=== PATIENT | male | born 1945 | race African-American/Black ===

== ENCOUNTER 2017-03-02 06:02 | Inpatient (IN) | payer MEDICARE, MEDICAID ==
--- NOTE | 2017-03-02 07:17 | ED Physician Chart ---
ED Chief Complaint/HPI - Patient Information Date Seen:: 03/02/17 Time Seen:: 07:05 Chief Complaint:: disruptive behavior History of Present Illness:: Patient has been exhibiting disruptive behavior and [facility]. Allergies:: Allergies Allergy/AdvReac Type Severity Reaction Status Date / Time benztropine [From Cogentin] Allergy Verified 03/02/17 06:11 Vitals:: Vital Signs - 8 hr 03/02/17 06:15 Temp 98.2 F HR 48 RR 18 BP 135/84 O2 Sat % 99 Historian:: Patient, Medical Records Review:: Transfer documents Reviewed <Sebastian Hay - Last Filed: 03/02/17 07:12> - Patient Information Allergies:: Allergies Allergy/AdvReac Type Severity Reaction Status Date / Time benztropine [From Cogentin] Allergy Verified 03/02/17 06:11 Vitals:: Vital Signs - 8 hr 03/02/17 06:15 Temp 98.2 F HR 48 RR 18 BP 135/84 O2 Sat % 99 <Gurpreet Lozada - Last Filed: 03/02/17 07:49> ED Review of Systems - Review of Systems General/Constitutional: No fever, No chills Skin: No skin lesions Head: No headache ENT: No earache Neck: No neck pain, No swelling Cardio Vascular: No chest pain, No palpitations Pulmonary: No SOB, No cough GI: No nausea, No vomiting, No diarrhea G/U: No dysuria, No frequency, No nacturia Musculoskeletal: No bone or joint pain Endocrine: No polyuria Psychiatric: Prior psych history Hematopoietic: No bruising Allergic/Immuno: No urticaria Neurological: No syncope <Sebastian Hay - Last Filed: 03/02/17 07:12> ED Past Medical History - Past Medical History Past Medical History: HTN, CHF (status post cerebrovascular accident; schizophrenia; anemia), Other Family History: Other (unavailable) Social History: Care Facility Surgical History: other Psychiatricy History: Schizophrenia, Other (psychosis) <Sebastian Hay - Last Filed: 03/02/17 07:12> Family Medical History - Family Member Mother History Unknown: Yes <Sebastian Hay - Last Filed: 03/02/17 07:12> ED Physical Exam - Physical Examination General/Constitutional: No distress Other Gen/Cons comments:: Mildly chronically ill-appearing; rambling incomprehensible speech Head: Atraumatic Eyes: Lids, conjuctiva normal, PERRL Skin: Nl inspection, No rash, No skin lesions, No ecchymosis ENMT: External ears, nose nl, Oropharynx nl, Tonsils nl (edentulous) Neck: No nuchal rigidity Respiratory: Nl effort/Exclusion, Clear to Auscultation Cardio Vascular: RRR, No murmur, gallop, rubs GI: No tenderness/rebounding/guarding, No organomegaly, No hernia : No CVA tenderness Extremities: Normal digits & nails Other Extremities comments:: 2.5 out of 4 pretibial pitting edema Neuro/Psych: No focal deficits <Sebastian Hay - Last Filed: 03/02/17 07:12> ED Labs/Radiology/EKG Results - Lab Results Results: Laboratory Tests 03/02/17 03/02/17 07:01 07:01 WBC 3.2 L RBC 3.58 L Hgb 11.2 L Hct 33.7 L MCV 94.2 MCH 31.4 H MCHC Differential 33.4 RDW 13.6 Plt Count 138 L MPV 8.4 Neutrophils % 71.9 Lymphocytes % 21.1 Monocytes % 5.8 Eosinophils % 1.0 Basophils % 0.2 Sodium 140 Potassium 3.4 L Chloride 106 Carbon Dioxide 30.1 Anion Gap 7.3 BUN 27 H Creatinine 1.0 Est GFR ( Amer) > 60.0 Est GFR (Non-Af Amer) > 60.0 BUN/Creatinine Ratio 27.0 Glucose 77 Calcium 9.2 Total Bilirubin 0.4 AST 51 H ALT 52 Alkaline Phosphatase 46 Total Protein 6.1 Albumin 3.4 L Globulin 2.7 Albumin/Globulin Ratio 1.3 Comments:: Abnormal labs were hemoglobin of 11.2, hematocrit 33.7, platelets 138 K, potassium at 3.4, white blood cell count of 3.2 K - EKG Interpretations Rate & Rhythm: sinus bradycardia with a rate of 47; left axis deviation; 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 Patient is medically stable to be admitted to [facility] <Gurpreet Lozada - Last Filed: 03/02/17 07:49> ED Septic Shock - <6hrs of presentation: Vital Signs: Vital Signs - 8 hr 03/02/17 06:15 Temp 98.2 F HR 48 RR 18 BP 135/84 O2 Sat % 99 <Sebastian Hay - Last Filed: 03/02/17 07:12> - . Is Septic Shock (SBP<90, OR Lactate>4 mmol\L) present?: No - <6hrs of presentation: Vital Signs: Vital Signs - 8 hr 03/02/17 06:15 Temp 98.2 F HR 48 RR 18 BP 135/84 O2 Sat % 99 <Gurpreet Lozada - Last Filed: 03/02/17 07:49> ED Reassessment (Disposition) - Reassessment Reassessment Condition:: Unchanged - Diagnosis Diagnosis:: Psychosis; schizophrenia disruptive behavior; dementia - Patient Disposition Admitting Medical Physician:: Derian Mcleod Admitting Psych Physician:: Allison Romero Condition at Disposition:: Stable, Unchanged <Gurpreet Lozada - Last Filed: 03/02/17 07:49>
[2017-03-02 07:18] LABS: % BASOPHILS 0.2 % (0.0-2.0); % LYMPHOCYTES 21.1 % (20.0-50.0); % MONOCYTES 5.8 % (2.0-10.0); % NEUTROPHILS 71.9 % (40.0-80.0); HEMATOCRIT 33.7 % (41.0-60); HEMOGLOBIN 11.2 gm/dL (12-16); LYMPHOCYTE ABSOLUTE 0.7 Th/cmm (1.5-3.0); MEAN CELL VOLUME 94.2 fl (80-99); MEAN CORPUSCULAR HEMOGLOBIN 31.4 pg (27.0-31.0); MEAN CORPUSCULAR HGB CONC 33.4 pg (28.0-36.0); MEAN PLATELET VOLUME 8.4 fl; MONOCYTE ABSOLUTE 0.2 Th/cmm (0.3-1.0); NEUTROPHILE ABSOLUTE 2.3 Th/cmm (1.8-8.0); PLATELET COUNT 138 Th/cmm (150-400); RED BLOOD COUNT 3.58 Mil/cmm (3.80-5.80); RED CELL DISTRIBUTION WIDTH 13.6 % (11.5-20.0)
[2017-03-02 07:25] LABS: ALB/GLOB RATIO 1.3 (1.0-1.8); ALBUMIN 3.4 gm/dL (4.2-5.5); ALKALINE PHOSPHATASE 46 U/L (34-104); ANION GAP 7.3 (7.0-16.0); BILIRUBIN,TOTAL 0.4 mg/dL (0.3-1.0); BUN - UREA NITROGEN 27 mg/dL (7-25); CALCIUM SERUM 9.2 mg/dL (8.6-10.3); CARBON DIOXIDE 30.1 mEq/L (21.0-31.0); CHLORIDE 106 mEq/L (98-107); GFR AFRICAN-AMERICAN > 60.0 ml/min (>90); GFR NON AFRICAN-AMERICAN > 60.0 ml/min; GLUCOSE 77 mg/dL (70-105); POTASSIUM SERUM 3.4 mEq/L (3.5-5.1); SGOT 51 U/L (13-39); SGPT/ALT 52 U/L (7-52); SODIUM SERUM 140 mEq/L (136-145); TOTAL PROTEIN,SERUM 6.1 gm/dL (6.0-8.3)
[2017-03-02 07:35] LABS: WHITE BLOOD COUNT 3.2 Th/cmm (4.8-10.8)
[2017-03-02] MEDS ORDERED: Potassium Chloride 20 mEq ER Tab PO ONE ×2 (07:50→08:06)
[2017-03-02 09:07] VITALS: BP 147/81
[2017-03-02] MEDS ORDERED: Maalox 30 mL Cup PO PRN (13:36)
[2017-03-02] MEDS ORDERED: Magnesium Hydroxide (MOM) 30 mL UDC PO PRN ×2 (13:36→15:25)
[2017-03-02 14:12] LABS: URINE MICROSCOPIC INDICATED? YES; URINE SOURCE MIDSTREAM
[2017-03-02 14:28] LABS: URINE BILIRUBIN NEGATIVE (NEGATIVE); URINE BLOOD NEGATIVE (NEGATIVE); URINE GLUCOSE (UA) NEGATIVE (NEGATIVE); URINE KETONE NEGATIVE (NEGATIVE); URINE LEUKOCYTE ESTERASE NEGATIVE (NEGATIVE); URINE NITRATE NEGATIVE (NEGATIVE); URINE PH 5.5 (4.6 - 8.0); URINE PROTEIN NEGATIVE (NEGATIVE); URINE UROBILINOGEN 0.2 E.U./dL (0.2 - 1.0)
[2017-03-02 14:36] LABS: URINE COLOR YELLOW
[2017-03-02 14:41] LABS: URINE CLARITY CLEAR (CLEAR)
[2017-03-02 14:44] LABS: URINE EPITHELIAL CELLS OCCASIONAL /lpf (FEW); URINE WBC 0-2 /hpf (0-5)
[2017-03-02] MEDS ORDERED: Acetaminophen 500 MG TAB PO PRN (15:25)
[2017-03-02] MEDS: Ferrous Sulfate 325 MG TAB PO SCH (21:30)
[2017-03-03] MEDS ORDERED: Haloperidol Lactate 5 mg/mL 1mL Vial IM STA (07:21)
[2017-03-03] MEDS ORDERED: Haloperidol Lactate 5 mg/mL 1mL Vial ONE (07:21)
[2017-03-03] MEDS: Ferrous Sulfate 325 MG TAB PO SCH ×4 (09:37→20:35)
[2017-03-03] MEDS: Aspirin 81mg Chewable Tab PO SCH (09:37)
--- NOTE | 2017-03-03 10:30 | Psychosocial Evaluation ---
DATE OF SERVICE: PSYCHIATRIC INITIAL EVALUATION AND MENTAL STATUS EXAMINATION AGE: 71. SEX: Male. PHYSICIAN: Dr. Romero. CHIEF COMPLAINT: Agitation and irritable mood. HISTORY OF PRESENT ILLNESS: The patient is a 71-year-old male who was transferred from [facility] because of increased agitation and increased irritability. The patient also has been unable to follow any of the staff directions and start to strike out towards staff. He also is not able to follow any of the staff directions. Chart reviewed and interviewed the patient. The patient has been in irritable and angry mood and the patient during my interview was actively responding to stimuli and at times talking to himself, also disheveled. Also, he was rambling and thought processes were circumstantial with flight of ideas. PAST PSYCHIATRIC HISTORY: The patient has history of what seems to be psychosis and dementia. PAST MEDICAL HISTORY: The patient denies. SOCIAL HISTORY: The patient lives in [place]. He is single, never , and has no children. The patient said that he smokes 1 pack of cigarette per day. He denies alcohol or street drug use. ALLERGIES: No known allergies. MENTAL STATUS EXAMINATION: The patient appears his stated age. Irritable mood. Disheveled. Thought processes are circumstantial with flight of ideas. The patient denies any auditory or visual hallucinations, but actively responding to stimuli and actively hallucinating. He denies any thoughts of suicide or homicide as he was agitated and striking out in the correction. The patient is alert and oriented to the situation, but not to the place or time or person. Impaired immediate and recent memory, but intact remote memory and he did remember his date, but he did not remember where he lives now. Poor insight and poor judgment. ASSESSMENT: PRIMARY DIAGNOSIS: Unspecified psychosis. SECONDARY DIAGNOSIS: Dementia, moderate to severe, with psychotic features. TREATMENT PLAN: We will monitor his behavior and his condition closely. We will monitor psychotropic medications and followup. ESTIMATED LENGTH OF STAY: 5-7 days. THE PATIENT'S STRENGTHS AND WEAKNESSES: The patient's strength is not clear at this time. Weakness is in ineffective coping. AFTER DISCHARGE PLAN: Outpatient treatment and followup. JOB# [id number]
[2017-03-04] MEDS: Aspirin 81mg Chewable Tab PO SCH (08:20)
[2017-03-04] MEDS: Multivitamin Tab PO SCH (08:20)
[2017-03-04] MEDS: Ferrous Sulfate 325 MG TAB PO SCH ×3 (08:20→20:23)
--- NOTE | 2017-03-04 09:01 | History & Physical ---
ADMIT DATE: 03/04/2017 CHIEF COMPLAINT: Agitation. HISTORY OF PRESENT ILLNESS: This is a 71-year-old male, who was brought in to the Emergency Room from a senior care facility due to increased agitation and disruptive behaviors. REVIEW OF SYSTEMS: GENERAL: This is a 71-year-old male that appears as stated. Denies any fever. Denies any chills. HEAD: Denies any headache. Denies any dizziness. Denies any lightheadedness. EYES: Denies any eye pain. Denies blurring of vision. NECK: Denies any neck pain. Denies nuchal rigidity. CHEST: Denies any chest pain. Denies any palpitation. PULMONARY: Denies shortness of breath. Denies coughing. GASTROINTESTINAL: Denies abdominal pain. Denies diarrhea. Denies constipation. MUSCULOSKELETAL: Denies muscle pain. Denies any joint pains. SOCIAL HISTORY: The patient lives in a senior care facility prior to hospitalization. SURGICAL HISTORY: Unremarkable. FAMILY HISTORY: Unremarkable. PSYCHIATRIC HISTORY: Includes schizophrenia and dementia. PAST MEDICAL HISTORY: Includes osteoarthritis, iron deficiency anemia, congestive heart failure, and hypertension. PHYSICAL EXAMINATION: VITAL SIGNS: Temperature 97.8, heart rate of 62, blood pressure 94/62, respirations of 18, and 96% on room air. HEENT: Head is atraumatic, normocephalic. Eyes; bilateral conjunctivae are clear. Bilateral pupils are equally round and reactive. NECK: Supple. No JVD. CARDIOVASCULAR: S1 and S2 without murmur. PULMONARY: Clear to auscultation. GASTROINTESTINAL: Soft and nontender without guarding. Positive bowel sounds. MUSCULOSKELETAL: No clubbing and no cyanosis noted. ASSESSMENT: 1. Psychosis. 2. Dementia. 3. Congestive heart failure. 4. Hypertension. 5. Iron deficiency anemia. 6. Osteoarthritis. 7. Insomnia. PLAN: We will keep the patient in inpatient Psychiatric Unit. We will follow up with the psychiatrist to monitor the patient's condition and behavior. Treatment plans were discussed with the patient's nurse. Treatment plans were discussed with Dr. Mcleod. JOB# [id number]
--- NOTE | 2017-03-04 16:31 | Progress Notes ---
DATE: 03/03/2017 SUBJECTIVE: Chart reviewed and the patient interviewed. Also discussed the patient's condition with the staff, and reviewed records and labs. The patient is still extremely irritable and agitated. The patient also is aggressive with the staff and with others. Also, not able to follow directions and he is fighting. Otherwise, the patient is compliant with taking his medications with no side effects of medications. ASSESSMENT: The patient is still psychotic and in irritable mood. TREATMENT PLAN: We will continue to monitor his behavior closely. Also, continue to work on his poor impulse control and ineffective coping, and we will continue to follow up. JOB# [id number]
--- NOTE | 2017-03-05 09:18 | Progress Notes ---
DATE: 03/04/2017 SUBJECTIVE: The patient was seen and evaluated. The patient's chart reviewed. I am covering for Dr. Romero. IDENTIFYING DATA: A 71-year-old male, who was initially brought in here for agitation and irritable mood; recently, he was coming from [facility], who has been increasingly agitated with increased irritability and he is unable to follow any staff directions and has been striking and hitting others. Today on [id number] evaluation, the patient is seen to be walking in the hallways, pacing, needing a lot of redirection and disorganized and very difficult to understand with what he is saying. MENTAL STATUS EXAMINATION: Still continues to be disorganized, needing a lot of redirections. ASSESSMENT AND PLAN: The patient is a 71-year-old male with a history of paranoid schizophrenia, who presents still disorganized, needing a lot of redirection as he continues ____ poor boundaries and moving from one room to another and pacing, unable to formulate a safe plan outside the structured environment. JOB# [id number]
--- NOTE | 2017-03-05 09:23 | General Progress Note ---
Subjective - Review of Systems Events since last encounter: patient still confused disorganized needing support Objective - Results Result Diagrams: 03/02/17 07:01 03/02/17 07:01 Recent Labs: Laboratory Last Values WBC 3.2 Th/cmm (4.8-10.8) L 03/02/17 07:01 RBC 3.58 Mil/cmm (3.80-5.80) L 03/02/17 07:01 Hgb 11.2 gm/dL (12-16) L 03/02/17 07:01 Hct 33.7 % (41.0-60) L 03/02/17 07:01 MCV 94.2 fl (80-99) 03/02/17 07:01 MCH 31.4 pg (27.0-31.0) H 03/02/17 07:01 MCHC Differential 33.4 pg (28.0-36.0) 03/02/17 07:01 RDW 13.6 % (11.5-20.0) 03/02/17 07:01 Plt Count 138 Th/cmm (150-400) L 03/02/17 07:01 MPV 8.4 fl 03/02/17 07:01 Neutrophils % 71.9 % (40.0-80.0) 03/02/17 07:01 Lymphocytes % 21.1 % (20.0-50.0) 03/02/17 07:01 Monocytes % 5.8 % (2.0-10.0) 03/02/17 07:01 Eosinophils % 1.0 % (0.0-5.0) 03/02/17 07:01 Basophils % 0.2 % (0.0-2.0) 03/02/17 07:01 Sodium 140 mEq/L (136-145) 03/02/17 07:01 Potassium 3.4 mEq/L (3.5-5.1) L 03/02/17 07:01 Chloride 106 mEq/L (98-107) 03/02/17 07:01 Carbon Dioxide 30.1 mEq/L (21.0-31.0) 03/02/17 07:01 Anion Gap 7.3 (7.0-16.0) 03/02/17 07:01 BUN 27 mg/dL (7-25) H 03/02/17 07:01 Creatinine 1.0 mg/dL (0.7-1.3) 03/02/17 07:01 Est GFR ( Amer) > 60.0 ml/min (>90) 03/02/17 07:01 Est GFR (Non-Af Amer) > 60.0 ml/min 03/02/17 07:01 BUN/Creatinine Ratio 27.0 03/02/17 07:01 Glucose 77 mg/dL (70-105) 03/02/17 07:01 Whole Bld Lactic Acid 0.46 mmol/L (0.60-1.99) L 03/02/17 07:46 Calcium 9.2 mg/dL (8.6-10.3) 03/02/17 07:01 Total Bilirubin 0.4 mg/dL (0.3-1.0) 03/02/17 07:01 AST 51 U/L (13-39) H 03/02/17 07:01 ALT 52 U/L (7-52) 03/02/17 07:01 Alkaline Phosphatase 46 U/L (34-104) 03/02/17 07:01 Total Protein 6.1 gm/dL (6.0-8.3) 03/02/17 07:01 Albumin 3.4 gm/dL (4.2-5.5) L 03/02/17 07:01 Globulin 2.7 gm/dL 03/02/17 07:01 Albumin/Globulin Ratio 1.3 (1.0-1.8) 03/02/17 07:01 TSH 1.87 uIU/ml (0.34-5.60) 03/02/17 07:01 Urine Source MIDSTREAM 03/02/17 07:15 Urine Color YELLOW 03/02/17 07:15 Urine Clarity CLEAR (CLEAR) 03/02/17 07:15 Urine pH 5.5 (4.6 - 8.0) 03/02/17 07:15 Ur Specific [place] 1.010 (1.005-1.030) 03/02/17 07:15 Urine Protein NEGATIVE mg/dL (NEGATIVE) 03/02/17 07:15 Urine Glucose (UA) NEGATIVE mg/dL (NEGATIVE) 03/02/17 07:15 Urine Ketones NEGATIVE mg/dL (NEGATIVE) 03/02/17 07:15 Urine Blood NEGATIVE (NEGATIVE) 03/02/17 07:15 Urine Nitrate NEGATIVE (NEGATIVE) 03/02/17 07:15 Urine Bilirubin NEGATIVE (NEGATIVE) 03/02/17 07:15 Urine Urobilinogen 0.2 E.U./dL (0.2 - 1.0) 03/02/17 07:15 Ur Leukocyte Esterase NEGATIVE (NEGATIVE) 03/02/17 07:15 Urine WBC 0-2 /hpf (0-5) 03/02/17 07:15 Ur Epithelial Cells OCCASIONAL /lpf (FEW) 03/02/17 07:15 Valproic Acid < 10.0 ug/mL (50.0-100.0) L 03/02/17 06:41 RPR NONREACTIVE (NONREACTIVE) 03/02/17 07:01 - Physical Exam Vitals and I&O: Vital Signs Temp 98 F 03/04/17 20:26 Pulse 78 03/04/17 20:26 Resp 19 03/04/17 20:26 BP 110/65 03/04/17 20:26 Pulse Ox 97 03/04/17 20:26 Intake & Output 03/04/17 03/05/17 03/05/17 18:59 06:59 18:59 Intake Total 900 240 Balance 900 240 Intake: Oral 900 240 Other: # Voids 4 2 # Bowel Movements 0 Stool Characteristics Soft Active Medications: Current Medications Acetaminophen (Tylenol) 650 mg PO Q4HR PRN PRN Reason: Mild Pain / Temp above 100 Stop: 05/01/17 13:35 Acetaminophen (Tylenol Extra Strength) 1,000 mg PO Q4HR PRN PRN Reason: Pain (Moderate) Stop: 05/01/17 15:24 Acetaminophen (Tylenol) 650 mg PO Q4HR PRN PRN Reason: Mild Pain or Fever >101F Stop: 05/01/17 15:24 Al Hydrox/Mg Hydrox/Simethicone (Maalox) 30 ml PO Q4HR PRN PRN Reason: GI DISTRESS Stop: 05/01/17 13:35 Aspirin (Aspirin Chewable) 81 mg PO DAILY ELISABET Stop: 05/02/17 08:59 Last Admin: 03/04/17 08:20 Dose: 81 mg Bisacodyl (Dulcolax 10 Mg Supp) 10 mg RC DAILY PRN PRN Reason: Constipation Stop: 05/01/17 15:24 Divalproex Sodium (Depakote Dr) 500 mg PO BID ELISABET PRN Reason: Protocol Stop: 05/01/17 16:59 Last Admin: 03/04/17 18:07 Dose: 500 mg Docusate Sodium (Colace) 100 mg PO DAILY [facility] Stop: 05/02/17 08:59 Last Admin: 03/04/17 08:20 Dose: 100 mg Ferrous Sulfate (Iron) 325 mg PO TID ELISABET Stop: 05/01/17 20:59 Last Admin: 03/04/17 20:23 Dose: 325 mg Furosemide (Lasix) 20 mg PO DAILY ELISABET Stop: 05/02/17 08:59 Last Admin: 03/04/17 08:21 Dose: 20 mg Lorazepam (Ativan) 0.5 mg PO Q4HR PRN; Protocol PRN Reason: Agitation Stop: 04/01/17 13:35 Last Admin: 03/04/17 18:07 Dose: 0.5 mg Magnesium Hydroxide (Milk Of Magnesia) 30 ml PO HS PRN PRN Reason: Constipation Magnesium Hydroxide (Milk Of Magnesia) 30 ml PO DAILY PRN PRN Reason: Constipation Stop: 05/01/17 15:24 Multivitamins/Vitamin C (Theragran) 1 tab PO DAILY ELISABET Stop: 05/03/17 08:59 Last Admin: 03/04/17 08:20 Dose: 1 tab Quetiapine Fumarate (Seroquel) 400 mg PO BID ELISABET PRN Reason: Protocol Stop: 05/01/17 16:59 Last Admin: 03/04/17 18:07 Dose: 400 mg Valsartan (Diovan) 80 mg PO DAILY [facility] Stop: 05/02/17 08:59 Last Admin: 03/04/17 08:22 Dose: 80 mg Zolpidem Tartrate (Ambien) 5 mg PO HS PRN PRN Reason: Insomnia Stop: 05/01/17 13:35 Last Admin: 03/04/17 20:23 Dose: 5 mg General: No acute distress HEENT: Atraumatic Neck: Supple Cardiovascular: Regular rate, Normal S1, Normal S2
[2017-03-05] MEDS: Multivitamin Tab PO SCH (10:03)
[2017-03-05] MEDS: Ferrous Sulfate 325 MG TAB PO SCH ×3 (10:04→21:19)
[2017-03-05] MEDS: Aspirin 81mg Chewable Tab PO SCH (10:04)
--- NOTE | 2017-03-05 22:08 | Progress Notes ---
DATE: 03/05/2017 The patient was seen and evaluated. The patient's chart reviewed. Dr. Kline covering for Dr. Romero. SUBJECTIVE: Overnight nursing staff reported the patient continues to be needing a lot of redirection, irritates very easily, disorganized, mostly walking in and out of different rooms and disorganized and will comply with the medication. Today, the patient observed to be easily irritable, pacing in and out of rooms and needed a lot of structure to maintain a linear conversation, easily derails and very difficult to understand. MENTAL STATUS EXAMINATION: Disorganized, derail. Poor insight, judgment and impulse control. ASSESSMENT AND PLAN: The patient is a 71-year-old male with a history of schizoaffective, currently on Depakote 500 mg p.o. b.i.d., Seroquel 400 mg b.i.d. to target the patient's underlying schizoaffective bipolar type. JOB# [id number]
[2017-03-06] MEDS: Ferrous Sulfate 325 MG TAB PO SCH ×3 (08:51→20:52)
[2017-03-06] MEDS: Multivitamin Tab PO SCH (08:52)
[2017-03-06] MEDS: Aspirin 81mg Chewable Tab PO SCH (08:57)
--- NOTE | 2017-03-06 09:32 | General Progress Note ---
Subjective - Review of Systems Events since last encounter: patient awake still disorganized poor judgment irritable Objective - Results Result Diagrams: 03/02/17 07:01 03/02/17 07:01 Recent Labs: Laboratory Last Values WBC 3.2 Th/cmm (4.8-10.8) L 03/02/17 07:01 RBC 3.58 Mil/cmm (3.80-5.80) L 03/02/17 07:01 Hgb 11.2 gm/dL (12-16) L 03/02/17 07:01 Hct 33.7 % (41.0-60) L 03/02/17 07:01 MCV 94.2 fl (80-99) 03/02/17 07:01 MCH 31.4 pg (27.0-31.0) H 03/02/17 07:01 MCHC Differential 33.4 pg (28.0-36.0) 03/02/17 07:01 RDW 13.6 % (11.5-20.0) 03/02/17 07:01 Plt Count 138 Th/cmm (150-400) L 03/02/17 07:01 MPV 8.4 fl 03/02/17 07:01 Neutrophils % 71.9 % (40.0-80.0) 03/02/17 07:01 Lymphocytes % 21.1 % (20.0-50.0) 03/02/17 07:01 Monocytes % 5.8 % (2.0-10.0) 03/02/17 07:01 Eosinophils % 1.0 % (0.0-5.0) 03/02/17 07:01 Basophils % 0.2 % (0.0-2.0) 03/02/17 07:01 Sodium 140 mEq/L (136-145) 03/02/17 07:01 Potassium 3.4 mEq/L (3.5-5.1) L 03/02/17 07:01 Chloride 106 mEq/L (98-107) 03/02/17 07:01 Carbon Dioxide 30.1 mEq/L (21.0-31.0) 03/02/17 07:01 Anion Gap 7.3 (7.0-16.0) 03/02/17 07:01 BUN 27 mg/dL (7-25) H 03/02/17 07:01 Creatinine 1.0 mg/dL (0.7-1.3) 03/02/17 07:01 Est GFR ( Amer) > 60.0 ml/min (>90) 03/02/17 07:01 Est GFR (Non-Af Amer) > 60.0 ml/min 03/02/17 07:01 BUN/Creatinine Ratio 27.0 03/02/17 07:01 Glucose 77 mg/dL (70-105) 03/02/17 07:01 Whole Bld Lactic Acid 0.46 mmol/L (0.60-1.99) L 03/02/17 07:46 Calcium 9.2 mg/dL (8.6-10.3) 03/02/17 07:01 Total Bilirubin 0.4 mg/dL (0.3-1.0) 03/02/17 07:01 AST 51 U/L (13-39) H 03/02/17 07:01 ALT 52 U/L (7-52) 03/02/17 07:01 Alkaline Phosphatase 46 U/L (34-104) 03/02/17 07:01 Total Protein 6.1 gm/dL (6.0-8.3) 03/02/17 07:01 Albumin 3.4 gm/dL (4.2-5.5) L 03/02/17 07:01 Globulin 2.7 gm/dL 03/02/17 07:01 Albumin/Globulin Ratio 1.3 (1.0-1.8) 03/02/17 07:01 TSH 1.87 uIU/ml (0.34-5.60) 03/02/17 07:01 Urine Source MIDSTREAM 03/02/17 07:15 Urine Color YELLOW 03/02/17 07:15 Urine Clarity CLEAR (CLEAR) 03/02/17 07:15 Urine pH 5.5 (4.6 - 8.0) 03/02/17 07:15 Ur Specific [place] 1.010 (1.005-1.030) 03/02/17 07:15 Urine Protein NEGATIVE mg/dL (NEGATIVE) 03/02/17 07:15 Urine Glucose (UA) NEGATIVE mg/dL (NEGATIVE) 03/02/17 07:15 Urine Ketones NEGATIVE mg/dL (NEGATIVE) 03/02/17 07:15 Urine Blood NEGATIVE (NEGATIVE) 03/02/17 07:15 Urine Nitrate NEGATIVE (NEGATIVE) 03/02/17 07:15 Urine Bilirubin NEGATIVE (NEGATIVE) 03/02/17 07:15 Urine Urobilinogen 0.2 E.U./dL (0.2 - 1.0) 03/02/17 07:15 Ur Leukocyte Esterase NEGATIVE (NEGATIVE) 03/02/17 07:15 Urine WBC 0-2 /hpf (0-5) 03/02/17 07:15 Ur Epithelial Cells OCCASIONAL /lpf (FEW) 03/02/17 07:15 Valproic Acid < 10.0 ug/mL (50.0-100.0) L 03/02/17 06:41 RPR NONREACTIVE (NONREACTIVE) 03/02/17 07:01 - Physical Exam Vitals and I&O: Vital Signs Temp 97.8 F 03/06/17 05:54 Pulse 67 03/06/17 08:53 Resp 20 03/06/17 05:54 BP 151/90 03/06/17 08:53 Pulse Ox 97 03/06/17 05:54 Intake & Output 03/05/17 03/06/17 03/06/17 18:59 06:59 18:59 Intake Total 800 240 Balance 800 240 Intake: Oral 800 240 Other: # Voids 3 3 # Bowel Movements 0 0 Active Medications: Current Medications Acetaminophen (Tylenol Extra Strength) 1,000 mg PO Q4HR PRN PRN Reason: Pain (Moderate) Stop: 05/01/17 15:24 Acetaminophen (Tylenol) 650 mg PO Q4HR PRN PRN Reason: Mild Pain or Fever >101F Stop: 05/01/17 15:24 Al Hydrox/Mg Hydrox/Simethicone (Maalox) 30 ml PO Q4HR PRN PRN Reason: GI DISTRESS Stop: 05/01/17 13:35 Aspirin (Aspirin Chewable) 81 mg PO DAILY ELISABET Stop: 05/02/17 08:59 Last Admin: 03/06/17 08:57 Dose: 81 mg Bisacodyl (Dulcolax 10 Mg Supp) 10 mg RC DAILY PRN PRN Reason: Constipation Stop: 05/01/17 15:24 Divalproex Sodium (Depakote Dr) 500 mg PO BID ELISABET PRN Reason: Protocol Stop: 05/01/17 16:59 Last Admin: 03/06/17 08:51 Dose: 500 mg Docusate Sodium (Colace) 100 mg PO DAILY ELISBAET Stop: 05/02/17 08:59 Last Admin: 03/06/17 08:52 Dose: 100 mg Ferrous Sulfate (Iron) 325 mg PO TID ELISABET Stop: 05/01/17 20:59 Last Admin: 03/06/17 08:51 Dose: 325 mg Furosemide (Lasix) 20 mg PO DAILY ELISABET Stop: 05/02/17 08:59 Last Admin: 03/06/17 08:52 Dose: 20 mg Lorazepam (Ativan) 0.5 mg PO Q4HR PRN; Protocol PRN Reason: Agitation Stop: 04/01/17 13:35 Last Admin: 03/04/17 18:07 Dose: 0.5 mg Magnesium Hydroxide (Milk Of Magnesia) 30 ml PO HS PRN PRN Reason: Constipation Magnesium Hydroxide (Milk Of Magnesia) 30 ml PO DAILY PRN PRN Reason: Constipation Stop: 05/01/17 15:24 Multivitamins/Vitamin C (Theragran) 1 tab PO DAILY ELISABET Stop: 05/03/17 08:59 Last Admin: 03/06/17 08:52 Dose: 1 tab Quetiapine Fumarate (Seroquel) 400 mg PO BID ELISABET PRN Reason: Protocol Stop: 05/01/17 16:59 Last Admin: 03/06/17 08:53 Dose: 400 mg Valsartan (Diovan) 80 mg PO DAILY ELISABET Stop: 05/02/17 08:59 Last Admin: 03/06/17 08:53 Dose: 80 mg Zolpidem Tartrate (Ambien) 5 mg PO HS PRN PRN Reason: Insomnia Stop: 05/01/17 13:35 Last Admin: 03/05/17 21:19 Dose: 5 mg General: No acute distress HEENT: Atraumatic Neck: Supple Cardiovascular: Regular rate, Normal S1, Normal S2 Assessment/Plan - Problem List Patient Problems: All Active Problems Schizophrenia (Acute) F20.9 - Plan Plan: as per psych
--- NOTE | 2017-03-06 12:19 | Progress Notes ---
DATE: SUBJECTIVE: Chart reviewed and the patient interviewed. Also discussed the patient's condition with the staff and reviewed records and labs. The patient is still resisting care and easily agitated. The patient also is confused and disoriented. The patient also is trying to get out of bed and of a chair and unable to follow directions. The patient also is still aggressive and fighting with others for no reason. Otherwise, the patient is compliant with taking his medications with no side effects of medications. ASSESSMENT: The patient is still confused and agitated. TREATMENT PLAN: We will continue monitoring his behavior and his condition. Also, continue Depakote same dose. Also, working on poor impulse control. ESTIMATED LENGTH OF STAY: 3-5 days. LABORATORY: No new labs available for review. Depakote blood level that was done upon admission was ____ and we will get another Depakote blood level tomorrow. JOB# [id number]
[2017-03-07] MEDS: Multivitamin Tab PO SCH (08:34)
[2017-03-07] MEDS: Aspirin 81mg Chewable Tab PO SCH (08:34)
[2017-03-07] MEDS: Ferrous Sulfate 325 MG TAB PO SCH ×3 (08:34→21:00)
--- NOTE | 2017-03-07 12:42 | Internal Medicine Prog Note ---
Internal Medicine Subjective - Subjective Service Date: 03/07/17 Patient seen and examined:: with staff Patient is:: awake Per staff patient has:: no adverse event Internal Medicine Objective - Results Result Diagrams: 03/02/17 07:01 03/02/17 07:01 Recent Labs: Laboratory Last Values WBC 3.2 Th/cmm (4.8-10.8) L 03/02/17 07:01 RBC 3.58 Mil/cmm (3.80-5.80) L 03/02/17 07:01 Hgb 11.2 gm/dL (12-16) L 03/02/17 07:01 Hct 33.7 % (41.0-60) L 03/02/17 07:01 MCV 94.2 fl (80-99) 03/02/17 07:01 MCH 31.4 pg (27.0-31.0) H 03/02/17 07:01 MCHC Differential 33.4 pg (28.0-36.0) 03/02/17 07:01 RDW 13.6 % (11.5-20.0) 03/02/17 07:01 Plt Count 138 Th/cmm (150-400) L 03/02/17 07:01 MPV 8.4 fl 03/02/17 07:01 Neutrophils % 71.9 % (40.0-80.0) 03/02/17 07:01 Lymphocytes % 21.1 % (20.0-50.0) 03/02/17 07:01 Monocytes % 5.8 % (2.0-10.0) 03/02/17 07:01 Eosinophils % 1.0 % (0.0-5.0) 03/02/17 07:01 Basophils % 0.2 % (0.0-2.0) 03/02/17 07:01 Sodium 140 mEq/L (136-145) 03/02/17 07:01 Potassium 3.4 mEq/L (3.5-5.1) L 03/02/17 07:01 Chloride 106 mEq/L (98-107) 03/02/17 07:01 Carbon Dioxide 30.1 mEq/L (21.0-31.0) 03/02/17 07:01 Anion Gap 7.3 (7.0-16.0) 03/02/17 07:01 BUN 27 mg/dL (7-25) H 03/02/17 07:01 Creatinine 1.0 mg/dL (0.7-1.3) 03/02/17 07:01 Est GFR ( Amer) > 60.0 ml/min (>90) 03/02/17 07:01 Est GFR (Non-Af Amer) > 60.0 ml/min 03/02/17 07:01 BUN/Creatinine Ratio 27.0 03/02/17 07:01 Glucose 77 mg/dL (70-105) 03/02/17 07:01 Whole Bld Lactic Acid 0.46 mmol/L (0.60-1.99) L 03/02/17 07:46 Calcium 9.2 mg/dL (8.6-10.3) 03/02/17 07:01 Total Bilirubin 0.4 mg/dL (0.3-1.0) 03/02/17 07:01 AST 51 U/L (13-39) H 03/02/17 07:01 ALT 52 U/L (7-52) 03/02/17 07:01 Alkaline Phosphatase 46 U/L (34-104) 03/02/17 07:01 Total Protein 6.1 gm/dL (6.0-8.3) 03/02/17 07:01 Albumin 3.4 gm/dL (4.2-5.5) L 03/02/17 07:01 Globulin 2.7 gm/dL 03/02/17 07:01 Albumin/Globulin Ratio 1.3 (1.0-1.8) 03/02/17 07:01 TSH 1.87 uIU/ml (0.34-5.60) 03/02/17 07:01 Urine Source MIDSTREAM 03/02/17 07:15 Urine Color YELLOW 03/02/17 07:15 Urine Clarity CLEAR (CLEAR) 03/02/17 07:15 Urine pH 5.5 (4.6 - 8.0) 03/02/17 07:15 Ur Specific [place] 1.010 (1.005-1.030) 03/02/17 07:15 Urine Protein NEGATIVE mg/dL (NEGATIVE) 03/02/17 07:15 Urine Glucose (UA) NEGATIVE mg/dL (NEGATIVE) 03/02/17 07:15 Urine Ketones NEGATIVE mg/dL (NEGATIVE) 03/02/17 07:15 Urine Blood NEGATIVE (NEGATIVE) 03/02/17 07:15 Urine Nitrate NEGATIVE (NEGATIVE) 03/02/17 07:15 Urine Bilirubin NEGATIVE (NEGATIVE) 03/02/17 07:15 Urine Urobilinogen 0.2 E.U./dL (0.2 - 1.0) 03/02/17 07:15 Ur Leukocyte Esterase NEGATIVE (NEGATIVE) 03/02/17 07:15 Urine WBC 0-2 /hpf (0-5) 03/02/17 07:15 Ur Epithelial Cells OCCASIONAL /lpf (FEW) 03/02/17 07:15 Valproic Acid < 10.0 ug/mL (50.0-100.0) L 03/02/17 06:41 RPR NONREACTIVE (NONREACTIVE) 03/02/17 07:01 - Physical Exam Vitals and I&O: Vital Signs Temp 97.0 F 03/07/17 06:30 Pulse 71 03/07/17 08:00 Resp 18 03/07/17 08:00 BP 143/94 03/07/17 08:33 Pulse Ox 100 03/07/17 06:30 Intake & Output 03/06/17 03/07/17 03/07/17 18:59 06:59 18:59 Intake Total 1000 Balance 1000 Intake: Oral 1000 Other: # Voids 4 # Bowel Movements 1 Active Medications: Current Medications Acetaminophen (Tylenol Extra Strength) 1,000 mg PO Q4HR PRN PRN Reason: Pain (Moderate) Stop: 05/01/17 15:24 Acetaminophen (Tylenol) 650 mg PO Q4HR PRN PRN Reason: Mild Pain or Fever >101F Stop: 05/01/17 15:24 Al Hydrox/Mg Hydrox/Simethicone (Maalox) 30 ml PO Q4HR PRN PRN Reason: GI DISTRESS Stop: 05/01/17 13:35 Aspirin (Aspirin Chewable) 81 mg PO DAILY [facility] Stop: 05/02/17 08:59 Last Admin: 03/07/17 08:34 Dose: 81 mg Bisacodyl (Dulcolax 10 Mg Supp) 10 mg RC DAILY PRN PRN Reason: Constipation Stop: 05/01/17 15:24 Clonazepam (Klonopin) 0.5 mg PO BID [facility] PRN Reason: Protocol Stop: 05/06/17 08:59 Divalproex Sodium (Depakote Dr) 500 mg PO BID [facility] PRN Reason: Protocol Stop: 05/01/17 16:59 Last Admin: 03/07/17 08:33 Dose: 500 mg Docusate Sodium (Colace) 100 mg PO DAILY [facility] Stop: 05/02/17 08:59 Last Admin: 03/07/17 08:34 Dose: 100 mg Ferrous Sulfate (Iron) 325 mg PO TID [facility] Stop: 05/01/17 20:59 Last Admin: 03/07/17 08:34 Dose: 325 mg Furosemide (Lasix) 20 mg PO DAILY [facility] Stop: 05/02/17 08:59 Last Admin: 03/07/17 08:33 Dose: 20 mg Lorazepam (Ativan) 0.5 mg PO Q4HR PRN; Protocol PRN Reason: Agitation Stop: 04/01/17 13:35 Last Admin: 03/07/17 08:44 Dose: 0.5 mg Magnesium Hydroxide (Milk Of Magnesia) 30 ml PO HS PRN PRN Reason: Constipation Magnesium Hydroxide (Milk Of Magnesia) 30 ml PO DAILY PRN PRN Reason: Constipation Stop: 05/01/17 15:24 Multivitamins/Vitamin C (Theragran) 1 tab PO DAILY [facility] Stop: 05/03/17 08:59 Last Admin: 03/07/17 08:34 Dose: 1 tab Quetiapine Fumarate (Seroquel) 400 mg PO BID [facility] PRN Reason: Protocol Stop: 05/01/17 16:59 Last Admin: 03/06/17 17:32 Dose: 400 mg Valsartan (Diovan) 80 mg PO DAILY [facility] Stop: 05/02/17 08:59 Last Admin: 03/06/17 08:53 Dose: 80 mg Zolpidem Tartrate (Ambien) 5 mg PO HS PRN PRN Reason: Insomnia Stop: 05/01/17 13:35 Last Admin: 03/06/17 20:52 Dose: 5 mg HEENT: PERRLA Neck: Supple Lungs: CTAB Internal Medicine Assmt/Plan - Assessment Assessment: schizophrenia - Plan Plan: safety precautions cpm
--- NOTE | 2017-03-08 00:51 | Progress Notes ---
DATE: 03/07/2017 SUBJECTIVE: Chart reviewed and the patient interviewed. Also discussed the patient's condition with the staff and reviewed records and labs. The patient is still acting bizarre and he is still confused and irritable. The patient also has been crawling on the floor and got agitated when staff tried to redirect him. He also is still agitated and has episodes of confusion and irritability. Otherwise, the patient is compliant with taking his medications with no side effect of medications. ASSESSMENT: The patient is still psychotic and irritable. TREATMENT PLAN: We will continue current medications and current treatment and monitor his behavior and condition closely. Also, we will add Klonopin at a dose of 0.5 mg twice a day and will continue to follow up. JOB# [id number]
[2017-03-08] MEDS: Aspirin 81mg Chewable Tab PO SCH (10:35)
[2017-03-08] MEDS: Ferrous Sulfate 325 MG TAB PO SCH ×3 (10:35→21:24)
[2017-03-08] MEDS: Multivitamin Tab PO SCH (10:35)
--- NOTE | 2017-03-08 16:07 | General Progress Note ---
Subjective - Review of Systems Events since last encounter: no change still psychotic irritable Objective - Results Result Diagrams: 03/02/17 07:01 03/02/17 07:01 Recent Labs: Laboratory Last Values WBC 3.2 Th/cmm (4.8-10.8) L 03/02/17 07:01 RBC 3.58 Mil/cmm (3.80-5.80) L 03/02/17 07:01 Hgb 11.2 gm/dL (12-16) L 03/02/17 07:01 Hct 33.7 % (41.0-60) L 03/02/17 07:01 MCV 94.2 fl (80-99) 03/02/17 07:01 MCH 31.4 pg (27.0-31.0) H 03/02/17 07:01 MCHC Differential 33.4 pg (28.0-36.0) 03/02/17 07:01 RDW 13.6 % (11.5-20.0) 03/02/17 07:01 Plt Count 138 Th/cmm (150-400) L 03/02/17 07:01 MPV 8.4 fl 03/02/17 07:01 Neutrophils % 71.9 % (40.0-80.0) 03/02/17 07:01 Lymphocytes % 21.1 % (20.0-50.0) 03/02/17 07:01 Monocytes % 5.8 % (2.0-10.0) 03/02/17 07:01 Eosinophils % 1.0 % (0.0-5.0) 03/02/17 07:01 Basophils % 0.2 % (0.0-2.0) 03/02/17 07:01 Sodium 140 mEq/L (136-145) 03/02/17 07:01 Potassium 3.4 mEq/L (3.5-5.1) L 03/02/17 07:01 Chloride 106 mEq/L (98-107) 03/02/17 07:01 Carbon Dioxide 30.1 mEq/L (21.0-31.0) 03/02/17 07:01 Anion Gap 7.3 (7.0-16.0) 03/02/17 07:01 BUN 27 mg/dL (7-25) H 03/02/17 07:01 Creatinine 1.0 mg/dL (0.7-1.3) 03/02/17 07:01 Est GFR ( Amer) > 60.0 ml/min (>90) 03/02/17 07:01 Est GFR (Non-Af Amer) > 60.0 ml/min 03/02/17 07:01 BUN/Creatinine Ratio 27.0 03/02/17 07:01 Glucose 77 mg/dL (70-105) 03/02/17 07:01 Whole Bld Lactic Acid 0.46 mmol/L (0.60-1.99) L 03/02/17 07:46 Calcium 9.2 mg/dL (8.6-10.3) 03/02/17 07:01 Total Bilirubin 0.4 mg/dL (0.3-1.0) 03/02/17 07:01 AST 51 U/L (13-39) H 03/02/17 07:01 ALT 52 U/L (7-52) 03/02/17 07:01 Alkaline Phosphatase 46 U/L (34-104) 03/02/17 07:01 Total Protein 6.1 gm/dL (6.0-8.3) 03/02/17 07:01 Albumin 3.4 gm/dL (4.2-5.5) L 03/02/17 07:01 Globulin 2.7 gm/dL 03/02/17 07:01 Albumin/Globulin Ratio 1.3 (1.0-1.8) 03/02/17 07:01 TSH 1.87 uIU/ml (0.34-5.60) 03/02/17 07:01 Urine Source MIDSTREAM 03/02/17 07:15 Urine Color YELLOW 03/02/17 07:15 Urine Clarity CLEAR (CLEAR) 03/02/17 07:15 Urine pH 5.5 (4.6 - 8.0) 03/02/17 07:15 Ur Specific [place] 1.010 (1.005-1.030) 03/02/17 07:15 Urine Protein NEGATIVE mg/dL (NEGATIVE) 03/02/17 07:15 Urine Glucose (UA) NEGATIVE mg/dL (NEGATIVE) 03/02/17 07:15 Urine Ketones NEGATIVE mg/dL (NEGATIVE) 03/02/17 07:15 Urine Blood NEGATIVE (NEGATIVE) 03/02/17 07:15 Urine Nitrate NEGATIVE (NEGATIVE) 03/02/17 07:15 Urine Bilirubin NEGATIVE (NEGATIVE) 03/02/17 07:15 Urine Urobilinogen 0.2 E.U./dL (0.2 - 1.0) 03/02/17 07:15 Ur Leukocyte Esterase NEGATIVE (NEGATIVE) 03/02/17 07:15 Urine WBC 0-2 /hpf (0-5) 03/02/17 07:15 Ur Epithelial Cells OCCASIONAL /lpf (FEW) 03/02/17 07:15 Valproic Acid < 10.0 ug/mL (50.0-100.0) L 03/02/17 06:41 RPR NONREACTIVE (NONREACTIVE) 03/02/17 07:01 - Physical Exam Vitals and I&O: Vital Signs Temp 98 F 03/08/17 15:48 Pulse 81 03/08/17 15:48 Resp 19 03/08/17 15:48 BP 151/114 03/08/17 15:48 Pulse Ox 99 03/08/17 15:48 Intake & Output 03/07/17 03/08/17 03/08/17 18:59 06:59 18:59 Intake Total 240 240 Balance 240 240 Intake: Oral 240 240 Other: # Voids 2 2 # Bowel Movements 0 Active Medications: Current Medications Acetaminophen (Tylenol Extra Strength) 1,000 mg PO Q4HR PRN PRN Reason: Pain (Moderate) Stop: 05/01/17 15:24 Acetaminophen (Tylenol) 650 mg PO Q4HR PRN PRN Reason: Mild Pain or Fever >101F Stop: 05/01/17 15:24 Last Admin: 03/08/17 06:40 Dose: 650 mg Al Hydrox/Mg Hydrox/Simethicone (Maalox) 30 ml PO Q4HR PRN PRN Reason: GI DISTRESS Stop: 05/01/17 13:35 Aspirin (Aspirin Chewable) 81 mg PO DAILY [facility] Stop: 05/02/17 08:59 Last Admin: 03/08/17 10:35 Dose: 81 mg Bisacodyl (Dulcolax 10 Mg Supp) 10 mg RC DAILY PRN PRN Reason: Constipation Stop: 05/01/17 15:24 Clonazepam (Klonopin) 2 mg PO BID [facility] PRN Reason: Protocol Stop: 05/06/17 08:59 Last Admin: 03/08/17 10:34 Dose: 2 mg Divalproex Sodium (Depakote Dr) 500 mg PO BID [facility] PRN Reason: Protocol Stop: 05/01/17 16:59 Last Admin: 03/08/17 10:35 Dose: 500 mg Docusate Sodium (Colace) 100 mg PO DAILY [facility] Stop: 05/02/17 08:59 Last Admin: 03/08/17 10:36 Dose: 100 mg Ferrous Sulfate (Iron) 325 mg PO TID [facility] Stop: 05/01/17 20:59 Last Admin: 03/08/17 10:35 Dose: 325 mg Furosemide (Lasix) 20 mg PO DAILY [facility] Stop: 05/02/17 08:59 Last Admin: 03/08/17 10:34 Dose: 20 mg Lorazepam (Ativan) 0.5 mg PO Q4HR PRN; Protocol PRN Reason: Agitation Stop: 04/01/17 13:35 Last Admin: 03/07/17 08:44 Dose: 0.5 mg Magnesium Hydroxide (Milk Of Magnesia) 30 ml PO HS PRN PRN Reason: Constipation Magnesium Hydroxide (Milk Of Magnesia) 30 ml PO DAILY PRN PRN Reason: Constipation Stop: 05/01/17 15:24 Multivitamins/Vitamin C (Theragran) 1 tab PO DAILY [facility] Stop: 05/03/17 08:59 Last Admin: 03/08/17 10:35 Dose: 1 tab Quetiapine Fumarate (Seroquel) 400 mg PO BID [facility] PRN Reason: Protocol Stop: 05/01/17 16:59 Last Admin: 03/08/17 10:34 Dose: 400 mg Valsartan (Diovan) 80 mg PO DAILY [facility] Stop: 05/02/17 08:59 Last Admin: 03/08/17 10:35 Dose: 80 mg Zolpidem Tartrate (Ambien) 5 mg PO HS PRN PRN Reason: Insomnia Stop: 05/01/17 13:35 Last Admin: 03/06/17 20:52 Dose: 5 mg General: No acute distress HEENT: Atraumatic Neck: Supple Cardiovascular: Regular rate, Normal S1, Normal S2 Assessment/Plan - Problem List Patient Problems: All Active Problems Schizophrenia (Acute) F20.9 - Plan Plan: as per psych Nutritional Asmnt/Malnutr-PDOC - Dietary Evaluation Malnutrition Findings (Please click <Entered> for more info): Nutritional Asmnt/Malnutrition Start: 03/07/17 16: 50 Text: Status: Complete Freq: Document 03/07/17 16:50 DAVID (Rec: 03/07/17 16:56 [email or web address] [email or web address]) Nutritional Asmnt/Malnutrition Patient General Information Nutritional Screening Moderate Risk Diagnosis psychosis Pertinent Medical Hx/Surgical Hx HTN, CHF, schizophrenia, dementia, OS, iron deficiency anemia, CHF Subjective Information Pt seen walking in dinning room, confused. Per nurse, pt eats well. Per notes, PO intake 100%. Current Diet Order/ Nutrition Support Mech soft chopped, VANNESA Pertinent Medications colace, lasix, iron, theragran , seroquel Pertinent Labs 03/02 K 3.4, BUN 27, AST 51, Alb 3.4 Nutritional Hx/Data Height 1.8 m Height (Calculated Centimeters) 180.3 Current Weight (lbs) 68.039 kg Weight (Calculated Kilograms) 68.0 Weight (Calculated Grams) 53199.9 [place] Body Weight 172 % [place] Body Weight 87 Body Mass Index (BMI) 20.9 Weight Status Approriate GI Symptoms GI Symptoms None Last BM 03/06 Difficult in: None Skin Integrity/Comment: dryness Estimated Nutritional Goals BEE in Kcals: Using Current wt Calories/Kcals/Kg 25-30 Kcals Calculated 7880-5954 Protein: Using Current wt Protein g/k Protein Calculated 68 Fluid: ml 0266-6178 Nutritional Problem No current Nutrition Prob Problem N/A Malnutrition Alert Protein-Calorie Malnutrition N/A Is there a minimum of two criteria No selected? Query Text:Check all the applicable criteria. A minimum of two criteria are recommended for diagnosis of either severe or non-severe malnutrition. Intervention/Recommendation Comments 1. Continue with current diet as ordered. 2. Monitor PO intake, wt weekly, labs and skin integrity 3. F/U as low risk in 7 days, 03/14 Expected Outcomes/Goals Expected Outcomes/Goals 1. PO intake to meet at least 75% of nutritional needs. 2. Wt stability, skin to remain intact, labs to approach WNL.
--- NOTE | 2017-03-08 23:41 | Progress Notes ---
DATE: SUBJECTIVE: Chart reviewed and the patient interviewed. Also discussed the patient's condition with the staff and reviewed records and labs. The patient is still extremely irritable and extremely agitated. The patient also is confused and he is restless. Also, is having difficulty following staff directions. The patient also has been crawling the floor and has been in angry and in irritable mood and argumentative. ASSESSMENT: The patient is still agitated and psychotic. TREATMENT PLAN: Continue Seroquel and Depakote. Also, increase Klonopin to 2 mg twice a day and we will continue to monitor behavior and condition closely. Also, case technician is working on placement issue. JOB# [id number]
[2017-03-09] MEDS: Ferrous Sulfate 325 MG TAB PO SCH ×3 (09:14→20:31)
[2017-03-09] MEDS: Multivitamin Tab PO SCH (09:15)
[2017-03-09] MEDS: Aspirin 81mg Chewable Tab PO SCH (09:16)
--- NOTE | 2017-03-09 16:27 | General Progress Note ---
Subjective - Review of Systems Events since last encounter: patient still psychotic Objective - Results Result Diagrams: 03/02/17 07:01 03/02/17 07:01 Recent Labs: Laboratory Last Values WBC 3.2 Th/cmm (4.8-10.8) L 03/02/17 07:01 RBC 3.58 Mil/cmm (3.80-5.80) L 03/02/17 07:01 Hgb 11.2 gm/dL (12-16) L 03/02/17 07:01 Hct 33.7 % (41.0-60) L 03/02/17 07:01 MCV 94.2 fl (80-99) 03/02/17 07:01 MCH 31.4 pg (27.0-31.0) H 03/02/17 07:01 MCHC Differential 33.4 pg (28.0-36.0) 03/02/17 07:01 RDW 13.6 % (11.5-20.0) 03/02/17 07:01 Plt Count 138 Th/cmm (150-400) L 03/02/17 07:01 MPV 8.4 fl 03/02/17 07:01 Neutrophils % 71.9 % (40.0-80.0) 03/02/17 07:01 Lymphocytes % 21.1 % (20.0-50.0) 03/02/17 07:01 Monocytes % 5.8 % (2.0-10.0) 03/02/17 07:01 Eosinophils % 1.0 % (0.0-5.0) 03/02/17 07:01 Basophils % 0.2 % (0.0-2.0) 03/02/17 07:01 Sodium 140 mEq/L (136-145) 03/02/17 07:01 Potassium 3.4 mEq/L (3.5-5.1) L 03/02/17 07:01 Chloride 106 mEq/L (98-107) 03/02/17 07:01 Carbon Dioxide 30.1 mEq/L (21.0-31.0) 03/02/17 07:01 Anion Gap 7.3 (7.0-16.0) 03/02/17 07:01 BUN 27 mg/dL (7-25) H 03/02/17 07:01 Creatinine 1.0 mg/dL (0.7-1.3) 03/02/17 07:01 Est GFR ( Amer) > 60.0 ml/min (>90) 03/02/17 07:01 Est GFR (Non-Af Amer) > 60.0 ml/min 03/02/17 07:01 BUN/Creatinine Ratio 27.0 03/02/17 07:01 Glucose 77 mg/dL (70-105) 03/02/17 07:01 Whole Bld Lactic Acid 0.46 mmol/L (0.60-1.99) L 03/02/17 07:46 Calcium 9.2 mg/dL (8.6-10.3) 03/02/17 07:01 Total Bilirubin 0.4 mg/dL (0.3-1.0) 03/02/17 07:01 AST 51 U/L (13-39) H 03/02/17 07:01 ALT 52 U/L (7-52) 03/02/17 07:01 Alkaline Phosphatase 46 U/L (34-104) 03/02/17 07:01 Total Protein 6.1 gm/dL (6.0-8.3) 03/02/17 07:01 Albumin 3.4 gm/dL (4.2-5.5) L 03/02/17 07:01 Globulin 2.7 gm/dL 03/02/17 07:01 Albumin/Globulin Ratio 1.3 (1.0-1.8) 03/02/17 07:01 TSH 1.87 uIU/ml (0.34-5.60) 03/02/17 07:01 Urine Source MIDSTREAM 03/02/17 07:15 Urine Color YELLOW 03/02/17 07:15 Urine Clarity CLEAR (CLEAR) 03/02/17 07:15 Urine pH 5.5 (4.6 - 8.0) 03/02/17 07:15 Ur Specific [place] 1.010 (1.005-1.030) 03/02/17 07:15 Urine Protein NEGATIVE mg/dL (NEGATIVE) 03/02/17 07:15 Urine Glucose (UA) NEGATIVE mg/dL (NEGATIVE) 03/02/17 07:15 Urine Ketones NEGATIVE mg/dL (NEGATIVE) 03/02/17 07:15 Urine Blood NEGATIVE (NEGATIVE) 03/02/17 07:15 Urine Nitrate NEGATIVE (NEGATIVE) 03/02/17 07:15 Urine Bilirubin NEGATIVE (NEGATIVE) 03/02/17 07:15 Urine Urobilinogen 0.2 E.U./dL (0.2 - 1.0) 03/02/17 07:15 Ur Leukocyte Esterase NEGATIVE (NEGATIVE) 03/02/17 07:15 Urine WBC 0-2 /hpf (0-5) 03/02/17 07:15 Ur Epithelial Cells OCCASIONAL /lpf (FEW) 03/02/17 07:15 Valproic Acid < 10.0 ug/mL (50.0-100.0) L 03/02/17 06:41 RPR NONREACTIVE (NONREACTIVE) 03/02/17 07:01 - Physical Exam Vitals and I&O: Vital Signs Temp 98 F 03/08/17 15:48 Pulse 71 03/09/17 09:15 Resp 19 03/08/17 15:48 BP 138/95 03/09/17 09:15 Pulse Ox 99 03/08/17 15:48 Intake & Output 03/08/17 03/09/17 03/09/17 18:59 06:59 18:59 Intake Total 1440 Balance 1440 Intake: Oral 1440 Other: # Voids 4 # Bowel Movements 1 Active Medications: Current Medications Acetaminophen (Tylenol Extra Strength) 1,000 mg PO Q4HR PRN PRN Reason: Pain (Moderate) Stop: 05/01/17 15:24 Acetaminophen (Tylenol) 650 mg PO Q4HR PRN PRN Reason: Mild Pain or Fever >101F Stop: 05/01/17 15:24 Last Admin: 03/08/17 06:40 Dose: 650 mg Al Hydrox/Mg Hydrox/Simethicone (Maalox) 30 ml PO Q4HR PRN PRN Reason: GI DISTRESS Stop: 05/01/17 13:35 Aspirin (Aspirin Chewable) 81 mg PO DAILY [facility] Stop: 05/02/17 08:59 Last Admin: 03/09/17 09:16 Dose: 81 mg Bisacodyl (Dulcolax 10 Mg Supp) 10 mg RC DAILY PRN PRN Reason: Constipation Stop: 05/01/17 15:24 Clonazepam (Klonopin) 2 mg PO BID [facility] PRN Reason: Protocol Stop: 02/17/18 08:59 Last Admin: 03/09/17 09:16 Dose: 2 mg Divalproex Sodium (Depakote Dr) 500 mg PO BID [facility] PRN Reason: Protocol Stop: 05/01/17 16:59 Last Admin: 03/09/17 09:14 Dose: 500 mg Docusate Sodium (Colace) 100 mg PO DAILY [facility] Stop: 05/02/17 08:59 Last Admin: 03/09/17 09:15 Dose: 100 mg Ferrous Sulfate (Iron) 325 mg PO TID [facility] Stop: 05/01/17 20:59 Last Admin: 03/09/17 09:14 Dose: 325 mg Furosemide (Lasix) 20 mg PO DAILY [facility] Stop: 05/02/17 08:59 Last Admin: 03/09/17 09:14 Dose: 20 mg Lorazepam (Ativan) 0.5 mg PO Q4HR PRN; Protocol PRN Reason: Agitation Stop: 04/01/17 13:35 Last Admin: 03/07/17 08:44 Dose: 0.5 mg Magnesium Hydroxide (Milk Of Magnesia) 30 ml PO HS PRN PRN Reason: Constipation Magnesium Hydroxide (Milk Of Magnesia) 30 ml PO DAILY PRN PRN Reason: Constipation Stop: 05/01/17 15:24 Multivitamins/Vitamin C (Theragran) 1 tab PO DAILY [facility] Stop: 05/03/17 08:59 Last Admin: 03/09/17 09:15 Dose: 1 tab Quetiapine Fumarate (Seroquel) 300 mg PO TID [facility] PRN Reason: Protocol Stop: 05/08/17 08:59 Last Admin: 03/09/17 09:15 Dose: 300 mg Valsartan (Diovan) 80 mg PO DAILY [facility] Stop: 05/02/17 08:59 Last Admin: 03/09/17 09:15 Dose: 80 mg Zolpidem Tartrate (Ambien) 5 mg PO HS PRN PRN Reason: Insomnia Stop: 05/01/17 13:35 Last Admin: 03/08/17 21:24 Dose: 5 mg General: No acute distress HEENT: Atraumatic Neck: Supple Cardiovascular: Regular rate, Normal S1, Normal S2 Assessment/Plan - Problem List Patient Problems: All Active Problems Schizophrenia (Acute) F20.9 - Plan Plan: as per psych Nutritional Asmnt/Malnutr-PDOC - Dietary Evaluation Malnutrition Findings (Please click <Entered> for more info): Nutritional Asmnt/Malnutrition Start: 03/07/17 16: 50 Text: Status: Complete Freq: Document 03/07/17 16:50 LAUREN (Rec: 03/07/17 16:56 [email or web address]) Nutritional Asmnt/Malnutrition Patient General Information Nutritional Screening Moderate Risk Diagnosis psychosis Pertinent Medical Hx/Surgical Hx HTN, CHF, schizophrenia, dementia, OS, iron deficiency anemia, CHF Subjective Information Pt seen walking in dinning room, confused. Per nurse, pt eats well. Per notes, PO intake 100%. Current Diet Order/ Nutrition Support Mech soft chopped, VANNESA Pertinent Medications colace, lasix, iron, theragran , seroquel Pertinent Labs 03/02 K 3.4, BUN 27, AST 51, Alb 3.4 Nutritional Hx/Data Height 1.8 m Height (Calculated Centimeters) 180.3 Current Weight (lbs) 68.039 kg Weight (Calculated Kilograms) 68.0 Weight (Calculated Grams) 80018.9 [place] Body Weight 172 % [place] Body Weight 87 Body Mass Index (BMI) 20.9 Weight Status Approriate GI Symptoms GI Symptoms None Last BM 03/06 Difficult in: None Skin Integrity/Comment: dryness Estimated Nutritional Goals BEE in Kcals: Using Current wt Calories/Kcals/Kg 25-30 Kcals Calculated 9742-4399 Protein: Using Current wt Protein g/k Protein Calculated 68 Fluid: ml 5057-9402 Nutritional Problem No current Nutrition Prob Problem N/A Malnutrition Alert Protein-Calorie Malnutrition N/A Is there a minimum of two criteria No selected? Query Text:Check all the applicable criteria. A minimum of two criteria are recommended for diagnosis of either severe or non-severe malnutrition. Intervention/Recommendation Comments 1. Continue with current diet as ordered. 2. Monitor PO intake, wt weekly, labs and skin integrity 3. F/U as low risk in 7 days, 03/14 Expected Outcomes/Goals Expected Outcomes/Goals 1. PO intake to meet at least 75% of nutritional needs. 2. Wt stability, skin to remain intact, labs to approach WNL.
--- NOTE | 2017-03-10 01:28 | Progress Notes ---
DATE: SUBJECTIVE: Chart reviewed and the patient interviewed. Also discussed the patient's condition with the staff and reviewed records and labs. The patient continued to be bizarre and acting in a strange way. Has been " " according to the staff. Also, has been hiding . Also, has been yelling and screaming. The patient also has not been able to follow any directions. Also easily agitated. ASSESSMENT: The patient is still psychotic. TREATMENT PLAN: We will increase Seroquel to 300 mg 3 times a day and will continue to follow up closely. JOB# [id number]
[2017-03-10] MEDS: Ferrous Sulfate 325 MG TAB PO SCH ×3 (09:07→21:13)
[2017-03-10] MEDS: Aspirin 81mg Chewable Tab PO SCH (09:10)
[2017-03-10] MEDS: Multivitamin Tab PO SCH (09:10)
--- NOTE | 2017-03-10 09:13 | Progress Notes ---
DATE: SUBJECTIVE: Chart reviewed and the patient interviewed. Also discussed the patient's condition with the staff and reviewed records and labs. The patient continued to be extremely delusional and paranoid. The patient also is suspicious. Also, is still in angry and in irritable mood and acting bizarre. The patient called the police several times for no reason. Also, staff noticed that the patient was showing a pencil and the picking up trash and he was hoarding trash in his room. On the other hand, the patient slept better last night. ASSESSMENT: The patient is still psychotic. TREATMENT PLAN: We will continue monitoring his behavior and his condition closely. Also, continue to work on his irritability and agitation. Also, we will increase Depakote to 500 mg in the morning and 1000 mg at bedtime. Last Depakote level came back to 10, which is below therapeutic level. JOB# [id number]
--- NOTE | 2017-03-10 18:36 | Internal Medicine Prog Note ---
Internal Medicine Subjective - Subjective Service Date: 03/10/17 Patient is:: awake Per staff patient has:: no adverse event Internal Medicine Objective - Results Result Diagrams: 03/02/17 07:01 03/02/17 07:01 Recent Labs: Laboratory Last Values WBC 3.2 Th/cmm (4.8-10.8) L 03/02/17 07:01 RBC 3.58 Mil/cmm (3.80-5.80) L 03/02/17 07:01 Hgb 11.2 gm/dL (12-16) L 03/02/17 07:01 Hct 33.7 % (41.0-60) L 03/02/17 07:01 MCV 94.2 fl (80-99) 03/02/17 07:01 MCH 31.4 pg (27.0-31.0) H 03/02/17 07:01 MCHC Differential 33.4 pg (28.0-36.0) 03/02/17 07:01 RDW 13.6 % (11.5-20.0) 03/02/17 07:01 Plt Count 138 Th/cmm (150-400) L 03/02/17 07:01 MPV 8.4 fl 03/02/17 07:01 Neutrophils % 71.9 % (40.0-80.0) 03/02/17 07:01 Lymphocytes % 21.1 % (20.0-50.0) 03/02/17 07:01 Monocytes % 5.8 % (2.0-10.0) 03/02/17 07:01 Eosinophils % 1.0 % (0.0-5.0) 03/02/17 07:01 Basophils % 0.2 % (0.0-2.0) 03/02/17 07:01 Sodium 140 mEq/L (136-145) 03/02/17 07:01 Potassium 3.4 mEq/L (3.5-5.1) L 03/02/17 07:01 Chloride 106 mEq/L (98-107) 03/02/17 07:01 Carbon Dioxide 30.1 mEq/L (21.0-31.0) 03/02/17 07:01 Anion Gap 7.3 (7.0-16.0) 03/02/17 07:01 BUN 27 mg/dL (7-25) H 03/02/17 07:01 Creatinine 1.0 mg/dL (0.7-1.3) 03/02/17 07:01 Est GFR ( Amer) > 60.0 ml/min (>90) 03/02/17 07:01 Est GFR (Non-Af Amer) > 60.0 ml/min 03/02/17 07:01 BUN/Creatinine Ratio 27.0 03/02/17 07:01 Glucose 77 mg/dL (70-105) 03/02/17 07:01 Whole Bld Lactic Acid 0.46 mmol/L (0.60-1.99) L 03/02/17 07:46 Calcium 9.2 mg/dL (8.6-10.3) 03/02/17 07:01 Total Bilirubin 0.4 mg/dL (0.3-1.0) 03/02/17 07:01 AST 51 U/L (13-39) H 03/02/17 07:01 ALT 52 U/L (7-52) 03/02/17 07:01 Alkaline Phosphatase 46 U/L (34-104) 03/02/17 07:01 Total Protein 6.1 gm/dL (6.0-8.3) 03/02/17 07:01 Albumin 3.4 gm/dL (4.2-5.5) L 03/02/17 07:01 Globulin 2.7 gm/dL 03/02/17 07:01 Albumin/Globulin Ratio 1.3 (1.0-1.8) 03/02/17 07:01 TSH 1.87 uIU/ml (0.34-5.60) 03/02/17 07:01 Urine Source MIDSTREAM 03/02/17 07:15 Urine Color YELLOW 03/02/17 07:15 Urine Clarity CLEAR (CLEAR) 03/02/17 07:15 Urine pH 5.5 (4.6 - 8.0) 03/02/17 07:15 Ur Specific [place] 1.010 (1.005-1.030) 03/02/17 07:15 Urine Protein NEGATIVE mg/dL (NEGATIVE) 03/02/17 07:15 Urine Glucose (UA) NEGATIVE mg/dL (NEGATIVE) 03/02/17 07:15 Urine Ketones NEGATIVE mg/dL (NEGATIVE) 03/02/17 07:15 Urine Blood NEGATIVE (NEGATIVE) 03/02/17 07:15 Urine Nitrate NEGATIVE (NEGATIVE) 03/02/17 07:15 Urine Bilirubin NEGATIVE (NEGATIVE) 03/02/17 07:15 Urine Urobilinogen 0.2 E.U./dL (0.2 - 1.0) 03/02/17 07:15 Ur Leukocyte Esterase NEGATIVE (NEGATIVE) 03/02/17 07:15 Urine WBC 0-2 /hpf (0-5) 03/02/17 07:15 Ur Epithelial Cells OCCASIONAL /lpf (FEW) 03/02/17 07:15 Valproic Acid < 10.0 ug/mL (50.0-100.0) L 03/02/17 06:41 RPR NONREACTIVE (NONREACTIVE) 03/02/17 07:01 - Physical Exam Vitals and I&O: Vital Signs Temp 97.8 F 03/10/17 14:00 Pulse 83 03/10/17 14:00 Resp 20 03/10/17 14:00 BP 103/60 03/10/17 14:00 Pulse Ox 97 03/10/17 14:00 Intake & Output 03/09/17 03/10/17 03/10/17 18:59 06:59 18:59 Intake Total 120 1200 Balance 120 1200 Intake: Oral 120 1200 Other: # Voids 3 # Bowel Movements 1 Active Medications: Current Medications Acetaminophen (Tylenol Extra Strength) 1,000 mg PO Q4HR PRN PRN Reason: Pain (Moderate) Stop: 05/01/17 15:24 Acetaminophen (Tylenol) 650 mg PO Q4HR PRN PRN Reason: Mild Pain or Fever >101F Stop: 05/01/17 15:24 Last Admin: 03/08/17 06:40 Dose: 650 mg Al Hydrox/Mg Hydrox/Simethicone (Maalox) 30 ml PO Q4HR PRN PRN Reason: GI DISTRESS Stop: 05/01/17 13:35 Aspirin (Aspirin Chewable) 81 mg PO DAILY ELISABET Stop: 05/02/17 08:59 Last Admin: 03/10/17 09:10 Dose: 81 mg Bisacodyl (Dulcolax 10 Mg Supp) 10 mg RC DAILY PRN PRN Reason: Constipation Stop: 05/01/17 15:24 Clonazepam (Klonopin) 2 mg PO BID ELISABET PRN Reason: Protocol Stop: 05/06/17 08:59 Last Admin: 03/10/17 16:57 Dose: 2 mg Divalproex Sodium (Depakote Dr) 500 mg PO DAILY ELISABET PRN Reason: Protocol Stop: 05/09/17 08:59 Last Admin: 03/10/17 09:09 Dose: 500 mg Divalproex Sodium (Depakote Dr) 1,000 mg PO HS ELISABET PRN Reason: Protocol Stop: 05/09/17 20:59 Docusate Sodium (Colace) 100 mg PO DAILY ELISABET Stop: 05/02/17 08:59 Last Admin: 03/10/17 09:10 Dose: 100 mg Ferrous Sulfate (Iron) 325 mg PO TID ELISABET Stop: 05/01/17 20:59 Last Admin: 03/10/17 16:58 Dose: Not Given Furosemide (Lasix) 20 mg PO DAILY ELISABET Stop: 05/02/17 08:59 Last Admin: 03/10/17 09:10 Dose: 20 mg Lorazepam (Ativan) 0.5 mg PO Q4HR PRN; Protocol PRN Reason: Agitation Stop: 04/01/17 13:35 Last Admin: 03/10/17 09:08 Dose: 0.5 mg Magnesium Hydroxide (Milk Of Magnesia) 30 ml PO HS PRN PRN Reason: Constipation Magnesium Hydroxide (Milk Of Magnesia) 30 ml PO DAILY PRN PRN Reason: Constipation Stop: 05/01/17 15:24 Multivitamins/Vitamin C (Theragran) 1 tab PO DAILY ELISABET Stop: 05/03/17 08:59 Last Admin: 03/10/17 09:10 Dose: 1 tab Quetiapine Fumarate (Seroquel) 300 mg PO TID ELISABET PRN Reason: Protocol Stop: 05/08/17 08:59 Last Admin: 03/10/17 16:58 Dose: Not Given Valsartan (Diovan) 80 mg PO DAILY [facility] Stop: 05/02/17 08:59 Last Admin: 03/10/17 09:08 Dose: 80 mg Zolpidem Tartrate (Ambien) 5 mg PO HS PRN PRN Reason: Insomnia Stop: 05/01/17 13:35 Last Admin: 03/09/17 21:57 Dose: 5 mg HEENT: PERRLA Neck: Supple Lungs: CTAB Internal Medicine Assmt/Plan - Assessment Assessment: schizophrenia - Plan Plan: safety precautions cpm Nutritional Asmnt/Malnutr-PDOC - Dietary Evaluation Malnutrition Findings (Please click <Entered> for more info): Nutritional Asmnt/Malnutrition Start: 03/07/17 16: 50 Text: Status: Complete Freq: Document 03/07/17 16:50 LCHENG (Rec: 03/07/17 16:56 LCHENG [email or web address]) Nutritional Asmnt/Malnutrition Patient General Information Nutritional Screening Moderate Risk Diagnosis psychosis Pertinent Medical Hx/Surgical Hx HTN, CHF, schizophrenia, dementia, OS, iron deficiency anemia, CHF Subjective Information Pt seen walking in dinning room, confused. Per nurse, pt eats well. Per notes, PO intake 100%. Current Diet Order/ Nutrition Support Mech soft chopped, VANNESA Pertinent Medications colace, lasix, iron, theragran , seroquel Pertinent Labs 03/02 K 3.4, BUN 27, AST 51, Alb 3.4 Nutritional Hx/Data Height 5 ft 11 in Height (Calculated Centimeters) 180.3 Current Weight (lbs) 150 lb Weight (Calculated Kilograms) 68.0 Weight (Calculated Grams) 01989.9 [place] Body Weight 172 % [place] Body Weight 87 Body Mass Index (BMI) 20.9 Weight Status Approriate GI Symptoms GI Symptoms None Last BM 03/06 Difficult in: None Skin Integrity/Comment: dryness Estimated Nutritional Goals BEE in Kcals: Using Current wt Calories/Kcals/Kg 25-30 Kcals Calculated 7358-5068 Protein: Using Current wt Protein g/k Protein Calculated 68 Fluid: ml 4791-0672 Nutritional Problem No current Nutrition Prob Problem N/A Malnutrition Alert Protein-Calorie Malnutrition N/A Is there a minimum of two criteria No selected? Query Text:Check all the applicable criteria. A minimum of two criteria are recommended for diagnosis of either severe or non-severe malnutrition. Intervention/Recommendation Comments 1. Continue with current diet as ordered. 2. Monitor PO intake, wt weekly, labs and skin integrity 3. F/U as low risk in 7 days, 03/14 Expected Outcomes/Goals Expected Outcomes/Goals 1. PO intake to meet at least 75% of nutritional needs. 2. Wt stability, skin to remain intact, labs to approach WNL.
--- NOTE | 2017-03-11 08:29 | Progress Notes ---
DATE: 03/11/2017 SUBJECTIVE: The patient in the hospital, transferred from [place], increased agitation, increased irritability, unable to follow directions, aggressive towards staff. On [id number], the patient is confused, needing a lot of redirection, disoriented, poorly dressed and at this time needing staff prompting and redirection. Dr. Romero has been seeing the patient over the past few days since his admission, noting that he is delusional, paranoid, suspicious, angry, irritable, and acting bizarre. ASSESSMENT: The patient remains psychotic, still requiring a lot of redirection, somewhat agitated. PLAN: Medications reviewed, we will monitor and follow up, and make appropriate medication adjustments. JOB# [id number]
[2017-03-11] MEDS: Aspirin 81mg Chewable Tab PO SCH (08:33)
[2017-03-11] MEDS: Multivitamin Tab PO SCH (08:34)
[2017-03-11] MEDS: Ferrous Sulfate 325 MG TAB PO SCH ×3 (08:34→20:16)
--- NOTE | 2017-03-12 00:59 | Progress Notes ---
DATE: 03/11/2017 SUBJECTIVE: The patient was seen in the dining area watching television. The patient still currently is guarded at this time, gets easily agitated and irritable and appears to be paranoid and delusional. Otherwise, the patient appears to be in no acute distress. OBJECTIVE: VITAL SIGNS: Temperature 97.5, heart rate of 82, blood pressure 139/95, respirations 20 and 97% on room air. HEENT: Head is atraumatic and normocephalic. Eyes: Bilateral conjunctivae are clear. Bilateral pupils are equally round and reactive. NECK: Supple. No JVD. CARDIOVASCULAR: S1 and S2 without murmur. PULMONARY: Clear to auscultation. GASTROINTESTINAL: Soft and nontender without guarding. Positive bowel sounds. MUSCULOSKELETAL: No clubbing, no cyanosis noted. ASSESSMENT: 1. Dementia. 2. Hypertension. 3. Osteoarthritis. 4. Iron deficiency anemia. 5. Congestive heart failure. 6. Insomnia. PLAN: We will keep the patient inpatient in the Psychiatric Unit. We will follow up with a psychiatrist to monitor the patient's condition and behavior. Treatment plans were discussed with the patient's nurse. Treatment plans were discussed with Dr. Mcleod. JOB# [id number]
--- NOTE | 2017-03-12 08:21 | Progress Notes ---
DATE: 03/12/2017 SUBJECTIVE: The patient seen on 03/12/2017, coming from [place] , increased agitation, irritability, not following directions. On [id number], the patient remains confused, needing a lot of redirection, rambling, talking about shoes, but not making any sense, still noted to be delusional, mumbling to self, trying to get a Angeline chair, trying to get up, sleeping fairly well, mud analysis well logging captain awakenings, appetite with prompting. MEDICATIONS: Reviewed. ASSESSMENT: The patient remains symptomatic, still loud, rambling nonsensical. PLAN: We will continue to monitor. Currently, he is on Seroquel, seems to be tolerating well. No over sedation. No EPS. JOB# [id number]
[2017-03-12] MEDS: Multivitamin Tab PO SCH (08:36)
[2017-03-12] MEDS: Aspirin 81mg Chewable Tab PO SCH (08:37)
[2017-03-12] MEDS: Ferrous Sulfate 325 MG TAB PO SCH ×3 (08:37→21:37)
--- NOTE | 2017-03-12 09:07 | General Progress Note ---
Subjective - Review of Systems Events since last encounter: still irritable denies pain Objective - Results Result Diagrams: 03/02/17 07:01 03/02/17 07:01 Recent Labs: Laboratory Last Values WBC 3.2 Th/cmm (4.8-10.8) L 03/02/17 07:01 RBC 3.58 Mil/cmm (3.80-5.80) L 03/02/17 07:01 Hgb 11.2 gm/dL (12-16) L 03/02/17 07:01 Hct 33.7 % (41.0-60) L 03/02/17 07:01 MCV 94.2 fl (80-99) 03/02/17 07:01 MCH 31.4 pg (27.0-31.0) H 03/02/17 07:01 MCHC Differential 33.4 pg (28.0-36.0) 03/02/17 07:01 RDW 13.6 % (11.5-20.0) 03/02/17 07:01 Plt Count 138 Th/cmm (150-400) L 03/02/17 07:01 MPV 8.4 fl 03/02/17 07:01 Neutrophils % 71.9 % (40.0-80.0) 03/02/17 07:01 Lymphocytes % 21.1 % (20.0-50.0) 03/02/17 07:01 Monocytes % 5.8 % (2.0-10.0) 03/02/17 07:01 Eosinophils % 1.0 % (0.0-5.0) 03/02/17 07:01 Basophils % 0.2 % (0.0-2.0) 03/02/17 07:01 Sodium 140 mEq/L (136-145) 03/02/17 07:01 Potassium 3.4 mEq/L (3.5-5.1) L 03/02/17 07:01 Chloride 106 mEq/L (98-107) 03/02/17 07:01 Carbon Dioxide 30.1 mEq/L (21.0-31.0) 03/02/17 07:01 Anion Gap 7.3 (7.0-16.0) 03/02/17 07:01 BUN 27 mg/dL (7-25) H 03/02/17 07:01 Creatinine 1.0 mg/dL (0.7-1.3) 03/02/17 07:01 Est GFR ( Amer) > 60.0 ml/min (>90) 03/02/17 07:01 Est GFR (Non-Af Amer) > 60.0 ml/min 03/02/17 07:01 BUN/Creatinine Ratio 27.0 03/02/17 07:01 Glucose 77 mg/dL (70-105) 03/02/17 07:01 Whole Bld Lactic Acid 0.46 mmol/L (0.60-1.99) L 03/02/17 07:46 Calcium 9.2 mg/dL (8.6-10.3) 03/02/17 07:01 Total Bilirubin 0.4 mg/dL (0.3-1.0) 03/02/17 07:01 AST 51 U/L (13-39) H 03/02/17 07:01 ALT 52 U/L (7-52) 03/02/17 07:01 Alkaline Phosphatase 46 U/L (34-104) 03/02/17 07:01 Total Protein 6.1 gm/dL (6.0-8.3) 03/02/17 07:01 Albumin 3.4 gm/dL (4.2-5.5) L 03/02/17 07:01 Globulin 2.7 gm/dL 03/02/17 07:01 Albumin/Globulin Ratio 1.3 (1.0-1.8) 03/02/17 07:01 TSH 1.87 uIU/ml (0.34-5.60) 03/02/17 07:01 Urine Source MIDSTREAM 03/02/17 07:15 Urine Color YELLOW 03/02/17 07:15 Urine Clarity CLEAR (CLEAR) 03/02/17 07:15 Urine pH 5.5 (4.6 - 8.0) 03/02/17 07:15 Ur Specific [place] 1.010 (1.005-1.030) 03/02/17 07:15 Urine Protein NEGATIVE mg/dL (NEGATIVE) 03/02/17 07:15 Urine Glucose (UA) NEGATIVE mg/dL (NEGATIVE) 03/02/17 07:15 Urine Ketones NEGATIVE mg/dL (NEGATIVE) 03/02/17 07:15 Urine Blood NEGATIVE (NEGATIVE) 03/02/17 07:15 Urine Nitrate NEGATIVE (NEGATIVE) 03/02/17 07:15 Urine Bilirubin NEGATIVE (NEGATIVE) 03/02/17 07:15 Urine Urobilinogen 0.2 E.U./dL (0.2 - 1.0) 03/02/17 07:15 Ur Leukocyte Esterase NEGATIVE (NEGATIVE) 03/02/17 07:15 Urine WBC 0-2 /hpf (0-5) 03/02/17 07:15 Ur Epithelial Cells OCCASIONAL /lpf (FEW) 03/02/17 07:15 Urine Bacteria Not Reportable 03/02/17 07:15 Valproic Acid < 10.0 ug/mL (50.0-100.0) L 03/02/17 06:41 RPR NONREACTIVE (NONREACTIVE) 03/02/17 07:01 - Physical Exam Vitals and I&O: Vital Signs Temp 98.4 F 03/12/17 06:26 Pulse 71 03/12/17 08:36 Resp 18 03/12/17 06:26 BP 118/78 03/12/17 08:36 Pulse Ox 100 03/12/17 06:26 Intake & Output 03/11/17 03/12/17 03/12/17 18:59 06:59 18:59 Intake Total 1000 360 Balance 1000 360 Intake: Oral 1000 360 Other: # Voids 4 1 # Bowel Movements 0 0 Active Medications: Current Medications Acetaminophen (Tylenol Extra Strength) 1,000 mg PO Q4HR PRN PRN Reason: Pain (Moderate) Stop: 05/01/17 15:24 Acetaminophen (Tylenol) 650 mg PO Q4HR PRN PRN Reason: Mild Pain or Fever >101F Stop: 05/01/17 15:24 Last Admin: 03/08/17 06:40 Dose: 650 mg Al Hydrox/Mg Hydrox/Simethicone (Maalox) 30 ml PO Q4HR PRN PRN Reason: GI DISTRESS Stop: 05/01/17 13:35 Aspirin (Aspirin Chewable) 81 mg PO DAILY ELISABET Stop: 05/02/17 08:59 Last Admin: 03/12/17 08:37 Dose: 81 mg Bisacodyl (Dulcolax 10 Mg Supp) 10 mg RC DAILY PRN PRN Reason: Constipation Stop: 05/01/17 15:24 Clonazepam (Klonopin) 2 mg PO BID ELISABET PRN Reason: Protocol Stop: 05/06/17 08:59 Last Admin: 03/12/17 08:35 Dose: 2 mg Divalproex Sodium (Depakote Dr) 500 mg PO DAILY ELISABET PRN Reason: Protocol Stop: 05/09/17 08:59 Last Admin: 03/12/17 08:36 Dose: 500 mg Divalproex Sodium (Depakote Dr) 1,000 mg PO HS ELISABET PRN Reason: Protocol Stop: 05/09/17 20:59 Last Admin: 03/11/17 20:16 Dose: 1,000 mg Docusate Sodium (Colace) 100 mg PO DAILY ELISABET Stop: 05/02/17 08:59 Last Admin: 03/12/17 08:37 Dose: 100 mg Ferrous Sulfate (Iron) 325 mg PO TID ELISABET Stop: 05/01/17 20:59 Last Admin: 03/12/17 08:37 Dose: 325 mg Furosemide (Lasix) 20 mg PO DAILY ELISABET Stop: 05/02/17 08:59 Last Admin: 03/12/17 08:36 Dose: 20 mg Lorazepam (Ativan) 0.5 mg PO Q4HR PRN; Protocol PRN Reason: Agitation Stop: 04/01/17 13:35 Last Admin: 03/10/17 09:08 Dose: 0.5 mg Magnesium Hydroxide (Milk Of Magnesia) 30 ml PO HS PRN PRN Reason: Constipation Magnesium Hydroxide (Milk Of Magnesia) 30 ml PO DAILY PRN PRN Reason: Constipation Stop: 05/01/17 15:24 Multivitamins/Vitamin C (Theragran) 1 tab PO DAILY ELISABET Stop: 05/03/17 08:59 Last Admin: 03/12/17 08:36 Dose: 1 tab Quetiapine Fumarate (Seroquel) 300 mg PO TID ELISABET PRN Reason: Protocol Stop: 05/08/17 08:59 Last Admin: 03/12/17 08:36 Dose: 300 mg Valsartan (Diovan) 80 mg PO DAILY ELISABET Stop: 05/02/17 08:59 Last Admin: 03/12/17 08:36 Dose: 80 mg Zolpidem Tartrate (Ambien) 5 mg PO HS PRN PRN Reason: Insomnia Stop: 05/01/17 13:35 Last Admin: 03/10/17 21:13 Dose: 5 mg General: No acute distress HEENT: Atraumatic Neck: Supple Cardiovascular: Regular rate, Normal S1, Normal S2 Assessment/Plan - Problem List Patient Problems: All Active Problems Schizophrenia (Acute) F20.9 - Plan Plan: as per psych Nutritional Asmnt/Malnutr-PDOC - Dietary Evaluation Malnutrition Findings (Please click <Entered> for more info): Nutritional Asmnt/Malnutrition Start: 03/07/17 16: 50 Text: Status: Complete Freq: Document 03/07/17 16:50 HEN (Rec: 03/07/17 16:56 HEN [email or web address]) Nutritional Asmnt/Malnutrition Patient General Information Nutritional Screening Moderate Risk Diagnosis psychosis Pertinent Medical Hx/Surgical Hx HTN, CHF, schizophrenia, dementia, OS, iron deficiency anemia, CHF Subjective Information Pt seen walking in dinning room, confused. Per nurse, pt eats well. Per notes, PO intake 100%. Current Diet Order/ Nutrition Support Mech soft chopped, VANNESA Pertinent Medications colace, lasix, iron, theragran , seroquel Pertinent Labs 03/02 K 3.4, BUN 27, AST 51, Alb 3.4 Nutritional Hx/Data Height 1.8 m Height (Calculated Centimeters) 180.3 Current Weight (lbs) 68.039 kg Weight (Calculated Kilograms) 68.0 Weight (Calculated Grams) 17386.9 [place] Body Weight 172 % [place] Body Weight 87 Body Mass Index (BMI) 20.9 Weight Status Approriate GI Symptoms GI Symptoms None Last BM 03/06 Difficult in: None Skin Integrity/Comment: dryness Estimated Nutritional Goals BEE in Kcals: Using Current wt Calories/Kcals/Kg 25-30 Kcals Calculated 6863-7908 Protein: Using Current wt Protein g/k Protein Calculated 68 Fluid: ml 5916-5650 Nutritional Problem No current Nutrition Prob Problem N/A Malnutrition Alert Protein-Calorie Malnutrition N/A Is there a minimum of two criteria No selected? Query Text:Check all the applicable criteria. A minimum of two criteria are recommended for diagnosis of either severe or non-severe malnutrition. Intervention/Recommendation Comments 1. Continue with current diet as ordered. 2. Monitor PO intake, wt weekly, labs and skin integrity 3. F/U as low risk in 7 days, 03/14 Expected Outcomes/Goals Expected Outcomes/Goals 1. PO intake to meet at least 75% of nutritional needs. 2. Wt stability, skin to remain intact, labs to approach WNL.
[2017-03-13] MEDS: Aspirin 81mg Chewable Tab PO SCH (08:35)
[2017-03-13] MEDS: Multivitamin Tab PO SCH (08:35)
[2017-03-13] MEDS: Ferrous Sulfate 325 MG TAB PO SCH ×3 (08:35→21:22)
--- NOTE | 2017-03-13 10:14 | Diagnostic Imaging Report ---
Right fingers 3 views Indication: Soft tissue swelling of the third finger Comparison: none Findings: Exam is limited due to angulation deformities of the fingers. Moderate to advanced degenerative changes noted. There is severe soft tissue swelling of the third finger. No gross erosions identified. No evidence of dislocation. Impression: Severe soft tissue swelling of the third finger. Findings may be due to cellulitis. No x-ray evidence of osteomyelitis. If indicated follow up exam such as MRI may be obtained for further assessment Angulation deformities of the phalanges limiting evaluation of these regions. Degenerative changes. In the setting of trauma, if clinical symptoms persist and there is continued concern for an occult fracture, follow up exams in 5-7 days is suggested.
--- NOTE | 2017-03-13 10:46 | General Progress Note ---
Subjective - Review of Systems Events since last encounter: awake, confused Objective - Results Result Diagrams: 03/02/17 07:01 03/02/17 07:01 Recent Labs: Laboratory Last Values WBC 3.2 Th/cmm (4.8-10.8) L 03/02/17 07:01 RBC 3.58 Mil/cmm (3.80-5.80) L 03/02/17 07:01 Hgb 11.2 gm/dL (12-16) L 03/02/17 07:01 Hct 33.7 % (41.0-60) L 03/02/17 07:01 MCV 94.2 fl (80-99) 03/02/17 07:01 MCH 31.4 pg (27.0-31.0) H 03/02/17 07:01 MCHC Differential 33.4 pg (28.0-36.0) 03/02/17 07:01 RDW 13.6 % (11.5-20.0) 03/02/17 07:01 Plt Count 138 Th/cmm (150-400) L 03/02/17 07:01 MPV 8.4 fl 03/02/17 07:01 Neutrophils % 71.9 % (40.0-80.0) 03/02/17 07:01 Lymphocytes % 21.1 % (20.0-50.0) 03/02/17 07:01 Monocytes % 5.8 % (2.0-10.0) 03/02/17 07:01 Eosinophils % 1.0 % (0.0-5.0) 03/02/17 07:01 Basophils % 0.2 % (0.0-2.0) 03/02/17 07:01 Sodium 140 mEq/L (136-145) 03/02/17 07:01 Potassium 3.4 mEq/L (3.5-5.1) L 03/02/17 07:01 Chloride 106 mEq/L (98-107) 03/02/17 07:01 Carbon Dioxide 30.1 mEq/L (21.0-31.0) 03/02/17 07:01 Anion Gap 7.3 (7.0-16.0) 03/02/17 07:01 BUN 27 mg/dL (7-25) H 03/02/17 07:01 Creatinine 1.0 mg/dL (0.7-1.3) 03/02/17 07:01 Est GFR ( Amer) > 60.0 ml/min (>90) 03/02/17 07:01 Est GFR (Non-Af Amer) > 60.0 ml/min 03/02/17 07:01 BUN/Creatinine Ratio 27.0 03/02/17 07:01 Glucose 77 mg/dL (70-105) 03/02/17 07:01 Whole Bld Lactic Acid 0.46 mmol/L (0.60-1.99) L 03/02/17 07:46 Calcium 9.2 mg/dL (8.6-10.3) 03/02/17 07:01 Total Bilirubin 0.4 mg/dL (0.3-1.0) 03/02/17 07:01 AST 51 U/L (13-39) H 03/02/17 07:01 ALT 52 U/L (7-52) 03/02/17 07:01 Alkaline Phosphatase 46 U/L (34-104) 03/02/17 07:01 Total Protein 6.1 gm/dL (6.0-8.3) 03/02/17 07:01 Albumin 3.4 gm/dL (4.2-5.5) L 03/02/17 07:01 Globulin 2.7 gm/dL 03/02/17 07:01 Albumin/Globulin Ratio 1.3 (1.0-1.8) 03/02/17 07:01 TSH 1.87 uIU/ml (0.34-5.60) 03/02/17 07:01 Urine Source MIDSTREAM 03/02/17 07:15 Urine Color YELLOW 03/02/17 07:15 Urine Clarity CLEAR (CLEAR) 03/02/17 07:15 Urine pH 5.5 (4.6 - 8.0) 03/02/17 07:15 Ur Specific [place] 1.010 (1.005-1.030) 03/02/17 07:15 Urine Protein NEGATIVE mg/dL (NEGATIVE) 03/02/17 07:15 Urine Glucose (UA) NEGATIVE mg/dL (NEGATIVE) 03/02/17 07:15 Urine Ketones NEGATIVE mg/dL (NEGATIVE) 03/02/17 07:15 Urine Blood NEGATIVE (NEGATIVE) 03/02/17 07:15 Urine Nitrate NEGATIVE (NEGATIVE) 03/02/17 07:15 Urine Bilirubin NEGATIVE (NEGATIVE) 03/02/17 07:15 Urine Urobilinogen 0.2 E.U./dL (0.2 - 1.0) 03/02/17 07:15 Ur Leukocyte Esterase NEGATIVE (NEGATIVE) 03/02/17 07:15 Urine WBC 0-2 /hpf (0-5) 03/02/17 07:15 Ur Epithelial Cells OCCASIONAL /lpf (FEW) 03/02/17 07:15 Urine Bacteria Not Reportable 03/02/17 07:15 Valproic Acid < 10.0 ug/mL (50.0-100.0) L 03/02/17 06:41 RPR NONREACTIVE (NONREACTIVE) 03/02/17 07:01 - Physical Exam Vitals and I&O: Vital Signs Temp 98.4 F 03/12/17 06:26 Pulse 71 03/12/17 08:36 Resp 18 03/12/17 06:26 BP 118/78 03/12/17 08:36 Pulse Ox 100 03/12/17 06:26 Intake & Output 03/12/17 03/13/17 03/13/17 18:59 06:59 18:59 Intake Total 1000 240 Balance 1000 240 Intake: Oral 1000 240 Other: # Voids 4 1 # Bowel Movements 0 Active Medications: Current Medications Acetaminophen (Tylenol Extra Strength) 1,000 mg PO Q4HR PRN PRN Reason: Pain (Moderate) Stop: 05/01/17 15:24 Acetaminophen (Tylenol) 650 mg PO Q4HR PRN PRN Reason: Mild Pain or Fever >101F Stop: 05/01/17 15:24 Last Admin: 03/08/17 06:40 Dose: 650 mg Al Hydrox/Mg Hydrox/Simethicone (Maalox) 30 ml PO Q4HR PRN PRN Reason: GI DISTRESS Stop: 05/01/17 13:35 Aspirin (Aspirin Chewable) 81 mg PO DAILY ELISABET Stop: 05/02/17 08:59 Last Admin: 03/13/17 08:35 Dose: 81 mg Bisacodyl (Dulcolax 10 Mg Supp) 10 mg RC DAILY PRN PRN Reason: Constipation Stop: 05/01/17 15:24 Clonazepam (Klonopin) 2 mg PO BID ELISABET PRN Reason: Protocol Stop: 05/06/17 08:59 Last Admin: 03/13/17 08:35 Dose: 2 mg Divalproex Sodium (Depakote Dr) 500 mg PO DAILY ELISABET PRN Reason: Protocol Stop: 05/09/17 08:59 Last Admin: 03/13/17 08:35 Dose: 500 mg Divalproex Sodium (Depakote Dr) 1,000 mg PO HS ELISABET PRN Reason: Protocol Stop: 05/09/17 20:59 Last Admin: 03/12/17 21:36 Dose: 1,000 mg Docusate Sodium (Colace) 100 mg PO DAILY ELISABET Stop: 05/02/17 08:59 Last Admin: 03/13/17 08:35 Dose: 100 mg Ferrous Sulfate (Iron) 325 mg PO TID ELISABET Stop: 05/01/17 20:59 Last Admin: 03/13/17 08:35 Dose: 325 mg Furosemide (Lasix) 20 mg PO DAILY ELISABET Stop: 05/02/17 08:59 Last Admin: 03/13/17 08:36 Dose: Not Given Lorazepam (Ativan) 0.5 mg PO Q4HR PRN; Protocol PRN Reason: Agitation Stop: 04/01/17 13:35 Last Admin: 03/12/17 13:14 Dose: 0.5 mg Magnesium Hydroxide (Milk Of Magnesia) 30 ml PO HS PRN PRN Reason: Constipation Magnesium Hydroxide (Milk Of Magnesia) 30 ml PO DAILY PRN PRN Reason: Constipation Stop: 05/01/17 15:24 Multivitamins/Vitamin C (Theragran) 1 tab PO DAILY ELISAEBT Stop: 05/03/17 08:59 Last Admin: 03/13/17 08:35 Dose: 1 tab Quetiapine Fumarate (Seroquel) 300 mg PO TID ELISABET PRN Reason: Protocol Stop: 05/08/17 08:59 Last Admin: 03/13/17 08:35 Dose: 300 mg Valsartan (Diovan) 80 mg PO DAILY ELISABET Stop: 05/02/17 08:59 Last Admin: 03/13/17 08:36 Dose: Not Given Zolpidem Tartrate (Ambien) 5 mg PO HS PRN PRN Reason: Insomnia Stop: 05/01/17 13:35 Last Admin: 03/12/17 21:37 Dose: 5 mg General: No acute distress HEENT: Atraumatic Neck: Supple Cardiovascular: Regular rate, Normal S1, Normal S2 Assessment/Plan - Problem List Patient Problems: All Active Problems Schizophrenia (Acute) F20.9 - Plan Plan: as per psych Nutritional Asmnt/Malnutr-PDOC - Dietary Evaluation Malnutrition Findings (Please click <Entered> for more info): Nutritional Asmnt/Malnutrition Start: 03/07/17 16: 50 Text: Status: Complete Freq: Document 03/07/17 16:50 HEN (Rec: 03/07/17 16:56 [facility] Nutritional Asmnt/Malnutrition Patient General Information Nutritional Screening Moderate Risk Diagnosis psychosis Pertinent Medical Hx/Surgical Hx HTN, CHF, schizophrenia, dementia, OS, iron deficiency anemia, CHF Subjective Information Pt seen walking in dinning room, confused. Per nurse, pt eats well. Per notes, PO intake 100%. Current Diet Order/ Nutrition Support Mech soft chopped, VANNESA Pertinent Medications colace, lasix, iron, theragran , seroquel Pertinent Labs 03/02 K 3.4, BUN 27, AST 51, Alb 3.4 Nutritional Hx/Data Height 1.8 m Height (Calculated Centimeters) 180.3 Current Weight (lbs) 68.039 kg Weight (Calculated Kilograms) 68.0 Weight (Calculated Grams) 29288.9 [place] Body Weight 172 % [place] Body Weight 87 Body Mass Index (BMI) 20.9 Weight Status Approriate GI Symptoms GI Symptoms None Last BM 03/06 Difficult in: None Skin Integrity/Comment: dryness Estimated Nutritional Goals BEE in Kcals: Using Current wt Calories/Kcals/Kg 25-30 Kcals Calculated 3909-5506 Protein: Using Current wt Protein g/k Protein Calculated 68 Fluid: ml 6746-7672 Nutritional Problem No current Nutrition Prob Problem N/A Malnutrition Alert Protein-Calorie Malnutrition N/A Is there a minimum of two criteria No selected? Query Text:Check all the applicable criteria. A minimum of two criteria are recommended for diagnosis of either severe or non-severe malnutrition. Intervention/Recommendation Comments 1. Continue with current diet as ordered. 2. Monitor PO intake, wt weekly, labs and skin integrity 3. F/U as low risk in 7 days, 03/14 Expected Outcomes/Goals Expected Outcomes/Goals 1. PO intake to meet at least 75% of nutritional needs. 2. Wt stability, skin to remain intact, labs to approach WNL.
--- NOTE | 2017-03-13 16:09 | Progress Notes ---
DATE: SUBJECTIVE: The patient was seen and evaluated. The patient's chart reviewed. Nursing staff is reporting that the patient has been continued being very irritable, making nonsensical comments and delusional. He is required to be in a Angeline chair because of the disorganized thought process and pacing in and out of the rooms. Today on [id number] evaluation, the patient presents disorganized, minimally interactive, not much information and keeps making nonsensical comments and delusional, mumbling, and talking to himself and to maintain a linear conversation. MENTAL STATUS EXAMINATION: Disorganized, disheveled. ASSESSMENT AND PLAN: The patient is a 71-year-old male, who presents very disorganized, psychotic, delusional, unable to formulate a safe plan. We will continue with primary psychiatrist's treatment plan and goals, which include clonazepam at 2 mg p.o. b.i.d. which he is able to tolerate and Depakote at 500 mg in the morning and 1000 mg at nighttime with Seroquel 300 mg t.i.d. We will continue with primary psychiatrist's treatment plan and goals. He is able to tolerate medications well without complications or side effects of medications at this point. [facility]# [id number]
[2017-03-14] MEDS: Multivitamin Tab PO SCH (08:21)
[2017-03-14] MEDS: Aspirin 81mg Chewable Tab PO SCH (08:22)
[2017-03-14] MEDS: Ferrous Sulfate 325 MG TAB PO SCH ×3 (08:22→20:34)
--- NOTE | 2017-03-14 08:23 | Progress Notes ---
DATE: SUBJECTIVE: Chart reviewed and the patient interviewed. Also discussed the patient's condition with the staff and reviewed the records and labs. The patient is still acting bizarre and he is still in irritable and angry mood. The patient is still slamming doors and is still digging into a trash. Also, is wandering around the unit in a confused state. The patient also is still restless and in angry mood. Otherwise, the patient has continued to take Seroquel and continue to take Depakote with no side effects. Also, continue to take Klonopin. During interview, the patient is disheveled and is in irritable mood. Also, is suspicious and is paranoid. ASSESSMENT: The patient is still agitated and is still paranoid. TREATMENT PLAN: We will continue monitoring his behavior and his condition closely. Also, we will increase Klonopin to 2 mg 3 times a day. Also, Depakote blood level that was done upon admission came back to be 10. We will repeat Depakote blood level. Estimated length of stay 2-4 days. JOB# [id number]
== END 2017-03-15 08:59 | DRG 885 ==
LOC: ER 06:02 → GERO 08:16
PROVIDERS: ADMIT Psychiatry & Neurology Psychiatry; ATTEND Psychiatry & Neurology Psychiatry
DX: F29 Unspecified psychosis not due to a substance or known physiological condition (principal); F03.91 Unspecified dementia, unspecified severity, with behavioral disturbance; I50.9 Heart failure, unspecified; I11.0 Hypertensive heart disease with heart failure; D50.9 Iron deficiency anemia, unspecified; M81.0 Age-related osteoporosis without current pathological fracture; G47.00 Insomnia, unspecified; M19.90 Unspecified osteoarthritis, unspecified site; F20.9 Schizophrenia, unspecified; Z88.8 Allergy status to other drugs, medicaments and biological substances; Z86.73 Personal history of transient ischemic attack (TIA), and cerebral infarction without residual deficits
CPT/HCPCS: 36415-UA; 73140-TC-F7; 80053-TC; 80164-TC; 81001-TC; 83605; 84443-TC; 85025-TC; 86592-TC; 93005; G0410; J1200; J1630; J2060; Z7610

== ENCOUNTER 2017-03-15 09:02 | Inpatient (IN) | payer MEDICARE, MEDICAID ==
[2017-03-15] MEDS ORDERED: VTE Chemical Prophylaxis Screen/Admission MC PRN (12:30)
[2017-03-15] MEDS ORDERED: Sodium Chloride 0.9% 500 ML IV SCH (13:15)
[2017-03-15 13:32] LABS: URINE MICROSCOPIC INDICATED? YES; URINE SOURCE MIDSTREAM
--- NOTE | 2017-03-15 13:35 | Diagnostic Imaging Report ---
Portable chest x-ray History: Shortness of breath Allowing for portable technique the heart size is normal. No focal pulmonary parenchymal processes. No hilar or mediastinal abnormalities. Impression: No acute abnormalities.
[2017-03-15] MEDS ORDERED: Pneumococcal Vaccine 0.5 mL Vial IM ONE (13:38)
[2017-03-15 13:41] LABS: URINE BILIRUBIN NEGATIVE (NEGATIVE); URINE BLOOD NEGATIVE (NEGATIVE); URINE GLUCOSE (UA) NEGATIVE (NEGATIVE); URINE KETONE NEGATIVE (NEGATIVE); URINE LEUKOCYTE ESTERASE NEGATIVE (NEGATIVE); URINE NITRATE NEGATIVE (NEGATIVE); URINE PH 6.5 (4.6 - 8.0); URINE PROTEIN NEGATIVE (NEGATIVE); URINE UROBILINOGEN 0.2 E.U./dL (0.2 - 1.0)
[2017-03-15 13:42] LABS: % BASOPHILS 0.1 % (0.0-2.0); % EOSINOPHILS 0.6 % (0.0-5.0); % LYMPHOCYTES 13.3 % (20.0-50.0); % MONOCYTES 12.4 % (2.0-10.0); % NEUTROPHILS 73.6 % (40.0-80.0); HEMATOCRIT 36.3 % (41.0-60); LYMPHOCYTE ABSOLUTE 0.6 Th/cmm (1.5-3.0); MEAN CELL VOLUME 94.5 fl (80-99); MEAN CORPUSCULAR HEMOGLOBIN 31.2 pg (27.0-31.0); MEAN PLATELET VOLUME 9.2 fl; MONOCYTE ABSOLUTE 0.5 Th/cmm (0.3-1.0); NEUTROPHILE ABSOLUTE 3.2 Th/cmm (1.8-8.0); PLATELET COUNT 138 Th/cmm (150-400); RED BLOOD COUNT 3.84 Mil/cmm (3.80-5.80); RED CELL DISTRIBUTION WIDTH 13.9 % (11.5-20.0)
[2017-03-15 13:43] LABS: WHITE BLOOD COUNT 4.3 Th/cmm (4.8-10.8)
[2017-03-15 13:44] LABS: URINE COLOR YELLOW
[2017-03-15 13:46] LABS: URINE CLARITY CLEAR (CLEAR)
[2017-03-15 13:47] LABS: URINE BACTERIA OCCASIONAL /hpf (NONE SEEN); URINE EPITHELIAL CELLS OCCASIONAL /lpf (FEW); URINE WBC 0-2 /hpf (0-5)
[2017-03-15 13:50] LABS: INR 1.05 (0.5-1.4); PROTHROMBIN TIME (TEST) 10.9 SECONDS (9.5-11.5)
[2017-03-15 13:55] LABS: ALB/GLOB RATIO 1.1 (1.0-1.8); ALBUMIN 3.7 gm/dL (4.2-5.5); ALKALINE PHOSPHATASE 68 U/L (34-104); ANION GAP 8.7 (7.0-16.0); BILIRUBIN,TOTAL 0.3 mg/dL (0.3-1.0); BUN - UREA NITROGEN 22 mg/dL (7-25); CALCIUM SERUM 9.6 mg/dL (8.6-10.3); CARBON DIOXIDE 30.2 mEq/L (21.0-31.0); CHLORIDE 108 mEq/L (98-107); CREATININE - SERUM 0.7 mg/dL (0.7-1.3); GFR AFRICAN-AMERICAN > 60.0 ml/min (>90); GFR NON AFRICAN-AMERICAN > 60.0 ml/min; GLUCOSE 70 mg/dL (70-105); POTASSIUM SERUM 3.9 mEq/L (3.5-5.1); SGOT 18 U/L (13-39); SGPT/ALT 28 U/L (7-52); SODIUM SERUM 143 mEq/L (136-145); TOTAL PROTEIN,SERUM 7.2 gm/dL (6.0-8.3)
[2017-03-15] MEDS ORDERED: fentaNYL Citrate 100 mcg/2mL Vial ONE (13:59)
[2017-03-15] MEDS ORDERED: Triple Antibiotic 0.94 gm Pkt TP ONE (14:19)
--- NOTE | 2017-03-15 15:05 | Operative Report ---
DATE OF SURGERY: 03/16/2017 PREOPERATIVE DIAGNOSES: 1. Gangrene, right third finger. 2. Psychotic disorder. POSTOPERATIVE DIAGNOSES: 1. Gangrene, right third finger. 2. Psychotic disorder. OPERATION DONE: 1. Excisional debridement of right third finger. 2. Nail excision, right third finger. SURGEON: Alessandro Mcgovern M.D. ANESTHESIA: MAC. ANESTHESIOLOGIST: Dr. Carver ESTIMATED BLOOD LOSS: None. INDICATIONS FOR SURGERY: The patient with a markedly necrotic right third finger with a blister formation all over the whole finger extending into the MP joint. PROCEDURE: The patient was given IV sedation. The right hand was prepped with Betadine and draped in appropriate manner. The whole skin of the third finger was completely excised as this has come off of the subcutaneous tissues. The nail had removed itself likewise from the nail bed. Irrigation with saline solution was carried out following which antibiotic ointment was applied over the whole finger and dressings were used. The patient tolerated the procedure well. [facility]# [id number]
--- NOTE | 2017-03-15 15:13 | History and Physical ---
History of Present Illness - HPI Vital Signs: Last Vital Signs Temp 96.6 F 03/15/17 13:29 Pulse 68 03/15/17 13:29 Resp 18 03/15/17 13:29 BP 149/69 03/15/17 13:29 Pulse Ox 100 03/15/17 13:29 Family Medical History - Family Member Mother History Unknown: Yes Ethnicity: Non- Living Status: Unknown - Medications Home Medications: Home Medication Medication Instructions Recorded Type Bisacodyl [Dulcolax 10 Mg Supp] 10 mg RC DAILY PRN 03/02/17 History Divalproex Sodium [Depakote] 500 mg PO BID 03/02/17 History Docusate Sodium [Colace] 100 mg PO DAILY 03/02/17 History Ferrous Sulfate [Iron] 325 mg PO TID 03/02/17 History Furosemide [Lasix] 40 mg PO DAILY 03/02/17 History Magnesium Hydroxide [Milk of 30 ml PO DAILY PRN 03/02/17 History Magnesia] QUEtiapine Fumarate [SEROquel] 400 mg PO BID 03/02/17 History Valsartan [Diovan] 80 mg PO DAILY 03/02/17 History Acetaminophen [Tylenol Extra 1,000 mg PO Q4HR PRN tab 03/15/17 Rx Strength] Acetaminophen [Tylenol] 650 mg PO Q4HR PRN tab 03/15/17 Rx Al Hyd/Mg Hyd/Simethicone [Maalox] 30 ml PO Q4HR PRN udc 03/15/17 Rx Aspirin [Aspirin Chewable] 81 mg PO DAILY ctb 03/15/17 Rx - Allergies Allergies/Adverse Reactions: Allergies Allergy/AdvReac Type Severity Reaction Status Date / Time benztropine [From Cogentin] Allergy Verified 03/02/17 06:11 - Lab Results All Lab Results last 24 hours: Laboratory Results - last 24 hr 03/15/17 03/15/17 03/15/17 13:15 13:20 13:20 WBC 4.3 L D RBC 3.84 Hgb 12.0 Hct 36.3 L MCV 94.5 MCH 31.2 H MCHC Differential 33.0 RDW 13.9 Plt Count 138 L MPV 9.2 Neutrophils % 73.6 Lymphocytes % 13.3 L Monocytes % 12.4 H Eosinophils % 0.6 Basophils % 0.1 PT 10.9 INR 1.05 PTT (Actin FS) 30.8 Sodium Potassium Chloride Carbon Dioxide Anion Gap BUN Creatinine Est GFR ( Amer) Est GFR (Non-Af Amer) BUN/Creatinine Ratio Glucose POC Glucose Calcium Total Bilirubin AST ALT Alkaline Phosphatase Total Protein Albumin Globulin Albumin/Globulin Ratio Urine Source MIDSTREAM Urine Color YELLOW Urine Clarity CLEAR Urine pH 6.5 Ur Specific [place] <= 1.005 Urine Protein NEGATIVE Urine Glucose (UA) NEGATIVE Urine Ketones NEGATIVE Urine Blood NEGATIVE Urine Nitrate NEGATIVE Urine Bilirubin NEGATIVE Urine Urobilinogen 0.2 Ur Leukocyte Esterase NEGATIVE Urine WBC 0-2 Ur Epithelial Cells OCCASIONAL Urine Bacteria OCCASIONAL 03/15/17 03/15/17 03/15/17 13:20 13:25 14:37 WBC RBC Hgb Hct MCV MCH MCHC Differential RDW Plt Count MPV Neutrophils % Lymphocytes % Monocytes % Eosinophils % Basophils % PT INR PTT (Actin FS) Sodium 143 Potassium 3.9 Chloride 108 H Carbon Dioxide 30.2 Anion Gap 8.7 BUN 22 Creatinine 0.7 Est GFR ( Amer) > 60.0 Est GFR (Non-Af Amer) > 60.0 BUN/Creatinine Ratio 31.4 Glucose 70 POC Glucose 54 L 250 H Calcium 9.6 Total Bilirubin 0.3 AST 18 ALT 28 Alkaline Phosphatase 68 Total Protein 7.2 Albumin 3.7 L Globulin 3.5 Albumin/Globulin Ratio 1.1 Urine Source Urine Color Urine Clarity Urine pH Ur Specific [place] Urine Protein Urine Glucose (UA) Urine Ketones Urine Blood Urine Nitrate Urine Bilirubin Urine Urobilinogen Ur Leukocyte Esterase Urine WBC Ur Epithelial Cells Urine Bacteria
[2017-03-15] MEDS ORDERED: Acetaminophen 500 MG TAB PO PRN (19:33)
[2017-03-15] MEDS ORDERED: Magnesium Hydroxide (MOM) 30 mL UDC PO PRN (19:33)
[2017-03-15] MEDS ORDERED: Maalox 30 mL Cup PO PRN (19:33)
--- NOTE | 2017-03-15 19:51 | History & Physical ---
ADMIT DATE: 03/15/2017 HISTORY OF PRESENT ILLNESS: The patient is known to have history of psychiatric problem and psychosis, he was seen in the Geropsych Unit. He developed pain in the right third finger and swelling. I had done an x-ray, was negative, but he had lot of swelling as well as he had effusion. I had Dr. Francois see the patient, he thought the patient may have gangrene, he wanted to do the surgery. The patient was brought to the medical floor for the surgery for his right third finger. PHYSICAL EXAMINATION: HEENT: Head: Normal. ENT: Normal. NECK: Supple, nontender. LUNGS: Clear. CARDIOVASCULAR: S1, S2 heard. ABDOMEN: Soft. Bowel sounds are heard. CENTRAL NERVOUS SYSTEM: Grossly normal. EXTREMITIES: Right third finger swollen, discolored. ASSESSMENT AND PLAN: Diagnoses of possible gangrene and possible effusion of the right third finger and history of psychosis was made. Dr. Francois is going to do the surgery. JOB# [id number]
[2017-03-15] MEDS: Ferrous Sulfate 325 MG TAB PO SCH (21:30)
--- NOTE | 2017-03-15 21:44 | Progress Notes ---
DATE: SUBJECTIVE: Chart reviewed and the patient interviewed, also discussed the patient's condition with the staff and reviewed records and labs. The patient is still confused and agitated. The patient also is still trying to stick his hand into a dirt digging into the trash. The patient has right middle finger swollen and he might have surgery later on today on his middle finger. He also is still suspicious and is still paranoid with difficulty following any directions. Also, during interview, the patient was half naked and took his hospital gown off for no reason except his confusion. ASSESSMENT: The patient is still a confused and irritable. TREATMENT PLAN: We will continue monitoring his behavior closely. Depakote blood level that was done yesterday came back to be 89.8, which is within therapeutic level. Otherwise, the patient continued to take Klonopin and Depakote as well as Seroquel. We will continue same dose about will decrease Klonopin to 1 mg 3 times a day to see if this will help with his confusion and will continue to follow up closely. JOB# [id number]
[2017-03-16] MEDS ORDERED: Piperacillin Sodium/Tazobact 3.375 gm Vial IV ONE (06:20)
--- NOTE | 2017-03-16 09:17 | General Progress Note ---
Subjective - Review of Systems Events since last encounter: patient with rt 3rd finger swelling no fever Objective - Results Result Diagrams: 03/15/17 13:20 03/15/17 13:20 Recent Labs: Laboratory Last Values WBC 4.3 Th/cmm (4.8-10.8) L D 03/15/17 13:20 RBC 3.84 Mil/cmm (3.80-5.80) 03/15/17 13:20 Hgb 12.0 gm/dL (12-16) 03/15/17 13:20 Hct 36.3 % (41.0-60) L 03/15/17 13:20 MCV 94.5 fl (80-99) 03/15/17 13:20 MCH 31.2 pg (27.0-31.0) H 03/15/17 13:20 MCHC Differential 33.0 pg (28.0-36.0) 03/15/17 13:20 RDW 13.9 % (11.5-20.0) 03/15/17 13:20 Plt Count 138 Th/cmm (150-400) L 03/15/17 13:20 MPV 9.2 fl 03/15/17 13:20 Neutrophils % 73.6 % (40.0-80.0) 03/15/17 13:20 Lymphocytes % 13.3 % (20.0-50.0) L 03/15/17 13:20 Monocytes % 12.4 % (2.0-10.0) H 03/15/17 13:20 Eosinophils % 0.6 % (0.0-5.0) 03/15/17 13:20 Basophils % 0.1 % (0.0-2.0) 03/15/17 13:20 PT 10.9 SECONDS (9.5-11.5) 03/15/17 13:20 INR 1.05 (0.5-1.4) 03/15/17 13:20 PTT (Actin FS) 30.8 SECONDS (26.0-38.0) 03/15/17 13:20 Sodium 143 mEq/L (136-145) 03/15/17 13:20 Potassium 3.9 mEq/L (3.5-5.1) 03/15/17 13:20 Chloride 108 mEq/L (98-107) H 03/15/17 13:20 Carbon Dioxide 30.2 mEq/L (21.0-31.0) 03/15/17 13:20 Anion Gap 8.7 (7.0-16.0) 03/15/17 13:20 BUN 22 mg/dL (7-25) 03/15/17 13:20 Creatinine 0.7 mg/dL (0.7-1.3) 03/15/17 13:20 Est GFR ( Amer) > 60.0 ml/min (>90) 03/15/17 13:20 Est GFR (Non-Af Amer) > 60.0 ml/min 03/15/17 13:20 BUN/Creatinine Ratio 31.4 03/15/17 13:20 Glucose 70 mg/dL (70-105) 03/15/17 13:20 POC Glucose 250 MG/DL (70 - 105) H 03/15/17 14:37 Calcium 9.6 mg/dL (8.6-10.3) 03/15/17 13:20 Total Bilirubin 0.3 mg/dL (0.3-1.0) 03/15/17 13:20 AST 18 U/L (13-39) 03/15/17 13:20 ALT 28 U/L (7-52) 03/15/17 13:20 Alkaline Phosphatase 68 U/L (34-104) 03/15/17 13:20 Total Protein 7.2 gm/dL (6.0-8.3) 03/15/17 13:20 Albumin 3.7 gm/dL (4.2-5.5) L 03/15/17 13:20 Globulin 3.5 gm/dL 03/15/17 13:20 Albumin/Globulin Ratio 1.1 (1.0-1.8) 03/15/17 13:20 Urine Source MIDSTREAM 03/15/17 13:15 Urine Color YELLOW 03/15/17 13:15 Urine Clarity CLEAR (CLEAR) 03/15/17 13:15 Urine pH 6.5 (4.6 - 8.0) 03/15/17 13:15 Ur Specific [place] <= 1.005 (1.005-1.030) 03/15/17 13:15 Urine Protein NEGATIVE mg/dL (NEGATIVE) 03/15/17 13:15 Urine Glucose (UA) NEGATIVE mg/dL (NEGATIVE) 03/15/17 13:15 Urine Ketones NEGATIVE mg/dL (NEGATIVE) 03/15/17 13:15 Urine Blood NEGATIVE (NEGATIVE) 03/15/17 13:15 Urine Nitrate NEGATIVE (NEGATIVE) 03/15/17 13:15 Urine Bilirubin NEGATIVE (NEGATIVE) 03/15/17 13:15 Urine Urobilinogen 0.2 E.U./dL (0.2 - 1.0) 03/15/17 13:15 Ur Leukocyte Esterase NEGATIVE (NEGATIVE) 03/15/17 13:15 Urine WBC 0-2 /hpf (0-5) 03/15/17 13:15 Ur Epithelial Cells OCCASIONAL /lpf (FEW) 03/15/17 13:15 Urine Bacteria OCCASIONAL /hpf (NONE SEEN) 03/15/17 13:15 Blood Type O POSITIVE 03/15/17 13:20 Antibody Screen NEGATIVE 03/15/17 13:20 - Physical Exam Vitals and I&O: Vital Signs Temp 97.9 F 03/16/17 04:00 Pulse 73 03/16/17 04:00 Resp 19 03/16/17 04:00 BP 144/76 03/16/17 04:00 Pulse Ox 95 03/16/17 04:00 Intake & Output 03/15/17 03/16/17 03/16/17 18:59 06:59 18:59 Intake Total 100 Output Total 400 Balance -300 Weight (lbs) 68.039 kg Intake: Oral 100 Output: Urine 400 Active Medications: Current Medications Acetaminophen (Tylenol) 650 mg PO Q4HR PRN PRN Reason: Mild Pain or Fever >101F Stop: 05/14/17 19:32 Acetaminophen (Tylenol Extra Strength) 1,000 mg PO Q4HR PRN PRN Reason: Pain (Moderate) Stop: 05/14/17 19:32 Al Hydrox/Mg Hydrox/Simethicone (Maalox) 30 ml PO Q4HR PRN PRN Reason: GI DISTRESS Stop: 05/14/17 19:32 Bisacodyl (Dulcolax 10 Mg Supp) 10 mg RC DAILY PRN PRN Reason: Constipation Stop: 05/14/17 19:32 Divalproex Sodium (Depakote Dr) 500 mg PO BID ELISABET PRN Reason: Protocol Stop: 05/15/17 08:59 Docusate Sodium (Colace) 100 mg PO DAILY ON LICENSE OF [facility] Stop: 05/15/17 08:59 Ferrous Sulfate (Iron) 325 mg PO TID ELISABET Stop: 05/14/17 20:59 Last Admin: 03/15/17 21:30 Dose: 325 mg Furosemide (Lasix) 40 mg PO DAILY ON LICENSE OF [facility] Stop: 05/15/17 08:59 Sodium Chloride (Nacl 0.9%) 500 mls @ 20 mls/hr IV .Q24H ELISABET PRN Reason: TKO Stop: 03/17/17 15:14 Piperacillin Sod/Tazobactam (Sod 3.375 gm/ Sodium Chloride) 50 mls @ 100 mls/ hr IV Q8H ELISABET Stop: 05/15/17 05:59 Last Admin: 03/16/17 06:30 Dose: 100 mls/hr Vancomycin HCl 1 gm/ Sodium (Chloride) 250 mls @ 165 mls/hr IV Q24H ON LICENSE OF [facility] Stop: 05/14/17 22:29 Last Admin: 03/15/17 22:47 Dose: 165 mls/hr Magnesium Hydroxide (Milk Of Magnesia) 30 ml PO DAILY PRN PRN Reason: Constipation Stop: 05/14/17 19:32 Miscellaneous (Vte Chemical Prophylaxis Screen/ Admission) 1 ea PRN PRN PRN Reason: PROTOCOL Stop: 05/14/17 12:29 Miscellaneous (Vancomycin Iv Per Pharmacy) 1 ea PRN PRN PRN Reason: PROTOCOL Stop: 05/14/17 20:30 Quetiapine Fumarate (Seroquel) 400 mg PO BID ON LICENSE OF [facility] PRN Reason: Protocol Stop: 05/15/17 08:59 Valsartan (Diovan) 80 mg PO DAILY ON LICENSE OF [facility] Stop: 05/15/17 08:59 General: No acute distress HEENT: Atraumatic, PERRLA Cardiovascular: Regular rate, Normal S1 Abdomen: Bowel sounds Assessment/Plan - Problem List Patient Problems: All Active Problems possible effusion of finger (Acute) r/o gangrene (Acute) Schizophrenia (Acute) F20.9 - Plan Plan: as per order sheet
[2017-03-16] MEDS: Ferrous Sulfate 325 MG TAB PO SCH ×3 (09:31→20:39)
--- NOTE | 2017-03-16 12:37 | General Progress Note ---
Subjective - Review of Systems Service Date: 03/17/17 Events since last encounter: finger appears to have good granulation local wound care with antibiotics Objective - Results Result Diagrams: 03/15/17 13:20 03/15/17 13:20 Recent Labs: Laboratory Last Values WBC 4.3 Th/cmm (4.8-10.8) L D 03/15/17 13:20 RBC 3.84 Mil/cmm (3.80-5.80) 03/15/17 13:20 Hgb 12.0 gm/dL (12-16) 03/15/17 13:20 Hct 36.3 % (41.0-60) L 03/15/17 13:20 MCV 94.5 fl (80-99) 03/15/17 13:20 MCH 31.2 pg (27.0-31.0) H 03/15/17 13:20 MCHC Differential 33.0 pg (28.0-36.0) 03/15/17 13:20 RDW 13.9 % (11.5-20.0) 03/15/17 13:20 Plt Count 138 Th/cmm (150-400) L 03/15/17 13:20 MPV 9.2 fl 03/15/17 13:20 Neutrophils % 73.6 % (40.0-80.0) 03/15/17 13:20 Lymphocytes % 13.3 % (20.0-50.0) L 03/15/17 13:20 Monocytes % 12.4 % (2.0-10.0) H 03/15/17 13:20 Eosinophils % 0.6 % (0.0-5.0) 03/15/17 13:20 Basophils % 0.1 % (0.0-2.0) 03/15/17 13:20 PT 10.9 SECONDS (9.5-11.5) 03/15/17 13:20 INR 1.05 (0.5-1.4) 03/15/17 13:20 PTT (Actin FS) 30.8 SECONDS (26.0-38.0) 03/15/17 13:20 Sodium 143 mEq/L (136-145) 03/15/17 13:20 Potassium 3.9 mEq/L (3.5-5.1) 03/15/17 13:20 Chloride 108 mEq/L (98-107) H 03/15/17 13:20 Carbon Dioxide 30.2 mEq/L (21.0-31.0) 03/15/17 13:20 Anion Gap 8.7 (7.0-16.0) 03/15/17 13:20 BUN 22 mg/dL (7-25) 03/15/17 13:20 Creatinine 0.7 mg/dL (0.7-1.3) 03/15/17 13:20 Est GFR ( Amer) > 60.0 ml/min (>90) 03/15/17 13:20 Est GFR (Non-Af Amer) > 60.0 ml/min 03/15/17 13:20 BUN/Creatinine Ratio 31.4 03/15/17 13:20 Glucose 70 mg/dL (70-105) 03/15/17 13:20 POC Glucose 250 MG/DL (70 - 105) H 03/15/17 14:37 Calcium 9.6 mg/dL (8.6-10.3) 03/15/17 13:20 Total Bilirubin 0.3 mg/dL (0.3-1.0) 03/15/17 13:20 AST 18 U/L (13-39) 03/15/17 13:20 ALT 28 U/L (7-52) 03/15/17 13:20 Alkaline Phosphatase 68 U/L (34-104) 03/15/17 13:20 Total Protein 7.2 gm/dL (6.0-8.3) 03/15/17 13:20 Albumin 3.7 gm/dL (4.2-5.5) L 03/15/17 13:20 Globulin 3.5 gm/dL 03/15/17 13:20 Albumin/Globulin Ratio 1.1 (1.0-1.8) 03/15/17 13:20 Urine Source MIDSTREAM 03/15/17 13:15 Urine Color YELLOW 03/15/17 13:15 Urine Clarity CLEAR (CLEAR) 03/15/17 13:15 Urine pH 6.5 (4.6 - 8.0) 03/15/17 13:15 Ur Specific Mcqueeney <= 1.005 (1.005-1.030) 03/15/17 13:15 Urine Protein NEGATIVE mg/dL (NEGATIVE) 03/15/17 13:15 Urine Glucose (UA) NEGATIVE mg/dL (NEGATIVE) 03/15/17 13:15 Urine Ketones NEGATIVE mg/dL (NEGATIVE) 03/15/17 13:15 Urine Blood NEGATIVE (NEGATIVE) 03/15/17 13:15 Urine Nitrate NEGATIVE (NEGATIVE) 03/15/17 13:15 Urine Bilirubin NEGATIVE (NEGATIVE) 03/15/17 13:15 Urine Urobilinogen 0.2 E.U./dL (0.2 - 1.0) 03/15/17 13:15 Ur Leukocyte Esterase NEGATIVE (NEGATIVE) 03/15/17 13:15 Urine WBC 0-2 /hpf (0-5) 03/15/17 13:15 Ur Epithelial Cells OCCASIONAL /lpf (FEW) 03/15/17 13:15 Urine Bacteria OCCASIONAL /hpf (NONE SEEN) 03/15/17 13:15 Blood Type O POSITIVE 03/15/17 13:20 Antibody Screen NEGATIVE 03/15/17 13:20 - Physical Exam Vitals and I&O: Vital Signs Temp 98.3 F 03/16/17 08:00 Pulse 79 03/16/17 09:33 Resp 19 03/16/17 08:00 BP 134/91 03/16/17 09:33 Pulse Ox 99 03/16/17 08:00 Intake & Output 03/15/17 03/16/17 03/16/17 18:59 06:59 18:59 Intake Total 100 Output Total 400 Balance -300 Weight (lbs) 68.039 kg Intake: Oral 100 Output: Urine 400 Other: Stool Characteristics Soft Formed Brown Active Medications: Current Medications Acetaminophen (Tylenol) 650 mg PO Q4HR PRN PRN Reason: Mild Pain or Fever >101F Stop: 05/14/17 19:32 Acetaminophen (Tylenol Extra Strength) 1,000 mg PO Q4HR PRN PRN Reason: Pain (Moderate) Stop: 05/14/17 19:32 Al Hydrox/Mg Hydrox/Simethicone (Maalox) 30 ml PO Q4HR PRN PRN Reason: GI DISTRESS Stop: 05/14/17 19:32 Bisacodyl (Dulcolax 10 Mg Supp) 10 mg RC DAILY PRN PRN Reason: Constipation Stop: 05/14/17 19:32 Divalproex Sodium (Depakote Dr) 500 mg PO BID [facility] PRN Reason: Protocol Stop: 05/15/17 08:59 Last Admin: 03/16/17 09:31 Dose: 500 mg Docusate Sodium (Colace) 100 mg PO DAILY [facility] Stop: 05/15/17 08:59 Last Admin: 03/16/17 09:33 Dose: 100 mg Ferrous Sulfate (Iron) 325 mg PO TID [facility] Stop: 05/14/17 20:59 Last Admin: 03/16/17 09:31 Dose: 325 mg Furosemide (Lasix) 40 mg PO DAILY [facility] Stop: 05/15/17 08:59 Last Admin: 03/16/17 09:31 Dose: 40 mg Sodium Chloride (Nacl 0.9%) 500 mls @ 20 mls/hr IV .Q24H [facility] PRN Reason: TKO Stop: 03/17/17 15:14 Piperacillin Sod/Tazobactam (Sod 3.375 gm/ Sodium Chloride) 50 mls @ 100 mls/ hr IV Q8H [facility] Stop: 05/15/17 05:59 Last Admin: 03/16/17 06:30 Dose: 100 mls/hr Vancomycin HCl 1 gm/ Sodium (Chloride) 250 mls @ 165 mls/hr IV Q24H [facility] Stop: 05/14/17 22:29 Last Admin: 03/15/17 22:47 Dose: 165 mls/hr Magnesium Hydroxide (Milk Of Magnesia) 30 ml PO DAILY PRN PRN Reason: Constipation Stop: 05/14/17 19:32 Miscellaneous (Vte Chemical Prophylaxis Screen/ Admission) 1 [facility] PRN PRN PRN Reason: PROTOCOL Stop: 05/14/17 12:29 Miscellaneous (Vancomycin Iv Per Pharmacy) 1 [facility] PRN PRN PRN Reason: PROTOCOL Stop: 05/14/17 20:30 Quetiapine Fumarate (Seroquel) 400 mg PO BID [facility] PRN Reason: Protocol Stop: 05/15/17 08:59 Last Admin: 03/16/17 09:31 Dose: 400 mg Valsartan (Diovan) 80 mg PO DAILY [facility] Stop: 05/15/17 08:59 Last Admin: 03/16/17 09:33 Dose: 80 mg General: No acute distress HEENT: Atraumatic, PERRLA Cardiovascular: Regular rate, Normal S1 Abdomen: Bowel sounds Assessment/Plan - Problem List Patient Problems: All Active Problems possible effusion of finger (Acute) r/o gangrene (Acute) Schizophrenia (Acute) F20.9
[2017-03-16] MEDS ORDERED: Triple Antibiotic 0.94 gm Pkt TP SCH (13:00)
--- NOTE | 2017-03-17 12:21 | Pathology Report ---
[id number] Collection date: 03/15/2017 Surgeon: Dr. Joan Francois Specimen Description: Debrided skin and nail, right third finger. Gross Description: Received in formalin is a 2.8 x 1.7 x 1.5 cm excision of grayish necrotic appearing skin and finger nail consistent with distal tip of the right third finger. Also received are two additional thin strips of boggs-sandhu necrotic skin measuring 3.5 and 5.5 cm in greatest dimension, with each strip of skin measuring less than 1 mm in thickness. Sectioning shows grayish necrotic appearance throughout the specimen including the area of the finger nail. Iron Piler sections are submitted in one cassette. Microscopic Description: The histologic sections show skin and finger nail tissue with extensive suppurative inflammation and necrosis, with large collections of neutrophils seen within a degenerated necrotic background. Diagnosis: Necrotic skin and finger nail tissue showing extensive suppurative inflammation and necrosis, consistent with abscess and debridement (right third finger). [facility]# [id number] [facility]
--- NOTE | 2017-03-26 14:10 | Progress Notes ---
DATE: 03/24/2017 SUBJECTIVE: The patient is seen, chart reviewed, discussed with staff. The patient is seen 03/24/2017. The patient remains symptomatic, bizarre, acting strange, in a Angeline chair, disrobing in the Angeline chair, screaming, pounding on the Angeline chair. The patient has been refusing medications, erratic med compliance, but he has been taking it with some prompting, currently on Seroquel 400 mg twice daily. I did start Haldol 2 mg twice a day. 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 ASSESSMENT: The patient remains symptomatic, still acting bizarre, odd, hoarding behaviors in a Angeline chair, disrobing, out of control behaviors. PLAN: We will continue to monitor. Medications were reviewed. We will increase Haldol dosing today. [facility]# [id number]
--- NOTE | 2017-03-27 14:02 | Consultation ---
DATE OF CONSULTATION: 03/15/2017 SURGICAL CONSULTATION REFERRING PHYSICIAN: Liss Mcleod M.D. REASON FOR CONSULTATION: Necrotic right third finger. Thank you for referring this patient to me. HISTORY OF PRESENT ILLNESS: This is a 71-year-old patient who was admitted to [facility]. He is unable to give good information on how long the gangrene of the right third finger has been present. He does not know of any trauma either. He has diagnosis of psychosis and is being managed by psychiatrist. LABORATORY STUDIES: Showed WBC to be normal. The blood glucose is elevated at 250. PHYSICAL EXAMINATION: GENERAL: The patient is asthenic. EXTREMITIES: The right third finger appears to be gangrenous with skin very loose extending all the way to the metacarpal joint. RECOMMENDATIONS: Excisional debridement of the right third finger. Amputation is necessary. JOB# [id number]
== END 2017-03-16 21:23 | DRG 300 ==
LOC: MSI 09:02
PROVIDERS: ADMIT Internal Medicine; ATTEND Internal Medicine
PROC: 0HBQXZZ Excision of Finger Nail, External Approach (ICD-10-PCS; principal; 2017-03-16)
DX: I96 Gangrene, not elsewhere classified (principal); R64 Cachexia; F29 Unspecified psychosis not due to a substance or known physiological condition; S60.429A Blister (nonthermal) of unspecified finger, initial encounter; M25.441 Effusion, right hand; Z68.20 Body mass index [BMI] 20.0-20.9, adult
CPT/HCPCS: 36415-UA; 71010-TC; 80053-TC; 81001-TC; 82948-90; 85025-TC; 85610-TC; 86850-TC; 86900-TC; 86901-TC; 87070-90; 87075-90; 87205-90; J2001; J2543; J2704; J3010; J3370; J7040; V2790; Z7610

== ENCOUNTER 2017-03-16 21:30 | Inpatient (IN) | payer MEDICARE, MEDICAID ==
[2017-03-16 22:23] VITALS: BP 132/78
[2017-03-16] MEDS ORDERED: Magnesium Hydroxide (MOM) 30 mL UDC PO PRN (22:25)
[2017-03-16] MEDS ORDERED: Acetaminophen 500 MG TAB PO PRN (22:25)
[2017-03-16] MEDS ORDERED: Maalox 30 mL Cup PO PRN (22:25)
[2017-03-17] MEDS: Aspirin 81mg Chewable Tab PO SCH (09:36)
[2017-03-17] MEDS: Ferrous Sulfate 325 MG TAB PO SCH ×3 (09:37→20:43)
--- NOTE | 2017-03-17 22:33 | Internal Medicine Prog Note ---
Internal Medicine Subjective - Subjective Service Date: 03/17/17 (right middle finger edema has gone down, now noted with open wound. ) Patient seen and examined:: with staff Patient is:: awake Per staff patient has:: no adverse event Internal Medicine Objective - Physical Exam Vitals and I&O: Vital Signs Temp 97.9 F 03/17/17 14:00 Pulse 82 03/17/17 14:00 Resp 20 03/17/17 14:00 BP 115/72 03/17/17 14:00 Pulse Ox 98 03/17/17 14:00 Intake & Output 03/17/17 03/17/17 03/18/17 06:59 18:59 06:59 Intake Total 120 480 Balance 120 480 Intake: Oral 120 480 Other: # Voids 3 3 Active Medications: Current Medications Acetaminophen (Tylenol) 650 mg PO Q4HR PRN PRN Reason: Mild Pain or Fever >101F Stop: 05/15/17 22:24 Acetaminophen (Tylenol Extra Strength) 1,000 mg PO Q4HR PRN PRN Reason: Pain (Moderate) Stop: 05/15/17 22:24 Last Admin: 03/17/17 13:51 Dose: 1,000 mg Al Hydrox/Mg Hydrox/Simethicone (Maalox) 30 ml PO Q4HR PRN PRN Reason: GI DISTRESS Stop: 05/15/17 22:24 Aspirin (Aspirin Chewable) 81 mg PO DAILY [facility] Stop: 05/16/17 08:59 Last Admin: 03/17/17 09:36 Dose: 81 mg Bisacodyl (Dulcolax 10 Mg Supp) 10 mg RC DAILY PRN PRN Reason: Constipation Stop: 05/15/17 22:24 Divalproex Sodium (Depakote Dr) 500 mg PO BID [facility] PRN Reason: Protocol Stop: 05/16/17 08:59 Last Admin: 03/17/17 17:24 Dose: 500 mg Docusate Sodium (Colace) 100 mg PO DAILY [facility] Stop: 05/16/17 08:59 Last Admin: 03/17/17 09:36 Dose: 100 mg Ferrous Sulfate (Iron) 325 mg PO TID [facility] Stop: 05/16/17 08:59 Last Admin: 03/17/17 20:43 Dose: 325 mg Furosemide (Lasix) 40 mg PO DAILY [facility] Stop: 05/16/17 08:59 Last Admin: 03/17/17 09:37 Dose: 40 mg Lorazepam (Ativan) 1 mg PO Q6H PRN; Protocol PRN Reason: Anxiety/Agitation Stop: 05/15/17 22:22 Last Admin: 03/17/17 20:44 Dose: 1 mg Magnesium Hydroxide (Milk Of Magnesia) 30 ml PO DAILY PRN PRN Reason: Constipation Stop: 05/15/17 22:24 Quetiapine Fumarate (Seroquel) 400 mg PO BID [facility] PRN Reason: Protocol Stop: 05/16/17 08:59 Last Admin: 03/17/17 17:24 Dose: 400 mg Valsartan (Diovan) 80 mg PO DAILY [facility] Stop: 05/16/17 08:59 Last Admin: 03/17/17 09:36 Dose: 80 mg General: alert HEENT: NC/AT, PERRLA Neck: Supple Lungs: CTAB Extremities: other (right middle finger sweling) Neurological: no change Internal Medicine Assmt/Plan - Assessment Assessment: possible effusion of finger (Acute) r/o gangrene (Acute) Schizophrenia (Acute) F20.9 - Plan Plan: add keflex wound care cpm Nutritional Asmnt/Malnutr-PDOC - Dietary Evaluation Malnutrition Findings (Please click <Entered> for more info): Nutritional Asmnt/Malnutrition Start: 03/17/17 13: 45 Text: Status: Complete Freq: Document 03/17/17 13:45 LAUREN (Rec: 03/17/17 14:04 [email or web address]) Nutritional Asmnt/Malnutrition Patient General Information Nutritional Screening High Risk Consult Diagnosis Psychosis Pertinent Medical Hx/Surgical Hx HTN, CHF, schizophrenia, dementia, OS, iron deficiency anemia Subjective Information Consult received for finger wound. Pt seen sleeping in bed at the time of visit. Noted pt had surgery on right thrd finger d/t gangrene on 03/15. Spoke with nurse, Pt still have good appetite, eats well. Current Diet Order/ Nutrition Support Regular Pertinent Medications colace, iron, lasix, seroquel Pertinent Labs no labs Nutritional Hx/Data Height 5 ft 9 in Height (Calculated Centimeters) 175.3 Current Weight (lbs) 150 lb Weight (Calculated Kilograms) 68.0 Weight (Calculated Grams) 89070.9 [place]deavor Body Weight 172 % Endeavor Body Weight 87 Body Mass Index (BMI) 22.1 Weight Status Approriate GI Symptoms GI Symptoms None Last BM none Difficult in: None Skin Integrity/Comment: right third finger surgical wound Estimated Nutritional Goals BEE in Kcals: Using Current wt Calories/Kcals/Kg 27-32 Kcals Calculated 0926-1697 Protein: Using Current wt Protein g/k-1.2 Protein Calculated 68-82 Fluid: ml 8670-0833 Nutritional Problem 1. Problem Problem increased nutrition needs ( calorie and protein) Etiology increased metabolic demand for wound healing Signs/Symptoms: right 3rd finger surgical wound Malnutrition Alert Protein-Calorie Malnutrition N/A Is there a minimum of two criteria No selected? Query Text:Check all the applicable criteria. A minimum of two criteria are recommended for diagnosis of either severe or non-severe malnutrition. Intervention/Recommendation Comments 1. Continue with current diet as ordered. 2. Monitor PO intake, wt, labs and skin integrity 3. F/U as moderate risk in 3-5 days, 03/20-1/ Expected Outcomes/Goals Expected Outcomes/Goals 1. PO intake to meet at least 75% of nutritional needs. 2. Wt stability, skin to remain intact, labs WNL.
--- NOTE | 2017-03-18 04:44 | Psychosocial Evaluation ---
DATE OF SERVICE: 03/17/2017 THE PATIENT'S AGE: 71. SEX: Male. PHYSICIAN: Allison Romero M.D., M.P.H. PRIMARY DIAGNOSIS: Schizo-affective disorder, bipolar type, with psychotic features. SECONDARY DIAGNOSIS: Dementia, moderate, with psychotic features. REASON FOR HOSPITALIZATION: The patient was in geropsych unit and then transferred to medical floor because of swelling of the finger, and the patient underwent surgery and kept there overnight. The patient when medically cleared returned back to the geropsych unit. HOSPITAL COURSE: The patient is calm and cooperative. He still has disorganized thoughts, but this seems to be his baseline. He is not suicidal or homicidal. The patient seems to be at his baseline and the patient was discharged from the hospital. PHYSICAL EXAMINATION: Physical exam of the patient was done by Dr. Mcleod, and the patient had no major medical problems. AFTER DISCHARGE PLAN: The patient discharged from the hospital and he went back to shelter in [place], and plan to follow him up there. DISCHARGE ACTIVITY: As tolerated. EXPECTED OUTCOME AFTER DISCHARGE: Fair, if the patient continued to take his medications. JOB# [id number]
[2017-03-18] MEDS: Ferrous Sulfate 325 MG TAB PO SCH ×3 (09:22→20:35)
[2017-03-18] MEDS: Aspirin 81mg Chewable Tab PO SCH (09:23)
--- NOTE | 2017-03-18 20:24 | History & Physical ---
ADMIT DATE: 03/18/2017 CHIEF COMPLAINT: Swollen right third finger on the hand. HISTORY OF PRESENT ILLNESS: This is a 71-year-old male who was admitted from the psychiatric unit to the Med/Surg floor due to swelling of the third finger of the right hand. The patient underwent wound debridement. REVIEW OF SYSTEMS: GENERAL: This is a 71-year-old male that appears as stated. Denies any fever or chills. HEAD: Denies any headache. EYES: Denies any blurring of vision. Denies any eye pain. NECK: Denies any neck pain. Denies nuchal rigidity. CHEST: Denies any chest pain. Denies palpitation. PULMONARY: Denies coughing. Denies shortness of breath. GASTROINTESTINAL: Denies abdominal pain. Denies diarrhea. Denies constipation. MUSCULOSKELETAL: Denies joint pain. Denies muscle pain. SOCIAL HISTORY: The patient currently is staying in psychiatric unit prior to being transferred to Med/Surg floor. PAST MEDICAL HISTORY: Includes osteoarthritis, hypertension, iron deficiency anemia. PSYCHIATRIC HISTORY: Includes schizoaffective disorder, dementia. PHYSICAL EXAMINATION: VITAL SIGNS: Temperature 98.3, respiration of 20, heart rate of 77, blood pressure 125/75, 97% on room air. HEENT: Head is atraumatic and normocephalic. Eyes: Bilateral conjunctivae are clear. Bilateral pupils are equally round and reactive. NECK: Supple. No JVD. CARDIOVASCULAR: S1 and S2, without murmur. PULMONARY: Clear to auscultation. GASTROINTESTINAL: Soft and nontender without guarding. Positive bowel sounds. MUSCULOSKELETAL: No clubbing, no cyanosis noted. ASSESSMENT: 1. Status post wound debridement of the right third middle finger of the hand. 2. Hypertension. 3. Iron deficiency anemia. 4. Dementia. 5. Schizoaffective disorder. PLAN: We will continue to keep the patient inpatient in the Psychiatric Unit. We will do medication reconciliation accordingly. We will follow up with the psychiatrist to monitor the patient's condition and behavior. We will add Keflex twice a day for 7 days. Treatment plans were discussed with the patient's nurse. Treatment plans were discussed with Dr. Mcleod. JOB# [id number]
--- NOTE | 2017-03-18 21:08 | Progress Notes ---
DATE: 03/18/2017 SUBJECTIVE: The patient seen on 03/18/2017, history of mental illness, also dementia. The patient with swelling of the finger, underwent surgery. Returning back to the Geropsych Unit. Calm, cooperative, but disorganized, likely at his baseline. The patient still with some rambling episodes, nonsensical, still seemingly disoriented. Medications were reviewed including doses and frequencies. Eating with prompting. Sleeping with fish roe technician awakenings. PLAN: We will continue to monitor given his ongoing symptoms. He is not safe for discharge. He is unable to care for himself. We are trying to confirm placement. JOB# [id number]
[2017-03-19] MEDS: Ferrous Sulfate 325 MG TAB PO SCH ×3 (08:58→20:30)
[2017-03-19] MEDS: Aspirin 81mg Chewable Tab PO SCH (08:58)
[2017-03-19] MEDS ORDERED: Probiotic Screen MC PRN (10:30)
--- NOTE | 2017-03-19 12:56 | General Progress Note ---
Subjective - Review of Systems Events since last encounter: swelling in rt hand 3rd finger no fever Objective - Physical Exam Vitals and I&O: Vital Signs Temp 97.5 F 03/19/17 06:29 Pulse 89 03/19/17 08:58 Resp 20 03/19/17 06:29 BP 134/75 03/19/17 08:59 Pulse Ox 99 03/19/17 06:29 Intake & Output 03/18/17 03/19/17 03/19/17 18:59 06:59 18:59 Intake Total 2400 120 Output Total 2400 Balance 0 120 Intake: Oral 2400 120 Output: Urine 2400 Other: # Voids 3 # Bowel Movements 0 Active Medications: Current Medications Acetaminophen (Tylenol) 650 mg PO Q4HR PRN PRN Reason: Mild Pain or Fever >101F Stop: 05/15/17 22:24 Acetaminophen (Tylenol Extra Strength) 1,000 mg PO Q4HR PRN PRN Reason: Pain (Moderate) Stop: 05/15/17 22:24 Last Admin: 03/17/17 13:51 Dose: 1,000 mg Al Hydrox/Mg Hydrox/Simethicone (Maalox) 30 ml PO Q4HR PRN PRN Reason: GI DISTRESS Stop: 05/15/17 22:24 Aspirin (Aspirin Chewable) 81 mg PO DAILY [facility] Stop: 05/16/17 08:59 Last Admin: 03/19/17 08:58 Dose: 81 mg Bisacodyl (Dulcolax 10 Mg Supp) 10 mg RC DAILY PRN PRN Reason: Constipation Stop: 05/15/17 22:24 Cephalexin Monohydrate (Keflex) 500 mg PO QID [facility] Stop: 03/27/17 20:59 Last Admin: 03/19/17 12:13 Dose: 500 mg Divalproex Sodium (Depakote Dr) 500 mg PO BID [facility] PRN Reason: Protocol Stop: 05/16/17 08:59 Last Admin: 03/19/17 08:58 Dose: 500 mg Docusate Sodium (Colace) 100 mg PO DAILY [facility] Stop: 05/16/17 08:59 Last Admin: 03/19/17 08:58 Dose: 100 mg Ferrous Sulfate (Iron) 325 mg PO TID [facility] Stop: 05/16/17 08:59 Last Admin: 12/31/17 08:58 Dose: 325 mg Furosemide (Lasix) 40 mg PO DAILY [facility] Stop: 05/16/17 08:59 Last Admin: 03/19/17 08:59 Dose: 40 mg Lactobacillus Rhamnosus (Culturelle 15b) 1 each PO DAILY [facility] Stop: 05/19/17 08:59 Lorazepam (Ativan) 1 mg PO Q6H PRN; Protocol PRN Reason: Anxiety/Agitation Stop: 05/15/17 22:22 Last Admin: 03/18/17 18:24 Dose: 1 mg Magnesium Hydroxide (Milk Of Magnesia) 30 ml PO DAILY PRN PRN Reason: Constipation Stop: 05/15/17 22:24 Miscellaneous (Probiotic Screen) 1 ea [facility] PRN PRN PRN Reason: PROTOCOL Stop: 05/18/17 10:29 Quetiapine Fumarate (Seroquel) 400 mg PO BID [facility] PRN Reason: Protocol Stop: 05/16/17 08:59 Last Admin: 03/19/17 08:58 Dose: 400 mg Valsartan (Diovan) 80 mg PO DAILY [facility] Stop: 05/16/17 08:59 Last Admin: 03/19/17 08:58 Dose: 80 mg General: No acute distress HEENT: Atraumatic Neck: Thyromegaly Cardiovascular: Regular rate, Normal S1 Assessment/Plan - Problem List Patient Problems: All Active Problems Schizophrenia (Acute) F20.9 possible effusion of finger (Acute) r/o gangrene (Acute) - Plan Plan: cpm Nutritional Asmnt/Malnutr-PDOC - Dietary Evaluation Malnutrition Findings (Please click <Entered> for more info): Nutritional Asmnt/Malnutrition Start: 03/17/17 13: 45 Text: Status: Complete Freq: Document 03/17/17 13:45 LCHENG (Rec: 03/17/17 14:04 LCHENG [email or web address]) Nutritional Asmnt/Malnutrition Patient General Information Nutritional Screening High Risk Consult Diagnosis Psychosis Pertinent Medical Hx/Surgical Hx HTN, CHF, schizophrenia, dementia, OS, iron deficiency anemia Subjective Information Consult received for finger wound. Pt seen sleeping in bed at the time of visit. Noted pt had surgery on right thrd finger d/t gangrene on 03/15. Spoke with nurse, Pt still have good appetite, eats well. Current Diet Order/ Nutrition Support Regular Pertinent Medications colace, iron, lasix, seroquel Pertinent Labs no labs Nutritional Hx/Data Height 1.75 m Height (Calculated Centimeters) 175.3 Current Weight (lbs) 68.039 kg Weight (Calculated Kilograms) 68.0 Weight (Calculated Grams) 01650.9 Osteen Body Weight 172 % Osteen Body Weight 87 Body Mass Index (BMI) 22.1 Weight Status Approriate GI Symptoms GI Symptoms None Last BM none Difficult in: None Skin Integrity/Comment: right third finger surgical wound Estimated Nutritional Goals BEE in Kcals: Using Current wt Calories/Kcals/Kg 27-32 Kcals Calculated 8417-2812 Protein: Using Current wt Protein g/k-1.2 Protein Calculated 68-82 Fluid: ml 5425-0753 Nutritional Problem 1. Problem Problem increased nutrition needs ( calorie and protein) Etiology increased metabolic demand for wound healing Signs/Symptoms: right 3rd finger surgical wound Malnutrition Alert Protein-Calorie Malnutrition N/A Is there a minimum of two criteria No selected? Query Text:Check all the applicable criteria. A minimum of two criteria are recommended for diagnosis of either severe or non-severe malnutrition. Intervention/Recommendation Comments 1. Continue with current diet as ordered. 2. Monitor PO intake, wt, labs and skin integrity 3. F/U as moderate risk in 3-5 days, 03/20-03/22 Expected Outcomes/Goals Expected Outcomes/Goals 1. PO intake to meet at least 75% of nutritional needs. 2. Wt stability, skin to remain intact, labs WNL.
--- NOTE | 2017-03-19 22:48 | Progress Notes ---
DATE: 03/19/2017 The patient is seen on 03/19/2017. 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 MEDICATIONS: Reviewed. ASSESSMENT: The patient with ongoing behavioral disturbances. It is not safe for discharge. Still restless and agitated, getting out of the Angeline chair. PLAN: We will continue to monitor and follow up. We will make appropriate medication adjustments, given his ongoing symptoms, he is not safe for a lower level of care. JOB# [id number]
[2017-03-20] MEDS: Aspirin 81mg Chewable Tab PO SCH (09:48)
--- NOTE | 2017-03-20 09:48 | Progress Notes ---
DATE: 03/20/2017 The patient remains restless, still trying to get out of the Angeline chair, not making any sounds, needing a lot of redirection and prompting, and poorly oriented, not safe for lower level of care. Ongoing behavioral disturbances, agitation, some posturing towards staff. Medications reviewed. No side effects. ASSESSMENT: The patient with ongoing behavioral disturbances. Not safe for discharge. Still restless, agitated, difficult to control. PLAN: We will continue to monitor. Given his ongoing behavioral disturbances, he is not safe for discharge. JOB# [id number]
[2017-03-20] MEDS: Lactobacillus Rhamnosus GG 15 Billion CFU CAP.SPRINK PO SCH (09:49)
[2017-03-20] MEDS: Ferrous Sulfate 325 MG TAB PO SCH ×3 (09:49→20:54)
--- NOTE | 2017-03-20 13:39 | General Progress Note ---
Subjective - Review of Systems Events since last encounter: patient still with behavior disturbances remains restless Objective - Physical Exam Vitals and I&O: Vital Signs Temp 97.7 F 03/20/17 06:13 Pulse 88 03/20/17 09:48 Resp 20 03/20/17 06:13 BP 126/68 03/20/17 09:48 Pulse Ox 98 03/20/17 06:13 Intake & Output 03/19/17 03/20/17 03/20/17 18:59 06:59 18:59 Intake Total 1200 120 Balance 1200 120 Intake: Oral 1200 120 Other: # Voids 3 3 Active Medications: Current Medications Acetaminophen (Tylenol) 650 mg PO Q4HR PRN PRN Reason: Mild Pain or Fever >101F Stop: 05/15/17 22:24 Acetaminophen (Tylenol Extra Strength) 1,000 mg PO Q4HR PRN PRN Reason: Pain (Moderate) Stop: 05/15/17 22:24 Last Admin: 03/17/17 13:51 Dose: 1,000 mg Al Hydrox/Mg Hydrox/Simethicone (Maalox) 30 ml PO Q4HR PRN PRN Reason: GI DISTRESS Stop: 05/15/17 22:24 Aspirin (Aspirin Chewable) 81 mg PO DAILY [facility] Stop: 05/16/17 08:59 Last Admin: 03/20/17 09:48 Dose: 81 mg Bisacodyl (Dulcolax 10 Mg Supp) 10 mg RC DAILY PRN PRN Reason: Constipation Stop: 05/15/17 22:24 Cephalexin Monohydrate (Keflex) 500 mg PO QID [facility] Stop: 03/27/17 20:59 Last Admin: 03/20/17 09:48 Dose: 500 mg Divalproex Sodium (Depakote Dr) 500 mg PO BID [facility] PRN Reason: Protocol Stop: 05/16/17 08:59 Last Admin: 03/20/17 09:48 Dose: 500 mg Docusate Sodium (Colace) 100 mg PO DAILY [facility] Stop: 05/16/17 08:59 Last Admin: 03/20/17 09:49 Dose: 100 mg Ferrous Sulfate (Iron) 325 mg PO TID [facility] Stop: 05/16/17 08:59 Last Admin: 03/20/17 09:49 Dose: 325 mg Furosemide (Lasix) 40 mg PO DAILY [facility] Stop: 05/16/17 08:59 Last Admin: 03/20/17 09:48 Dose: 40 mg Lactobacillus Rhamnosus (Culturelle 15b) 1 each PO DAILY [facility] Stop: 05/19/17 08:59 Last Admin: 03/20/17 09:49 Dose: 1 each Lorazepam (Ativan) 1 mg PO Q6H PRN; Protocol PRN Reason: Anxiety/Agitation Stop: 05/15/17 22:22 Last Admin: 03/19/17 20:30 Dose: 1 mg Magnesium Hydroxide (Milk Of Magnesia) 30 ml PO DAILY PRN PRN Reason: Constipation Stop: 05/15/17 22:24 Miscellaneous (Probiotic Screen) 1 ea [facility] PRN PRN PRN Reason: PROTOCOL Stop: 05/18/17 10:29 Quetiapine Fumarate (Seroquel) 400 mg PO BID [facility] PRN Reason: Protocol Stop: 05/16/17 08:59 Last Admin: 03/20/17 09:48 Dose: 400 mg Valsartan (Diovan) 80 mg PO DAILY [facility] Stop: 05/16/17 08:59 Last Admin: 03/20/17 09:48 Dose: 80 mg General: No acute distress HEENT: Atraumatic Neck: Thyromegaly Cardiovascular: Regular rate, Normal S1 Assessment/Plan - Problem List Patient Problems: All Active Problems Schizophrenia (Acute) F20.9 possible effusion of finger (Acute) r/o gangrene (Acute) - Plan Plan: cpm Nutritional Asmnt/Malnutr-PDOC - Dietary Evaluation Malnutrition Findings (Please click <Entered> for more info): Nutritional Asmnt/Malnutrition Start: 03/17/17 13: 45 Text: Status: Complete Freq: Document 03/17/17 13:45 LCHENG (Rec: 03/17/17 14:04 LCHENG [email or web address]) Nutritional Asmnt/Malnutrition Patient General Information Nutritional Screening High Risk Consult Diagnosis Psychosis Pertinent Medical Hx/Surgical Hx HTN, CHF, schizophrenia, dementia, OS, iron deficiency anemia Subjective Information Consult received for finger wound. Pt seen sleeping in bed at the time of visit. Noted pt had surgery on right thrd finger d/t gangrene on 03/15. Spoke with nurse, Pt still have good appetite, eats well. Current Diet Order/ Nutrition Support Regular Pertinent Medications colace, iron, lasix, seroquel Pertinent Labs no labs Nutritional Hx/Data Height 1.75 m Height (Calculated Centimeters) 175.3 Current Weight (lbs) 68.039 kg Weight (Calculated Kilograms) 68.0 Weight (Calculated Grams) 01670.9 [place] Body Weight 172 % [place] Body Weight 87 Body Mass Index (BMI) 22.1 Weight Status Approriate GI Symptoms GI Symptoms None Last BM none Difficult in: None Skin Integrity/Comment: right third finger surgical wound Estimated Nutritional Goals BEE in Kcals: Using Current wt Calories/Kcals/Kg 27-32 Kcals Calculated 4233-1696 Protein: Using Current wt Protein g/k-1.2 Protein Calculated 68-82 Fluid: ml 9021-3163 Nutritional Problem 1. Problem Problem increased nutrition needs ( calorie and protein) Etiology increased metabolic demand for wound healing Signs/Symptoms: right 3rd finger surgical wound Malnutrition Alert Protein-Calorie Malnutrition N/A Is there a minimum of two criteria No selected? Query Text:Check all the applicable criteria. A minimum of two criteria are recommended for diagnosis of either severe or non-severe malnutrition. Intervention/Recommendation Comments 1. Continue with current diet as ordered. 2. Monitor PO intake, wt, labs and skin integrity 3. F/U as moderate risk in 3-5 days, 03/20-03/22 Expected Outcomes/Goals Expected Outcomes/Goals 1. PO intake to meet at least 75% of nutritional needs. 2. Wt stability, skin to remain intact, labs WNL.
[2017-03-21] MEDS: Aspirin 81mg Chewable Tab PO SCH (08:07)
[2017-03-21] MEDS: Lactobacillus Rhamnosus GG 15 Billion CFU CAP.SPRINK PO SCH (08:07)
[2017-03-21] MEDS: Ferrous Sulfate 325 MG TAB PO SCH ×3 (08:07→20:34)
--- NOTE | 2017-03-21 10:50 | Internal Medicine Prog Note ---
Internal Medicine Subjective - Subjective Service Date: 03/21/17 Patient is:: awake Per staff patient has:: no adverse event Internal Medicine Objective - Physical Exam Vitals and I&O: Vital Signs Temp 97.4 F 03/20/17 20:36 Pulse 79 03/20/17 20:36 Resp 19 03/20/17 20:36 BP 135/74 03/20/17 20:36 Pulse Ox 97 03/20/17 20:36 Intake & Output 03/20/17 03/21/17 03/21/17 18:59 06:59 18:59 Intake Total 1300 360 Balance 1300 360 Intake: Oral 1300 360 Other: # Voids 4 2 # Bowel Movements 2 0 Stool Characteristics Soft Formed Active Medications: Current Medications Acetaminophen (Tylenol) 650 mg PO Q4HR PRN PRN Reason: Mild Pain or Fever >101F Stop: 05/15/17 22:24 Acetaminophen (Tylenol Extra Strength) 1,000 mg PO Q4HR PRN PRN Reason: Pain (Moderate) Stop: 05/15/17 22:24 Last Admin: 03/17/17 13:51 Dose: 1,000 mg Al Hydrox/Mg Hydrox/Simethicone (Maalox) 30 ml PO Q4HR PRN PRN Reason: GI DISTRESS Stop: 05/15/17 22:24 Aspirin (Aspirin Chewable) 81 mg PO DAILY [facility] Stop: 05/16/17 08:59 Last Admin: 03/21/17 08:07 Dose: 81 mg Bisacodyl (Dulcolax 10 Mg Supp) 10 mg RC DAILY PRN PRN Reason: Constipation Stop: 05/15/17 22:24 Cephalexin Monohydrate (Keflex) 500 mg PO QID [facility] Stop: 03/27/17 20:59 Last Admin: 03/21/17 08:07 Dose: 500 mg Divalproex Sodium (Depakote Dr) 500 mg PO BID [facility] PRN Reason: Protocol Stop: 05/16/17 08:59 Last Admin: 03/21/17 08:07 Dose: 500 mg Docusate Sodium (Colace) 100 mg PO DAILY [facility] Stop: 05/16/17 08:59 Last Admin: 03/21/17 08:07 Dose: 100 mg Ferrous Sulfate (Iron) 325 mg PO TID [facility] Stop: 05/16/17 08:59 Last Admin: 03/21/17 08:07 Dose: 325 mg Furosemide (Lasix) 40 mg PO DAILY [facility] Stop: 05/16/17 08:59 Last Admin: 03/21/17 08:08 Dose: Not Given Lactobacillus Rhamnosus (Culturelle 15b) 1 each PO DAILY [facility] Stop: 05/19/17 08:59 Last Admin: 03/21/17 08:07 Dose: 1 each Lorazepam (Ativan) 1 mg PO Q6H PRN; Protocol PRN Reason: Anxiety/Agitation Stop: 05/15/17 22:22 Last Admin: 03/19/17 20:30 Dose: 1 mg Magnesium Hydroxide (Milk Of Magnesia) 30 ml PO DAILY PRN PRN Reason: Constipation Stop: 05/15/17 22:24 Miscellaneous (Probiotic Screen) 1 ea [facility] PRN PRN PRN Reason: PROTOCOL Stop: 05/18/17 10:29 Quetiapine Fumarate (Seroquel) 400 mg PO BID [facility] PRN Reason: Protocol Stop: 05/16/17 08:59 Last Admin: 03/21/17 08:07 Dose: 400 mg Valsartan (Diovan) 80 mg PO DAILY [facility] Stop: 05/16/17 08:59 Last Admin: 03/21/17 08:08 Dose: Not Given General: alert HEENT: NC/AT, PERRLA Neck: Supple Lungs: CTAB Extremities: other (right middle finger sweling) Neurological: no change Internal Medicine Assmt/Plan - Assessment Assessment: possible effusion of finger (Acute) r/o gangrene (Acute) Schizophrenia (Acute) F20.9 - Plan Plan: add keflex wound care cpm Nutritional Asmnt/Malnutr-PDOC - Dietary Evaluation Malnutrition Findings (Please click <Entered> for more info): Nutritional Asmnt/Malnutrition Start: 03/17/17 13: 45 Text: Status: Complete Freq: Document 03/17/17 13:45 LAUREN (Rec: 03/17/17 14:04 LAUREN [email or web address]) Nutritional Asmnt/Malnutrition Patient General Information Nutritional Screening High Risk Consult Diagnosis Psychosis Pertinent Medical Hx/Surgical Hx HTN, CHF, schizophrenia, dementia, OS, iron deficiency anemia Subjective Information Consult received for finger wound. Pt seen sleeping in bed at the time of visit. Noted pt had surgery on right thrd finger d/t gangrene on 03/15. Spoke with nurse, Pt still have good appetite, eats well. Current Diet Order/ Nutrition Support Regular Pertinent Medications colace, iron, lasix, seroquel Pertinent Labs no labs Nutritional Hx/Data Height 5 ft 9 in Height (Calculated Centimeters) 175.3 Current Weight (lbs) 150 lb Weight (Calculated Kilograms) 68.0 Weight (Calculated Grams) 30475.9 [place] Body Weight 172 % [place] Body Weight 87 Body Mass Index (BMI) 22.1 Weight Status Approriate GI Symptoms GI Symptoms None Last BM none Difficult in: None Skin Integrity/Comment: right third finger surgical wound Estimated Nutritional Goals BEE in Kcals: Using Current wt Calories/Kcals/Kg 27-32 Kcals Calculated 1210-2199 Protein: Using Current wt Protein g/k-1.2 Protein Calculated 68-82 Fluid: ml 7756-5351 Nutritional Problem 1. Problem Problem increased nutrition needs ( calorie and protein) Etiology increased metabolic demand for wound healing Signs/Symptoms: right 3rd finger surgical wound Malnutrition Alert Protein-Calorie Malnutrition N/A Is there a minimum of two criteria No selected? Query Text:Check all the applicable criteria. A minimum of two criteria are recommended for diagnosis of either severe or non-severe malnutrition. Intervention/Recommendation Comments 1. Continue with current diet as ordered. 2. Monitor PO intake, wt, labs and skin integrity 3. F/U as moderate risk in 3-5 days, 03/20-1/3 Expected Outcomes/Goals Expected Outcomes/Goals 1. PO intake to meet at least 75% of nutritional needs. 2. Wt stability, skin to remain intact, labs WNL.
--- NOTE | 2017-03-21 15:37 | Progress Notes ---
DATE: 03/21/2017 The patient seen, chart reviewed, discussed with staff. The patient intermittently refusing medications, nonsensical, not making any sense, ongoing behavioral disturbances, still needing prompting, redirections, some posturing, agitation noted. 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 ASSESSMENT: The patient remains agitated at times, restless, confused, at times refusing treatment and medications. PLAN: We will continue to monitor. Given his ongoing behavioral disturbances he is not safe for discharge. I may need to follow a [place] petition. JOB# [id number]
[2017-03-22] MEDS: Aspirin 81mg Chewable Tab PO SCH (09:19)
[2017-03-22] MEDS: Lactobacillus Rhamnosus GG 15 Billion CFU CAP.SPRINK PO SCH (09:20)
[2017-03-22] MEDS: Ferrous Sulfate 325 MG TAB PO SCH ×3 (09:20→20:40)
--- NOTE | 2017-03-22 16:21 | General Progress Note ---
Subjective - Review of Systems Events since last encounter: remains confused Objective - Physical Exam Vitals and I&O: Vital Signs Temp 98 F 03/22/17 14:00 Pulse 75 03/22/17 14:00 Resp 20 03/22/17 14:18 BP 120/67 03/22/17 14:00 Pulse Ox 98 03/22/17 14:00 Intake & Output 03/21/17 03/22/17 03/22/17 18:59 06:59 18:59 Intake Total 1000 660 Balance 1000 660 Intake: Oral 1000 660 Other: # Voids 4 2 # Bowel Movements 1 0 Active Medications: Current Medications Acetaminophen (Tylenol) 650 mg PO Q4HR PRN PRN Reason: Mild Pain or Fever >101F Stop: 05/15/17 22:24 Acetaminophen (Tylenol Extra Strength) 1,000 mg PO Q4HR PRN PRN Reason: Pain (Moderate) Stop: 05/15/17 22:24 Last Admin: 03/17/17 13:51 Dose: 1,000 mg Al Hydrox/Mg Hydrox/Simethicone (Maalox) 30 ml PO Q4HR PRN PRN Reason: GI DISTRESS Stop: 05/15/17 22:24 Aspirin (Aspirin Chewable) 81 mg PO DAILY [facility] Stop: 05/16/17 08:59 Last Admin: 03/22/17 09:19 Dose: 81 mg Bisacodyl (Dulcolax 10 Mg Supp) 10 mg RC DAILY PRN PRN Reason: Constipation Stop: 05/15/17 22:24 Cephalexin Monohydrate (Keflex) 500 mg PO QID [facility] Stop: 03/27/17 20:59 Last Admin: 03/22/17 14:29 Dose: Not Given Divalproex Sodium (Depakote Dr) 500 mg PO BID [facility] PRN Reason: Protocol Stop: 05/16/17 08:59 Last Admin: 03/22/17 09:19 Dose: 500 mg Docusate Sodium (Colace) 100 mg PO DAILY [facility] Stop: 05/16/17 08:59 Last Admin: 03/22/17 09:20 Dose: 100 mg Ferrous Sulfate (Iron) 325 mg PO TID [facility] Stop: 05/16/17 08:59 Last Admin: 03/22/17 14:29 Dose: Not Given Furosemide (Lasix) 40 mg PO DAILY [facility] Stop: 05/16/17 08:59 Last Admin: 03/22/17 09:20 Dose: 40 mg Lactobacillus Rhamnosus (Culturelle 15b) 1 each PO DAILY [facility] Stop: 05/19/17 08:59 Last Admin: 03/22/17 09:20 Dose: 1 each Lorazepam (Ativan) 1 mg PO Q6H PRN; Protocol PRN Reason: Anxiety/Agitation Stop: 05/15/17 22:22 Last Admin: 03/21/17 20:34 Dose: 1 mg Magnesium Hydroxide (Milk Of Magnesia) 30 ml PO DAILY PRN PRN Reason: Constipation Stop: 05/15/17 22:24 Miscellaneous (Probiotic Screen) 1 ea [facility] PRN PRN PRN Reason: PROTOCOL Stop: 05/18/17 10:29 Quetiapine Fumarate (Seroquel) 400 mg PO BID [facility] PRN Reason: Protocol Stop: 05/16/17 08:59 Last Admin: 03/22/17 09:19 Dose: 400 mg Valsartan (Diovan) 80 mg PO DAILY [facility] Stop: 05/16/17 08:59 Last Admin: 03/22/17 09:19 Dose: 80 mg General: No acute distress HEENT: Atraumatic Neck: Thyromegaly Cardiovascular: Regular rate, Normal S1 - Procedures Procedures: Procedures Procedure Code Date EXCISION OF FINGER NAIL, EXTERNAL APPROACH [id number] 03/15/17 Assessment/Plan - Problem List Patient Problems: All Active Problems Schizophrenia (Acute) F20.9 possible effusion of finger (Acute) r/o gangrene (Acute) - Plan Plan: cpm Nutritional Asmnt/Malnutr-PDOC - Dietary Evaluation Malnutrition Findings (Please click <Entered> for more info): Nutritional Asmnt/Malnutrition Start: 03/17/17 13: 45 Text: Status: Complete Freq: Document 03/17/17 13:45 LAUREN (Rec: 03/17/17 14:04 LAUREN [email or web address]) Nutritional Asmnt/Malnutrition Patient General Information Nutritional Screening High Risk Consult Diagnosis Psychosis Pertinent Medical Hx/Surgical Hx HTN, CHF, schizophrenia, dementia, OS, iron deficiency anemia Subjective Information Consult received for finger wound. Pt seen sleeping in bed at the time of visit. Noted pt had surgery on right thrd finger d/t gangrene on 03/15. Spoke with nurse, Pt still have good appetite, eats well. Current Diet Order/ Nutrition Support Regular Pertinent Medications colace, iron, lasix, seroquel Pertinent Labs no labs Nutritional Hx/Data Height 1.75 m Height (Calculated Centimeters) 175.3 Current Weight (lbs) 68.039 kg Weight (Calculated Kilograms) 68.0 Weight (Calculated Grams) 31485.9 [place] Body Weight 172 % [place] Body Weight 87 Body Mass Index (BMI) 22.1 Weight Status Approriate GI Symptoms GI Symptoms None Last BM none Difficult in: None Skin Integrity/Comment: right third finger surgical wound Estimated Nutritional Goals BEE in Kcals: Using Current wt Calories/Kcals/Kg 27-32 Kcals Calculated 3141-2181 Protein: Using Current wt Protein g/k-1.2 Protein Calculated 68-82 Fluid: ml 8873-7159 Nutritional Problem 1. Problem Problem increased nutrition needs ( calorie and protein) Etiology increased metabolic demand for wound healing Signs/Symptoms: right 3rd finger surgical wound Malnutrition Alert Protein-Calorie Malnutrition N/A Is there a minimum of two criteria No selected? Query Text:Check all the applicable criteria. A minimum of two criteria are recommended for diagnosis of either severe or non-severe malnutrition. Intervention/Recommendation Comments 1. Continue with current diet as ordered. 2. Monitor PO intake, wt, labs and skin integrity 3. F/U as moderate risk in 3-5 days, 03/20-03/22 Expected Outcomes/Goals Expected Outcomes/Goals 1. PO intake to meet at least 75% of nutritional needs. 2. Wt stability, skin to remain intact, labs WNL.
--- NOTE | 2017-03-22 21:10 | Progress Notes ---
DATE: 03/22/2017 SUBJECTIVE: The patient seen, chart reviewed, discussed with staff. The patient seems to be more compliant. Per staff, he is not taking his medications, staff to watch him for __cheeking___. He still needs prompting and redirection, difficult to understand what he says. He is rambling nonsensically. He is pretty occlusive, isolative, mostly spending time in his room. ASSESSMENT: The patient remains agitated at times, restless, disoriented, poor medication compliance. PLAN: We will continue to monitor, continue to titrate and adjust medications. Given his ongoing symptoms, he is not safe for discharge at this time. Continue Seroquel. [facility]# [id number] BEKAH
[2017-03-23] MEDS: Aspirin 81mg Chewable Tab PO SCH (08:52)
[2017-03-23] MEDS: Lactobacillus Rhamnosus GG 15 Billion CFU CAP.SPRINK PO SCH (08:57)
[2017-03-23] MEDS: Ferrous Sulfate 325 MG TAB PO SCH ×3 (08:57→20:34)
--- NOTE | 2017-03-23 13:20 | Internal Medicine Prog Note ---
Internal Medicine Subjective - Subjective Service Date: 03/23/17 Patient is:: awake Per staff patient has:: no adverse event Internal Medicine Objective - Physical Exam Vitals and I&O: Vital Signs Temp 97.9 F 03/23/17 06:35 Pulse 96 03/23/17 09:02 Resp 20 03/23/17 06:35 BP 126/70 03/23/17 09:02 Pulse Ox 97 03/23/17 06:35 Intake & Output 03/22/17 03/23/17 03/23/17 18:59 06:59 18:59 Intake Total 1200 120 Balance 1200 120 Intake: Oral 1200 120 Other: # Voids 3 # Bowel Movements 1 Active Medications: Current Medications Acetaminophen (Tylenol) 650 mg PO Q4HR PRN PRN Reason: Mild Pain or Fever >101F Stop: 05/15/17 22:24 Acetaminophen (Tylenol Extra Strength) 1,000 mg PO Q4HR PRN PRN Reason: Pain (Moderate) Stop: 05/15/17 22:24 Last Admin: 03/17/17 13:51 Dose: 1,000 mg Al Hydrox/Mg Hydrox/Simethicone (Maalox) 30 ml PO Q4HR PRN PRN Reason: GI DISTRESS Stop: 05/15/17 22:24 Aspirin (Aspirin Chewable) 81 mg PO DAILY [facility] Stop: 05/16/17 08:59 Last Admin: 03/23/17 08:52 Dose: 81 mg Bisacodyl (Dulcolax 10 Mg Supp) 10 mg RC DAILY PRN PRN Reason: Constipation Stop: 05/15/17 22:24 Cephalexin Monohydrate (Keflex) 500 mg PO QID [facility] Stop: 03/27/17 20:59 Last Admin: 03/23/17 08:53 Dose: 500 mg Divalproex Sodium (Depakote Dr) 500 mg PO BID [facility] PRN Reason: Protocol Stop: 05/16/17 08:59 Last Admin: 03/23/17 08:52 Dose: 500 mg Docusate Sodium (Colace) 100 mg PO DAILY [facility] Stop: 05/16/17 08:59 Last Admin: 03/23/17 09:02 Dose: 100 mg Ferrous Sulfate (Iron) 325 mg PO TID [facility] Stop: 05/16/17 08:59 Last Admin: 01/04/18 08:57 Dose: 325 mg Furosemide (Lasix) 40 mg PO DAILY [facility] Stop: 05/16/17 08:59 Last Admin: 03/22/17 09:20 Dose: 40 mg Lactobacillus Rhamnosus (Culturelle 15b) 1 each PO DAILY [facility] Stop: 05/19/17 08:59 Last Admin: 03/23/17 08:57 Dose: 1 each Lorazepam (Ativan) 1 mg PO Q6H PRN; Protocol PRN Reason: Anxiety/Agitation Stop: 05/15/17 22:22 Last Admin: 03/22/17 20:40 Dose: 1 mg Magnesium Hydroxide (Milk Of Magnesia) 30 ml PO DAILY PRN PRN Reason: Constipation Stop: 05/15/17 22:24 Miscellaneous (Probiotic Screen) 1 ea MC PRN PRN PRN Reason: PROTOCOL Stop: 05/18/17 10:29 Quetiapine Fumarate (Seroquel) 400 mg PO BID [facility] PRN Reason: Protocol Stop: 05/16/17 08:59 Last Admin: 03/23/17 09:02 Dose: 400 mg Valsartan (Diovan) 80 mg PO DAILY [facility] Stop: 05/16/17 08:59 Last Admin: 03/23/17 09:02 Dose: 80 mg Wound Care/Dressing Products (Silvasorb) 1 appl TP DAILY [facility] Stop: 05/22/17 08:59 General: alert HEENT: NC/AT, PERRLA Neck: Supple Lungs: CTAB Extremities: other (right middle finger sweling) Neurological: no change - Procedures Procedures: Procedures Procedure Code Date EXCISION OF FINGER NAIL, EXTERNAL APPROACH [id number] 03/15/17 Internal Medicine Assmt/Plan - Assessment Assessment: possible effusion of finger (Acute) r/o gangrene (Acute) Schizophrenia (Acute) F20.9 - Plan Plan: add keflex wound care cpm Nutritional Asmnt/Malnutr-PDOC - Dietary Evaluation Malnutrition Findings (Please click <Entered> for more info): Nutritional Asmnt/Malnutrition Start: 03/17/17 13: 45 Text: Status: Complete Freq: Document 03/17/17 13:45 LAUREN (Rec: 03/17/17 14:04 LAUREN [email or web address]) Nutritional Asmnt/Malnutrition Patient General Information Nutritional Screening High Risk Consult Diagnosis Psychosis Pertinent Medical Hx/Surgical Hx HTN, CHF, schizophrenia, dementia, OS, iron deficiency anemia Subjective Information Consult received for finger wound. Pt seen sleeping in bed at the time of visit. Noted pt had surgery on right thrd finger d/t gangrene on 03/15. Spoke with nurse, Pt still have good appetite, eats well. Current Diet Order/ Nutrition Support Regular Pertinent Medications colace, iron, lasix, seroquel Pertinent Labs no labs Nutritional Hx/Data Height 5 ft 9 in Height (Calculated Centimeters) 175.3 Current Weight (lbs) 150 lb Weight (Calculated Kilograms) 68.0 Weight (Calculated Grams) 94647.9 [place] Body Weight 172 % [place] Body Weight 87 Body Mass Index (BMI) 22.1 Weight Status Approriate GI Symptoms GI Symptoms None Last BM none Difficult in: None Skin Integrity/Comment: right third finger surgical wound Estimated Nutritional Goals BEE in Kcals: Using Current wt Calories/Kcals/Kg 27-32 Kcals Calculated 4810-8776 Protein: Using Current wt Protein g/k-1.2 Protein Calculated 68-82 Fluid: ml 5524-9049 Nutritional Problem 1. Problem Problem increased nutrition needs ( calorie and protein) Etiology increased metabolic demand for wound healing Signs/Symptoms: right 3rd finger surgical wound Malnutrition Alert Protein-Calorie Malnutrition N/A Is there a minimum of two criteria No selected? Query Text:Check all the applicable criteria. A minimum of two criteria are recommended for diagnosis of either severe or non-severe malnutrition. Intervention/Recommendation Comments 1. Continue with current diet as ordered. 2. Monitor PO intake, wt, labs and skin integrity 3. F/U as moderate risk in 3-5 days, 03/20-03/22 Expected Outcomes/Goals Expected Outcomes/Goals 1. PO intake to meet at least 75% of nutritional needs. 2. Wt stability, skin to remain intact, labs WNL.
[2017-03-23] MEDS: Silver Antimicrobial Wound Gel 0.25 oz Tube TP SCH (14:01)
[2017-03-23] MEDS ORDERED: Haloperidol Lactate 5 mg/mL 1mL Vial IM ONE (15:11)
[2017-03-23] MEDS ORDERED: Haloperidol Lactate 5 mg/mL 1mL Vial ONE (15:11)
--- NOTE | 2017-03-23 23:14 | Progress Notes ---
DATE: 03/23/2017 SUBJECTIVE: The patient seen, chart reviewed, discussed with staff. The patient remains symptomatic, bizarre, acting strange, hoarding behaviors, responding heavily to internal stimuli. He has been taking his medications per nursing staff; however, sometimes tries to seek his medications, but they are watching him pretty closely. He is refusing interview. He gets up out of his bed, goes to the bathroom and closes the door, talking about RX, RX, RX, and not really quite sure what he means by this. There are no contacts find. The patient is mostly reclusive, staying to himself, and talking to himself. Eating with prompting. Sleeping fairly well. ASSESSMENT: The patient remains symptomatic, paranoid, delusional, disorganized, and better med compliance. PLAN: We will initiate Haldol b.i.d. Given his ongoing symptoms, he is not safe for discharge. JOB# [id number]
[2017-03-24] MEDS: Lactobacillus Rhamnosus GG 15 Billion CFU CAP.SPRINK PO SCH (08:40)
[2017-03-24] MEDS: Ferrous Sulfate 325 MG TAB PO SCH ×3 (08:41→21:01)
[2017-03-24] MEDS: Aspirin 81mg Chewable Tab PO SCH (08:41)
[2017-03-24] MEDS: Silver Antimicrobial Wound Gel 0.25 oz Tube TP SCH (09:13)
--- NOTE | 2017-03-24 12:17 | Internal Medicine Prog Note ---
Internal Medicine Subjective - Subjective Service Date: 03/24/17 Patient seen and examined:: with staff Patient is:: awake Per staff patient has:: no adverse event Internal Medicine Objective - Physical Exam Vitals and I&O: Vital Signs Temp 98.2 F 03/24/17 06:36 Pulse 86 03/24/17 08:40 Resp 20 03/24/17 06:36 BP 122/75 03/24/17 08:41 Pulse Ox 98 03/24/17 06:36 Intake & Output 03/23/17 03/24/17 03/24/17 18:59 06:59 18:59 Intake Total 1200 120 Balance 1200 120 Intake: Oral 1200 120 Other: # Voids 3 3 Active Medications: Current Medications Acetaminophen (Tylenol) 650 mg PO Q4HR PRN PRN Reason: Mild Pain or Fever >101F Stop: 05/15/17 22:24 Acetaminophen (Tylenol Extra Strength) 1,000 mg PO Q4HR PRN PRN Reason: Pain (Moderate) Stop: 05/15/17 22:24 Last Admin: 03/17/17 13:51 Dose: 1,000 mg Al Hydrox/Mg Hydrox/Simethicone (Maalox) 30 ml PO Q4HR PRN PRN Reason: GI DISTRESS Stop: 05/15/17 22:24 Aspirin (Aspirin Chewable) 81 mg PO DAILY [facility] Stop: 05/16/17 08:59 Last Admin: 03/24/17 08:41 Dose: 81 mg Bisacodyl (Dulcolax 10 Mg Supp) 10 mg RC DAILY PRN PRN Reason: Constipation Stop: 05/15/17 22:24 Cephalexin Monohydrate (Keflex) 500 mg PO QID [facility] Stop: 03/27/17 20:59 Last Admin: 03/24/17 08:41 Dose: 500 mg Divalproex Sodium (Depakote Dr) 500 mg PO BID [facility] PRN Reason: Protocol Stop: 05/16/17 08:59 Last Admin: 03/24/17 08:40 Dose: 500 mg Docusate Sodium (Colace) 100 mg PO DAILY [facility] Stop: 05/16/17 08:59 Last Admin: 03/24/17 08:40 Dose: 100 mg Ferrous Sulfate (Iron) 325 mg PO TID [facility] Stop: 05/16/17 08:59 Last Admin: 03/24/17 08:41 Dose: 325 mg Furosemide (Lasix) 40 mg PO DAILY [facility] Stop: 05/16/17 08:59 Last Admin: 03/24/17 08:41 Dose: 40 mg Haloperidol (Haldol) 2 mg PO BID [facility] PRN Reason: Protocol Stop: 05/22/17 16:59 Last Admin: 03/24/17 08:39 Dose: 2 mg Lactobacillus Rhamnosus (Culturelle 15b) 1 each PO DAILY [facility] Stop: 05/19/17 08:59 Last Admin: 03/24/17 08:40 Dose: 1 each Lorazepam (Ativan) 1 mg PO Q6H PRN; Protocol PRN Reason: Anxiety/Agitation Stop: 05/15/17 22:22 Last Admin: 03/24/17 06:13 Dose: 1 mg Magnesium Hydroxide (Milk Of Magnesia) 30 ml PO DAILY PRN PRN Reason: Constipation Stop: 05/15/17 22:24 Miscellaneous (Probiotic Screen) 1 ea MC PRN PRN PRN Reason: PROTOCOL Stop: 05/18/17 10:29 Quetiapine Fumarate (Seroquel) 400 mg PO BID [facility] PRN Reason: Protocol Stop: 05/16/17 08:59 Last Admin: 03/24/17 08:41 Dose: 400 mg Valsartan (Diovan) 80 mg PO DAILY [facility] Stop: 05/16/17 08:59 Last Admin: 03/24/17 08:40 Dose: 80 mg Wound Care/Dressing Products (Silvasorb) 1 appl TP DAILY [facility] Stop: 05/22/17 08:59 Last Admin: 03/24/17 09:13 Dose: 1 appl General: alert HEENT: NC/AT, PERRLA Neck: Supple Lungs: CTAB Extremities: other (right middle finger sweling) Neurological: no change - Procedures Procedures: Procedures Procedure Code Date EXCISION OF FINGER NAIL, EXTERNAL APPROACH [id number] 03/15/17 Internal Medicine Assmt/Plan - Assessment Assessment: possible effusion of finger (Acute) r/o gangrene (Acute) Schizophrenia (Acute) F20.9 - Plan Plan: add keflex wound care cpm Nutritional Asmnt/Malnutr-PDOC - Dietary Evaluation Malnutrition Findings (Please click <Entered> for more info): Nutritional Asmnt/Malnutrition Start: 03/17/17 13: 45 Text: Status: Complete Freq: Document 12/29/17 13:45 LCHENG (Rec: 03/17/17 14:04 LCHENG [email or web address]) Nutritional Asmnt/Malnutrition Patient General Information Nutritional Screening High Risk Consult Diagnosis Psychosis Pertinent Medical Hx/Surgical Hx HTN, CHF, schizophrenia, dementia, OS, iron deficiency anemia Subjective Information Consult received for finger wound. Pt seen sleeping in bed at the time of visit. Noted pt had surgery on right thrd finger d/t gangrene on 03/15. Spoke with nurse, Pt still have good appetite, eats well. Current Diet Order/ Nutrition Support Regular Pertinent Medications colace, iron, lasix, seroquel Pertinent Labs no labs Nutritional Hx/Data Height 5 ft 9 in Height (Calculated Centimeters) 175.3 Current Weight (lbs) 150 lb Weight (Calculated Kilograms) 68.0 Weight (Calculated Grams) 13554.9 [place] Body Weight 172 % [place] Body Weight 87 Body Mass Index (BMI) 22.1 Weight Status Approriate GI Symptoms GI Symptoms None Last BM none Difficult in: None Skin Integrity/Comment: right third finger surgical wound Estimated Nutritional Goals BEE in Kcals: Using Current wt Calories/Kcals/Kg 27-32 Kcals Calculated 7188-8901 Protein: Using Current wt Protein g/k-1.2 Protein Calculated 68-82 Fluid: ml 0794-5045 Nutritional Problem 1. Problem Problem increased nutrition needs ( calorie and protein) Etiology increased metabolic demand for wound healing Signs/Symptoms: right 3rd finger surgical wound Malnutrition Alert Protein-Calorie Malnutrition N/A Is there a minimum of two criteria No selected? Query Text:Check all the applicable criteria. A minimum of two criteria are recommended for diagnosis of either severe or non-severe malnutrition. Intervention/Recommendation Comments 1. Continue with current diet as ordered. 2. Monitor PO intake, wt, labs and skin integrity 3. F/U as moderate risk in 3-5 days, 03/20-03/22 Expected Outcomes/Goals Expected Outcomes/Goals 1. PO intake to meet at least 75% of nutritional needs. 2. Wt stability, skin to remain intact, labs WNL.
[2017-03-25] MEDS: Lactobacillus Rhamnosus GG 15 Billion CFU CAP.SPRINK PO SCH (08:34)
[2017-03-25] MEDS: Ferrous Sulfate 325 MG TAB PO SCH ×3 (08:35→21:44)
[2017-03-25] MEDS: Aspirin 81mg Chewable Tab PO SCH (08:35)
[2017-03-25] MEDS: Silver Antimicrobial Wound Gel 0.25 oz Tube TP SCH (08:35)
--- NOTE | 2017-03-25 22:47 | Progress Notes ---
DATE: 03/25/2017 SUBJECTIVE: The patient was seen in the dining area, watching television. The patient still appears to be guarded and delusional with episodes of paranoia, otherwise the patient appears to be in no acute distress. OBJECTIVE: VITAL SIGNS: Temperature 97.8, respirations 78, blood pressure 120/69, respiration of 20, 98% on room air. HEENT: Head is atraumatic and normocephalic. Eyes: Bilateral conjunctivae are clear. Bilateral pupils are equally round and reactive. NECK: Supple. No JVD. CARDIOVASCULAR: S1 and S2, without murmur. PULMONARY: Clear to auscultation. GASTROINTESTINAL: Soft and nontender without guarding. Positive bowel sounds. MUSCULOSKELETAL: No clubbing, no cyanosis noted. ASSESSMENT: 1. Right third finger effusion. 2. Status post wound debridement. 3. Hypertension. 4. Iron deficiency anemia. 5. Dementia with behavioral disturbance. 6. Schizoaffective disorder. PLAN: We will keep the patient inpatient Psychiatric Unit. We will follow up with psychiatrist to monitor the patient's condition and behavior. Treatment plans were discussed with the patient's nurse. Treatment plans were discussed with Dr. Mcleod. JOB# [id number]
--- NOTE | 2017-03-26 01:50 | Progress Notes ---
DATE: 03/25/2017 The patient was seen and evaluated. The patient's chart reviewed. This is Dr. Kline covering for Dr. Romero. SUBJECTIVE: Today nursing staff reporting the patient has been wandering, hoarding; therefore, he is placed on a Angeline chair to minimize the risk of the patient's exacerbating wandering behavior that put himself in danger by striking others. Today on [id number] evaluation, the patient is very difficult to understand, very persistent about his prescription, but has not been able to give much information beyond that. He is observed to be responding very heavily with the voices, easily irritable when he is interrupted by the voices. MENTAL STATUS EXAMINATION: Responding preoccupied. Poor insight, judgment and impulse control. ASSESSMENT AND PLAN: We will continue with primary psychiatrist's treatment plan and goals to target the patient residual psychotic symptoms, which impaired his ability to provide food, long term as he continues to interrupt down to some other people triggering to altercations. We will continue with Depakote 500 mg p.o. b.i.d., Haldol 3 mg p.o. b.i.d. and quetiapine at 400 mg p.o. b.i.d. [facility]# [id number]
[2017-03-26] MEDS: Lactobacillus Rhamnosus GG 15 Billion CFU CAP.SPRINK PO SCH (08:12)
[2017-03-26] MEDS: Ferrous Sulfate 325 MG TAB PO SCH ×3 (08:13→21:09)
[2017-03-26] MEDS: Aspirin 81mg Chewable Tab PO SCH (08:13)
[2017-03-26] MEDS: Silver Antimicrobial Wound Gel 0.25 oz Tube TP SCH (08:20)
--- NOTE | 2017-03-26 10:41 | General Progress Note ---
Subjective - Review of Systems Events since last encounter: seems delusional paranoid rt 3rd finger effusion Objective - Physical Exam Vitals and I&O: Vital Signs Temp 98.9 F 03/26/17 06:11 Pulse 91 03/26/17 08:26 Resp 20 03/26/17 06:11 BP 146/90 03/26/17 08:26 Pulse Ox 98 03/26/17 06:11 Intake & Output 03/25/17 03/26/17 03/26/17 18:59 06:59 18:59 Intake Total 1200 480 Balance 1200 480 Intake: Oral 1200 480 Other: # Voids 3 3 Active Medications: Current Medications Acetaminophen (Tylenol) 650 mg PO Q4HR PRN PRN Reason: Mild Pain or Fever >101F Stop: 05/15/17 22:24 Acetaminophen (Tylenol Extra Strength) 1,000 mg PO Q4HR PRN PRN Reason: Pain (Moderate) Stop: 05/15/17 22:24 Last Admin: 03/17/17 13:51 Dose: 1,000 mg Al Hydrox/Mg Hydrox/Simethicone (Maalox) 30 ml PO Q4HR PRN PRN Reason: GI DISTRESS Stop: 05/15/17 22:24 Aspirin (Aspirin Chewable) 81 mg PO DAILY [facility] Stop: 05/16/17 08:59 Last Admin: 03/26/17 08:13 Dose: 81 mg Bisacodyl (Dulcolax 10 Mg Supp) 10 mg RC DAILY PRN PRN Reason: Constipation Stop: 05/15/17 22:24 Cephalexin Monohydrate (Keflex) 500 mg PO QID [facility] Stop: 03/27/17 20:59 Last Admin: 03/26/17 08:13 Dose: 500 mg Divalproex Sodium (Depakote Dr) 500 mg PO BID [facility] PRN Reason: Protocol Stop: 05/16/17 08:59 Last Admin: 03/26/17 08:13 Dose: 500 mg Docusate Sodium (Colace) 100 mg PO DAILY [facility] Stop: 05/16/17 08:59 Last Admin: 03/26/17 08:12 Dose: 100 mg Ferrous Sulfate (Iron) 325 mg PO TID [facility] Stop: 05/16/17 08:59 Last Admin: 03/26/17 08:13 Dose: 325 mg Furosemide (Lasix) 40 mg PO DAILY [facility] Stop: 05/16/17 08:59 Last Admin: 03/26/17 08:13 Dose: 40 mg Haloperidol (Haldol) 3 mg PO BID [facility] PRN Reason: Protocol Stop: 05/23/17 13:02 Last Admin: 03/26/17 08:13 Dose: 3 mg Lactobacillus Rhamnosus (Culturelle 15b) 1 each PO DAILY [facility] Stop: 05/19/17 08:59 Last Admin: 03/26/17 08:12 Dose: 1 each Lorazepam (Ativan) 1 mg PO Q6H PRN; Protocol PRN Reason: Anxiety/Agitation Stop: 05/15/17 22:22 Last Admin: 03/24/17 06:13 Dose: 1 mg Magnesium Hydroxide (Milk Of Magnesia) 30 ml PO DAILY PRN PRN Reason: Constipation Stop: 05/15/17 22:24 Miscellaneous (Probiotic Screen) 1 ea MC PRN PRN PRN Reason: PROTOCOL Stop: 05/18/17 10:29 Quetiapine Fumarate (Seroquel) 400 mg PO BID [facility] PRN Reason: Protocol Stop: 05/16/17 08:59 Last Admin: 03/26/17 08:12 Dose: 400 mg Valsartan (Diovan) 80 mg PO DAILY [facility] Stop: 05/16/17 08:59 Last Admin: 03/26/17 08:26 Dose: 80 mg Wound Care/Dressing Products (Silvasorb) 1 appl TP DAILY [facility] Stop: 05/22/17 08:59 Last Admin: 03/26/17 08:20 Dose: 1 appl General: No acute distress HEENT: Atraumatic Neck: Thyromegaly Cardiovascular: Regular rate, Normal S1 - Procedures Procedures: Procedures Procedure Code Date EXCISION OF FINGER NAIL, EXTERNAL APPROACH [id number] 03/15/17 Assessment/Plan - Problem List Patient Problems: All Active Problems Schizophrenia (Acute) F20.9 possible effusion of finger (Acute) r/o gangrene (Acute) - Plan Plan: cpm Nutritional Asmnt/Malnutr-PDOC - Dietary Evaluation Malnutrition Findings (Please click <Entered> for more info): Nutritional Asmnt/Malnutrition Start: 03/17/17 13: 45 Text: Status: Complete Freq: Document 03/17/17 13:45 LCHENG (Rec: 03/17/17 14:04 LCHENG [email or web address]) Nutritional Asmnt/Malnutrition Patient General Information Nutritional Screening High Risk Consult Diagnosis Psychosis Pertinent Medical Hx/Surgical Hx HTN, CHF, schizophrenia, dementia, OS, iron deficiency anemia Subjective Information Consult received for finger wound. Pt seen sleeping in bed at the time of visit. Noted pt had surgery on right thrd finger d/t gangrene on 03/15. Spoke with nurse, Pt still have good appetite, eats well. Current Diet Order/ Nutrition Support Regular Pertinent Medications colace, iron, lasix, seroquel Pertinent Labs no labs Nutritional Hx/Data Height 1.75 m Height (Calculated Centimeters) 175.3 Current Weight (lbs) 68.039 kg Weight (Calculated Kilograms) 68.0 Weight (Calculated Grams) 81358.9 [place] Body Weight 172 % [place] Body Weight 87 Body Mass Index (BMI) 22.1 Weight Status Approriate GI Symptoms GI Symptoms None Last BM none Difficult in: None Skin Integrity/Comment: right third finger surgical wound Estimated Nutritional Goals BEE in Kcals: Using Current wt Calories/Kcals/Kg 27-32 Kcals Calculated 6848-5413 Protein: Using Current wt Protein g/k-1.2 Protein Calculated 68-82 Fluid: ml 9522-2868 Nutritional Problem 1. Problem Problem increased nutrition needs ( calorie and protein) Etiology increased metabolic demand for wound healing Signs/Symptoms: right 3rd finger surgical wound Malnutrition Alert Protein-Calorie Malnutrition N/A Is there a minimum of two criteria No selected? Query Text:Check all the applicable criteria. A minimum of two criteria are recommended for diagnosis of either severe or non-severe malnutrition. Intervention/Recommendation Comments 1. Continue with current diet as ordered. 2. Monitor PO intake, wt, labs and skin integrity 3. F/U as moderate risk in 3-5 days, 03/20-03/22 Expected Outcomes/Goals Expected Outcomes/Goals 1. PO intake to meet at least 75% of nutritional needs. 2. Wt stability, skin to remain intact, labs WNL.
--- NOTE | 2017-03-26 23:06 | Progress Notes ---
DATE: SUBJECTIVE: The patient was seen and evaluated. The patient's chart reviewed. Overnight nursing staff reported the patient continues to need a lot of redirection, even though he is in a Angeline chair to minimize the risk of exacerbating other patients when he wanders. Today, on [id number] evaluation, the patient is easily irritable, agitated, observed to be responding and very angry when he is interrupted from the voices he continues to hear. MENTAL STATUS EXAMINATION: Responding to internal stimuli, internally preoccupied. Poor insight, judgment and impulse control. ASSESSMENT AND PLAN: The patient with a history of paranoid schizophrenia. We will continue with the current medication regimen as recently, although has pain, added to augment under this quetiapine to target the patient to residual psychotic symptoms. [facility]# [id number]
[2017-03-27] MEDS: Ferrous Sulfate 325 MG TAB PO SCH ×3 (09:08→20:21)
[2017-03-27] MEDS: Aspirin 81mg Chewable Tab PO SCH (09:08)
[2017-03-27] MEDS: Silver Antimicrobial Wound Gel 0.25 oz Tube TP SCH (09:09)
[2017-03-27] MEDS: Lactobacillus Rhamnosus GG 15 Billion CFU CAP.SPRINK PO SCH (09:09)
--- NOTE | 2017-03-27 11:35 | Internal Medicine Prog Note ---
Internal Medicine Subjective - Subjective Service Date: 03/27/17 Patient is:: awake Per staff patient has:: no adverse event Internal Medicine Objective - Physical Exam Vitals and I&O: Vital Signs Temp 98.4 F 03/27/17 06:43 Pulse 63 03/27/17 09:09 Resp 20 03/27/17 06:43 BP 122/78 03/27/17 09:09 Pulse Ox 98 03/27/17 06:43 Intake & Output 03/26/17 03/27/17 03/27/17 18:59 06:59 18:59 Intake Total 1200 120 Balance 1200 120 Intake: Oral 1200 120 Other: # Voids 3 2 # Bowel Movements 1 1 Active Medications: Current Medications Acetaminophen (Tylenol) 650 mg PO Q4HR PRN PRN Reason: Mild Pain or Fever >101F Stop: 05/15/17 22:24 Acetaminophen (Tylenol Extra Strength) 1,000 mg PO Q4HR PRN PRN Reason: Pain (Moderate) Stop: 05/15/17 22:24 Last Admin: 03/17/17 13:51 Dose: 1,000 mg Al Hydrox/Mg Hydrox/Simethicone (Maalox) 30 ml PO Q4HR PRN PRN Reason: GI DISTRESS Stop: 05/15/17 22:24 Aspirin (Aspirin Chewable) 81 mg PO DAILY [facility] Stop: 05/16/17 08:59 Last Admin: 03/27/17 09:08 Dose: 81 mg Bisacodyl (Dulcolax 10 Mg Supp) 10 mg RC DAILY PRN PRN Reason: Constipation Stop: 05/15/17 22:24 Cephalexin Monohydrate (Keflex) 500 mg PO QID [facility] Stop: 03/27/17 20:59 Last Admin: 03/27/17 09:08 Dose: 500 mg Divalproex Sodium (Depakote Dr) 500 mg PO BID [facility] PRN Reason: Protocol Stop: 05/16/17 08:59 Last Admin: 03/27/17 09:08 Dose: 500 mg Docusate Sodium (Colace) 100 mg PO DAILY [facility] Stop: 05/16/17 08:59 Last Admin: 03/27/17 09:08 Dose: 100 mg Ferrous Sulfate (Iron) 325 mg PO TID [facility] Stop: 05/16/17 08:59 Last Admin: 03/27/17 09:08 Dose: 325 mg Furosemide (Lasix) 40 mg PO DAILY [facility] Stop: 05/16/17 08:59 Last Admin: 03/27/17 09:08 Dose: 40 mg Haloperidol (Haldol) 3 mg PO BID [facility] PRN Reason: Protocol Stop: 05/23/17 13:02 Last Admin: 03/27/17 09:09 Dose: 3 mg Lactobacillus Rhamnosus (Culturelle 15b) 1 each PO DAILY [facility] Stop: 05/19/17 08:59 Last Admin: 03/27/17 09:09 Dose: 1 each Lorazepam (Ativan) 1 mg PO Q6H PRN; Protocol PRN Reason: Anxiety/Agitation Stop: 05/15/17 22:22 Last Admin: 03/26/17 21:09 Dose: 1 mg Magnesium Hydroxide (Milk Of Magnesia) 30 ml PO DAILY PRN PRN Reason: Constipation Stop: 05/15/17 22:24 Miscellaneous (Probiotic Screen) 1 ea MC PRN PRN PRN Reason: PROTOCOL Stop: 05/18/17 10:29 Quetiapine Fumarate (Seroquel) 400 mg PO BID [facility] PRN Reason: Protocol Stop: 05/16/17 08:59 Last Admin: 03/27/17 09:09 Dose: 400 mg Valsartan (Diovan) 80 mg PO DAILY [facility] Stop: 05/16/17 08:59 Last Admin: 03/27/17 09:09 Dose: 80 mg Wound Care/Dressing Products (Silvasorb) 1 appl TP DAILY [facility] Stop: 05/22/17 08:59 Last Admin: 03/27/17 09:09 Dose: 1 appl General: alert HEENT: NC/AT, PERRLA Neck: Supple Lungs: CTAB Extremities: other (right middle finger sweling) Neurological: no change - Procedures Procedures: Procedures Procedure Code Date EXCISION OF FINGER NAIL, EXTERNAL APPROACH [id number] 03/15/17 Internal Medicine Assmt/Plan - Assessment Assessment: possible effusion of finger (Acute) r/o gangrene (Acute) Schizophrenia (Acute) F20.9 - Plan Plan: add keflex wound care cpm Nutritional Asmnt/Malnutr-PDOC - Dietary Evaluation Malnutrition Findings (Please click <Entered> for more info): Nutritional Asmnt/Malnutrition Start: 03/17/17 13: 45 Text: Status: Complete Freq: Document 03/17/17 13:45 LCHENG (Rec: 03/17/17 14:04 LCHENG [email or web address]) Nutritional Asmnt/Malnutrition Patient General Information Nutritional Screening High Risk Consult Diagnosis Psychosis Pertinent Medical Hx/Surgical Hx HTN, CHF, schizophrenia, dementia, OS, iron deficiency anemia Subjective Information Consult received for finger wound. Pt seen sleeping in bed at the time of visit. Noted pt had surgery on right thrd finger d/t gangrene on 03/15. Spoke with nurse, Pt still have good appetite, eats well. Current Diet Order/ Nutrition Support Regular Pertinent Medications colace, iron, lasix, seroquel Pertinent Labs no labs Nutritional Hx/Data Height 5 ft 9 in Height (Calculated Centimeters) 175.3 Current Weight (lbs) 150 lb Weight (Calculated Kilograms) 68.0 Weight (Calculated Grams) 75766.9 [place] Body Weight 172 % [place] Body Weight 87 Body Mass Index (BMI) 22.1 Weight Status Approriate GI Symptoms GI Symptoms None Last BM none Difficult in: None Skin Integrity/Comment: right third finger surgical wound Estimated Nutritional Goals BEE in Kcals: Using Current wt Calories/Kcals/Kg 27-32 Kcals Calculated 3539-7706 Protein: Using Current wt Protein g/k-1.2 Protein Calculated 68-82 Fluid: ml 1594-3753 Nutritional Problem 1. Problem Problem increased nutrition needs ( calorie and protein) Etiology increased metabolic demand for wound healing Signs/Symptoms: right 3rd finger surgical wound Malnutrition Alert Protein-Calorie Malnutrition N/A Is there a minimum of two criteria No selected? Query Text:Check all the applicable criteria. A minimum of two criteria are recommended for diagnosis of either severe or non-severe malnutrition. Intervention/Recommendation Comments 1. Continue with current diet as ordered. 2. Monitor PO intake, wt, labs and skin integrity 3. F/U as moderate risk in 3-5 days, 03/20-03/22 Expected Outcomes/Goals Expected Outcomes/Goals 1. PO intake to meet at least 75% of nutritional needs. 2. Wt stability, skin to remain intact, labs WNL.
--- NOTE | 2017-03-28 00:41 | Progress Notes ---
DATE: 03/27/2017 SUBJECTIVE: The patient seen, chart reviewed, discussed with staff. Remains irritable, agitated, withdrawn in his room, isolative, reclusive, still responding to internal stimuli, history of poor medication compliance. He is somewhat calmer today, more interactive. MEDICATIONS: Reviewed including doses and frequencies. He is currently on Haldol 3 mg twice daily. He seems to be tolerating this well without any extrapyramidal side effects, no oversedation. ASSESSMENT: The patient remains symptomatic, reclusive, withdrawn, still with ongoing psychotic symptoms. PLAN: We will continue to monitor, increase Haldol today. JOB# [id number]
[2017-03-28] MEDS: Ferrous Sulfate 325 MG TAB PO SCH ×3 (10:11→21:36)
[2017-03-28] MEDS: Aspirin 81mg Chewable Tab PO SCH (10:11)
[2017-03-28] MEDS: Silver Antimicrobial Wound Gel 0.25 oz Tube TP SCH (10:12)
[2017-03-28] MEDS: Lactobacillus Rhamnosus GG 15 Billion CFU CAP.SPRINK PO SCH (10:12)
--- NOTE | 2017-03-28 16:14 | General Progress Note ---
Subjective - Review of Systems Events since last encounter: still psychotic delusional Objective - Physical Exam Vitals and I&O: Vital Signs Temp 98.6 F 03/28/17 06:34 Pulse 69 03/28/17 10:12 Resp 18 03/28/17 06:34 BP 129/83 03/28/17 10:12 Pulse Ox 100 03/28/17 06:34 Intake & Output 03/27/17 03/28/17 03/28/17 18:59 06:59 18:59 Intake Total 1200 180 Output Total 1 Balance 1200 179 Intake: Oral 1200 180 Output: Stool 1 Other: # Voids 2 # Bowel Movements 1 Active Medications: Current Medications Acetaminophen (Tylenol) 650 mg PO Q4HR PRN PRN Reason: Mild Pain or Fever >101F Stop: 05/15/17 22:24 Acetaminophen (Tylenol Extra Strength) 1,000 mg PO Q4HR PRN PRN Reason: Pain (Moderate) Stop: 05/15/17 22:24 Last Admin: 03/17/17 13:51 Dose: 1,000 mg Al Hydrox/Mg Hydrox/Simethicone (Maalox) 30 ml PO Q4HR PRN PRN Reason: GI DISTRESS Stop: 05/15/17 22:24 Aspirin (Aspirin Chewable) 81 mg PO DAILY [facility] Stop: 05/16/17 08:59 Last Admin: 03/28/17 10:11 Dose: 81 mg Bisacodyl (Dulcolax 10 Mg Supp) 10 mg RC DAILY PRN PRN Reason: Constipation Stop: 05/15/17 22:24 Divalproex Sodium (Depakote Dr) 500 mg PO BID [facility] PRN Reason: Protocol Stop: 05/16/17 08:59 Last Admin: 03/28/17 10:11 Dose: 500 mg Docusate Sodium (Colace) 100 mg PO DAILY [facility] Stop: 05/16/17 08:59 Last Admin: 03/28/17 10:11 Dose: 100 mg Ferrous Sulfate (Iron) 325 mg PO TID [facility] Stop: 05/16/17 08:59 Last Admin: 03/28/17 13:40 Dose: 325 mg Furosemide (Lasix) 40 mg PO DAILY [facility] Stop: 05/16/17 08:59 Last Admin: 03/28/17 10:11 Dose: 40 mg Haloperidol (Haldol) 4 mg PO BID [facility] PRN Reason: Protocol Stop: 05/26/17 12:54 Last Admin: 03/28/17 10:12 Dose: 4 mg Lactobacillus Rhamnosus (Culturelle 15b) 1 each PO DAILY [facility] Stop: 05/19/17 08:59 Last Admin: 03/28/17 10:12 Dose: 1 each Lorazepam (Ativan) 1 mg PO Q6H PRN; Protocol PRN Reason: Anxiety/Agitation Stop: 05/15/17 22:22 Last Admin: 03/27/17 20:21 Dose: 1 mg Magnesium Hydroxide (Milk Of Magnesia) 30 ml PO DAILY PRN PRN Reason: Constipation Stop: 05/15/17 22:24 Miscellaneous (Probiotic Screen) 1 ea [facility] PRN PRN PRN Reason: PROTOCOL Stop: 05/18/17 10:29 Quetiapine Fumarate (Seroquel) 400 mg PO BID [facility] PRN Reason: Protocol Stop: 05/16/17 08:59 Last Admin: 03/28/17 10:12 Dose: 400 mg Valsartan (Diovan) 80 mg PO DAILY [facility] Stop: 05/16/17 08:59 Last Admin: 03/28/17 10:12 Dose: 80 mg Wound Care/Dressing Products (Silvasorb) 1 appl TP DAILY [facility] Stop: 05/22/17 08:59 Last Admin: 03/28/17 10:12 Dose: 1 appl General: No acute distress HEENT: Atraumatic Neck: Thyromegaly Cardiovascular: Regular rate, Normal S1 - Procedures Procedures: Procedures Procedure Code Date EXCISION OF FINGER NAIL, EXTERNAL APPROACH 0HBQXZZ 03/15/17 Assessment/Plan - Problem List Patient Problems: All Active Problems Schizophrenia (Acute) F20.9 possible effusion of finger (Acute) r/o gangrene (Acute) - Plan Plan: cpm Nutritional Asmnt/Malnutr-PDOC - Dietary Evaluation Malnutrition Findings (Please click <Entered> for more info): Nutritional Asmnt/Malnutrition Start: 03/17/17 13: 45 Text: Status: Complete Freq: Document 03/17/17 13:45 LAUREN (Rec: 03/17/17 14:04 DAVID [email or web address]) Nutritional Asmnt/Malnutrition Patient General Information Nutritional Screening High Risk Consult Diagnosis Psychosis Pertinent Medical Hx/Surgical Hx HTN, CHF, schizophrenia, dementia, OS, iron deficiency anemia Subjective Information Consult received for finger wound. Pt seen sleeping in bed at the time of visit. Noted pt had surgery on right thrd finger d/t gangrene on 03/15. Spoke with nurse, Pt still have good appetite, eats well. Current Diet Order/ Nutrition Support Regular Pertinent Medications colace, iron, lasix, seroquel Pertinent Labs no labs Nutritional Hx/Data Height 1.75 m Height (Calculated Centimeters) 175.3 Current Weight (lbs) 68.039 kg Weight (Calculated Kilograms) 68.0 Weight (Calculated Grams) 24227.9 [place] Body Weight 172 % [place] Body Weight 87 Body Mass Index (BMI) 22.1 Weight Status Approriate GI Symptoms GI Symptoms None Last BM none Difficult in: None Skin Integrity/Comment: right third finger surgical wound Estimated Nutritional Goals BEE in Kcals: Using Current wt Calories/Kcals/Kg 27-32 Kcals Calculated 9503-0423 Protein: Using Current wt Protein g/k-1.2 Protein Calculated 68-82 Fluid: ml 7254-1256 Nutritional Problem 1. Problem Problem increased nutrition needs ( calorie and protein) Etiology increased metabolic demand for wound healing Signs/Symptoms: right 3rd finger surgical wound Malnutrition Alert Protein-Calorie Malnutrition N/A Is there a minimum of two criteria No selected? Query Text:Check all the applicable criteria. A minimum of two criteria are recommended for diagnosis of either severe or non-severe malnutrition. Intervention/Recommendation Comments 1. Continue with current diet as ordered. 2. Monitor PO intake, wt, labs and skin integrity 3. F/U as moderate risk in 3-5 days, 03/20-1 Expected Outcomes/Goals Expected Outcomes/Goals 1. PO intake to meet at least 75% of nutritional needs. 2. Wt stability, skin to remain intact, labs WNL.
--- NOTE | 2017-03-29 03:40 | Progress Notes ---
DATE: 03/28/2017 SUBJECTIVE: The patient seen, chart reviewed, discussed with staff. The patient remains still somewhat isolative, occlusive, but seems improved out of his room today, answering questions appropriately, somewhat calmer, more interactive, still noted to be mumbling to self, responding to internal stimuli, still paranoid, better medication compliance. Sleeping well, eating better. Tolerant of medications, seems to be doing well, on current regimen of Haldol as well as Seroquel. ASSESSMENT: The patient remains symptomatic, still bizarre, psychotic, and paranoid, but improvement noted. PLAN: We will continue to monitor given his ongoing symptoms, he is not safe for discharge. JOB# [id number]
--- NOTE | 2017-03-29 09:06 | General Progress Note ---
Subjective - Review of Systems Events since last encounter: patient is delusional Objective - Physical Exam Vitals and I&O: Vital Signs Temp 98.2 F 03/29/17 06:30 Pulse 74 03/29/17 06:30 Resp 20 03/29/17 06:30 BP 136/84 03/29/17 06:30 Pulse Ox 99 03/29/17 06:30 Intake & Output 03/28/17 03/29/17 03/29/17 18:59 06:59 18:59 Intake Total 2400 370 Balance 2400 370 Intake: Oral 2400 370 Other: # Voids 5 3 # Bowel Movements 1 0 Stool Characteristics Soft Formed Active Medications: Current Medications Acetaminophen (Tylenol) 650 mg PO Q4HR PRN PRN Reason: Mild Pain or Fever >101F Stop: 05/15/17 22:24 Acetaminophen (Tylenol Extra Strength) 1,000 mg PO Q4HR PRN PRN Reason: Pain (Moderate) Stop: 05/15/17 22:24 Last Admin: 03/17/17 13:51 Dose: 1,000 mg Al Hydrox/Mg Hydrox/Simethicone (Maalox) 30 ml PO Q4HR PRN PRN Reason: GI DISTRESS Stop: 05/15/17 22:24 Aspirin (Aspirin Chewable) 81 mg PO DAILY [facility] Stop: 05/16/17 08:59 Last Admin: 03/28/17 10:11 Dose: 81 mg Bisacodyl (Dulcolax 10 Mg Supp) 10 mg RC DAILY PRN PRN Reason: Constipation Stop: 05/15/17 22:24 Divalproex Sodium (Depakote Dr) 500 mg PO BID [facility] PRN Reason: Protocol Stop: 05/16/17 08:59 Last Admin: 03/28/17 16:28 Dose: 500 mg Docusate Sodium (Colace) 100 mg PO DAILY [facility] Stop: 05/16/17 08:59 Last Admin: 03/28/17 10:11 Dose: 100 mg Ferrous Sulfate (Iron) 325 mg PO TID [facility] Stop: 05/16/17 08:59 Last Admin: 03/28/17 21:36 Dose: 325 mg Furosemide (Lasix) 40 mg PO DAILY [facility] Stop: 05/16/17 08:59 Last Admin: 03/28/17 10:11 Dose: 40 mg Haloperidol (Haldol) 4 mg PO BID [facility] PRN Reason: Protocol Stop: 05/26/17 12:54 Last Admin: 03/28/17 16:28 Dose: 4 mg Lactobacillus Rhamnosus (Culturelle 15b) 1 each PO DAILY [facility] Stop: 05/19/17 08:59 Last Admin: 03/28/17 10:12 Dose: 1 each Lorazepam (Ativan) 1 mg PO Q6H PRN; Protocol PRN Reason: Anxiety/Agitation Stop: 05/15/17 22:22 Last Admin: 03/27/17 20:21 Dose: 1 mg Magnesium Hydroxide (Milk Of Magnesia) 30 ml PO DAILY PRN PRN Reason: Constipation Stop: 05/15/17 22:24 Miscellaneous (Probiotic Screen) 1 ea [facility] PRN PRN PRN Reason: PROTOCOL Stop: 05/18/17 10:29 Quetiapine Fumarate (Seroquel) 400 mg PO BID [facility] PRN Reason: Protocol Stop: 05/16/17 08:59 Last Admin: 03/28/17 16:29 Dose: 400 mg Valsartan (Diovan) 80 mg PO DAILY [facility] Stop: 05/16/17 08:59 Last Admin: 03/28/17 10:12 Dose: 80 mg Wound Care/Dressing Products (Silvasorb) 1 appl TP DAILY [facility] Stop: 05/22/17 08:59 Last Admin: 03/28/17 10:12 Dose: 1 appl General: No acute distress HEENT: Atraumatic Neck: Thyromegaly Cardiovascular: Regular rate, Normal S1 - Procedures Procedures: Procedures Procedure Code Date EXCISION OF FINGER NAIL, EXTERNAL APPROACH 0HBQXZZ 03/15/17 Assessment/Plan - Problem List Patient Problems: All Active Problems Schizophrenia (Acute) F20.9 possible effusion of finger (Acute) r/o gangrene (Acute) - Plan Plan: cpm Nutritional Asmnt/Malnutr-PDOC - Dietary Evaluation Malnutrition Findings (Please click <Entered> for more info): Nutritional Asmnt/Malnutrition Start: 03/17/17 13: 45 Text: Status: Complete Freq: Document 03/17/17 13:45 LAUREN (Rec: 03/17/17 14:04 LAUREN [email or web address]) Nutritional Asmnt/Malnutrition Patient General Information Nutritional Screening High Risk Consult Diagnosis Psychosis Pertinent Medical Hx/Surgical Hx HTN, CHF, schizophrenia, dementia, OS, iron deficiency anemia Subjective Information Consult received for finger wound. Pt seen sleeping in bed at the time of visit. Noted pt had surgery on right thrd finger d/t gangrene on 03/15. Spoke with nurse, Pt still have good appetite, eats well. Current Diet Order/ Nutrition Support Regular Pertinent Medications colace, iron, lasix, seroquel Pertinent Labs no labs Nutritional Hx/Data Height 1.75 m Height (Calculated Centimeters) 175.3 Current Weight (lbs) 68.039 kg Weight (Calculated Kilograms) 68.0 Weight (Calculated Grams) 43230.9 [place] Body Weight 172 % [place] Body Weight 87 Body Mass Index (BMI) 22.1 Weight Status Approriate GI Symptoms GI Symptoms None Last BM none Difficult in: None Skin Integrity/Comment: right third finger surgical wound Estimated Nutritional Goals BEE in Kcals: Using Current wt Calories/Kcals/Kg 27-32 Kcals Calculated 3318-7195 Protein: Using Current wt Protein g/k-1.2 Protein Calculated 68-82 Fluid: ml 4326-4083 Nutritional Problem 1. Problem Problem increased nutrition needs ( calorie and protein) Etiology increased metabolic demand for wound healing Signs/Symptoms: right 3rd finger surgical wound Malnutrition Alert Protein-Calorie Malnutrition N/A Is there a minimum of two criteria No selected? Query Text:Check all the applicable criteria. A minimum of two criteria are recommended for diagnosis of either severe or non-severe malnutrition. Intervention/Recommendation Comments 1. Continue with current diet as ordered. 2. Monitor PO intake, wt, labs and skin integrity 3. F/U as moderate risk in 3-5 days, 03/20-03/22 Expected Outcomes/Goals Expected Outcomes/Goals 1. PO intake to meet at least 75% of nutritional needs. 2. Wt stability, skin to remain intact, labs WNL.
[2017-03-29] MEDS: Aspirin 81mg Chewable Tab PO SCH (09:47)
[2017-03-29] MEDS: Ferrous Sulfate 325 MG TAB PO SCH ×3 (09:47→21:09)
[2017-03-29] MEDS: Lactobacillus Rhamnosus GG 15 Billion CFU CAP.SPRINK PO SCH (09:47)
[2017-03-29] MEDS: Silver Antimicrobial Wound Gel 0.25 oz Tube TP SCH (18:17)
--- NOTE | 2017-03-30 08:38 | General Progress Note ---
Subjective - Review of Systems Events since last encounter: no distress Objective - Physical Exam Vitals and I&O: Vital Signs Temp 98.4 F 03/30/17 06:35 Pulse 84 03/30/17 06:35 Resp 19 03/30/17 06:35 BP 109/78 03/30/17 06:35 Pulse Ox 98 03/30/17 06:35 Intake & Output 03/29/17 03/30/17 03/30/17 18:59 06:59 18:59 Intake Total 900 120 Balance 900 120 Intake: Oral 900 120 Other: # Voids 3 3 # Bowel Movements 1 Stool Characteristics Soft Formed Active Medications: Current Medications Acetaminophen (Tylenol) 650 mg PO Q4HR PRN PRN Reason: Mild Pain or Fever >101F Stop: 05/15/17 22:24 Acetaminophen (Tylenol Extra Strength) 1,000 mg PO Q4HR PRN PRN Reason: Pain (Moderate) Stop: 05/15/17 22:24 Last Admin: 03/17/17 13:51 Dose: 1,000 mg Al Hydrox/Mg Hydrox/Simethicone (Maalox) 30 ml PO Q4HR PRN PRN Reason: GI DISTRESS Stop: 05/15/17 22:24 Aspirin (Aspirin Chewable) 81 mg PO DAILY [facility] Stop: 05/16/17 08:59 Last Admin: 03/29/17 09:47 Dose: 81 mg Bisacodyl (Dulcolax 10 Mg Supp) 10 mg RC DAILY PRN PRN Reason: Constipation Stop: 05/15/17 22:24 Divalproex Sodium (Depakote Dr) 500 mg PO BID [facility] PRN Reason: Protocol Stop: 05/16/17 08:59 Last Admin: 03/29/17 18:17 Dose: 500 mg Docusate Sodium (Colace) 100 mg PO DAILY [facility] Stop: 05/16/17 08:59 Last Admin: 03/29/17 09:47 Dose: 100 mg Ferrous Sulfate (Iron) 325 mg PO TID [facility] Stop: 05/16/17 08:59 Last Admin: 03/29/17 21:09 Dose: 325 mg Furosemide (Lasix) 40 mg PO DAILY [facility] Stop: 05/16/17 08:59 Last Admin: 03/29/17 09:47 Dose: 40 mg Haloperidol (Haldol) 4 mg PO BID [facility] PRN Reason: Protocol Stop: 03/09/18 12:54 Last Admin: 03/29/17 18:13 Dose: 4 mg Lactobacillus Rhamnosus (Culturelle 15b) 1 each PO DAILY [facility] Stop: 05/19/17 08:59 Last Admin: 03/29/17 09:47 Dose: 1 each Lorazepam (Ativan) 1 mg PO Q6H PRN; Protocol PRN Reason: Anxiety/Agitation Stop: 05/15/17 22:22 Last Admin: 03/27/17 20:21 Dose: 1 mg Magnesium Hydroxide (Milk Of Magnesia) 30 ml PO DAILY PRN PRN Reason: Constipation Stop: 05/15/17 22:24 Miscellaneous (Probiotic Screen) 1 ea [facility] PRN PRN PRN Reason: PROTOCOL Stop: 05/18/17 10:29 Quetiapine Fumarate (Seroquel) 400 mg PO BID [facility] PRN Reason: Protocol Stop: 05/16/17 08:59 Last Admin: 03/29/17 18:17 Dose: 400 mg Valsartan (Diovan) 80 mg PO DAILY [facility] Stop: 05/16/17 08:59 Last Admin: 03/29/17 09:47 Dose: 80 mg Wound Care/Dressing Products (Silvasorb) 1 appl TP DAILY [facility] Stop: 05/22/17 08:59 Last Admin: 03/29/17 18:17 Dose: Not Given General: No acute distress HEENT: Atraumatic Neck: Thyromegaly Cardiovascular: Regular rate, Normal S1 - Procedures Procedures: Procedures Procedure Code Date EXCISION OF FINGER NAIL, EXTERNAL APPROACH [id number] 03/15/17 Assessment/Plan - Problem List Patient Problems: All Active Problems Schizophrenia (Acute) F20.9 possible effusion of finger (Acute) r/o gangrene (Acute) - Plan Plan: cpm Nutritional Asmnt/Malnutr-PDOC - Dietary Evaluation Malnutrition Findings (Please click <Entered> for more info): Nutritional Asmnt/Malnutrition Start: 03/17/17 13: 45 Text: Status: Complete Freq: Document 03/17/17 13:45 LAUREN (Rec: 03/17/17 14:04 LAUREN [email or web address]) Nutritional Asmnt/Malnutrition Patient General Information Nutritional Screening High Risk Consult Diagnosis Psychosis Pertinent Medical Hx/Surgical Hx HTN, CHF, schizophrenia, dementia, OS, iron deficiency anemia Subjective Information Consult received for finger wound. Pt seen sleeping in bed at the time of visit. Noted pt had surgery on right thrd finger d/t gangrene on 03/15. Spoke with nurse, Pt still have good appetite, eats well. Current Diet Order/ Nutrition Support Regular Pertinent Medications colace, iron, lasix, seroquel Pertinent Labs no labs Nutritional Hx/Data Height 1.75 m Height (Calculated Centimeters) 175.3 Current Weight (lbs) 68.039 kg Weight (Calculated Kilograms) 68.0 Weight (Calculated Grams) 26147.9 [place] Body Weight 172 % [place] Body Weight 87 Body Mass Index (BMI) 22.1 Weight Status Approriate GI Symptoms GI Symptoms None Last BM none Difficult in: None Skin Integrity/Comment: right third finger surgical wound Estimated Nutritional Goals BEE in Kcals: Using Current wt Calories/Kcals/Kg 27-32 Kcals Calculated 3994-9518 Protein: Using Current wt Protein g/k-1.2 Protein Calculated 68-82 Fluid: ml 3433-6882 Nutritional Problem 1. Problem Problem increased nutrition needs ( calorie and protein) Etiology increased metabolic demand for wound healing Signs/Symptoms: right 3rd finger surgical wound Malnutrition Alert Protein-Calorie Malnutrition N/A Is there a minimum of two criteria No selected? Query Text:Check all the applicable criteria. A minimum of two criteria are recommended for diagnosis of either severe or non-severe malnutrition. Intervention/Recommendation Comments 1. Continue with current diet as ordered. 2. Monitor PO intake, wt, labs and skin integrity 3. F/U as moderate risk in 3-5 days, 03/20-1/3 Expected Outcomes/Goals Expected Outcomes/Goals 1. PO intake to meet at least 75% of nutritional needs. 2. Wt stability, skin to remain intact, labs WNL.
[2017-03-30] MEDS: Aspirin 81mg Chewable Tab PO SCH (10:31)
[2017-03-30] MEDS: Lactobacillus Rhamnosus GG 15 Billion CFU CAP.SPRINK PO SCH (10:32)
[2017-03-30] MEDS: Ferrous Sulfate 325 MG TAB PO SCH ×2 (10:32→14:04)
[2017-03-30] MEDS: Silver Antimicrobial Wound Gel 0.25 oz Tube TP SCH (10:33)
--- NOTE | 2017-03-30 13:29 | Discharge Summary ---
DATE OF DISCHARGE: 03/30/2017 AGE: 71. SEX: Male. PHYSICIAN: Allison Romero M.D., M.P.H. FINAL DIAGNOSIS/PRIMARY DIAGNOSIS: Schizoaffective disorder, bipolar type, with psychotic features. REASON FOR HOSPITALIZATION: The patient was admitted to the hospital because of increased agitation and irritability and severe paranoia and delusional. HOSPITAL COURSE: The patient was still extremely irritable and agitated and the patient was in angry and irritable mood. Also, suspicious and paranoid. The patient was transferred to Med/Surg unit for swelling and the minor surgery in his thumb and returned back to the facility. HOSPITAL COURSE: The patient continued to be calm and cooperative. The patient was less agitated and less irritable. He was not suicidal or homicidal and the patient was discharged from the hospital. Physical examination of the patient was basically within normal and the patient had no major medical problems except that he had swollen finger and had minor surgery on it. AFTER DISCHARGE PLANS: The patient discharged from the hospital and went back to a nursing facility and plan for outpatient treatment and followup there. EXPECTED OUTCOME AFTER DISCHARGE: Fair if the patient continues with his followup treatment and with the discharge plans. [facility]# [id number]
--- NOTE | 2017-03-30 15:36 | Progress Notes ---
DATE: 03/29/2017 SUBJECTIVE: Chart reviewed and the patient interviewed. Also discussed the patient's condition with the staff and reviewed records and labs. The patient is still anxious about his discharge and is still acting bizarre at times. Also, is still restless and personal hygiene is still poor. Otherwise, the patient is compliant with taking his medications with no side effects of medications. ASSESSMENT: The patient is less psychotic and showing improvement. TREATMENT PLAN: We will continue monitoring his behavior and his condition closely and also continue to work with lead case manager in regard to placement issue and discharge plans. JOB# [id number]
== END 2017-03-30 14:30 | disposition home or self-care (01) | DRG 885 ==
LOC: GERO 21:30
PROVIDERS: ADMIT Psychiatry & Neurology Psychiatry; ATTEND Psychiatry & Neurology Psychiatry
DX: F25.0 Schizoaffective disorder, bipolar type (principal); F03.91 Unspecified dementia, unspecified severity, with behavioral disturbance; I10 Essential (primary) hypertension; D50.9 Iron deficiency anemia, unspecified; F29 Unspecified psychosis not due to a substance or known physiological condition; M19.90 Unspecified osteoarthritis, unspecified site
CPT/HCPCS: J1200; J1630; J2060; Z7610

== ENCOUNTER 2017-04-07 00:48 | Inpatient (IN) | payer MEDICARE, MEDICAID ==
--- NOTE | 2017-04-07 01:36 | ED Physician Chart ---
ED Chief Complaint/HPI - Patient Information Date Seen:: 04/07/17 Time Seen:: 01:25 Chief Complaint:: refusing care History of Present Illness:: Patient refusing care and going through trash at his Alzheimer's care unit. Allergies:: Allergies Allergy/AdvReac Type Severity Reaction Status Date / Time benztropine [From Cogentin] Allergy Verified 03/02/17 06:11 Vitals:: Vital Signs - 8 hr 04/07/17 00:59 Temp 97.7 F HR 66 RR 16 BP 122/76 O2 Sat % 99 Historian:: Patient Review:: Transfer documents Reviewed ED Review of Systems - Review of Systems General/Constitutional: Fever, Chills Skin: No skin lesions Head: No headache Eyes: No loss of vision ENT: No earache Neck: No neck pain Cardio Vascular: No chest pain, No palpitations Pulmonary: No SOB GI: No nausea, No vomiting, No diarrhea G/U: Dysuria Musculoskeletal: No bone or joint pain Endocrine: No polyuria Psychiatric: Prior psych history Hematopoietic: No bruising Allergic/Immuno: No urticaria Neurological: No syncope, No focal symptoms ED Past Medical History - Past Medical History Past Medical History: HTN, Arthritis Family History: Other (not available) Social History: Smoker Surgical History: other (notable) Psychiatricy History: Bipolar, Dementia, Other (psychosis) Medication: Reviewed Family Medical History - Family Member Mother History Unknown: Yes Ethnicity: Unknown Living Status: Unknown Hx Family Cancer: (unknown) Hx Family Coronary Artery Disease: (unknown) Hx Family Congestive Heart Failure: (unknown) Hx Family Hypertension: (unknown) Hx Family Stroke: (unknown) Hx Family Diabetes: (unknown) Hx Family Seizures: (unknown) Hx Family Dementia: (unknown) Hx Family AIDS: (unknown) Hx Family COPD: (unknown) Hx Family Hepatitis: (unknown) Hx Family Psychiatric Problems: (unknown) Hx Family Tuberculosis: (unknown) ED Physical Exam - Physical Examination General/Constitutional: Well-developed, well-nourished, Alert Other Gen/Cons comments:: Alert and oriented to the correct month and correct year Head: Atraumatic Eyes: Lids, conjuctiva normal, PERRL Skin: Nl inspection ENMT: External ears, nose nl Other ENMT comments:: Edentulous Neck: No nuchal rigidity Respiratory: Nl effort/Exclusion Other Respiratory comments:: Process decreased Cardio Vascular: RRR GI: No tenderness/rebounding/guarding : No CVA tenderness Other Extremities comments:: 2 out of 4 pretibial pitting edema Neuro/Psych: No focal deficits ED Labs/Radiology/EKG Results - Lab Results Results: Laboratory Results - last 24 hr 04/07/17 04/07/17 04/07/17 01:45 01:45 01:45 WBC 4.1 L RBC 3.13 L Hgb 10.0 L Hct 29.7 L D MCV 94.8 MCH 31.8 H MCHC Differential 33.6 RDW 15.0 Plt Count 119 L MPV 8.9 Neutrophils % 61.4 Lymphocytes % 20.6 Monocytes % 13.4 H Eosinophils % 4.5 Basophils % 0.1 Sodium 137 Potassium 4.0 Chloride 106 Carbon Dioxide 30.0 Anion Gap 5.0 L BUN 32 H Creatinine 1.2 Est GFR ( Amer) > 60.0 Est GFR (Non-Af Amer) > 60.0 BUN/Creatinine Ratio 26.7 Glucose 110 H Calcium 8.5 L Total Bilirubin 0.3 AST 15 ALT 12 Alkaline Phosphatase 54 Total Protein 6.2 Albumin 3.4 L Globulin 2.8 Albumin/Globulin Ratio 1.2 Triglycerides 48 Cholesterol 136 LDL Cholesterol Direct 60 L HDL Cholesterol 66 Urine Source CLEAN C Urine Color YELLOW Urine Clarity CLEAR Urine pH 7.0 Ur Specific [place] <= 1.005 Urine Protein NEGATIVE Urine Glucose (UA) NEGATIVE Urine Ketones NEGATIVE Urine Blood NEGATIVE Urine Nitrate NEGATIVE Urine Bilirubin NEGATIVE Urine Urobilinogen 0.2 Ur Leukocyte Esterase NEGATIVE Urine RBC NONE SEEN Urine WBC 0-2 Ur Epithelial Cells OCCASIONAL Urine Bacteria OCCASIONAL Salicylates < 25.0 L Acetaminophen < 10.0 L Ethyl Alcohol < 10 - EKG Interpretations Rate & Rhythm: NSR with rate of 56 [place]: left ED Septic Shock - . Is Septic Shock (SBP<90, OR Lactate>4 mmol\L) present?: No - <6hrs of presentation: Vital Signs: Vital Signs - 8 hr 04/07/17 00:59 Temp 97.7 F HR 66 RR 16 BP 122/76 O2 Sat % 99 ED Reassessment (Disposition) - Reassessment Reassessment Condition:: Unchanged - Diagnosis Diagnosis:: refusal of care; anemia - Aftercare/Follow up Instructions Aftercare/Follow-Up Instructions:: Refer to Discharge Instructions - Patient Disposition Discharge/Transfer:: [facility] Care - SNF Condition at Disposition:: Stable, Unchanged ED Discharge Plan - Patient Disposition Instructions: Psychosis
[2017-04-07 01:54] LABS: EOSINOPHILE ABSOLUTE 0.2 Th/cmm (0.1-0.4); LYMPHOCYTE ABSOLUTE 0.8 Th/cmm (1.5-3.0); MONOCYTE ABSOLUTE 0.5 Th/cmm (0.3-1.0); NEUTROPHILE ABSOLUTE 2.6 Th/cmm (1.8-8.0)
[2017-04-07 01:59] LABS: % BASOPHILS 0.1 % (0.0-2.0); % EOSINOPHILS 4.5 % (0.0-5.0); % LYMPHOCYTES 20.6 % (20.0-50.0); % MONOCYTES 13.4 % (2.0-10.0); % NEUTROPHILS 61.4 % (40.0-80.0); HEMATOCRIT 29.7 % (41.0-60); MEAN CELL VOLUME 94.8 fl (80-99); MEAN CORPUSCULAR HEMOGLOBIN 31.8 pg (27.0-31.0); MEAN CORPUSCULAR HGB CONC 33.6 pg (28.0-36.0); MEAN PLATELET VOLUME 8.9 fl; PLATELET COUNT 119 Th/cmm (150-400); RED BLOOD COUNT 3.13 Mil/cmm (3.80-5.80); WHITE BLOOD COUNT 4.1 Th/cmm (4.8-10.8)
[2017-04-07 02:10] LABS: ACETAMINOPHEN < 10.0 ug/mL (10.0-30.0); ALB/GLOB RATIO 1.2 (1.0-1.8); ALBUMIN 3.4 gm/dL (4.2-5.5); ALKALINE PHOSPHATASE 54 U/L (34-104); BILIRUBIN,TOTAL 0.3 mg/dL (0.3-1.0); BUN - UREA NITROGEN 32 mg/dL (7-25); CALCIUM SERUM 8.5 mg/dL (8.6-10.3); CHLORIDE 106 mEq/L (98-107); CHOLESTEROL 136 mg/dL (<200); CREATININE - SERUM 1.2 mg/dL (0.7-1.3); GFR AFRICAN-AMERICAN > 60.0 ml/min (>90); GFR NON AFRICAN-AMERICAN > 60.0 ml/min; GLUCOSE 110 mg/dL (70-105); HDL -HIGH DENSITY LIPOPROTEIN 66 mg/dL (23-92); SALICYLATES (ASPIRIN) < 25.0 mg/L (30.0-100.0); SGOT 15 U/L (13-39); SGPT/ALT 12 U/L (7-52); SODIUM SERUM 137 mEq/L (136-145); TOTAL PROTEIN,SERUM 6.2 gm/dL (6.0-8.3); TRIGLYCERIDES 48 mg/dL (<150)
[2017-04-07 02:12] LABS: URINE MICROSCOPIC INDICATED? YES; URINE SOURCE CLEAN C
[2017-04-07 02:14] LABS: URINE BILIRUBIN NEGATIVE (NEGATIVE); URINE BLOOD NEGATIVE (NEGATIVE); URINE GLUCOSE (UA) NEGATIVE (NEGATIVE); URINE KETONE NEGATIVE (NEGATIVE); URINE LEUKOCYTE ESTERASE NEGATIVE (NEGATIVE); URINE NITRATE NEGATIVE (NEGATIVE); URINE PROTEIN NEGATIVE (NEGATIVE); URINE UROBILINOGEN 0.2 E.U./dL (0.2 - 1.0)
[2017-04-07 02:15] LABS: URINE CLARITY CLEAR (CLEAR); URINE COLOR YELLOW
[2017-04-07 02:16] LABS: URINE BACTERIA OCCASIONAL /hpf (NONE SEEN); URINE EPITHELIAL CELLS OCCASIONAL /lpf (FEW); URINE RBC NONE SEEN /hpf (0-5); URINE WBC 0-2 /hpf (0-5)
[2017-04-07 03:13] VITALS: BP 134/80
[2017-04-07] MEDS ORDERED: Maalox 30 mL Cup PO PRN (03:21)
[2017-04-07] MEDS ORDERED: Magnesium Hydroxide (MOM) 30 mL UDC PO PRN (03:21)
[2017-04-07] MEDS: Ferrous Sulfate 325 MG TAB PO SCH ×3 (08:24→20:51)
[2017-04-07] MEDS: Aspirin 81mg Chewable Tab PO SCH (08:25)
[2017-04-07] MEDS: Multivitamin Tab PO SCH (08:25)
[2017-04-07] MEDS: Silver Antimicrobial Wound Gel 0.25 oz Tube TP SCH (09:00)
[2017-04-07] MEDS ORDERED: Silver Antimicrobial Wound Gel 0.25 oz Tube TP SCH (09:00)
--- NOTE | 2017-04-08 02:08 | Psychosocial Evaluation ---
DATE OF SERVICE: PATIENT'S AGE: 71. SEX: Male. PHYSICIAN: Allison Romero M.D., M.P.H. CHIEF COMPLAINT: Agitation and irritability. HISTORY OF PRESENT ILLNESS: The patient is a 71-year-old male who was discharged from the hospital recently. The patient after he went to the [facility], he became severely agitated and in irritable mood and he also was not able to follow staff directions or to cooperate with his treatment. He also was having episodes of anger. The staff in the nursing facility was not able to handle him and the patient was brought back to the hospital. The patient is still disorganized and he is still in angry and in irritable mood. Also, has disorganized thoughts and unable to provide any safe plan for self care. PAST PSYCHIATRIC HISTORY: Multiple psychiatric hospitalizations for treatment of his schizoaffective disorder. PAST MEDICAL HISTORY: No acute medical problems. SOCIAL HISTORY: The patient was living in [facility]. No known alcohol or street drug use. ALLERGIES: No known allergies. MENTAL STATUS EXAMINATION: The patient appears older than stated age. Agitated. Irritable mood. Angry. Disorganized thoughts. Poor historian, unable to provide any plans for self care because of his agitation and his irritability. Poor insight and poor judgment. The patient is alert and unable to assess his orientation, or memory because of his agitation. ASSESSMENT: PRIMARY DIAGNOSIS: Schizoaffective disorder, bipolar type, severe, with psychotic features. TREATMENT PLAN: We will monitor the patient's behavior closely. Also, we will increase Haldol to 5 mg twice a day and continue Seroquel and the Depakote same dose and will get Depakote blood level. ESTIMATED LENGTH OF STAY: 5-7 days. THE PATIENT'S STRENGTHS AND WEAKNESSES: The patient's strength seems to be in relatively fair health. Weakness is poor impulse control and agitation as well as his psychosis. AFTER DISCHARGE PLAN: Outpatient treatment and followup, will continue as an outpatient and the patient will need placement. AFTER DISCHARGE PLANS: Outpatient treatment and followup. CRITERIA FOR DISCHARGE: Better impulse control and stabilize psychotropic medications and find placement. JOB# [id number]
--- NOTE | 2017-04-08 08:01 | History & Physical ---
ADMIT DATE: 04/08/2017 CHIEF COMPLAINT: Agitation. HISTORY OF PRESENT ILLNESS: This is a 71-year-old male, who was recently discharged from the hospital to the long term facility, but unfortunately the patient became agitated and irritable and was not able to follow direction or cooperate with this treatment from the long term facility. Hence, the patient was sent to the Emergency Room. REVIEW OF SYSTEMS: GENERAL: This is a 71-year-old male, who appears as stated. No fever, no chills. HEENT: No headache. No dizziness. EYES: No eye pain, no blurring of vision. NECK: No neck pain. No nuchal rigidity. CHEST: No palpitation. No chest pain. PULMONARY: No coughing. No shortness of breath. GASTROINTESTINAL: No abdominal pain, no diarrhea, no constipation, no vomiting. MUSCULOSKELETAL: No joint pain. No muscle pain. SOCIAL HISTORY: The patient lives in a long term facility prior to hospitalization. FAMILY HISTORY: Unremarkable. PAST MEDICAL HISTORY: Includes hypertension, osteoarthritis. PAST SURGICAL HISTORY: Unremarkable. PHYSICAL EXAMINATION: VITAL SIGNS: Temperature 98.2, heart rate 71, respirations 20, blood pressure 113/62, and 98% on room air. HEENT: Head is atraumatic, normocephalic. Eyes: Bilateral conjunctivae are clear. Bilateral pupils are equally round and reactive. NECK: Supple. No JVD. CARDIOVASCULAR: S1 and S2 without murmur. PULMONARY: Clear to auscultation. GASTROINTESTINAL: Soft and nontender without guarding. Positive bowel sounds. MUSCULOSKELETAL: No clubbing. No cyanosis noted. ASSESSMENT: 1. Schizoaffective disorder, bipolar type. 2. Hypertension. 3. Osteoarthritis. PLAN: We will keep the patient in the psychiatric unit. We will follow up with a psychiatrist to monitor the patient's condition and behavior. We are also going to monitor the patient's nutritional status. We will do medication reconciliation accordingly. Treatment plans were discussed with the patient's nurse. Treatment plans were discussed with Dr. Mcleod. JOB# [id number]
[2017-04-08] MEDS: Ferrous Sulfate 325 MG TAB PO SCH ×3 (08:48→21:20)
[2017-04-08] MEDS: Aspirin 81mg Chewable Tab PO SCH (08:48)
[2017-04-08] MEDS: Multivitamin Tab PO SCH (09:30)
[2017-04-08] MEDS: Silver Antimicrobial Wound Gel 0.25 oz Tube TP SCH (09:30)
[2017-04-09] MEDS: Aspirin 81mg Chewable Tab PO SCH (08:53)
[2017-04-09] MEDS: Ferrous Sulfate 325 MG TAB PO SCH ×3 (08:53→20:20)
[2017-04-09] MEDS: Multivitamin Tab PO SCH (08:54)
--- NOTE | 2017-04-09 09:14 | Progress Notes ---
DATE: 04/08/2017 SUBJECTIVE: Chart reviewed and the patient interviewed. Also, discussed the patient's condition with the staff and reviewed records and labs. The patient seems to be more isolative and withdrawn today and he seems to be slightly calmer than before. He seems to be less irritable and less agitated. The patient also is guarded and is not talking much today, although he is still ___ rambling and has disorganized thoughts. The patient also is still slightly paranoid and suspicious, but easy to redirect him. Also, compliant with taking his medications. ASSESSMENT: The patient is still psychotic. TREATMENT PLAN: Continue monitoring his behavior and his condition closely. Also, continue adjusting psychotropic medications and followup. [facility]# [id number]
[2017-04-09] MEDS: Silver Antimicrobial Wound Gel 0.25 oz Tube TP SCH (09:53)
--- NOTE | 2017-04-09 10:27 | General Progress Note ---
Subjective - Review of Systems Events since last encounter: patient still psychotic Objective - Results Result Diagrams: 04/07/17 01:45 04/07/17 01:45 Recent Labs: Laboratory Last Values WBC 4.1 Th/cmm (4.8-10.8) L 04/07/17 01:45 RBC 3.13 Mil/cmm (3.80-5.80) L 04/07/17 01:45 Hgb 10.0 gm/dL (12-16) L 04/07/17 01:45 Hct 29.7 % (41.0-60) L D 04/07/17 01:45 MCV 94.8 fl (80-99) 04/07/17 01:45 MCH 31.8 pg (27.0-31.0) H 04/07/17 01:45 MCHC Differential 33.6 pg (28.0-36.0) 04/07/17 01:45 RDW 15.0 % (11.5-20.0) 04/07/17 01:45 Plt Count 119 Th/cmm (150-400) L 04/07/17 01:45 MPV 8.9 fl 04/07/17 01:45 Neutrophils % 61.4 % (40.0-80.0) 04/07/17 01:45 Lymphocytes % 20.6 % (20.0-50.0) 04/07/17 01:45 Monocytes % 13.4 % (2.0-10.0) H 04/07/17 01:45 Eosinophils % 4.5 % (0.0-5.0) 04/07/17 01:45 Basophils % 0.1 % (0.0-2.0) 04/07/17 01:45 Sodium 137 mEq/L (136-145) 04/07/17 01:45 Potassium 4.0 mEq/L (3.5-5.1) 04/07/17 01:45 Chloride 106 mEq/L (98-107) 04/07/17 01:45 Carbon Dioxide 30.0 mEq/L (21.0-31.0) 04/07/17 01:45 Anion Gap 5.0 (7.0-16.0) L 04/07/17 01:45 BUN 32 mg/dL (7-25) H 04/07/17 01:45 Creatinine 1.2 mg/dL (0.7-1.3) 04/07/17 01:45 Est GFR ( Amer) > 60.0 ml/min (>90) 04/07/17 01:45 Est GFR (Non-Af Amer) > 60.0 ml/min 04/07/17 01:45 BUN/Creatinine Ratio 26.7 04/07/17 01:45 Glucose 110 mg/dL (70-105) H 04/07/17 01:45 Hemoglobin A1c % 7.0 % (4.0-6.0) H 04/07/17 01:45 Calcium 8.5 mg/dL (8.6-10.3) L 04/07/17 01:45 Total Bilirubin 0.3 mg/dL (0.3-1.0) 04/07/17 01:45 AST 15 U/L (13-39) 04/07/17 01:45 ALT 12 U/L (7-52) 04/07/17 01:45 Alkaline Phosphatase 54 U/L (34-104) 04/07/17 01:45 Total Protein 6.2 gm/dL (6.0-8.3) 04/07/17 01:45 Albumin 3.4 gm/dL (4.2-5.5) L 04/07/17 01:45 Globulin 2.8 gm/dL 04/07/17 01:45 Albumin/Globulin Ratio 1.2 (1.0-1.8) 04/07/17 01:45 Triglycerides 48 mg/dL (<150) 04/07/17 01:45 Cholesterol 136 mg/dL (<200) 04/07/17 01:45 LDL Cholesterol Direct 60 mg/dL (75-193) L 04/07/17 01:45 HDL Cholesterol 66 mg/dL (23-92) 04/07/17 01:45 TSH 2.09 uIU/ml (0.34-5.60) 04/07/17 01:45 Urine Source CLEAN C 04/07/17 01:45 Urine Color YELLOW 04/07/17 01:45 Urine Clarity CLEAR (CLEAR) 04/07/17 01:45 Urine pH 7.0 (4.6 - 8.0) 04/07/17 01:45 Ur Specific [place] <= 1.005 (1.005-1.030) 04/07/17 01:45 Urine Protein NEGATIVE mg/dL (NEGATIVE) 04/07/17 01:45 Urine Glucose (UA) NEGATIVE mg/dL (NEGATIVE) 04/07/17 01:45 Urine Ketones NEGATIVE mg/dL (NEGATIVE) 04/07/17 01:45 Urine Blood NEGATIVE (NEGATIVE) 04/07/17 01:45 Urine Nitrate NEGATIVE (NEGATIVE) 04/07/17 01:45 Urine Bilirubin NEGATIVE (NEGATIVE) 04/07/17 01:45 Urine Urobilinogen 0.2 E.U./dL (0.2 - 1.0) 04/07/17 01:45 Ur Leukocyte Esterase NEGATIVE (NEGATIVE) 04/07/17 01:45 Urine RBC NONE SEEN /hpf (0-5) 04/07/17 01:45 Urine WBC 0-2 /hpf (0-5) 04/07/17 01:45 Ur Epithelial Cells OCCASIONAL /lpf (FEW) 04/07/17 01:45 Urine Bacteria OCCASIONAL /hpf (NONE SEEN) 04/07/17 01:45 Salicylates < 25.0 mg/L (30.0-100.0) L 04/07/17 01:45 Acetaminophen < 10.0 ug/mL (10.0-30.0) L 04/07/17 01:45 Valproic Acid 33.3 ug/mL (50.0-100.0) L 04/07/17 08:30 Ethyl Alcohol < 10 mg/dL (0-10) 04/07/17 01:45 RPR NONREACTIVE (NONREACTIVE) 04/07/17 01:45 - Physical Exam Vitals and I&O: Vital Signs Temp 101.8 F 04/08/17 15:41 Pulse 60 04/09/17 08:54 Resp 20 04/08/17 15:41 BP 109/64 04/09/17 08:54 Pulse Ox 96 04/08/17 15:41 Intake & Output 04/08/17 04/09/17 04/09/17 18:59 06:59 18:59 Intake Total 1200 Balance 1200 Intake: Other 1200 Other: # Voids 3 # Bowel Movements 1 Active Medications: Current Medications Acetaminophen (Tylenol) 650 mg PO Q4HR PRN PRN Reason: Mild Pain / Temp above 100 Stop: 06/06/17 03:20 Al Hydrox/Mg Hydrox/Simethicone (Maalox) 30 ml PO Q4HR PRN PRN Reason: GI DISTRESS Stop: 06/06/17 03:20 Aspirin (Aspirin Chewable) 81 mg PO DAILY [facility] Stop: 06/06/17 08:59 Last Admin: 04/09/17 08:53 Dose: 81 mg Bisacodyl (Dulcolax 10 Mg Supp) 10 mg RC DAILY PRN PRN Reason: Constipation Stop: 06/06/17 03:23 Divalproex Sodium (Depakote Dr) 500 mg PO BID [facility] PRN Reason: Protocol Stop: 06/06/17 08:59 Last Admin: 04/09/17 08:54 Dose: 500 mg Docusate Sodium (Colace) 100 mg PO DAILY [facility] Stop: 06/06/17 08:59 Last Admin: 04/09/17 08:52 Dose: 100 mg Ferrous Sulfate (Iron) 325 mg PO TID [facility] Stop: 06/06/17 08:59 Last Admin: 04/09/17 08:53 Dose: 325 mg Furosemide (Lasix) 40 mg PO DAILY [facility] Stop: 06/06/17 08:59 Last Admin: 04/09/17 08:51 Dose: 40 mg Haloperidol (Haldol) 5 mg PO BID [facility] PRN Reason: Protocol Stop: 06/06/17 08:59 Last Admin: 04/09/17 08:55 Dose: 5 mg Lorazepam (Ativan) 0.5 mg PO Q4HR PRN; Protocol PRN Reason: Anxiety/agitation Stop: 05/07/17 03:20 Last Admin: 04/08/17 21:20 Dose: 0.5 mg Magnesium Hydroxide (Milk Of Magnesia) 30 ml PO HS PRN PRN Reason: Constipation Multivitamins/Vitamin C (Theragran) 1 tab PO DAILY [facility] Stop: 06/06/17 08:59 Last Admin: 04/09/17 08:54 Dose: 1 tab Mupirocin (Bactroban Oint) 1 appl NS BID [facility] Stop: 04/13/17 09:01 Last Admin: 04/09/17 09:53 Dose: 1 appl Quetiapine Fumarate (Seroquel) 400 mg PO BID [facility] PRN Reason: Protocol Stop: 06/06/17 08:59 Last Admin: 04/09/17 08:50 Dose: 400 mg Valsartan (Diovan) 80 mg PO DAILY [facility] Stop: 06/06/17 08:59 Last Admin: 04/09/17 08:54 Dose: 80 mg Wound Care/Dressing Products (Silvasorb) 1 appl TP DAILY [facility] Stop: 06/06/17 08:59 Last Admin: 04/09/17 09:53 Dose: 1 appl Zolpidem Tartrate (Ambien) 5 mg PO HS PRN PRN Reason: Insomnia Stop: 06/07/17 23:15 General: No acute distress HEENT: Atraumatic Neck: Supple, JVD, Thyromegaly Cardiovascular: Regular rate, Normal S1, Normal S2 Lungs: Clear to auscultation Abdomen: Bowel sounds - Procedures Procedures: Procedures Procedure Code Date EXCISION OF FINGER NAIL, EXTERNAL APPROACH [id number] 03/15/17 Assessment/Plan - Problem List Patient Problems: All Active Problems HTN (hypertension) (Acute) I10 Osteoarthritis (Acute) M19.90 Schizophrenia (Acute) F20.9 possible effusion of finger (Acute) r/o gangrene (Acute) - Plan Plan: as per psych will monitor
--- NOTE | 2017-04-09 22:50 | Progress Notes ---
DATE: PSYCHIATRIC PROGRESS NOTE Chart reviewed and patient interviewed. Also discussed the patient's condition with the staff and reviewed records and labs. The patient slept only about 4 hours according to the staff. He is still confused and he is still constantly come to the nurses' station dropping cups and other items. He is still at times confused and he is still easily agitated and in irritable mood. Otherwise, the patient is compliant with taking his medications with no side effects of medications. ASSESSMENT: The patient is still psychotic. TREATMENT PLAN: Continue monitoring his behavior and his condition and continue adjusting psychotropic medications and followup. JOB# [id number]
[2017-04-10] MEDS: Aspirin 81mg Chewable Tab PO SCH (10:11)
[2017-04-10] MEDS: Ferrous Sulfate 325 MG TAB PO SCH ×3 (10:12→21:19)
[2017-04-10] MEDS: Silver Antimicrobial Wound Gel 0.25 oz Tube TP SCH (10:15)
[2017-04-10] MEDS: Multivitamin Tab PO SCH (10:15)
[2017-04-10] MEDS: HALOPERIDOL PO SCH (10:15)
--- NOTE | 2017-04-10 12:38 | General Progress Note ---
Subjective - Review of Systems Events since last encounter: no change Objective - Results Result Diagrams: 04/07/17 01:45 04/07/17 01:45 Recent Labs: Laboratory Last Values WBC 4.1 Th/cmm (4.8-10.8) L 04/07/17 01:45 RBC 3.13 Mil/cmm (3.80-5.80) L 04/07/17 01:45 Hgb 10.0 gm/dL (12-16) L 04/07/17 01:45 Hct 29.7 % (41.0-60) L D 04/07/17 01:45 MCV 94.8 fl (80-99) 04/07/17 01:45 MCH 31.8 pg (27.0-31.0) H 04/07/17 01:45 MCHC Differential 33.6 pg (28.0-36.0) 04/07/17 01:45 RDW 15.0 % (11.5-20.0) 04/07/17 01:45 Plt Count 119 Th/cmm (150-400) L 04/07/17 01:45 MPV 8.9 fl 04/07/17 01:45 Neutrophils % 61.4 % (40.0-80.0) 04/07/17 01:45 Lymphocytes % 20.6 % (20.0-50.0) 04/07/17 01:45 Monocytes % 13.4 % (2.0-10.0) H 04/07/17 01:45 Eosinophils % 4.5 % (0.0-5.0) 04/07/17 01:45 Basophils % 0.1 % (0.0-2.0) 04/07/17 01:45 Sodium 137 mEq/L (136-145) 04/07/17 01:45 Potassium 4.0 mEq/L (3.5-5.1) 04/07/17 01:45 Chloride 106 mEq/L (98-107) 04/07/17 01:45 Carbon Dioxide 30.0 mEq/L (21.0-31.0) 04/07/17 01:45 Anion Gap 5.0 (7.0-16.0) L 04/07/17 01:45 BUN 32 mg/dL (7-25) H 04/07/17 01:45 Creatinine 1.2 mg/dL (0.7-1.3) 04/07/17 01:45 Est GFR ( Amer) > 60.0 ml/min (>90) 04/07/17 01:45 Est GFR (Non-Af Amer) > 60.0 ml/min 04/07/17 01:45 BUN/Creatinine Ratio 26.7 04/07/17 01:45 Glucose 110 mg/dL (70-105) H 04/07/17 01:45 Hemoglobin A1c % 7.0 % (4.0-6.0) H 04/07/17 01:45 Calcium 8.5 mg/dL (8.6-10.3) L 04/07/17 01:45 Total Bilirubin 0.3 mg/dL (0.3-1.0) 04/07/17 01:45 AST 15 U/L (13-39) 04/07/17 01:45 ALT 12 U/L (7-52) 04/07/17 01:45 Alkaline Phosphatase 54 U/L (34-104) 04/07/17 01:45 Total Protein 6.2 gm/dL (6.0-8.3) 04/07/17 01:45 Albumin 3.4 gm/dL (4.2-5.5) L 04/07/17 01:45 Globulin 2.8 gm/dL 04/07/17 01:45 Albumin/Globulin Ratio 1.2 (1.0-1.8) 04/07/17 01:45 Triglycerides 48 mg/dL (<150) 04/07/17 01:45 Cholesterol 136 mg/dL (<200) 04/07/17 01:45 LDL Cholesterol Direct 60 mg/dL (75-193) L 04/07/17 01:45 HDL Cholesterol 66 mg/dL (23-92) 04/07/17 01:45 TSH 2.09 uIU/ml (0.34-5.60) 04/07/17 01:45 Urine Source CLEAN C 04/07/17 01:45 Urine Color YELLOW 04/07/17 01:45 Urine Clarity CLEAR (CLEAR) 04/07/17 01:45 Urine pH 7.0 (4.6 - 8.0) 04/07/17 01:45 Ur Specific [place] <= 1.005 (1.005-1.030) 04/07/17 01:45 Urine Protein NEGATIVE mg/dL (NEGATIVE) 04/07/17 01:45 Urine Glucose (UA) NEGATIVE mg/dL (NEGATIVE) 04/07/17 01:45 Urine Ketones NEGATIVE mg/dL (NEGATIVE) 04/07/17 01:45 Urine Blood NEGATIVE (NEGATIVE) 04/07/17 01:45 Urine Nitrate NEGATIVE (NEGATIVE) 04/07/17 01:45 Urine Bilirubin NEGATIVE (NEGATIVE) 04/07/17 01:45 Urine Urobilinogen 0.2 E.U./dL (0.2 - 1.0) 04/07/17 01:45 Ur Leukocyte Esterase NEGATIVE (NEGATIVE) 04/07/17 01:45 Urine RBC NONE SEEN /hpf (0-5) 04/07/17 01:45 Urine WBC 0-2 /hpf (0-5) 04/07/17 01:45 Ur Epithelial Cells OCCASIONAL /lpf (FEW) 04/07/17 01:45 Urine Bacteria OCCASIONAL /hpf (NONE SEEN) 04/07/17 01:45 Salicylates < 25.0 mg/L (30.0-100.0) L 04/07/17 01:45 Acetaminophen < 10.0 ug/mL (10.0-30.0) L 04/07/17 01:45 Valproic Acid 33.3 ug/mL (50.0-100.0) L 04/07/17 08:30 Ethyl Alcohol < 10 mg/dL (0-10) 04/07/17 01:45 RPR NONREACTIVE (NONREACTIVE) 04/07/17 01:45 - Physical Exam Vitals and I&O: Vital Signs Temp 96.9 F 04/09/17 13:28 Pulse 89 04/10/17 10:16 Resp 20 04/09/17 13:28 BP 116/71 04/10/17 10:16 Pulse Ox 100 04/09/17 13:28 Intake & Output 04/09/17 04/10/17 04/10/17 18:59 06:59 18:59 Intake Total 1200 Balance 1200 Intake: Oral 1200 Other: # Voids 3 # Bowel Movements 1 Stool Characteristics Soft Active Medications: Current Medications Acetaminophen (Tylenol) 650 mg PO Q4HR PRN PRN Reason: Mild Pain / Temp above 100 Stop: 06/06/17 03:20 Al Hydrox/Mg Hydrox/Simethicone (Maalox) 30 ml PO Q4HR PRN PRN Reason: GI DISTRESS Stop: 06/06/17 03:20 Aspirin (Aspirin Chewable) 81 mg PO DAILY [facility] Stop: 06/06/17 08:59 Last Admin: 04/10/17 10:11 Dose: 81 mg Bisacodyl (Dulcolax 10 Mg Supp) 10 mg RC DAILY PRN PRN Reason: Constipation Stop: 06/06/17 03:23 Divalproex Sodium (Depakote Dr) 500 mg PO BID [facility] PRN Reason: Protocol Stop: 06/06/17 08:59 Last Admin: 04/10/17 10:12 Dose: 500 mg Docusate Sodium (Colace) 100 mg PO DAILY [facility] Stop: 06/06/17 08:59 Last Admin: 04/10/17 10:12 Dose: 100 mg Ferrous Sulfate (Iron) 325 mg PO TID [facility] Stop: 06/06/17 08:59 Last Admin: 04/10/17 10:12 Dose: 325 mg Furosemide (Lasix) 40 mg PO DAILY [facility] Stop: 06/06/17 08:59 Last Admin: 04/10/17 10:12 Dose: 40 mg Haloperidol 5 mg/ Haloperidol (2 mg) 7 mg PO BID [facility] Stop: 06/09/17 08:59 Last Admin: 04/10/17 10:15 Dose: 7 mg Lorazepam (Ativan) 0.5 mg PO Q4HR PRN; Protocol PRN Reason: Anxiety/agitation Stop: 05/07/17 03:20 Last Admin: 04/08/17 21:20 Dose: 0.5 mg Magnesium Hydroxide (Milk Of Magnesia) 30 ml PO HS PRN PRN Reason: Constipation Multivitamins/Vitamin C (Theragran) 1 tab PO DAILY [facility] Stop: 06/06/17 08:59 Last Admin: 04/10/17 10:15 Dose: 1 tab Mupirocin (Bactroban Oint) 1 appl NS BID [facility] Stop: 04/13/17 09:01 Last Admin: 04/10/17 10:15 Dose: 1 appl Quetiapine Fumarate (Seroquel) 400 mg PO BID [facility] PRN Reason: Protocol Stop: 06/06/17 08:59 Last Admin: 04/10/17 10:15 Dose: 400 mg Valsartan (Diovan) 80 mg PO DAILY [facility] Stop: 06/06/17 08:59 Last Admin: 04/10/17 10:16 Dose: 80 mg Wound Care/Dressing Products (Silvasorb) 1 appl TP DAILY [facility] Stop: 06/06/17 08:59 Last Admin: 04/10/17 10:15 Dose: 1 appl Zolpidem Tartrate (Ambien) 5 mg PO HS PRN PRN Reason: Insomnia Stop: 06/07/17 23:15 General: No acute distress HEENT: Atraumatic Neck: Supple, JVD, Thyromegaly Cardiovascular: Regular rate, Normal S1, Normal S2 Lungs: Clear to auscultation Abdomen: Bowel sounds - Procedures Procedures: Procedures Procedure Code Date EXCISION OF FINGER NAIL, EXTERNAL APPROACH [id number] 03/15/17 Assessment/Plan - Problem List Patient Problems: All Active Problems HTN (hypertension) (Acute) I10 Osteoarthritis (Acute) M19.90 Schizophrenia (Acute) F20.9 possible effusion of finger (Acute) r/o gangrene (Acute) - Plan Plan: as per psych will monitor
[2017-04-11] MEDS: Ferrous Sulfate 325 MG TAB PO SCH ×3 (08:46→20:15)
[2017-04-11] MEDS: Multivitamin Tab PO SCH (08:46)
[2017-04-11] MEDS: HALOPERIDOL PO SCH ×2 (08:46→17:07)
[2017-04-11] MEDS: Aspirin 81mg Chewable Tab PO SCH (08:46)
[2017-04-11] MEDS: Silver Antimicrobial Wound Gel 0.25 oz Tube TP SCH (08:55)
--- NOTE | 2017-04-11 18:49 | Internal Medicine Prog Note ---
Internal Medicine Subjective - Subjective Service Date: 04/11/17 Patient seen and examined:: with staff Patient is:: awake Per staff patient has:: tolerating meds Internal Medicine Objective - Results Result Diagrams: 04/07/17 01:45 04/07/17 01:45 Recent Labs: Laboratory Last Values WBC 4.1 Th/cmm (4.8-10.8) L 04/07/17 01:45 RBC 3.13 Mil/cmm (3.80-5.80) L 04/07/17 01:45 Hgb 10.0 gm/dL (12-16) L 04/07/17 01:45 Hct 29.7 % (41.0-60) L D 04/07/17 01:45 MCV 94.8 fl (80-99) 04/07/17 01:45 MCH 31.8 pg (27.0-31.0) H 04/07/17 01:45 MCHC Differential 33.6 pg (28.0-36.0) 04/07/17 01:45 RDW 15.0 % (11.5-20.0) 04/07/17 01:45 Plt Count 119 Th/cmm (150-400) L 04/07/17 01:45 MPV 8.9 fl 04/07/17 01:45 Neutrophils % 61.4 % (40.0-80.0) 04/07/17 01:45 Lymphocytes % 20.6 % (20.0-50.0) 04/07/17 01:45 Monocytes % 13.4 % (2.0-10.0) H 04/07/17 01:45 Eosinophils % 4.5 % (0.0-5.0) 04/07/17 01:45 Basophils % 0.1 % (0.0-2.0) 04/07/17 01:45 Sodium 137 mEq/L (136-145) 04/07/17 01:45 Potassium 4.0 mEq/L (3.5-5.1) 04/07/17 01:45 Chloride 106 mEq/L (98-107) 04/07/17 01:45 Carbon Dioxide 30.0 mEq/L (21.0-31.0) 04/07/17 01:45 Anion Gap 5.0 (7.0-16.0) L 04/07/17 01:45 BUN 32 mg/dL (7-25) H 04/07/17 01:45 Creatinine 1.2 mg/dL (0.7-1.3) 04/07/17 01:45 Est GFR ( Amer) > 60.0 ml/min (>90) 04/07/17 01:45 Est GFR (Non-Af Amer) > 60.0 ml/min 04/07/17 01:45 BUN/Creatinine Ratio 26.7 04/07/17 01:45 Glucose 110 mg/dL (70-105) H 04/07/17 01:45 Hemoglobin A1c % 7.0 % (4.0-6.0) H 04/07/17 01:45 Calcium 8.5 mg/dL (8.6-10.3) L 04/07/17 01:45 Total Bilirubin 0.3 mg/dL (0.3-1.0) 04/07/17 01:45 AST 15 U/L (13-39) 04/07/17 01:45 ALT 12 U/L (7-52) 04/07/17 01:45 Alkaline Phosphatase 54 U/L (34-104) 04/07/17 01:45 Total Protein 6.2 gm/dL (6.0-8.3) 04/07/17 01:45 Albumin 3.4 gm/dL (4.2-5.5) L 04/07/17 01:45 Globulin 2.8 gm/dL 04/07/17 01:45 Albumin/Globulin Ratio 1.2 (1.0-1.8) 04/07/17 01:45 Triglycerides 48 mg/dL (<150) 04/07/17 01:45 Cholesterol 136 mg/dL (<200) 04/07/17 01:45 LDL Cholesterol Direct 60 mg/dL (75-193) L 04/07/17 01:45 HDL Cholesterol 66 mg/dL (23-92) 04/07/17 01:45 TSH 2.09 uIU/ml (0.34-5.60) 04/07/17 01:45 Urine Source CLEAN C 04/07/17 01:45 Urine Color YELLOW 04/07/17 01:45 Urine Clarity CLEAR (CLEAR) 04/07/17 01:45 Urine pH 7.0 (4.6 - 8.0) 04/07/17 01:45 Ur Specific [place] <= 1.005 (1.005-1.030) 04/07/17 01:45 Urine Protein NEGATIVE mg/dL (NEGATIVE) 04/07/17 01:45 Urine Glucose (UA) NEGATIVE mg/dL (NEGATIVE) 04/07/17 01:45 Urine Ketones NEGATIVE mg/dL (NEGATIVE) 04/07/17 01:45 Urine Blood NEGATIVE (NEGATIVE) 04/07/17 01:45 Urine Nitrate NEGATIVE (NEGATIVE) 04/07/17 01:45 Urine Bilirubin NEGATIVE (NEGATIVE) 04/07/17 01:45 Urine Urobilinogen 0.2 E.U./dL (0.2 - 1.0) 04/07/17 01:45 Ur Leukocyte Esterase NEGATIVE (NEGATIVE) 04/07/17 01:45 Urine RBC NONE SEEN /hpf (0-5) 04/07/17 01:45 Urine WBC 0-2 /hpf (0-5) 04/07/17 01:45 Ur Epithelial Cells OCCASIONAL /lpf (FEW) 04/07/17 01:45 Urine Bacteria OCCASIONAL /hpf (NONE SEEN) 04/07/17 01:45 Salicylates < 25.0 mg/L (30.0-100.0) L 04/07/17 01:45 Acetaminophen < 10.0 ug/mL (10.0-30.0) L 04/07/17 01:45 Valproic Acid 33.3 ug/mL (50.0-100.0) L 04/07/17 08:30 Ethyl Alcohol < 10 mg/dL (0-10) 04/07/17 01:45 RPR NONREACTIVE (NONREACTIVE) 04/07/17 01:45 - Physical Exam Vitals and I&O: Vital Signs Temp 97.6 F 04/11/17 16:35 Pulse 80 04/11/17 16:35 Resp 20 04/11/17 16:35 BP 125/70 04/11/17 16:35 Pulse Ox 98 04/11/17 16:35 Intake & Output 04/10/17 04/11/17 04/11/17 18:59 06:59 18:59 Other: Stool Characteristics Soft Brown Active Medications: Current Medications Acetaminophen (Tylenol) 650 mg PO Q4HR PRN PRN Reason: Mild Pain / Temp above 100 Stop: 06/06/17 03:20 Al Hydrox/Mg Hydrox/Simethicone (Maalox) 30 ml PO Q4HR PRN PRN Reason: GI DISTRESS Stop: 06/06/17 03:20 Aspirin (Aspirin Chewable) 81 mg PO DAILY [facility] Stop: 06/06/17 08:59 Last Admin: 04/11/17 08:46 Dose: 81 mg Bisacodyl (Dulcolax 10 Mg Supp) 10 mg RC DAILY PRN PRN Reason: Constipation Stop: 06/06/17 03:23 Divalproex Sodium (Depakote Dr) 500 mg PO BID [facility] PRN Reason: Protocol Stop: 06/06/17 08:59 Last Admin: 04/11/17 17:07 Dose: 500 mg Docusate Sodium (Colace) 100 mg PO DAILY [facility] Stop: 06/06/17 08:59 Last Admin: 04/11/17 08:46 Dose: 100 mg Ferrous Sulfate (Iron) 325 mg PO TID [facility] Stop: 06/06/17 08:59 Last Admin: 04/11/17 15:13 Dose: 325 mg Furosemide (Lasix) 40 mg PO DAILY [facility] Stop: 06/06/17 08:59 Last Admin: 04/11/17 08:47 Dose: Not Given Haloperidol 5 mg/ Haloperidol (2 mg) 7 mg PO BID [facility] Stop: 06/09/17 08:59 Last Admin: 04/11/17 17:07 Dose: 7 mg Lorazepam (Ativan) 0.5 mg PO Q4HR PRN; Protocol PRN Reason: Anxiety/agitation Stop: 05/07/17 03:20 Last Admin: 04/08/17 21:20 Dose: 0.5 mg Magnesium Hydroxide (Milk Of Magnesia) 30 ml PO HS PRN PRN Reason: Constipation Multivitamins/Vitamin C (Theragran) 1 tab PO DAILY [facility] Stop: 06/06/17 08:59 Last Admin: 04/11/17 08:46 Dose: 1 tab Mupirocin (Bactroban Oint) 1 appl NS BID [facility] Stop: 04/13/17 09:01 Last Admin: 04/11/17 08:55 Dose: 1 appl Quetiapine Fumarate (Seroquel) 400 mg PO BID [facility] PRN Reason: Protocol Stop: 06/06/17 08:59 Last Admin: 04/11/17 17:06 Dose: 400 mg Valsartan (Diovan) 80 mg PO DAILY [facility] Stop: 06/06/17 08:59 Last Admin: 04/11/17 08:51 Dose: Not Given Wound Care/Dressing Products (Silvasorb) 1 appl TP DAILY [facility] Stop: 06/06/17 08:59 Last Admin: 04/11/17 08:55 Dose: 1 appl Zolpidem Tartrate (Ambien) 5 mg PO HS PRN PRN Reason: Insomnia Stop: 06/07/17 23:15 General: alert HEENT: NC/AT, PERRLA Neck: Supple Lungs: CTAB Neurological: alert - Procedures Procedures: Procedures Procedure Code Date EXCISION OF FINGER NAIL, EXTERNAL APPROACH [id number] 03/15/17 Internal Medicine Assmt/Plan - Plan Plan: as per psych will monitor
--- NOTE | 2017-04-12 02:35 | Progress Notes ---
DATE: 04/10/2017 SUBJECTIVE: Chart reviewed and patient interviewed. Also discussed patient's condition with the staff and reviewed records and labs. The patient continues to be extremely irritable and is still rambling, mumbling and confused. Also, has difficulty formulating any meaningful sentences. He also is collecting trash. He almost comes to the nurses' station and dropping cups and acting bizarre. Otherwise, the patient continued to comply with taking his medications with no side effects of medications. ASSESSMENT: The patient is still psychotic and confused. TREATMENT PLAN: Continue to monitor his behavior and his condition closely. Also continue adjusting psychotropic medications. Also will increase Haldol to 7 mg twice a day. Depakote blood level that was done on 04/07/2017 came back to be 33.3, which is below stability and continue adjusting the dose. JOB# [id number]
--- NOTE | 2017-04-12 06:26 | Progress Notes ---
DATE: SUBJECTIVE: Chart reviewed and the patient interviewed. Also discussed the patient's condition with the staff and reviewed records and labs. The patient is rambling and he is still talking to himself. The patient also still has periods of agitation, especially when staff tries to help him with his ADLs. Also, is suspicious and is paranoid. The patient also is still sleep at night, but he is compliant with taking his medications with no side effects of medications. ASSESSMENT: The patient is still psychotic. TREATMENT PLAN: Continue monitoring his behavior and his condition closely. Also, continue monitoring psychotropic medications and we will continue to follow up. JOB# [id number]
[2017-04-12] MEDS: HALOPERIDOL PO SCH ×3 (09:18→17:12)
[2017-04-12] MEDS: Aspirin 81mg Chewable Tab PO SCH (09:19)
[2017-04-12] MEDS: Multivitamin Tab PO SCH (09:21)
[2017-04-12] MEDS: Ferrous Sulfate 325 MG TAB PO SCH ×3 (09:22→22:10)
[2017-04-12] MEDS: Silver Antimicrobial Wound Gel 0.25 oz Tube TP SCH (09:23)
--- NOTE | 2017-04-12 09:50 | General Progress Note ---
Subjective - Review of Systems Events since last encounter: still confused psychotic Objective - Results Result Diagrams: 04/07/17 01:45 04/07/17 01:45 Recent Labs: Laboratory Last Values WBC 4.1 Th/cmm (4.8-10.8) L 04/07/17 01:45 RBC 3.13 Mil/cmm (3.80-5.80) L 04/07/17 01:45 Hgb 10.0 gm/dL (12-16) L 04/07/17 01:45 Hct 29.7 % (41.0-60) L D 04/07/17 01:45 MCV 94.8 fl (80-99) 04/07/17 01:45 MCH 31.8 pg (27.0-31.0) H 04/07/17 01:45 MCHC Differential 33.6 pg (28.0-36.0) 04/07/17 01:45 RDW 15.0 % (11.5-20.0) 04/07/17 01:45 Plt Count 119 Th/cmm (150-400) L 04/07/17 01:45 MPV 8.9 fl 04/07/17 01:45 Neutrophils % 61.4 % (40.0-80.0) 04/07/17 01:45 Lymphocytes % 20.6 % (20.0-50.0) 04/07/17 01:45 Monocytes % 13.4 % (2.0-10.0) H 04/07/17 01:45 Eosinophils % 4.5 % (0.0-5.0) 04/07/17 01:45 Basophils % 0.1 % (0.0-2.0) 04/07/17 01:45 Sodium 137 mEq/L (136-145) 04/07/17 01:45 Potassium 4.0 mEq/L (3.5-5.1) 04/07/17 01:45 Chloride 106 mEq/L (98-107) 04/07/17 01:45 Carbon Dioxide 30.0 mEq/L (21.0-31.0) 04/07/17 01:45 Anion Gap 5.0 (7.0-16.0) L 04/07/17 01:45 BUN 32 mg/dL (7-25) H 04/07/17 01:45 Creatinine 1.2 mg/dL (0.7-1.3) 04/07/17 01:45 Est GFR ( Amer) > 60.0 ml/min (>90) 04/07/17 01:45 Est GFR (Non-Af Amer) > 60.0 ml/min 04/07/17 01:45 BUN/Creatinine Ratio 26.7 04/07/17 01:45 Glucose 110 mg/dL (70-105) H 04/07/17 01:45 Hemoglobin A1c % 7.0 % (4.0-6.0) H 04/07/17 01:45 Calcium 8.5 mg/dL (8.6-10.3) L 04/07/17 01:45 Total Bilirubin 0.3 mg/dL (0.3-1.0) 04/07/17 01:45 AST 15 U/L (13-39) 04/07/17 01:45 ALT 12 U/L (7-52) 04/07/17 01:45 Alkaline Phosphatase 54 U/L (34-104) 04/07/17 01:45 Total Protein 6.2 gm/dL (6.0-8.3) 04/07/17 01:45 Albumin 3.4 gm/dL (4.2-5.5) L 04/07/17 01:45 Globulin 2.8 gm/dL 04/07/17 01:45 Albumin/Globulin Ratio 1.2 (1.0-1.8) 04/07/17 01:45 Triglycerides 48 mg/dL (<150) 04/07/17 01:45 Cholesterol 136 mg/dL (<200) 04/07/17 01:45 LDL Cholesterol Direct 60 mg/dL (75-193) L 04/07/17 01:45 HDL Cholesterol 66 mg/dL (23-92) 04/07/17 01:45 TSH 2.09 uIU/ml (0.34-5.60) 04/07/17 01:45 Urine Source CLEAN C 04/07/17 01:45 Urine Color YELLOW 04/07/17 01:45 Urine Clarity CLEAR (CLEAR) 04/07/17 01:45 Urine pH 7.0 (4.6 - 8.0) 04/07/17 01:45 Ur Specific [place] <= 1.005 (1.005-1.030) 04/07/17 01:45 Urine Protein NEGATIVE mg/dL (NEGATIVE) 04/07/17 01:45 Urine Glucose (UA) NEGATIVE mg/dL (NEGATIVE) 04/07/17 01:45 Urine Ketones NEGATIVE mg/dL (NEGATIVE) 04/07/17 01:45 Urine Blood NEGATIVE (NEGATIVE) 04/07/17 01:45 Urine Nitrate NEGATIVE (NEGATIVE) 04/07/17 01:45 Urine Bilirubin NEGATIVE (NEGATIVE) 04/07/17 01:45 Urine Urobilinogen 0.2 E.U./dL (0.2 - 1.0) 04/07/17 01:45 Ur Leukocyte Esterase NEGATIVE (NEGATIVE) 04/07/17 01:45 Urine RBC NONE SEEN /hpf (0-5) 04/07/17 01:45 Urine WBC 0-2 /hpf (0-5) 04/07/17 01:45 Ur Epithelial Cells OCCASIONAL /lpf (FEW) 04/07/17 01:45 Urine Bacteria OCCASIONAL /hpf (NONE SEEN) 04/07/17 01:45 Salicylates < 25.0 mg/L (30.0-100.0) L 04/07/17 01:45 Acetaminophen < 10.0 ug/mL (10.0-30.0) L 04/07/17 01:45 Valproic Acid 33.3 ug/mL (50.0-100.0) L 04/07/17 08:30 Ethyl Alcohol < 10 mg/dL (0-10) 04/07/17 01:45 RPR NONREACTIVE (NONREACTIVE) 04/07/17 01:45 - Physical Exam Vitals and I&O: Vital Signs Temp 97.9 F 04/11/17 20:03 Pulse 97 04/11/17 20:03 Resp 18 04/11/17 20:03 BP 88/50 04/11/17 20:03 Pulse Ox 98 04/11/17 20:03 Intake & Output 04/11/17 04/12/17 04/12/17 18:59 06:59 18:59 Intake Total 250 Output Total 2 Balance 248 Intake: Oral 250 Output: Urine 2 Other: Stool Characteristics Soft Soft Brown Brown Active Medications: Current Medications Acetaminophen (Tylenol) 650 mg PO Q4HR PRN PRN Reason: Mild Pain / Temp above 100 Stop: 06/06/17 03:20 Al Hydrox/Mg Hydrox/Simethicone (Maalox) 30 ml PO Q4HR PRN PRN Reason: GI DISTRESS Stop: 06/06/17 03:20 Aspirin (Aspirin Chewable) 81 mg PO DAILY [facility] Stop: 06/06/17 08:59 Last Admin: 04/11/17 08:46 Dose: 81 mg Bisacodyl (Dulcolax 10 Mg Supp) 10 mg RC DAILY PRN PRN Reason: Constipation Stop: 06/06/17 03:23 Divalproex Sodium (Depakote Dr) 500 mg PO BID [facility] PRN Reason: Protocol Stop: 06/06/17 08:59 Last Admin: 04/11/17 17:07 Dose: 500 mg Docusate Sodium (Colace) 100 mg PO DAILY [facility] [place] Stop: 06/06/17 08:59 Last Admin: 04/11/17 08:46 Dose: 100 mg Ferrous Sulfate (Iron) 325 mg PO TID [facility] Stop: 06/06/17 08:59 Last Admin: 04/11/17 20:15 Dose: 325 mg Furosemide (Lasix) 40 mg PO DAILY [facility] [place] Stop: 06/06/17 08:59 Last Admin: 04/11/17 08:47 Dose: Not Given Haloperidol 5 mg/ Haloperidol (2 mg) 7 mg PO BID [facility] [place] Stop: 06/09/17 08:59 Last Admin: 04/11/17 17:07 Dose: 7 mg Lorazepam (Ativan) 0.5 mg PO Q4HR PRN; Protocol PRN Reason: Anxiety/agitation Stop: 05/07/17 03:20 Last Admin: 04/08/17 21:20 Dose: 0.5 mg Magnesium Hydroxide (Milk Of Magnesia) 30 ml PO HS PRN PRN Reason: Constipation Multivitamins/Vitamin C (Theragran) 1 tab PO DAILY [facility] [place] Stop: 06/06/17 08:59 Last Admin: 04/11/17 08:46 Dose: 1 tab Mupirocin (Bactroban Oint) 1 appl NS BID [facility] [place] Stop: 04/13/17 09:01 Last Admin: 04/11/17 08:55 Dose: 1 appl Quetiapine Fumarate (Seroquel) 400 mg PO BID [facility] PRN Reason: Protocol Stop: 06/06/17 08:59 Last Admin: 04/11/17 17:06 Dose: 400 mg Valsartan (Diovan) 80 mg PO DAILY [facility] [place] Stop: 06/06/17 08:59 Last Admin: 04/11/17 08:51 Dose: Not Given Wound Care/Dressing Products (Silvasorb) 1 appl TP DAILY [facility] [place] Stop: 06/06/17 08:59 Last Admin: 04/11/17 08:55 Dose: 1 appl Zolpidem Tartrate (Ambien) 5 mg PO HS PRN PRN Reason: Insomnia Stop: 06/07/17 23:15 General: No acute distress HEENT: Atraumatic Neck: Supple, JVD, Thyromegaly Cardiovascular: Regular rate, Normal S1, Normal S2 Lungs: Clear to auscultation Abdomen: Bowel sounds - Procedures Procedures: Procedures Procedure Code Date EXCISION OF FINGER NAIL, EXTERNAL APPROACH [id number] 03/15/17 Assessment/Plan - Problem List Patient Problems: All Active Problems HTN (hypertension) (Acute) I10 Osteoarthritis (Acute) M19.90 Schizophrenia (Acute) F20.9 possible effusion of finger (Acute) r/o gangrene (Acute) - Plan Plan: as per psych will monitor
--- NOTE | 2017-04-13 01:11 | Progress Notes ---
DATE: 04/12/2017 SUBJECTIVE: Chart reviewed and the patient interviewed. Also discussed the patient's condition with the staff and reviewed records and labs. The patient is still anxious and confused and still wanders around the unit. The patient is also trying to scratch his face. The patient also is still unable to carry on coherent conversation, but at the same time, he seems to be less than yesterday. ASSESSMENT: The patient is still confused. TREATMENT PLAN: We will continue monitoring his behavior and his condition closely. Also, rn field case manager continue to work on placement issue and discharge plans and so far she is not successful to find placement for the patient. JOB# [id number]
[2017-04-13] MEDS: Ferrous Sulfate 325 MG TAB PO SCH ×3 (08:29→20:35)
[2017-04-13] MEDS: Aspirin 81mg Chewable Tab PO SCH (08:29)
[2017-04-13] MEDS: HALOPERIDOL PO SCH ×2 (08:29→16:13)
[2017-04-13] MEDS: Multivitamin Tab PO SCH (08:29)
[2017-04-13] MEDS: Silver Antimicrobial Wound Gel 0.25 oz Tube TP SCH ×2 (08:49→08:54)
--- NOTE | 2017-04-13 09:05 | General Progress Note ---
Subjective - Review of Systems Events since last encounter: confused, disorganized no signs of distress Objective - Results Result Diagrams: 04/07/17 01:45 04/07/17 01:45 Recent Labs: Laboratory Last Values WBC 4.1 Th/cmm (4.8-10.8) L 04/07/17 01:45 RBC 3.13 Mil/cmm (3.80-5.80) L 04/07/17 01:45 Hgb 10.0 gm/dL (12-16) L 04/07/17 01:45 Hct 29.7 % (41.0-60) L D 04/07/17 01:45 MCV 94.8 fl (80-99) 04/07/17 01:45 MCH 31.8 pg (27.0-31.0) H 04/07/17 01:45 MCHC Differential 33.6 pg (28.0-36.0) 04/07/17 01:45 RDW 15.0 % (11.5-20.0) 04/07/17 01:45 Plt Count 119 Th/cmm (150-400) L 04/07/17 01:45 MPV 8.9 fl 04/07/17 01:45 Neutrophils % 61.4 % (40.0-80.0) 04/07/17 01:45 Lymphocytes % 20.6 % (20.0-50.0) 04/07/17 01:45 Monocytes % 13.4 % (2.0-10.0) H 04/07/17 01:45 Eosinophils % 4.5 % (0.0-5.0) 04/07/17 01:45 Basophils % 0.1 % (0.0-2.0) 04/07/17 01:45 Sodium 137 mEq/L (136-145) 04/07/17 01:45 Potassium 4.0 mEq/L (3.5-5.1) 04/07/17 01:45 Chloride 106 mEq/L (98-107) 04/07/17 01:45 Carbon Dioxide 30.0 mEq/L (21.0-31.0) 04/07/17 01:45 Anion Gap 5.0 (7.0-16.0) L 04/07/17 01:45 BUN 32 mg/dL (7-25) H 04/07/17 01:45 Creatinine 1.2 mg/dL (0.7-1.3) 04/07/17 01:45 Est GFR ( Amer) > 60.0 ml/min (>90) 04/07/17 01:45 Est GFR (Non-Af Amer) > 60.0 ml/min 04/07/17 01:45 BUN/Creatinine Ratio 26.7 04/07/17 01:45 Glucose 110 mg/dL (70-105) H 04/07/17 01:45 Hemoglobin A1c % 7.0 % (4.0-6.0) H 04/07/17 01:45 Calcium 8.5 mg/dL (8.6-10.3) L 04/07/17 01:45 Total Bilirubin 0.3 mg/dL (0.3-1.0) 04/07/17 01:45 AST 15 U/L (13-39) 04/07/17 01:45 ALT 12 U/L (7-52) 04/07/17 01:45 Alkaline Phosphatase 54 U/L (34-104) 04/07/17 01:45 Total Protein 6.2 gm/dL (6.0-8.3) 04/07/17 01:45 Albumin 3.4 gm/dL (4.2-5.5) L 04/07/17 01:45 Globulin 2.8 gm/dL 04/07/17 01:45 Albumin/Globulin Ratio 1.2 (1.0-1.8) 04/07/17 01:45 Triglycerides 48 mg/dL (<150) 04/07/17 01:45 Cholesterol 136 mg/dL (<200) 04/07/17 01:45 LDL Cholesterol Direct 60 mg/dL (75-193) L 04/07/17 01:45 HDL Cholesterol 66 mg/dL (23-92) 04/07/17 01:45 TSH 2.09 uIU/ml (0.34-5.60) 04/07/17 01:45 Urine Source CLEAN C 04/07/17 01:45 Urine Color YELLOW 04/07/17 01:45 Urine Clarity CLEAR (CLEAR) 04/07/17 01:45 Urine pH 7.0 (4.6 - 8.0) 04/07/17 01:45 Ur Specific [place] <= 1.005 (1.005-1.030) 04/07/17 01:45 Urine Protein NEGATIVE mg/dL (NEGATIVE) 04/07/17 01:45 Urine Glucose (UA) NEGATIVE mg/dL (NEGATIVE) 04/07/17 01:45 Urine Ketones NEGATIVE mg/dL (NEGATIVE) 04/07/17 01:45 Urine Blood NEGATIVE (NEGATIVE) 04/07/17 01:45 Urine Nitrate NEGATIVE (NEGATIVE) 04/07/17 01:45 Urine Bilirubin NEGATIVE (NEGATIVE) 04/07/17 01:45 Urine Urobilinogen 0.2 E.U./dL (0.2 - 1.0) 04/07/17 01:45 Ur Leukocyte Esterase NEGATIVE (NEGATIVE) 04/07/17 01:45 Urine RBC NONE SEEN /hpf (0-5) 04/07/17 01:45 Urine WBC 0-2 /hpf (0-5) 04/07/17 01:45 Ur Epithelial Cells OCCASIONAL /lpf (FEW) 04/07/17 01:45 Urine Bacteria OCCASIONAL /hpf (NONE SEEN) 04/07/17 01:45 Salicylates < 25.0 mg/L (30.0-100.0) L 04/07/17 01:45 Acetaminophen < 10.0 ug/mL (10.0-30.0) L 04/07/17 01:45 Valproic Acid 33.3 ug/mL (50.0-100.0) L 04/07/17 08:30 Ethyl Alcohol < 10 mg/dL (0-10) 04/07/17 01:45 RPR NONREACTIVE (NONREACTIVE) 04/07/17 01:45 - Physical Exam Vitals and I&O: Vital Signs Temp 98.2 F 04/13/17 06:06 Pulse 101 04/13/17 08:29 Resp 16 04/13/17 06:06 BP 106/73 04/13/17 08:29 Pulse Ox 100 04/13/17 06:06 Intake & Output 04/12/17 04/13/17 04/13/17 18:59 06:59 18:59 Intake Total 120 Output Total 2 Balance 118 Intake: Oral 120 Output: Urine 2 Other: Stool Characteristics Soft Brown Active Medications: Current Medications Acetaminophen (Tylenol) 650 mg PO Q4HR PRN PRN Reason: Mild Pain / Temp above 100 Stop: 06/06/17 03:20 Last Admin: 04/12/17 10:15 Dose: 650 mg Al Hydrox/Mg Hydrox/Simethicone (Maalox) 30 ml PO Q4HR PRN PRN Reason: GI DISTRESS Stop: 06/06/17 03:20 Aspirin (Aspirin Chewable) 81 mg PO DAILY [facility] Stop: 06/06/17 08:59 Last Admin: 04/13/17 08:29 Dose: 81 mg Bisacodyl (Dulcolax 10 Mg Supp) 10 mg RC DAILY PRN PRN Reason: Constipation Stop: 06/06/17 03:23 Divalproex Sodium (Depakote Dr) 500 mg PO BID [facility] PRN Reason: Protocol Stop: 06/06/17 08:59 Last Admin: 04/13/17 08:28 Dose: 500 mg Docusate Sodium (Colace) 100 mg PO DAILY [facility] Stop: 06/06/17 08:59 Last Admin: 04/13/17 08:29 Dose: 100 mg Ferrous Sulfate (Iron) 325 mg PO TID [facility] Stop: 06/06/17 08:59 Last Admin: 04/13/17 08:29 Dose: 325 mg Furosemide (Lasix) 40 mg PO DAILY [facility] Stop: 06/06/17 08:59 Last Admin: 04/13/17 08:29 Dose: 40 mg Haloperidol 5 mg/ Haloperidol (2 mg) 7 mg PO BID [facility] Stop: 06/09/17 08:59 Last Admin: 04/13/17 08:29 Dose: 7 mg Lorazepam (Ativan) 0.5 mg PO Q4HR PRN; Protocol PRN Reason: Anxiety/agitation Stop: 05/07/17 03:20 Last Admin: 04/12/17 14:21 Dose: 0.5 mg Magnesium Hydroxide (Milk Of Magnesia) 30 ml PO HS PRN PRN Reason: Constipation Multivitamins/Vitamin C (Theragran) 1 tab PO DAILY [facility] Stop: 06/06/17 08:59 Last Admin: 04/13/17 08:29 Dose: 1 tab Quetiapine Fumarate (Seroquel) 400 mg PO BID [facility] PRN Reason: Protocol Stop: 06/06/17 08:59 Last Admin: 04/13/17 08:28 Dose: 400 mg Valsartan (Diovan) 80 mg PO DAILY [facility] Stop: 06/06/17 08:59 Last Admin: 04/13/17 08:29 Dose: 80 mg Wound Care/Dressing Products (Silvasorb) 1 appl TP DAILY [facility] Stop: 06/06/17 08:59 Last Admin: 04/13/17 08:54 Dose: Not Given Zolpidem Tartrate (Ambien) 5 mg PO HS PRN PRN Reason: Insomnia Stop: 06/07/17 23:15 General: No acute distress HEENT: Atraumatic Neck: Supple, JVD, Thyromegaly Cardiovascular: Regular rate, Normal S1, Normal S2 Lungs: Clear to auscultation Abdomen: Bowel sounds - Procedures Procedures: Procedures Procedure Code Date EXCISION OF FINGER NAIL, EXTERNAL APPROACH [id number] 03/15/17 Assessment/Plan - Problem List Patient Problems: All Active Problems HTN (hypertension) (Acute) I10 Osteoarthritis (Acute) M19.90 Schizophrenia (Acute) F20.9 possible effusion of finger (Acute) r/o gangrene (Acute) - Plan Plan: as per psych will monitor Nutritional Asmnt/Malnutr-PDOC - Dietary Evaluation Malnutrition Findings (Please click <Entered> for more info): Nutritional Asmnt/Malnutrition Start: 04/12/17 13: 03 Text: Status: Complete Freq: Document 04/12/17 13:03 LAUREN (Rec: 04/12/17 13:19 JOHN [email or web address]) Nutritional Asmnt/Malnutrition Patient General Information Nutritional Screening Moderate Risk Diagnosis psychosis Pertinent Medical Hx/Surgical Hx HTN, OA Subjective Information Pt seen sitting in kimberley-chair in [facility]. Per notes, PO intake 100%. Current Diet Order/ Nutrition Support Regular Pertinent Medications colace, iron, lasix, theragran , seroquel Pertinent Labs 04/07 Na 137, K 4.0, cl 106, BUN 32, Cr 1.2, Glucose 110, A1c 7.0, Ca 8.5, Alb 3.4 Nutritional Hx/Data Height 1.78 m Height (Calculated Centimeters) 177.8 Current Weight (lbs) 67.132 kg Weight (Calculated Kilograms) 67.1 Weight (Calculated Grams) 10850.7 [place] Body Weight 166 % [place] Body Weight 89 Body Mass Index (BMI) 21.2 GI Symptoms GI Symptoms None Last BM 04/09 Difficult in: None Skin Integrity/Comment: wound on right 3rd finger skin dryness Current %PO Good (75-100%) Estimated Nutritional Goals BEE in Kcals: Using Current wt Calories/Kcals/Kg 25-30 Kcals Calculated Protein: Using Current wt Protein g/k-1.1 Protein Calculated 67-74 Fluid: ml 1674-2017ml (1ml/kcal) Nutritional Problem No current Nutrition Prob Problem N/A Malnutrition Alert Protein-Calorie Malnutrition N/A Is there a minimum of two criteria No selected? Query Text:Check all the applicable criteria. A minimum of two criteria are recommended for diagnosis of either severe or non-severe malnutrition. Intervention/Recommendation Comments 1. Continue with current diet as ordered. 2. Monitor PO intake, wt, labs and skin integrity 3. F/U as low risk in 7 days, 04/19 Expected Outcomes/Goals Expected Outcomes/Goals 1. PO intake to meet at least 75% of nutritional needs. 2. Wt stability, skin to remain intact, labs to approach WNL.
[2017-04-14] MEDS: Multivitamin Tab PO SCH (08:47)
[2017-04-14] MEDS: Aspirin 81mg Chewable Tab PO SCH (08:47)
[2017-04-14] MEDS: Ferrous Sulfate 325 MG TAB PO SCH ×3 (08:48→20:36)
[2017-04-14] MEDS: HALOPERIDOL PO SCH ×2 (08:48→16:20)
[2017-04-14] MEDS: Silver Antimicrobial Wound Gel 0.25 oz Tube TP SCH (08:49)
--- NOTE | 2017-04-14 16:58 | Progress Notes ---
DATE: 04/13/2017 SUBJECTIVE: Chart reviewed and the patient interviewed. Also discussed the patient's condition with the staff and reviewed records and labs. The patient is still severely anxious and is still restless. The patient also is confused and he is still unable to carry on coherent conversation. The patient also is having difficulty following directions because of confusion. On the other hand, patient is calmer and easier to redirect him. Also compliant with taking his medications with no side effects of medications. During interview, the patient is unkempt. He also is confused and unable to carry on coherent conversation and he mumbles. ASSESSMENT: The patient is still confused and is still psychotic, but no behavioral problems. TREATMENT PLAN: We will continue monitoring his behavior and his condition closely and continue to work on behavioral modification. Also, top case assembler still working on placement issue. Also, Depakote blood level that was done on the came back to be 33, which is below therapeutic level and we will get another Depakote blood level. Also, continue to work on placement issue and discharge plans. JOB# [id number]
--- NOTE | 2017-04-14 21:29 | Internal Medicine Prog Note ---
Internal Medicine Subjective - Subjective Service Date: 04/14/17 Patient seen and examined:: with staff Patient is:: awake Per staff patient has:: tolerating meds Internal Medicine Objective - Results Result Diagrams: 04/07/17 01:45 04/07/17 01:45 Recent Labs: Laboratory Last Values WBC 4.1 Th/cmm (4.8-10.8) L 04/07/17 01:45 RBC 3.13 Mil/cmm (3.80-5.80) L 04/07/17 01:45 Hgb 10.0 gm/dL (12-16) L 04/07/17 01:45 Hct 29.7 % (41.0-60) L D 04/07/17 01:45 MCV 94.8 fl (80-99) 04/07/17 01:45 MCH 31.8 pg (27.0-31.0) H 04/07/17 01:45 MCHC Differential 33.6 pg (28.0-36.0) 04/07/17 01:45 RDW 15.0 % (11.5-20.0) 04/07/17 01:45 Plt Count 119 Th/cmm (150-400) L 04/07/17 01:45 MPV 8.9 fl 04/07/17 01:45 Neutrophils % 61.4 % (40.0-80.0) 04/07/17 01:45 Lymphocytes % 20.6 % (20.0-50.0) 04/07/17 01:45 Monocytes % 13.4 % (2.0-10.0) H 04/07/17 01:45 Eosinophils % 4.5 % (0.0-5.0) 04/07/17 01:45 Basophils % 0.1 % (0.0-2.0) 04/07/17 01:45 Sodium 137 mEq/L (136-145) 04/07/17 01:45 Potassium 4.0 mEq/L (3.5-5.1) 04/07/17 01:45 Chloride 106 mEq/L (98-107) 04/07/17 01:45 Carbon Dioxide 30.0 mEq/L (21.0-31.0) 04/07/17 01:45 Anion Gap 5.0 (7.0-16.0) L 04/07/17 01:45 BUN 32 mg/dL (7-25) H 04/07/17 01:45 Creatinine 1.2 mg/dL (0.7-1.3) 04/07/17 01:45 Est GFR ( Amer) > 60.0 ml/min (>90) 04/07/17 01:45 Est GFR (Non-Af Amer) > 60.0 ml/min 04/07/17 01:45 BUN/Creatinine Ratio 26.7 04/07/17 01:45 Glucose 110 mg/dL (70-105) H 04/07/17 01:45 Hemoglobin A1c % 7.0 % (4.0-6.0) H 04/07/17 01:45 Calcium 8.5 mg/dL (8.6-10.3) L 04/07/17 01:45 Total Bilirubin 0.3 mg/dL (0.3-1.0) 04/07/17 01:45 AST 15 U/L (13-39) 04/07/17 01:45 ALT 12 U/L (7-52) 04/07/17 01:45 Alkaline Phosphatase 54 U/L (34-104) 04/07/17 01:45 Total Protein 6.2 gm/dL (6.0-8.3) 04/07/17 01:45 Albumin 3.4 gm/dL (4.2-5.5) L 04/07/17 01:45 Globulin 2.8 gm/dL 04/07/17 01:45 Albumin/Globulin Ratio 1.2 (1.0-1.8) 04/07/17 01:45 Triglycerides 48 mg/dL (<150) 04/07/17 01:45 Cholesterol 136 mg/dL (<200) 04/07/17 01:45 LDL Cholesterol Direct 60 mg/dL (75-193) L 04/07/17 01:45 HDL Cholesterol 66 mg/dL (23-92) 04/07/17 01:45 TSH 2.09 uIU/ml (0.34-5.60) 04/07/17 01:45 Urine Source CLEAN C 04/07/17 01:45 Urine Color YELLOW 04/07/17 01:45 Urine Clarity CLEAR (CLEAR) 04/07/17 01:45 Urine pH 7.0 (4.6 - 8.0) 04/07/17 01:45 Ur Specific [place] <= 1.005 (1.005-1.030) 04/07/17 01:45 Urine Protein NEGATIVE mg/dL (NEGATIVE) 04/07/17 01:45 Urine Glucose (UA) NEGATIVE mg/dL (NEGATIVE) 04/07/17 01:45 Urine Ketones NEGATIVE mg/dL (NEGATIVE) 04/07/17 01:45 Urine Blood NEGATIVE (NEGATIVE) 04/07/17 01:45 Urine Nitrate NEGATIVE (NEGATIVE) 04/07/17 01:45 Urine Bilirubin NEGATIVE (NEGATIVE) 04/07/17 01:45 Urine Urobilinogen 0.2 E.U./dL (0.2 - 1.0) 04/07/17 01:45 Ur Leukocyte Esterase NEGATIVE (NEGATIVE) 04/07/17 01:45 Urine RBC NONE SEEN /hpf (0-5) 04/07/17 01:45 Urine WBC 0-2 /hpf (0-5) 04/07/17 01:45 Ur Epithelial Cells OCCASIONAL /lpf (FEW) 04/07/17 01:45 Urine Bacteria OCCASIONAL /hpf (NONE SEEN) 04/07/17 01:45 Salicylates < 25.0 mg/L (30.0-100.0) L 04/07/17 01:45 Acetaminophen < 10.0 ug/mL (10.0-30.0) L 04/07/17 01:45 Valproic Acid 48.7 ug/mL (50.0-100.0) L 04/13/17 08:20 Ethyl Alcohol < 10 mg/dL (0-10) 04/07/17 01:45 RPR NONREACTIVE (NONREACTIVE) 04/07/17 01:45 - Physical Exam Vitals and I&O: Vital Signs Temp 99.3 F 04/14/17 20:00 Pulse 87 04/14/17 20:00 Resp 20 04/14/17 20:00 BP 99/53 04/14/17 20:00 Pulse Ox 95 04/14/17 20:00 Intake & Output 04/14/17 04/14/17 04/15/17 06:59 18:59 06:59 Intake Total 1200 240 Balance 1200 240 Intake: Oral 1200 240 Other: # Voids 3 2 # Bowel Movements 1 Active Medications: Current Medications Acetaminophen (Tylenol) 650 mg PO Q4HR PRN PRN Reason: Mild Pain / Temp above 100 Stop: 06/06/17 03:20 Last Admin: 04/12/17 10:15 Dose: 650 mg Al Hydrox/Mg Hydrox/Simethicone (Maalox) 30 ml PO Q4HR PRN PRN Reason: GI DISTRESS Stop: 06/06/17 03:20 Aspirin (Aspirin Chewable) 81 mg PO DAILY [facility] Stop: 06/06/17 08:59 Last Admin: 04/14/17 08:47 Dose: 81 mg Bisacodyl (Dulcolax 10 Mg Supp) 10 mg RC DAILY PRN PRN Reason: Constipation Stop: 06/06/17 03:23 Divalproex Sodium (Depakote Dr) 500 mg PO BID [facility] PRN Reason: Protocol Stop: 06/06/17 08:59 Last Admin: 04/14/17 16:20 Dose: 500 mg Docusate Sodium (Colace) 100 mg PO DAILY [facility] Stop: 06/06/17 08:59 Last Admin: 04/14/17 08:48 Dose: 100 mg Ferrous Sulfate (Iron) 325 mg PO TID [facility] Stop: 06/06/17 08:59 Last Admin: 04/14/17 20:36 Dose: 325 mg Furosemide (Lasix) 40 mg PO DAILY [facility] Stop: 06/06/17 08:59 Last Admin: 04/14/17 08:48 Dose: 40 mg Haloperidol 5 mg/ Haloperidol (2 mg) 7 mg PO BID [facility] Stop: 06/09/17 08:59 Last Admin: 04/14/17 16:20 Dose: 7 mg Lorazepam (Ativan) 0.5 mg PO Q4HR PRN; Protocol PRN Reason: Anxiety/agitation Stop: 05/07/17 03:20 Last Admin: 04/13/17 11:38 Dose: 0.5 mg Magnesium Hydroxide (Milk Of Magnesia) 30 ml PO HS PRN PRN Reason: Constipation Multivitamins/Vitamin C (Theragran) 1 tab PO DAILY [facility] Stop: 06/06/17 08:59 Last Admin: 04/14/17 08:47 Dose: 1 tab Quetiapine Fumarate (Seroquel) 400 mg PO BID [facility] PRN Reason: Protocol Stop: 06/06/17 08:59 Last Admin: 04/14/17 16:20 Dose: 400 mg Valsartan (Diovan) 80 mg PO DAILY [facility] Stop: 06/06/17 08:59 Last Admin: 04/14/17 08:49 Dose: 80 mg Wound Care/Dressing Products (Silvasorb) 1 appl TP DAILY [facility] Stop: 06/06/17 08:59 Last Admin: 04/14/17 08:49 Dose: Not Given Zolpidem Tartrate (Ambien) 5 mg PO HS PRN PRN Reason: Insomnia Stop: 06/07/17 23:15 General: alert HEENT: NC/AT, PERRLA Neck: Supple Lungs: CTAB Neurological: alert - Procedures Procedures: Procedures Procedure Code Date EXCISION OF FINGER NAIL, EXTERNAL APPROACH [id number] 03/15/17 Nutritional Asmnt/Malnutr-PDOC - Dietary Evaluation Malnutrition Findings (Please click <Entered> for more info): Nutritional Asmnt/Malnutrition Start: 04/12/17 13: 03 Text: Status: Complete Freq: Document 04/12/17 13:03 LAUREN (Rec: 04/12/17 13:19 LCJOHN [email or web address]) Nutritional Asmnt/Malnutrition Patient General Information Nutritional Screening Moderate Risk Diagnosis psychosis Pertinent Medical Hx/Surgical Hx HTN, OA Subjective Information Pt seen sitting in kimberley-chair in [facility]. Per notes, PO intake 100%. Current Diet Order/ Nutrition Support Regular Pertinent Medications colace, iron, lasix, theragran , seroquel Pertinent Labs 04/07 Na 137, K 4.0, cl 106, BUN 32, Cr 1.2, Glucose 110, A1c 7.0, Ca 8.5, Alb 3.4 Nutritional Hx/Data Height 5 ft 10 in Height (Calculated Centimeters) 177.8 Current Weight (lbs) 148 lb Weight (Calculated Kilograms) 67.1 Weight (Calculated Grams) 45992.7 [place] Body Weight 166 % [place] Body Weight 89 Body Mass Index (BMI) 21.2 GI Symptoms GI Symptoms None Last BM 04/09 Difficult in: None Skin Integrity/Comment: wound on right 3rd finger skin dryness Current %PO Good (75-100%) Estimated Nutritional Goals BEE in Kcals: Using Current wt Calories/Kcals/Kg 25-30 Kcals Calculated Protein: Using Current wt Protein g/k-1.1 Protein Calculated 67-74 Fluid: ml 1675-2018ml (1ml/kcal) Nutritional Problem No current Nutrition Prob Problem N/A Malnutrition Alert Protein-Calorie Malnutrition N/A Is there a minimum of two criteria No selected? Query Text:Check all the applicable criteria. A minimum of two criteria are recommended for diagnosis of either severe or non-severe malnutrition. Intervention/Recommendation Comments 1. Continue with current diet as ordered. 2. Monitor PO intake, wt, labs and skin integrity 3. F/U as low risk in 7 days, 04/19 Expected Outcomes/Goals Expected Outcomes/Goals 1. PO intake to meet at least 75% of nutritional needs. 2. Wt stability, skin to remain intact, labs to approach WNL.
--- NOTE | 2017-04-14 21:30 | Internal Medicine Prog Note ---
Internal Medicine Subjective - Subjective Service Date: 04/14/17 Patient seen and examined:: with staff Patient is:: awake Per staff patient has:: tolerating meds Internal Medicine Objective - Results Result Diagrams: 04/07/17 01:45 04/07/17 01:45 Recent Labs: Laboratory Last Values WBC 4.1 Th/cmm (4.8-10.8) L 04/07/17 01:45 RBC 3.13 Mil/cmm (3.80-5.80) L 04/07/17 01:45 Hgb 10.0 gm/dL (12-16) L 04/07/17 01:45 Hct 29.7 % (41.0-60) L D 04/07/17 01:45 MCV 94.8 fl (80-99) 04/07/17 01:45 MCH 31.8 pg (27.0-31.0) H 04/07/17 01:45 MCHC Differential 33.6 pg (28.0-36.0) 04/07/17 01:45 RDW 15.0 % (11.5-20.0) 04/07/17 01:45 Plt Count 119 Th/cmm (150-400) L 04/07/17 01:45 MPV 8.9 fl 04/07/17 01:45 Neutrophils % 61.4 % (40.0-80.0) 04/07/17 01:45 Lymphocytes % 20.6 % (20.0-50.0) 04/07/17 01:45 Monocytes % 13.4 % (2.0-10.0) H 04/07/17 01:45 Eosinophils % 4.5 % (0.0-5.0) 04/07/17 01:45 Basophils % 0.1 % (0.0-2.0) 04/07/17 01:45 Sodium 137 mEq/L (136-145) 04/07/17 01:45 Potassium 4.0 mEq/L (3.5-5.1) 04/07/17 01:45 Chloride 106 mEq/L (98-107) 04/07/17 01:45 Carbon Dioxide 30.0 mEq/L (21.0-31.0) 04/07/17 01:45 Anion Gap 5.0 (7.0-16.0) L 04/07/17 01:45 BUN 32 mg/dL (7-25) H 04/07/17 01:45 Creatinine 1.2 mg/dL (0.7-1.3) 04/07/17 01:45 Est GFR ( Amer) > 60.0 ml/min (>90) 04/07/17 01:45 Est GFR (Non-Af Amer) > 60.0 ml/min 04/07/17 01:45 BUN/Creatinine Ratio 26.7 04/07/17 01:45 Glucose 110 mg/dL (70-105) H 04/07/17 01:45 Hemoglobin A1c % 7.0 % (4.0-6.0) H 04/07/17 01:45 Calcium 8.5 mg/dL (8.6-10.3) L 04/07/17 01:45 Total Bilirubin 0.3 mg/dL (0.3-1.0) 04/07/17 01:45 AST 15 U/L (13-39) 04/07/17 01:45 ALT 12 U/L (7-52) 04/07/17 01:45 Alkaline Phosphatase 54 U/L (34-104) 04/07/17 01:45 Total Protein 6.2 gm/dL (6.0-8.3) 04/07/17 01:45 Albumin 3.4 gm/dL (4.2-5.5) L 04/07/17 01:45 Globulin 2.8 gm/dL 04/07/17 01:45 Albumin/Globulin Ratio 1.2 (1.0-1.8) 04/07/17 01:45 Triglycerides 48 mg/dL (<150) 04/07/17 01:45 Cholesterol 136 mg/dL (<200) 04/07/17 01:45 LDL Cholesterol Direct 60 mg/dL (75-193) L 04/07/17 01:45 HDL Cholesterol 66 mg/dL (23-92) 04/07/17 01:45 TSH 2.09 uIU/ml (0.34-5.60) 04/07/17 01:45 Urine Source CLEAN C 04/07/17 01:45 Urine Color YELLOW 04/07/17 01:45 Urine Clarity CLEAR (CLEAR) 04/07/17 01:45 Urine pH 7.0 (4.6 - 8.0) 04/07/17 01:45 Ur Specific [place] <= 1.005 (1.005-1.030) 04/07/17 01:45 Urine Protein NEGATIVE mg/dL (NEGATIVE) 04/07/17 01:45 Urine Glucose (UA) NEGATIVE mg/dL (NEGATIVE) 04/07/17 01:45 Urine Ketones NEGATIVE mg/dL (NEGATIVE) 04/07/17 01:45 Urine Blood NEGATIVE (NEGATIVE) 04/07/17 01:45 Urine Nitrate NEGATIVE (NEGATIVE) 04/07/17 01:45 Urine Bilirubin NEGATIVE (NEGATIVE) 04/07/17 01:45 Urine Urobilinogen 0.2 E.U./dL (0.2 - 1.0) 04/07/17 01:45 Ur Leukocyte Esterase NEGATIVE (NEGATIVE) 04/07/17 01:45 Urine RBC NONE SEEN /hpf (0-5) 04/07/17 01:45 Urine WBC 0-2 /hpf (0-5) 04/07/17 01:45 Ur Epithelial Cells OCCASIONAL /lpf (FEW) 04/07/17 01:45 Urine Bacteria OCCASIONAL /hpf (NONE SEEN) 04/07/17 01:45 Salicylates < 25.0 mg/L (30.0-100.0) L 04/07/17 01:45 Acetaminophen < 10.0 ug/mL (10.0-30.0) L 04/07/17 01:45 Valproic Acid 48.7 ug/mL (50.0-100.0) L 04/13/17 08:20 Ethyl Alcohol < 10 mg/dL (0-10) 04/07/17 01:45 RPR NONREACTIVE (NONREACTIVE) 04/07/17 01:45 - Physical Exam Vitals and I&O: Vital Signs Temp 99.3 F 04/14/17 20:00 Pulse 87 04/14/17 20:00 Resp 20 04/14/17 20:00 BP 99/53 04/14/17 20:00 Pulse Ox 95 04/14/17 20:00 Intake & Output 04/14/17 04/14/17 04/15/17 06:59 18:59 06:59 Intake Total 1200 240 Balance 1200 240 Intake: Oral 1200 240 Other: # Voids 3 2 # Bowel Movements 1 Active Medications: Current Medications Acetaminophen (Tylenol) 650 mg PO Q4HR PRN PRN Reason: Mild Pain / Temp above 100 Stop: 06/06/17 03:20 Last Admin: 04/12/17 10:15 Dose: 650 mg Al Hydrox/Mg Hydrox/Simethicone (Maalox) 30 ml PO Q4HR PRN PRN Reason: GI DISTRESS Stop: 06/06/17 03:20 Aspirin (Aspirin Chewable) 81 mg PO DAILY [facility] Stop: 06/06/17 08:59 Last Admin: 04/14/17 08:47 Dose: 81 mg Bisacodyl (Dulcolax 10 Mg Supp) 10 mg RC DAILY PRN PRN Reason: Constipation Stop: 06/06/17 03:23 Divalproex Sodium (Depakote Dr) 500 mg PO BID [facility] PRN Reason: Protocol Stop: 06/06/17 08:59 Last Admin: 04/14/17 16:20 Dose: 500 mg Docusate Sodium (Colace) 100 mg PO DAILY [facility] Stop: 06/06/17 08:59 Last Admin: 04/14/17 08:48 Dose: 100 mg Ferrous Sulfate (Iron) 325 mg PO TID [facility] Stop: 06/06/17 08:59 Last Admin: 04/14/17 20:36 Dose: 325 mg Furosemide (Lasix) 40 mg PO DAILY [facility] Stop: 06/06/17 08:59 Last Admin: 04/14/17 08:48 Dose: 40 mg Haloperidol 5 mg/ Haloperidol (2 mg) 7 mg PO BID [facility] Stop: 06/09/17 08:59 Last Admin: 04/14/17 16:20 Dose: 7 mg Lorazepam (Ativan) 0.5 mg PO Q4HR PRN; Protocol PRN Reason: Anxiety/agitation Stop: 05/07/17 03:20 Last Admin: 04/13/17 11:38 Dose: 0.5 mg Magnesium Hydroxide (Milk Of Magnesia) 30 ml PO HS PRN PRN Reason: Constipation Multivitamins/Vitamin C (Theragran) 1 tab PO DAILY [facility] Stop: 06/06/17 08:59 Last Admin: 04/14/17 08:47 Dose: 1 tab Quetiapine Fumarate (Seroquel) 400 mg PO BID [facility] PRN Reason: Protocol Stop: 06/06/17 08:59 Last Admin: 04/14/17 16:20 Dose: 400 mg Valsartan (Diovan) 80 mg PO DAILY [facility] Stop: 06/06/17 08:59 Last Admin: 04/14/17 08:49 Dose: 80 mg Wound Care/Dressing Products (Silvasorb) 1 appl TP DAILY [facility] Stop: 06/06/17 08:59 Last Admin: 04/14/17 08:49 Dose: Not Given Zolpidem Tartrate (Ambien) 5 mg PO HS PRN PRN Reason: Insomnia Stop: 06/07/17 23:15 General: alert HEENT: NC/AT, PERRLA Neck: Supple Lungs: CTAB Neurological: alert - Procedures Procedures: Procedures Procedure Code Date EXCISION OF FINGER NAIL, EXTERNAL APPROACH 0HBQXZZ 03/15/17 Internal Medicine Assmt/Plan - Assessment Assessment: HTN (hypertension) (Acute) I10 Osteoarthritis (Acute) M19.90 Schizophrenia (Acute) F20.9 possible effusion of finger (Acute) r/o gangrene (Acute) - Plan Plan: SAFETY PRECAUTIONS CPM Nutritional Asmnt/Malnutr-PDOC - Dietary Evaluation Malnutrition Findings (Please click <Entered> for more info): Nutritional Asmnt/Malnutrition Start: 04/12/17 13: 03 Text: Status: Complete Freq: Document 04/12/17 13:03 [email or web address] (Rec: 04/12/17 13:19 [email or web address] Nutritional Asmnt/Malnutrition Patient General Information Nutritional Screening Moderate Risk Diagnosis psychosis Pertinent Medical Hx/Surgical Hx HTN, OA Subjective Information Pt seen sitting in kimberley-chair in hallway, confused. Per notes, PO intake 100%. Current Diet Order/ Nutrition Support Regular Pertinent Medications colace, iron, lasix, theragran , seroquel Pertinent Labs 04/07 Na 137, K 4.0, cl 106, BUN 32, Cr 1.2, Glucose 110, A1c 7.0, Ca 8.5, Alb 3.4 Nutritional Hx/Data Height 5 ft 10 in Height (Calculated Centimeters) 177.8 Current Weight (lbs) 148 lb Weight (Calculated Kilograms) 67.1 Weight (Calculated Grams) 69245.7 [place] Body Weight 166 % [place] Body Weight 89 Body Mass Index (BMI) 21.2 GI Symptoms GI Symptoms None Last BM 04/09 Difficult in: None Skin Integrity/Comment: wound on right 3rd finger skin dryness Current %PO Good (75-100%) Estimated Nutritional Goals BEE in Kcals: Using Current wt Calories/Kcals/Kg 25-30 Kcals Calculated 6168-6769 Protein: Using Current wt Protein g/k-1.1 Protein Calculated 67-74 Fluid: ml 1674-2017ml (1ml/kcal) Nutritional Problem No current Nutrition Prob Problem N/A Malnutrition Alert Protein-Calorie Malnutrition N/A Is there a minimum of two criteria No selected? Query Text:Check all the applicable criteria. A minimum of two criteria are recommended for diagnosis of either severe or non-severe malnutrition. Intervention/Recommendation Comments 1. Continue with current diet as ordered. 2. Monitor PO intake, wt, labs and skin integrity 3. F/U as low risk in 7 days, 04/19 Expected Outcomes/Goals Expected Outcomes/Goals 1. PO intake to meet at least 75% of nutritional needs. 2. Wt stability, skin to remain intact, labs to approach WNL.
--- NOTE | 2017-04-15 06:40 | Progress Notes ---
DATE: SUBJECTIVE: Chart reviewed and the patient interviewed. Also discussed the patient's condition with the staff and reviewed the records and labs. The patient is still confused and is still mumbling and he is still having episodes of agitation and irritability, but less than before. The patient also is easier to redirect him. The patient also denies any thoughts of suicide or homicide. He is waiting for placement. ASSESSMENT: The patient is less psychotic, but waiting for placement. TREATMENT PLAN: We will continue monitoring his behavior and his condition closely. Also, continue to work on placement issue and discharge plans. JOB# [id number]
[2017-04-15] MEDS: Aspirin 81mg Chewable Tab PO SCH (08:49)
[2017-04-15] MEDS: HALOPERIDOL PO SCH ×2 (08:49→16:33)
[2017-04-15] MEDS: Multivitamin Tab PO SCH (08:50)
[2017-04-15] MEDS: Ferrous Sulfate 325 MG TAB PO SCH ×3 (08:50→20:29)
[2017-04-15] MEDS: Silver Antimicrobial Wound Gel 0.25 oz Tube TP SCH (08:56)
--- NOTE | 2017-04-15 23:28 | Progress Notes ---
DATE: 04/15/2017 SUBJECTIVE: The patient was seen in his room, having breakfast. The patient appears to be guarded. He still gets agitated, but otherwise the patient appears to be in no acute distress. OBJECTIVE: VITAL SIGNS: Temperature 98.3, heart rate 61, blood pressure 106/52, respirations of 20, and 98% on room air. HEENT: Head is atraumatic and normocephalic. Eyes: Bilateral conjunctivae are clear. Bilateral pupils are equally round and reactive. NECK: Supple. No JVD. CARDIOVASCULAR: S1 and S2, without murmur. PULMONARY: Clear to auscultation. GASTROINTESTINAL: Soft and nontender without guarding. Positive bowel sounds. MUSCULOSKELETAL: No clubbing., no cyanosis noted. ASSESSMENT: 1. Schizoaffective disorder. 2. Hypertension. 3. Osteoarthritis. PLAN: We will continue current treatment. We will follow up with a psychiatrist to monitor the patient's condition and behavior. Treatment plans were discussed with the patient's nurse. Treatment plans were discussed with Dr. Mcleod. JOB# [id number]
[2017-04-16] MEDS: HALOPERIDOL PO SCH ×2 (09:02→16:32)
[2017-04-16] MEDS: Ferrous Sulfate 325 MG TAB PO SCH ×3 (09:03→21:16)
[2017-04-16] MEDS: Multivitamin Tab PO SCH (09:03)
[2017-04-16] MEDS: Aspirin 81mg Chewable Tab PO SCH (09:03)
[2017-04-16] MEDS: Silver Antimicrobial Wound Gel 0.25 oz Tube TP SCH (09:04)
--- NOTE | 2017-04-16 10:06 | General Progress Note ---
Subjective - Review of Systems Events since last encounter: patent irritable easily denies pain Objective - Results Result Diagrams: 04/07/17 01:45 04/07/17 01:45 Recent Labs: Laboratory Last Values WBC 4.1 Th/cmm (4.8-10.8) L 04/07/17 01:45 RBC 3.13 Mil/cmm (3.80-5.80) L 04/07/17 01:45 Hgb 10.0 gm/dL (12-16) L 04/07/17 01:45 Hct 29.7 % (41.0-60) L D 04/07/17 01:45 MCV 94.8 fl (80-99) 04/07/17 01:45 MCH 31.8 pg (27.0-31.0) H 04/07/17 01:45 MCHC Differential 33.6 pg (28.0-36.0) 04/07/17 01:45 RDW 15.0 % (11.5-20.0) 04/07/17 01:45 Plt Count 119 Th/cmm (150-400) L 04/07/17 01:45 MPV 8.9 fl 04/07/17 01:45 Neutrophils % 61.4 % (40.0-80.0) 04/07/17 01:45 Lymphocytes % 20.6 % (20.0-50.0) 04/07/17 01:45 Monocytes % 13.4 % (2.0-10.0) H 04/07/17 01:45 Eosinophils % 4.5 % (0.0-5.0) 04/07/17 01:45 Basophils % 0.1 % (0.0-2.0) 04/07/17 01:45 Sodium 137 mEq/L (136-145) 04/07/17 01:45 Potassium 4.0 mEq/L (3.5-5.1) 04/07/17 01:45 Chloride 106 mEq/L (98-107) 04/07/17 01:45 Carbon Dioxide 30.0 mEq/L (21.0-31.0) 04/07/17 01:45 Anion Gap 5.0 (7.0-16.0) L 04/07/17 01:45 BUN 32 mg/dL (7-25) H 04/07/17 01:45 Creatinine 1.2 mg/dL (0.7-1.3) 04/07/17 01:45 Est GFR ( Amer) > 60.0 ml/min (>90) 04/07/17 01:45 Est GFR (Non-Af Amer) > 60.0 ml/min 04/07/17 01:45 BUN/Creatinine Ratio 26.7 04/07/17 01:45 Glucose 110 mg/dL (70-105) H 04/07/17 01:45 Hemoglobin A1c % 7.0 % (4.0-6.0) H 04/07/17 01:45 Calcium 8.5 mg/dL (8.6-10.3) L 04/07/17 01:45 Total Bilirubin 0.3 mg/dL (0.3-1.0) 04/07/17 01:45 AST 15 U/L (13-39) 04/07/17 01:45 ALT 12 U/L (7-52) 04/07/17 01:45 Alkaline Phosphatase 54 U/L (34-104) 04/07/17 01:45 Total Protein 6.2 gm/dL (6.0-8.3) 04/07/17 01:45 Albumin 3.4 gm/dL (4.2-5.5) L 04/07/17 01:45 Globulin 2.8 gm/dL 04/07/17 01:45 Albumin/Globulin Ratio 1.2 (1.0-1.8) 04/07/17 01:45 Triglycerides 48 mg/dL (<150) 04/07/17 01:45 Cholesterol 136 mg/dL (<200) 04/07/17 01:45 LDL Cholesterol Direct 60 mg/dL (75-193) L 04/07/17 01:45 HDL Cholesterol 66 mg/dL (23-92) 04/07/17 01:45 TSH 2.09 uIU/ml (0.34-5.60) 04/07/17 01:45 Urine Source CLEAN C 04/07/17 01:45 Urine Color YELLOW 04/07/17 01:45 Urine Clarity CLEAR (CLEAR) 04/07/17 01:45 Urine pH 7.0 (4.6 - 8.0) 04/07/17 01:45 Ur Specific [place] <= 1.005 (1.005-1.030) 04/07/17 01:45 Urine Protein NEGATIVE mg/dL (NEGATIVE) 04/07/17 01:45 Urine Glucose (UA) NEGATIVE mg/dL (NEGATIVE) 04/07/17 01:45 Urine Ketones NEGATIVE mg/dL (NEGATIVE) 04/07/17 01:45 Urine Blood NEGATIVE (NEGATIVE) 04/07/17 01:45 Urine Nitrate NEGATIVE (NEGATIVE) 04/07/17 01:45 Urine Bilirubin NEGATIVE (NEGATIVE) 04/07/17 01:45 Urine Urobilinogen 0.2 E.U./dL (0.2 - 1.0) 04/07/17 01:45 Ur Leukocyte Esterase NEGATIVE (NEGATIVE) 04/07/17 01:45 Urine RBC NONE SEEN /hpf (0-5) 04/07/17 01:45 Urine WBC 0-2 /hpf (0-5) 04/07/17 01:45 Ur Epithelial Cells OCCASIONAL /lpf (FEW) 04/07/17 01:45 Urine Bacteria OCCASIONAL /hpf (NONE SEEN) 04/07/17 01:45 Salicylates < 25.0 mg/L (30.0-100.0) L 04/07/17 01:45 Acetaminophen < 10.0 ug/mL (10.0-30.0) L 04/07/17 01:45 Valproic Acid 48.7 ug/mL (50.0-100.0) L 04/13/17 08:20 Ethyl Alcohol < 10 mg/dL (0-10) 04/07/17 01:45 RPR NONREACTIVE (NONREACTIVE) 04/07/17 01:45 - Physical Exam Vitals and I&O: Vital Signs Temp 98.2 F 04/16/17 06:13 Pulse 70 04/16/17 06:13 Resp 20 04/16/17 06:13 BP 103/70 04/16/17 06:13 Pulse Ox 98 04/16/17 06:13 Intake & Output 04/15/17 04/16/17 04/16/17 18:59 06:59 18:59 Intake Total 1000 120 Balance 1000 120 Intake: Oral 1000 120 Other: # Voids 3 3 # Bowel Movements 1 Active Medications: Current Medications Acetaminophen (Tylenol) 650 mg PO Q4HR PRN PRN Reason: Mild Pain / Temp above 100 Stop: 06/06/17 03:20 Last Admin: 04/12/17 10:15 Dose: 650 mg Al Hydrox/Mg Hydrox/Simethicone (Maalox) 30 ml PO Q4HR PRN PRN Reason: GI DISTRESS Stop: 06/06/17 03:20 Aspirin (Aspirin Chewable) 81 mg PO DAILY [facility] Stop: 06/06/17 08:59 Last Admin: 04/16/17 09:03 Dose: 81 mg Bisacodyl (Dulcolax 10 Mg Supp) 10 mg RC DAILY PRN PRN Reason: Constipation Stop: 06/06/17 03:23 Divalproex Sodium (Depakote Dr) 500 mg PO BID [facility] PRN Reason: Protocol Stop: 06/06/17 08:59 Last Admin: 04/16/17 09:03 Dose: 500 mg Docusate Sodium (Colace) 100 mg PO DAILY [facility] Stop: 06/06/17 08:59 Last Admin: 04/16/17 09:03 Dose: 100 mg Ferrous Sulfate (Iron) 325 mg PO TID [facility] Stop: 06/06/17 08:59 Last Admin: 04/16/17 09:03 Dose: 325 mg Furosemide (Lasix) 40 mg PO DAILY [facility] Stop: 06/06/17 08:59 Last Admin: 04/16/17 09:03 Dose: Not Given Haloperidol 5 mg/ Haloperidol (2 mg) 7 mg PO BID [facility] Stop: 06/09/17 08:59 Last Admin: 04/16/17 09:02 Dose: 7 mg Lorazepam (Ativan) 0.5 mg PO Q4HR PRN; Protocol PRN Reason: Anxiety/agitation Stop: 05/07/17 03:20 Last Admin: 04/13/17 11:38 Dose: 0.5 mg Magnesium Hydroxide (Milk Of Magnesia) 30 ml PO HS PRN PRN Reason: Constipation Multivitamins/Vitamin C (Theragran) 1 tab PO DAILY [facility] Stop: 06/06/17 08:59 Last Admin: 04/16/17 09:03 Dose: 1 tab Quetiapine Fumarate (Seroquel) 400 mg PO BID [facility] PRN Reason: Protocol Stop: 06/06/17 08:59 Last Admin: 04/16/17 09:03 Dose: 400 mg Valsartan (Diovan) 80 mg PO DAILY [facility] Stop: 06/06/17 08:59 Last Admin: 04/16/17 09:04 Dose: Not Given Wound Care/Dressing Products (Silvasorb) 1 appl TP DAILY [facility] Stop: 06/06/17 08:59 Last Admin: 04/16/17 09:04 Dose: 1 appl Zolpidem Tartrate (Ambien) 5 mg PO HS PRN PRN Reason: Insomnia Stop: 06/07/17 23:15 General: No acute distress HEENT: Atraumatic Neck: Supple, JVD, Thyromegaly Cardiovascular: Regular rate, Normal S1, Normal S2 Lungs: Clear to auscultation Abdomen: Bowel sounds - Procedures Procedures: Procedures Procedure Code Date EXCISION OF FINGER NAIL, EXTERNAL APPROACH [id number] 03/15/17 Assessment/Plan - Problem List Patient Problems: All Active Problems HTN (hypertension) (Acute) I10 Osteoarthritis (Acute) M19.90 Schizophrenia (Acute) F20.9 possible effusion of finger (Acute) r/o gangrene (Acute) - Plan Plan: as per psych will monitor Nutritional Asmnt/Malnutr-PDOC - Dietary Evaluation Malnutrition Findings (Please click <Entered> for more info): Nutritional Asmnt/Malnutrition Start: 04/12/17 13: 03 Text: Status: Complete Freq: Document 04/12/17 13:03 LAUREN (Rec: 04/12/17 13:19 LAUREN [email or web address]) Nutritional Asmnt/Malnutrition Patient General Information Nutritional Screening Moderate Risk Diagnosis psychosis Pertinent Medical Hx/Surgical Hx HTN, OA Subjective Information Pt seen sitting in kimberley-chair in [facility]. Per notes, PO intake 100%. Current Diet Order/ Nutrition Support Regular Pertinent Medications colace, iron, lasix, theragran , seroquel Pertinent Labs 04/07 Na 137, K 4.0, cl 106, BUN 32, Cr 1.2, Glucose 110, A1c 7.0, Ca 8.5, Alb 3.4 Nutritional Hx/Data Height 1.78 m Height (Calculated Centimeters) 177.8 Current Weight (lbs) 67.132 kg Weight (Calculated Kilograms) 67.1 Weight (Calculated Grams) 58530.7 [place] Body Weight 166 % [place] Body Weight 89 Body Mass Index (BMI) 21.2 GI Symptoms GI Symptoms None Last BM 04/09 Difficult in: None Skin Integrity/Comment: wound on right 3rd finger skin dryness Current %PO Good (75-100%) Estimated Nutritional Goals BEE in Kcals: Using Current wt Calories/Kcals/Kg 25-30 Kcals Calculated Protein: Using Current wt Protein g/k-1.1 Protein Calculated 67-74 Fluid: ml 1674-2017ml (1ml/kcal) Nutritional Problem No current Nutrition Prob Problem N/A Malnutrition Alert Protein-Calorie Malnutrition N/A Is there a minimum of two criteria No selected? Query Text:Check all the applicable criteria. A minimum of two criteria are recommended for diagnosis of either severe or non-severe malnutrition. Intervention/Recommendation Comments 1. Continue with current diet as ordered. 2. Monitor PO intake, wt, labs and skin integrity 3. F/U as low risk in 7 days, 04/19 Expected Outcomes/Goals Expected Outcomes/Goals 1. PO intake to meet at least 75% of nutritional needs. 2. Wt stability, skin to remain intact, labs to approach WNL.
--- NOTE | 2017-04-16 11:29 | Progress Notes ---
DATE: SUBJECTIVE: The patient was seen and evaluated. The patient's chart reviewed. This is Dr. Kline covering for Dr. Romero. Overnight nursing staff reported that the patient continues to be disorganized, hoarding, and also responding to internal stimuli. Today on [id number] evaluation, extremely guarded, but also observed to be mumbling and also responding heavily and pacing in and out of his room and unable to maintain a linear conversation. MENTAL STATUS EXAMINATION: Responding, thought blocking, irritable, agitated. Poor insight, judgment and impulse control. ASSESSMENT AND PLAN: The patient is a 71-year-old male with chronic disorganized schizophrenia with unable to formulate a safe plan. He continues to be responding very heavily and distraught. At this point, we will continue with primary psychiatrist's treatment plan and goals, which includes Depakote 500 mg p.o. b.i.d., Haldol b.i.d. and quetiapine at 400 mg p.o. b.i.d. as he is treatment refractory and currently being augmented with Haldol with his Seroquel, no side effects reported. JOB# [id number]
--- NOTE | 2017-04-17 04:40 | Progress Notes ---
DATE: 04/16/2017 SUBJECTIVE: The patient was seen and evaluated. The patient's chart reviewed. Overnight nursing staff reported the patient continues to be confused, disorganized. Today on [id number] evaluation, the patient continues to perseverate on getting cocoa butter and then talked about how much he coughed and unable to engage more information beyond that. MENTAL STATUS EXAMINATION: Thought blocking, responding, disorganized. ASSESSMENT AND PLAN: The patient is a 71-year-old with chronic schizophrenia. We will continue with the current medication regimen to build steady state to target the patient to residual psychotic state. JOB# [id number]
[2017-04-17] MEDS: Aspirin 81mg Chewable Tab PO SCH (09:40)
[2017-04-17] MEDS: HALOPERIDOL PO SCH ×2 (09:40→17:08)
[2017-04-17] MEDS: Ferrous Sulfate 325 MG TAB PO SCH ×3 (09:40→21:07)
[2017-04-17] MEDS: Multivitamin Tab PO SCH (09:40)
[2017-04-17] MEDS: Silver Antimicrobial Wound Gel 0.25 oz Tube TP SCH (09:41)
--- NOTE | 2017-04-17 10:14 | General Progress Note ---
Subjective - Review of Systems Events since last encounter: irritable in no distress Objective - Results Result Diagrams: 04/07/17 01:45 04/07/17 01:45 Recent Labs: Laboratory Last Values WBC 4.1 Th/cmm (4.8-10.8) L 04/07/17 01:45 RBC 3.13 Mil/cmm (3.80-5.80) L 04/07/17 01:45 Hgb 10.0 gm/dL (12-16) L 04/07/17 01:45 Hct 29.7 % (41.0-60) L D 04/07/17 01:45 MCV 94.8 fl (80-99) 04/07/17 01:45 MCH 31.8 pg (27.0-31.0) H 04/07/17 01:45 MCHC Differential 33.6 pg (28.0-36.0) 04/07/17 01:45 RDW 15.0 % (11.5-20.0) 04/07/17 01:45 Plt Count 119 Th/cmm (150-400) L 04/07/17 01:45 MPV 8.9 fl 04/07/17 01:45 Neutrophils % 61.4 % (40.0-80.0) 04/07/17 01:45 Lymphocytes % 20.6 % (20.0-50.0) 04/07/17 01:45 Monocytes % 13.4 % (2.0-10.0) H 04/07/17 01:45 Eosinophils % 4.5 % (0.0-5.0) 04/07/17 01:45 Basophils % 0.1 % (0.0-2.0) 04/07/17 01:45 Sodium 137 mEq/L (136-145) 04/07/17 01:45 Potassium 4.0 mEq/L (3.5-5.1) 04/07/17 01:45 Chloride 106 mEq/L (98-107) 04/07/17 01:45 Carbon Dioxide 30.0 mEq/L (21.0-31.0) 04/07/17 01:45 Anion Gap 5.0 (7.0-16.0) L 04/07/17 01:45 BUN 32 mg/dL (7-25) H 04/07/17 01:45 Creatinine 1.2 mg/dL (0.7-1.3) 04/07/17 01:45 Est GFR ( Amer) > 60.0 ml/min (>90) 04/07/17 01:45 Est GFR (Non-Af Amer) > 60.0 ml/min 04/07/17 01:45 BUN/Creatinine Ratio 26.7 04/07/17 01:45 Glucose 110 mg/dL (70-105) H 04/07/17 01:45 Hemoglobin A1c % 7.0 % (4.0-6.0) H 04/07/17 01:45 Calcium 8.5 mg/dL (8.6-10.3) L 04/07/17 01:45 Total Bilirubin 0.3 mg/dL (0.3-1.0) 04/07/17 01:45 AST 15 U/L (13-39) 04/07/17 01:45 ALT 12 U/L (7-52) 04/07/17 01:45 Alkaline Phosphatase 54 U/L (34-104) 04/07/17 01:45 Total Protein 6.2 gm/dL (6.0-8.3) 04/07/17 01:45 Albumin 3.4 gm/dL (4.2-5.5) L 04/07/17 01:45 Globulin 2.8 gm/dL 04/07/17 01:45 Albumin/Globulin Ratio 1.2 (1.0-1.8) 04/07/17 01:45 Triglycerides 48 mg/dL (<150) 04/07/17 01:45 Cholesterol 136 mg/dL (<200) 04/07/17 01:45 LDL Cholesterol Direct 60 mg/dL (75-193) L 04/07/17 01:45 HDL Cholesterol 66 mg/dL (23-92) 04/07/17 01:45 TSH 2.09 uIU/ml (0.34-5.60) 04/07/17 01:45 Urine Source CLEAN C 04/07/17 01:45 Urine Color YELLOW 04/07/17 01:45 Urine Clarity CLEAR (CLEAR) 04/07/17 01:45 Urine pH 7.0 (4.6 - 8.0) 04/07/17 01:45 Ur Specific [place] <= 1.005 (1.005-1.030) 04/07/17 01:45 Urine Protein NEGATIVE mg/dL (NEGATIVE) 04/07/17 01:45 Urine Glucose (UA) NEGATIVE mg/dL (NEGATIVE) 04/07/17 01:45 Urine Ketones NEGATIVE mg/dL (NEGATIVE) 04/07/17 01:45 Urine Blood NEGATIVE (NEGATIVE) 04/07/17 01:45 Urine Nitrate NEGATIVE (NEGATIVE) 04/07/17 01:45 Urine Bilirubin NEGATIVE (NEGATIVE) 04/07/17 01:45 Urine Urobilinogen 0.2 E.U./dL (0.2 - 1.0) 04/07/17 01:45 Ur Leukocyte Esterase NEGATIVE (NEGATIVE) 04/07/17 01:45 Urine RBC NONE SEEN /hpf (0-5) 04/07/17 01:45 Urine WBC 0-2 /hpf (0-5) 04/07/17 01:45 Ur Epithelial Cells OCCASIONAL /lpf (FEW) 04/07/17 01:45 Urine Bacteria OCCASIONAL /hpf (NONE SEEN) 04/07/17 01:45 Salicylates < 25.0 mg/L (30.0-100.0) L 04/07/17 01:45 Acetaminophen < 10.0 ug/mL (10.0-30.0) L 04/07/17 01:45 Valproic Acid 48.7 ug/mL (50.0-100.0) L 04/13/17 08:20 Ethyl Alcohol < 10 mg/dL (0-10) 04/07/17 01:45 RPR NONREACTIVE (NONREACTIVE) 04/07/17 01:45 - Physical Exam Vitals and I&O: Vital Signs Temp 99.0 F 04/17/17 06:11 Pulse 76 04/17/17 06:11 Resp 18 04/17/17 06:11 BP 101/70 04/17/17 06:11 Pulse Ox 95 04/17/17 06:11 Intake & Output 04/16/17 04/17/17 04/17/17 18:59 06:59 18:59 Intake Total 1500 680 Balance 1500 680 Intake: Oral 1500 680 Other: # Voids 4 2 # Bowel Movements 2 Active Medications: Current Medications Acetaminophen (Tylenol) 650 mg PO Q4HR PRN PRN Reason: Mild Pain / Temp above 100 Stop: 06/06/17 03:20 Last Admin: 04/12/17 10:15 Dose: 650 mg Al Hydrox/Mg Hydrox/Simethicone (Maalox) 30 ml PO Q4HR PRN PRN Reason: GI DISTRESS Stop: 06/06/17 03:20 Aspirin (Aspirin Chewable) 81 mg PO DAILY [facility] Stop: 06/06/17 08:59 Last Admin: 04/17/17 09:40 Dose: 81 mg Bisacodyl (Dulcolax 10 Mg Supp) 10 mg RC DAILY PRN PRN Reason: Constipation Stop: 06/06/17 03:23 Divalproex Sodium (Depakote Dr) 500 mg PO BID [facility] PRN Reason: Protocol Stop: 06/06/17 08:59 Last Admin: 04/17/17 09:40 Dose: 500 mg Docusate Sodium (Colace) 100 mg PO DAILY [facility] Stop: 06/06/17 08:59 Last Admin: 04/17/17 09:40 Dose: 100 mg Ferrous Sulfate (Iron) 325 mg PO TID [facility] Stop: 06/06/17 08:59 Last Admin: 04/17/17 09:40 Dose: 325 mg Furosemide (Lasix) 40 mg PO DAILY [facility] Stop: 06/06/17 08:59 Last Admin: 04/17/17 09:41 Dose: Not Given Haloperidol 5 mg/ Haloperidol (2 mg) 7 mg PO BID [facility] Stop: 06/09/17 08:59 Last Admin: 04/17/17 09:40 Dose: 7 mg Lorazepam (Ativan) 0.5 mg PO Q4HR PRN; Protocol PRN Reason: Anxiety/agitation Stop: 05/07/17 03:20 Last Admin: 04/16/17 16:33 Dose: 0.5 mg Magnesium Hydroxide (Milk Of Magnesia) 30 ml PO HS PRN PRN Reason: Constipation Multivitamins/Vitamin C (Theragran) 1 tab PO DAILY [facility] Stop: 06/06/17 08:59 Last Admin: 04/17/17 09:40 Dose: 1 tab Quetiapine Fumarate (Seroquel) 400 mg PO BID [facility] PRN Reason: Protocol Stop: 06/06/17 08:59 Last Admin: 04/17/17 09:40 Dose: 400 mg Valsartan (Diovan) 80 mg PO DAILY [facility] Stop: 06/06/17 08:59 Last Admin: 04/17/17 09:41 Dose: Not Given Wound Care/Dressing Products (Silvasorb) 1 appl TP DAILY [facility] Stop: 06/06/17 08:59 Last Admin: 04/17/17 09:41 Dose: Not Given Zolpidem Tartrate (Ambien) 5 mg PO HS PRN PRN Reason: Insomnia Stop: 06/07/17 23:15 General: No acute distress HEENT: Atraumatic Neck: Supple, JVD, Thyromegaly Cardiovascular: Regular rate, Normal S1, Normal S2 Lungs: Clear to auscultation Abdomen: Bowel sounds - Procedures Procedures: Procedures Procedure Code Date EXCISION OF FINGER NAIL, EXTERNAL APPROACH [id number] 03/15/17 Assessment/Plan - Problem List Patient Problems: All Active Problems HTN (hypertension) (Acute) I10 Osteoarthritis (Acute) M19.90 Schizophrenia (Acute) F20.9 possible effusion of finger (Acute) r/o gangrene (Acute) - Plan Plan: as per psych will monitor Nutritional Asmnt/Malnutr-PDOC - Dietary Evaluation Malnutrition Findings (Please click <Entered> for more info): Nutritional Asmnt/Malnutrition Start: 04/12/17 13: 03 Text: Status: Complete Freq: Document 04/12/17 13:03 LAUREN (Rec: 04/12/17 13:19 LCJOHN [email or web address]) Nutritional Asmnt/Malnutrition Patient General Information Nutritional Screening Moderate Risk Diagnosis psychosis Pertinent Medical Hx/Surgical Hx HTN, OA Subjective Information [facility]. Per notes, PO intake 100%. Current Diet Order/ Nutrition Support Regular Pertinent Medications colace, iron, lasix, theragran , seroquel Pertinent Labs 04/07 Na 137, K 4.0, cl 106, BUN 32, Cr 1.2, Glucose 110, A1c 7.0, Ca 8.5, Alb 3.4 Nutritional Hx/Data Height 1.78 m Height (Calculated Centimeters) 177.8 Current Weight (lbs) 67.132 kg Weight (Calculated Kilograms) 67.1 Weight (Calculated Grams) 82485.7 [place] Body Weight 166 % [place] Body Weight 89 Body Mass Index (BMI) 21.2 GI Symptoms GI Symptoms None Last BM 04/09 Difficult in: None Skin Integrity/Comment: wound on right 3rd finger skin dryness Current %PO Good (75-100%) Estimated Nutritional Goals BEE in Kcals: Using Current wt Calories/Kcals/Kg 25-30 Kcals Calculated 9535-5736 Protein: Using Current wt Protein g/k-1.1 Protein Calculated 67-74 Fluid: ml 5-2018ml (1ml/kcal) Nutritional Problem No current Nutrition Prob Problem N/A Malnutrition Alert Protein-Calorie Malnutrition N/A Is there a minimum of two criteria No selected? Query Text:Check all the applicable criteria. A minimum of two criteria are recommended for diagnosis of either severe or non-severe malnutrition. Intervention/Recommendation Comments 1. Continue with current diet as ordered. 2. Monitor PO intake, wt, labs and skin integrity 3. F/U as low risk in 7 days, 04/19 Expected Outcomes/Goals Expected Outcomes/Goals 1. PO intake to meet at least 75% of nutritional needs. 2. Wt stability, skin to remain intact, labs to approach WNL.
--- NOTE | 2017-04-17 23:23 | Progress Notes ---
DATE: 04/17/[address] Romero. Case was discussed with staff of the patient, reviewed records. The patient is a 71-year-old male who was admitted on 04/07/2017. The patient was admitted because of psychosis. He was very guarded. He was mumbling to himself. When I tried to talk to him, he was pacing in and out of his room and unable to remain linear in his conversation, unable to care, make safe plan for self-care, looking disheveled, disorganized, internally preoccupied. He is on Depakote 500 mg twice a day, Haldol 7.7 mg twice a day with no side effects, no sedation, no nausea. He is on Seroquel 400 mg twice a day. We will continue to work with the patient in group therapy, milieu therapy, adjust medication as needed. JOB# [id number]
[2017-04-18] MEDS: Aspirin 81mg Chewable Tab PO SCH (08:10)
[2017-04-18] MEDS: Ferrous Sulfate 325 MG TAB PO SCH ×3 (08:10→20:33)
[2017-04-18] MEDS: HALOPERIDOL PO SCH ×2 (08:11→16:56)
[2017-04-18] MEDS: Multivitamin Tab PO SCH (08:11)
[2017-04-18] MEDS: Silver Antimicrobial Wound Gel 0.25 oz Tube TP SCH (08:11)
--- NOTE | 2017-04-18 15:25 | Progress Notes ---
DATE: 04/18/2017 Case was discussed with staff of records. The patient was transferred to the main floor and he is monitored very closely. Continues to be rambling, mumbling to himself. Continues to be unpredictable, impulsive, needing redirection, unable to participate in a meaningful conversation or make safe plan for self-care. He has been compliant with the medication with no side effects, no sedation, no nausea, no extrapyramidal symptoms or he is not on any antipsychotics on Depakote. We will start patient in group therapy, milieu therapy, adjust medication as needed. JOB# [id number]
--- NOTE | 2017-04-18 21:06 | Internal Medicine Prog Note ---
Internal Medicine Subjective - Subjective Service Date: 04/18/17 Patient is:: awake Per staff patient has:: tolerating meds Internal Medicine Objective - Results Result Diagrams: 04/07/17 01:45 04/07/17 01:45 Recent Labs: Laboratory Last Values WBC 4.1 Th/cmm (4.8-10.8) L 04/07/17 01:45 RBC 3.13 Mil/cmm (3.80-5.80) L 04/07/17 01:45 Hgb 10.0 gm/dL (12-16) L 04/07/17 01:45 Hct 29.7 % (41.0-60) L D 04/07/17 01:45 MCV 94.8 fl (80-99) 04/07/17 01:45 MCH 31.8 pg (27.0-31.0) H 04/07/17 01:45 MCHC Differential 33.6 pg (28.0-36.0) 04/07/17 01:45 RDW 15.0 % (11.5-20.0) 04/07/17 01:45 Plt Count 119 Th/cmm (150-400) L 04/07/17 01:45 MPV 8.9 fl 04/07/17 01:45 Neutrophils % 61.4 % (40.0-80.0) 04/07/17 01:45 Lymphocytes % 20.6 % (20.0-50.0) 04/07/17 01:45 Monocytes % 13.4 % (2.0-10.0) H 04/07/17 01:45 Eosinophils % 4.5 % (0.0-5.0) 04/07/17 01:45 Basophils % 0.1 % (0.0-2.0) 04/07/17 01:45 Sodium 137 mEq/L (136-145) 04/07/17 01:45 Potassium 4.0 mEq/L (3.5-5.1) 04/07/17 01:45 Chloride 106 mEq/L (98-107) 04/07/17 01:45 Carbon Dioxide 30.0 mEq/L (21.0-31.0) 04/07/17 01:45 Anion Gap 5.0 (7.0-16.0) L 04/07/17 01:45 BUN 32 mg/dL (7-25) H 04/07/17 01:45 Creatinine 1.2 mg/dL (0.7-1.3) 04/07/17 01:45 Est GFR ( Amer) > 60.0 ml/min (>90) 04/07/17 01:45 Est GFR (Non-Af Amer) > 60.0 ml/min 04/07/17 01:45 BUN/Creatinine Ratio 26.7 04/07/17 01:45 Glucose 110 mg/dL (70-105) H 04/07/17 01:45 Hemoglobin A1c % 7.0 % (4.0-6.0) H 04/07/17 01:45 Calcium 8.5 mg/dL (8.6-10.3) L 04/07/17 01:45 Total Bilirubin 0.3 mg/dL (0.3-1.0) 04/07/17 01:45 AST 15 U/L (13-39) 04/07/17 01:45 ALT 12 U/L (7-52) 04/07/17 01:45 Alkaline Phosphatase 54 U/L (34-104) 04/07/17 01:45 Total Protein 6.2 gm/dL (6.0-8.3) 04/07/17 01:45 Albumin 3.4 gm/dL (4.2-5.5) L 04/07/17 01:45 Globulin 2.8 gm/dL 04/07/17 01:45 Albumin/Globulin Ratio 1.2 (1.0-1.8) 04/07/17 01:45 Triglycerides 48 mg/dL (<150) 04/07/17 01:45 Cholesterol 136 mg/dL (<200) 04/07/17 01:45 LDL Cholesterol Direct 60 mg/dL (75-193) L 04/07/17 01:45 HDL Cholesterol 66 mg/dL (23-92) 04/07/17 01:45 TSH 2.09 uIU/ml (0.34-5.60) 04/07/17 01:45 Urine Source CLEAN C 04/07/17 01:45 Urine Color YELLOW 04/07/17 01:45 Urine Clarity CLEAR (CLEAR) 04/07/17 01:45 Urine pH 7.0 (4.6 - 8.0) 04/07/17 01:45 Ur Specific [place] <= 1.005 (1.005-1.030) 04/07/17 01:45 Urine Protein NEGATIVE mg/dL (NEGATIVE) 04/07/17 01:45 Urine Glucose (UA) NEGATIVE mg/dL (NEGATIVE) 04/07/17 01:45 Urine Ketones NEGATIVE mg/dL (NEGATIVE) 04/07/17 01:45 Urine Blood NEGATIVE (NEGATIVE) 04/07/17 01:45 Urine Nitrate NEGATIVE (NEGATIVE) 04/07/17 01:45 Urine Bilirubin NEGATIVE (NEGATIVE) 04/07/17 01:45 Urine Urobilinogen 0.2 E.U./dL (0.2 - 1.0) 04/07/17 01:45 Ur Leukocyte Esterase NEGATIVE (NEGATIVE) 04/07/17 01:45 Urine RBC NONE SEEN /hpf (0-5) 04/07/17 01:45 Urine WBC 0-2 /hpf (0-5) 04/07/17 01:45 Ur Epithelial Cells OCCASIONAL /lpf (FEW) 04/07/17 01:45 Urine Bacteria OCCASIONAL /hpf (NONE SEEN) 04/07/17 01:45 Salicylates < 25.0 mg/L (30.0-100.0) L 04/07/17 01:45 Acetaminophen < 10.0 ug/mL (10.0-30.0) L 04/07/17 01:45 Valproic Acid 48.7 ug/mL (50.0-100.0) L 04/13/17 08:20 Ethyl Alcohol < 10 mg/dL (0-10) 04/07/17 01:45 RPR NONREACTIVE (NONREACTIVE) 04/07/17 01:45 - Physical Exam Vitals and I&O: Vital Signs Temp 98.6 F 04/18/17 20:27 Pulse 80 04/18/17 20:27 Resp 20 04/18/17 20:27 BP 111/58 04/18/17 20:27 Pulse Ox 100 04/18/17 20:27 Intake & Output 04/18/17 04/18/17 04/19/17 06:59 18:59 06:59 Intake Total 1000 380 Balance 1000 380 Intake: Oral 1000 380 Other: # Voids 4 1 # Bowel Movements 1 Active Medications: Current Medications Acetaminophen (Tylenol) 650 mg PO Q4HR PRN PRN Reason: Mild Pain / Temp above 100 Stop: 06/06/17 03:20 Last Admin: 04/12/17 10:15 Dose: 650 mg Al Hydrox/Mg Hydrox/Simethicone (Maalox) 30 ml PO Q4HR PRN PRN Reason: GI DISTRESS Stop: 06/06/17 03:20 Aspirin (Aspirin Chewable) 81 mg PO DAILY [facility] Stop: 06/06/17 08:59 Last Admin: 04/18/17 08:10 Dose: 81 mg Bisacodyl (Dulcolax 10 Mg Supp) 10 mg RC DAILY PRN PRN Reason: Constipation Stop: 06/06/17 03:23 Divalproex Sodium (Depakote Dr) 500 mg PO BID [facility] PRN Reason: Protocol Stop: 06/06/17 08:59 Last Admin: 04/18/17 16:56 Dose: 500 mg Docusate Sodium (Colace) 100 mg PO DAILY [facility] Stop: 06/06/17 08:59 Last Admin: 04/18/17 08:10 Dose: 100 mg Ferrous Sulfate (Iron) 325 mg PO TID [facility] Stop: 06/06/17 08:59 Last Admin: 04/18/17 20:33 Dose: 325 mg Furosemide (Lasix) 40 mg PO DAILY [facility] Stop: 06/06/17 08:59 Last Admin: 04/18/17 08:11 Dose: Not Given Haloperidol 5 mg/ Haloperidol (2 mg) 7 mg PO BID [facility] Stop: 06/09/17 08:59 Last Admin: 04/18/17 16:56 Dose: 7 mg Lorazepam (Ativan) 0.5 mg PO Q4HR PRN; Protocol PRN Reason: Anxiety/agitation Stop: 05/07/17 03:20 Last Admin: 04/18/17 14:23 Dose: 0.5 mg Magnesium Hydroxide (Milk Of Magnesia) 30 ml PO HS PRN PRN Reason: Constipation Multivitamins/Vitamin C (Theragran) 1 tab PO DAILY [facility] Stop: 06/06/17 08:59 Last Admin: 04/18/17 08:11 Dose: 1 tab Quetiapine Fumarate (Seroquel) 400 mg PO BID [facility]ET PRN Reason: Protocol Stop: 06/06/17 08:59 Last Admin: 04/18/17 16:56 Dose: 400 mg Valsartan (Diovan) 80 mg PO DAILY [facility] Stop: 06/06/17 08:59 Last Admin: 04/18/17 08:11 Dose: Not Given Wound Care/Dressing Products (Silvasorb) 1 appl TP DAILY [facility] Stop: 06/06/17 08:59 Last Admin: 04/18/17 08:11 Dose: Not Given Zolpidem Tartrate (Ambien) 5 mg PO HS PRN PRN Reason: Insomnia Stop: 06/07/17 23:15 General: alert HEENT: NC/AT, PERRLA Neck: Supple Lungs: CTAB Neurological: alert - Procedures Procedures: Procedures Procedure Code Date EXCISION OF FINGER NAIL, EXTERNAL APPROACH 0HBQXZZ 03/15/17 Internal Medicine Assmt/Plan - Assessment Assessment: HTN (hypertension) (Acute) I10 Osteoarthritis (Acute) M19.90 Schizophrenia (Acute) F20.9 possible effusion of finger (Acute) r/o gangrene (Acute) - Plan Plan: SAFETY PRECAUTIONS CPM Nutritional Asmnt/Malnutr-PDOC - Dietary Evaluation Malnutrition Findings (Please click <Entered> for more info): Nutritional Asmnt/Malnutrition Start: 04/12/17 13: 03 Text: Status: Complete Freq: Document 04/12/17 13:03 LCHENG (Rec: 04/12/17 13:19 LCHENG [email or web address]) Nutritional Asmnt/Malnutrition Patient General Information Nutritional Screening Moderate Risk Diagnosis psychosis Pertinent Medical Hx/Surgical Hx HTN, OA Subjective Information Pt seen sitting in kimberley-chair in hallway, confused. Per notes, PO intake 100%. Current Diet Order/ Nutrition Support Regular Pertinent Medications colace, iron, lasix, theragran , seroquel Pertinent Labs 04/07 Na 137, K 4.0, cl 106, BUN 32, Cr 1.2, Glucose 110, A1c 7.0, Ca 8.5, Alb 3.4 Nutritional Hx/Data Height 5 ft 10 in Height (Calculated Centimeters) 177.8 Current Weight (lbs) 148 lb Weight (Calculated Kilograms) 67.1 Weight (Calculated Grams) 81007.7 [place] Body Weight 166 % [place] Body Weight 89 Body Mass Index (BMI) 21.2 GI Symptoms GI Symptoms None Last BM 04/09 Difficult in: None Skin Integrity/Comment: wound on right 3rd finger skin dryness Current %PO Good (75-100%) Estimated Nutritional Goals BEE in Kcals: Using Current wt Calories/Kcals/Kg 25-30 Kcals Calculated 0150-5526 Protein: Using Current wt Protein g/k-1.1 Protein Calculated 67-74 Fluid: ml 1674-2017ml (1ml/kcal) Nutritional Problem No current Nutrition Prob Problem N/A Malnutrition Alert Protein-Calorie Malnutrition N/A Is there a minimum of two criteria No selected? Query Text:Check all the applicable criteria. A minimum of two criteria are recommended for diagnosis of either severe or non-severe malnutrition. Intervention/Recommendation Comments 1. Continue with current diet as ordered. 2. Monitor PO intake, wt, labs and skin integrity 3. F/U as low risk in 7 days, 04/19 Expected Outcomes/Goals Expected Outcomes/Goals 1. PO intake to meet at least 75% of nutritional needs. 2. Wt stability, skin to remain intact, labs to approach WNL.
[2017-04-19] MEDS: HALOPERIDOL PO SCH ×2 (08:10→16:25)
[2017-04-19] MEDS: Ferrous Sulfate 325 MG TAB PO SCH ×3 (08:11→21:32)
[2017-04-19] MEDS: Aspirin 81mg Chewable Tab PO SCH (08:11)
[2017-04-19] MEDS: Multivitamin Tab PO SCH (08:11)
[2017-04-19] MEDS: Silver Antimicrobial Wound Gel 0.25 oz Tube TP SCH (08:12)
--- NOTE | 2017-04-19 09:54 | General Progress Note ---
Subjective - Review of Systems Events since last encounter: awake in no distress Objective - Results Result Diagrams: 04/07/17 01:45 04/07/17 01:45 Recent Labs: Laboratory Last Values WBC 4.1 Th/cmm (4.8-10.8) L 04/07/17 01:45 RBC 3.13 Mil/cmm (3.80-5.80) L 04/07/17 01:45 Hgb 10.0 gm/dL (12-16) L 04/07/17 01:45 Hct 29.7 % (41.0-60) L D 04/07/17 01:45 MCV 94.8 fl (80-99) 04/07/17 01:45 MCH 31.8 pg (27.0-31.0) H 04/07/17 01:45 MCHC Differential 33.6 pg (28.0-36.0) 04/07/17 01:45 RDW 15.0 % (11.5-20.0) 04/07/17 01:45 Plt Count 119 Th/cmm (150-400) L 04/07/17 01:45 MPV 8.9 fl 04/07/17 01:45 Neutrophils % 61.4 % (40.0-80.0) 04/07/17 01:45 Lymphocytes % 20.6 % (20.0-50.0) 04/07/17 01:45 Monocytes % 13.4 % (2.0-10.0) H 04/07/17 01:45 Eosinophils % 4.5 % (0.0-5.0) 04/07/17 01:45 Basophils % 0.1 % (0.0-2.0) 04/07/17 01:45 Sodium 137 mEq/L (136-145) 04/07/17 01:45 Potassium 4.0 mEq/L (3.5-5.1) 04/07/17 01:45 Chloride 106 mEq/L (98-107) 04/07/17 01:45 Carbon Dioxide 30.0 mEq/L (21.0-31.0) 04/07/17 01:45 Anion Gap 5.0 (7.0-16.0) L 04/07/17 01:45 BUN 32 mg/dL (7-25) H 04/07/17 01:45 Creatinine 1.2 mg/dL (0.7-1.3) 04/07/17 01:45 Est GFR ( Amer) > 60.0 ml/min (>90) 04/07/17 01:45 Est GFR (Non-Af Amer) > 60.0 ml/min 04/07/17 01:45 BUN/Creatinine Ratio 26.7 04/07/17 01:45 Glucose 110 mg/dL (70-105) H 04/07/17 01:45 Hemoglobin A1c % 7.0 % (4.0-6.0) H 04/07/17 01:45 Calcium 8.5 mg/dL (8.6-10.3) L 04/07/17 01:45 Total Bilirubin 0.3 mg/dL (0.3-1.0) 04/07/17 01:45 AST 15 U/L (13-39) 04/07/17 01:45 ALT 12 U/L (7-52) 04/07/17 01:45 Alkaline Phosphatase 54 U/L (34-104) 04/07/17 01:45 Total Protein 6.2 gm/dL (6.0-8.3) 04/07/17 01:45 Albumin 3.4 gm/dL (4.2-5.5) L 04/07/17 01:45 Globulin 2.8 gm/dL 04/07/17 01:45 Albumin/Globulin Ratio 1.2 (1.0-1.8) 04/07/17 01:45 Triglycerides 48 mg/dL (<150) 04/07/17 01:45 Cholesterol 136 mg/dL (<200) 04/07/17 01:45 LDL Cholesterol Direct 60 mg/dL (75-193) L 04/07/17 01:45 HDL Cholesterol 66 mg/dL (23-92) 04/07/17 01:45 TSH 2.09 uIU/ml (0.34-5.60) 04/07/17 01:45 Urine Source CLEAN C 04/07/17 01:45 Urine Color YELLOW 04/07/17 01:45 Urine Clarity CLEAR (CLEAR) 04/07/17 01:45 Urine pH 7.0 (4.6 - 8.0) 04/07/17 01:45 Ur Specific [place] <= 1.005 (1.005-1.030) 04/07/17 01:45 Urine Protein NEGATIVE mg/dL (NEGATIVE) 04/07/17 01:45 Urine Glucose (UA) NEGATIVE mg/dL (NEGATIVE) 04/07/17 01:45 Urine Ketones NEGATIVE mg/dL (NEGATIVE) 04/07/17 01:45 Urine Blood NEGATIVE (NEGATIVE) 04/07/17 01:45 Urine Nitrate NEGATIVE (NEGATIVE) 04/07/17 01:45 Urine Bilirubin NEGATIVE (NEGATIVE) 04/07/17 01:45 Urine Urobilinogen 0.2 E.U./dL (0.2 - 1.0) 04/07/17 01:45 Ur Leukocyte Esterase NEGATIVE (NEGATIVE) 04/07/17 01:45 Urine RBC NONE SEEN /hpf (0-5) 04/07/17 01:45 Urine WBC 0-2 /hpf (0-5) 04/07/17 01:45 Ur Epithelial Cells OCCASIONAL /lpf (FEW) 04/07/17 01:45 Urine Bacteria OCCASIONAL /hpf (NONE SEEN) 04/07/17 01:45 Salicylates < 25.0 mg/L (30.0-100.0) L 04/07/17 01:45 Acetaminophen < 10.0 ug/mL (10.0-30.0) L 04/07/17 01:45 Valproic Acid 48.7 ug/mL (50.0-100.0) L 04/13/17 08:20 Ethyl Alcohol < 10 mg/dL (0-10) 04/07/17 01:45 RPR NONREACTIVE (NONREACTIVE) 04/07/17 01:45 - Physical Exam Vitals and I&O: Vital Signs Temp 98.6 F 04/19/17 06:40 Pulse 69 04/19/17 08:11 Resp 18 04/19/17 06:40 BP 135/76 04/19/17 08:11 Pulse Ox 99 04/19/17 06:40 Intake & Output 04/18/17 04/19/17 04/19/17 18:59 06:59 18:59 Intake Total 1000 380 Balance 1000 380 Intake: Oral 1000 380 Other: # Voids 4 3 # Bowel Movements 1 0 Active Medications: Current Medications Acetaminophen (Tylenol) 650 mg PO Q4HR PRN PRN Reason: Mild Pain / Temp above 100 Stop: 06/06/17 03:20 Last Admin: 04/12/17 10:15 Dose: 650 mg Al Hydrox/Mg Hydrox/Simethicone (Maalox) 30 ml PO Q4HR PRN PRN Reason: GI DISTRESS Stop: 06/06/17 03:20 Aspirin (Aspirin Chewable) 81 mg PO DAILY [facility] Stop: 06/06/17 08:59 Last Admin: 04/19/17 08:11 Dose: 81 mg Bisacodyl (Dulcolax 10 Mg Supp) 10 mg RC DAILY PRN PRN Reason: Constipation Stop: 06/06/17 03:23 Divalproex Sodium (Depakote Dr) 500 mg PO BID [facility]ISABET PRN Reason: Protocol Stop: 06/06/17 08:59 Last Admin: 04/19/17 08:11 Dose: 500 mg Docusate Sodium (Colace) 100 mg PO DAILY [facility] Stop: 06/06/17 08:59 Last Admin: 04/19/17 08:11 Dose: 100 mg Ferrous Sulfate (Iron) 325 mg PO TID [facility] Stop: 06/06/17 08:59 Last Admin: 04/19/17 08:11 Dose: 325 mg Furosemide (Lasix) 40 mg PO DAILY [facility] Stop: 06/06/17 08:59 Last Admin: 04/19/17 08:11 Dose: 40 mg Haloperidol 5 mg/ Haloperidol (2 mg) 7 mg PO BID [facility] Stop: 06/09/17 08:59 Last Admin: 04/19/17 08:10 Dose: 7 mg Lorazepam (Ativan) 0.5 mg PO Q4HR PRN; Protocol PRN Reason: Anxiety/agitation Stop: 05/07/17 03:20 Last Admin: 04/18/17 14:23 Dose: 0.5 mg Magnesium Hydroxide (Milk Of Magnesia) 30 ml PO HS PRN PRN Reason: Constipation Multivitamins/Vitamin C (Theragran) 1 tab PO DAILY [facility] Stop: 06/06/17 08:59 Last Admin: 04/19/17 08:11 Dose: 1 tab Quetiapine Fumarate (Seroquel) 400 mg PO BID [facility]ET PRN Reason: Protocol Stop: 06/06/17 08:59 Last Admin: 04/19/17 08:11 Dose: 400 mg Valsartan (Diovan) 80 mg PO DAILY [facility] Stop: 06/06/17 08:59 Last Admin: 04/19/17 08:11 Dose: 80 mg Wound Care/Dressing Products (Silvasorb) 1 appl TP DAILY [facility] Stop: 06/06/17 08:59 Last Admin: 04/19/17 08:12 Dose: Not Given Zolpidem Tartrate (Ambien) 5 mg PO HS PRN PRN Reason: Insomnia Stop: 06/07/17 23:15 General: No acute distress HEENT: Atraumatic Neck: Supple, JVD, Thyromegaly Cardiovascular: Regular rate, Normal S1, Normal S2 Lungs: Clear to auscultation Abdomen: Bowel sounds - Procedures Procedures: Procedures Procedure Code Date EXCISION OF FINGER NAIL, EXTERNAL APPROACH [id number] 03/15/17 Assessment/Plan - Problem List Patient Problems: All Active Problems HTN (hypertension) (Acute) I10 Osteoarthritis (Acute) M19.90 Schizophrenia (Acute) F20.9 possible effusion of finger (Acute) r/o gangrene (Acute) - Plan Plan: as per psych will monitor Nutritional Asmnt/Malnutr-PDOC - Dietary Evaluation Malnutrition Findings (Please click <Entered> for more info): Nutritional Asmnt/Malnutrition Start: 04/12/17 13: 03 Text: Status: Complete Freq: Document 04/12/17 13:03 LAUREN (Rec: 04/12/17 13:19 LCJOHN [email or web address]) Nutritional Asmnt/Malnutrition Patient General Information Nutritional Screening Moderate Risk Diagnosis psychosis Pertinent Medical Hx/Surgical Hx HTN, OA Subjective Information [facility] Per [facility], PO intake 100%. Current Diet Order/ Nutrition Support Regular Pertinent Medications colace, iron, lasix, theragran , seroquel Pertinent Labs 04/07 Na 137, K 4.0, cl 106, BUN 32, Cr 1.2, Glucose 110, A1c 7.0, Ca 8.5, Alb 3.4 Nutritional Hx/Data Height 1.78 m Height (Calculated Centimeters) 177.8 Current Weight (lbs) 67.132 kg Weight (Calculated Kilograms) 67.1 Weight (Calculated Grams) 68255.7 [place] Body Weight 166 % [place] Body Weight 89 Body Mass Index (BMI) 21.2 GI Symptoms GI Symptoms None Last BM 04/09 Difficult in: None Skin Integrity/Comment: wound on right 3rd finger skin dryness Current %PO Good (75-100%) Estimated Nutritional Goals BEE in Kcals: Using Current wt Calories/Kcals/Kg 25-30 Kcals Calculated 2330-5907 Protein: Using Current wt Protein g/k-1.1 Protein Calculated 67-74 Fluid: ml 5-2018ml (1ml/kcal) Nutritional Problem No current Nutrition Prob Problem N/A Malnutrition Alert Protein-Calorie Malnutrition N/A Is there a minimum of two criteria No selected? Query Text:Check all the applicable criteria. A minimum of two criteria are recommended for diagnosis of either severe or non-severe malnutrition. Intervention/Recommendation Comments 1. Continue with current diet as ordered. 2. Monitor PO intake, wt, labs and skin integrity 3. F/U as low risk in 7 days, 04/19 Expected Outcomes/Goals Expected Outcomes/Goals 1. PO intake to meet at least 75% of nutritional needs. 2. Wt stability, skin to remain intact, labs to approach WNL.
--- NOTE | 2017-04-20 06:42 | Progress Notes ---
DATE: 04/19/2017 SUBJECTIVE: Chart reviewed and the patient interviewed. Also discussed the patient's condition with the staff and reviewed records and labs. The patient is still confused and paranoid. The patient also has been easily agitated and he is in irritable mood. Also thought processes are circumstantial with flight of ideas. The patient also has difficulty following any of staff directions because of his paranoia and his delusions. Otherwise, the patient is compliant with taking his medications with no side effects of medications. ASSESSMENT: The patient is still psychotic and anxious. TREATMENT PLAN: Continue to monitor his behavior and condition closely and continue to work on his irritability. Also, child welfare caseworker still working on placement issue. JOB# [id number]
--- NOTE | 2017-04-20 08:25 | General Progress Note ---
Subjective - Review of Systems Events since last encounter: pt is awake alert anxious Objective - Results Result Diagrams: 04/07/17 01:45 04/07/17 01:45 Recent Labs: Laboratory Last Values WBC 4.1 Th/cmm (4.8-10.8) L 04/07/17 01:45 RBC 3.13 Mil/cmm (3.80-5.80) L 04/07/17 01:45 Hgb 10.0 gm/dL (12-16) L 04/07/17 01:45 Hct 29.7 % (41.0-60) L D 04/07/17 01:45 MCV 94.8 fl (80-99) 04/07/17 01:45 MCH 31.8 pg (27.0-31.0) H 04/07/17 01:45 MCHC Differential 33.6 pg (28.0-36.0) 04/07/17 01:45 RDW 15.0 % (11.5-20.0) 04/07/17 01:45 Plt Count 119 Th/cmm (150-400) L 04/07/17 01:45 MPV 8.9 fl 04/07/17 01:45 Neutrophils % 61.4 % (40.0-80.0) 04/07/17 01:45 Lymphocytes % 20.6 % (20.0-50.0) 04/07/17 01:45 Monocytes % 13.4 % (2.0-10.0) H 04/07/17 01:45 Eosinophils % 4.5 % (0.0-5.0) 04/07/17 01:45 Basophils % 0.1 % (0.0-2.0) 04/07/17 01:45 Sodium 137 mEq/L (136-145) 04/07/17 01:45 Potassium 4.0 mEq/L (3.5-5.1) 04/07/17 01:45 Chloride 106 mEq/L (98-107) 04/07/17 01:45 Carbon Dioxide 30.0 mEq/L (21.0-31.0) 04/07/17 01:45 Anion Gap 5.0 (7.0-16.0) L 04/07/17 01:45 BUN 32 mg/dL (7-25) H 04/07/17 01:45 Creatinine 1.2 mg/dL (0.7-1.3) 04/07/17 01:45 Est GFR ( Amer) > 60.0 ml/min (>90) 04/07/17 01:45 Est GFR (Non-Af Amer) > 60.0 ml/min 04/07/17 01:45 BUN/Creatinine Ratio 26.7 04/07/17 01:45 Glucose 110 mg/dL (70-105) H 04/07/17 01:45 Hemoglobin A1c % 7.0 % (4.0-6.0) H 04/07/17 01:45 Calcium 8.5 mg/dL (8.6-10.3) L 04/07/17 01:45 Total Bilirubin 0.3 mg/dL (0.3-1.0) 04/07/17 01:45 AST 15 U/L (13-39) 04/07/17 01:45 ALT 12 U/L (7-52) 04/07/17 01:45 Alkaline Phosphatase 54 U/L (34-104) 04/07/17 01:45 Total Protein 6.2 gm/dL (6.0-8.3) 04/07/17 01:45 Albumin 3.4 gm/dL (4.2-5.5) L 04/07/17 01:45 Globulin 2.8 gm/dL 04/07/17 01:45 Albumin/Globulin Ratio 1.2 (1.0-1.8) 04/07/17 01:45 Triglycerides 48 mg/dL (<150) 04/07/17 01:45 Cholesterol 136 mg/dL (<200) 04/07/17 01:45 LDL Cholesterol Direct 60 mg/dL (75-193) L 04/07/17 01:45 HDL Cholesterol 66 mg/dL (23-92) 04/07/17 01:45 TSH 2.09 uIU/ml (0.34-5.60) 04/07/17 01:45 Urine Source CLEAN C 04/07/17 01:45 Urine Color YELLOW 04/07/17 01:45 Urine Clarity CLEAR (CLEAR) 04/07/17 01:45 Urine pH 7.0 (4.6 - 8.0) 04/07/17 01:45 Ur Specific [place] <= 1.005 (1.005-1.030) 04/07/17 01:45 Urine Protein NEGATIVE mg/dL (NEGATIVE) 04/07/17 01:45 Urine Glucose (UA) NEGATIVE mg/dL (NEGATIVE) 04/07/17 01:45 Urine Ketones NEGATIVE mg/dL (NEGATIVE) 04/07/17 01:45 Urine Blood NEGATIVE (NEGATIVE) 04/07/17 01:45 Urine Nitrate NEGATIVE (NEGATIVE) 04/07/17 01:45 Urine Bilirubin NEGATIVE (NEGATIVE) 04/07/17 01:45 Urine Urobilinogen 0.2 E.U./dL (0.2 - 1.0) 04/07/17 01:45 Ur Leukocyte Esterase NEGATIVE (NEGATIVE) 04/07/17 01:45 Urine RBC NONE SEEN /hpf (0-5) 04/07/17 01:45 Urine WBC 0-2 /hpf (0-5) 04/07/17 01:45 Ur Epithelial Cells OCCASIONAL /lpf (FEW) 04/07/17 01:45 Urine Bacteria OCCASIONAL /hpf (NONE SEEN) 04/07/17 01:45 Salicylates < 25.0 mg/L (30.0-100.0) L 04/07/17 01:45 Acetaminophen < 10.0 ug/mL (10.0-30.0) L 04/07/17 01:45 Valproic Acid 48.7 ug/mL (50.0-100.0) L 04/13/17 08:20 Ethyl Alcohol < 10 mg/dL (0-10) 04/07/17 01:45 RPR NONREACTIVE (NONREACTIVE) 04/07/17 01:45 - Physical Exam Vitals and I&O: Vital Signs Temp 97 F 04/20/17 06:28 Pulse 72 04/20/17 06:28 Resp 19 04/20/17 06:28 BP 141/86 04/20/17 06:28 Pulse Ox 97 04/20/17 06:28 Intake & Output 04/19/17 04/20/17 04/20/17 18:59 06:59 18:59 Intake Total 1200 120 Balance 1200 120 Intake: Oral 1200 120 Other: # Voids 4 3 # Bowel Movements 1 Active Medications: Current Medications Acetaminophen (Tylenol) 650 mg PO Q4HR PRN PRN Reason: Mild Pain / Temp above 100 Stop: 06/06/17 03:20 Last Admin: 04/12/17 10:15 Dose: 650 mg Al Hydrox/Mg Hydrox/Simethicone (Maalox) 30 ml PO Q4HR PRN PRN Reason: GI DISTRESS Stop: 06/06/17 03:20 Aspirin (Aspirin Chewable) 81 mg PO DAILY [facility] Stop: 06/06/17 08:59 Last Admin: 04/19/17 08:11 Dose: 81 mg Bisacodyl (Dulcolax 10 Mg Supp) 10 mg RC DAILY PRN PRN Reason: Constipation Stop: 06/06/17 03:23 Cephalexin Monohydrate (Keflex) 500 mg PO Q12H [facility] Stop: 06/18/17 15:44 Last Admin: 04/20/17 03:52 Dose: 500 mg Divalproex Sodium (Depakote Dr) 500 mg PO BID [facility] PRN Reason: Protocol Stop: 06/06/17 08:59 Last Admin: 04/19/17 16:25 Dose: 500 mg Docusate Sodium (Colace) 100 mg PO DAILY [facility] Stop: 06/06/17 08:59 Last Admin: 04/19/17 08:11 Dose: 100 mg Ferrous Sulfate (Iron) 325 mg PO TID [facility] Stop: 06/06/17 08:59 Last Admin: 04/19/17 21:32 Dose: 325 mg Furosemide (Lasix) 40 mg PO DAILY [facility] Stop: 06/06/17 08:59 Last Admin: 04/19/17 08:11 Dose: 40 mg Haloperidol 5 mg/ Haloperidol (2 mg) 7 mg PO BID [facility] Stop: 06/09/17 08:59 Last Admin: 04/19/17 16:25 Dose: 7 mg Lorazepam (Ativan) 0.5 mg PO Q4HR PRN; Protocol PRN Reason: Anxiety/agitation Stop: 05/07/17 03:20 Last Admin: 04/20/17 03:52 Dose: 0.5 mg Magnesium Hydroxide (Milk Of Magnesia) 30 ml PO HS PRN PRN Reason: Constipation Multivitamins/Vitamin C (Theragran) 1 tab PO DAILY [facility] Stop: 06/06/17 08:59 Last Admin: 04/19/17 08:11 Dose: 1 tab Quetiapine Fumarate (Seroquel) 400 mg PO BID [facility] PRN Reason: Protocol Stop: 06/06/17 08:59 Last Admin: 04/19/17 16:25 Dose: 400 mg Valsartan (Diovan) 80 mg PO DAILY [facility] Stop: 06/06/17 08:59 Last Admin: 04/19/17 08:11 Dose: 80 mg Wound Care/Dressing Products (Silvasorb) 1 appl TP DAILY [facility] Stop: 06/06/17 08:59 Last Admin: 04/19/17 08:12 Dose: Not Given Zolpidem Tartrate (Ambien) 5 mg PO HS PRN PRN Reason: Insomnia Stop: 06/07/17 23:15 Last Admin: 04/19/17 21:49 Dose: 5 mg General: No acute distress HEENT: Atraumatic Neck: Supple, JVD, Thyromegaly Cardiovascular: Regular rate, Normal S1, Normal S2 Lungs: Clear to auscultation Abdomen: Bowel sounds - Procedures Procedures: Procedures Procedure Code Date EXCISION OF FINGER NAIL, EXTERNAL APPROACH [id number] 03/15/17 Assessment/Plan - Problem List Patient Problems: All Active Problems HTN (hypertension) (Acute) I10 Osteoarthritis (Acute) M19.90 Schizophrenia (Acute) F20.9 possible effusion of finger (Acute) r/o gangrene (Acute) - Plan Plan: as per psych will monitor Nutritional Asmnt/Malnutr-PDOC - Dietary Evaluation Malnutrition Findings (Please click <Entered> for more info): Nutritional Asmnt/Malnutrition Start: 04/12/17 13: 03 Text: Status: Complete Freq: Document 04/12/17 13:03 LCHENG (Rec: 04/12/17 13:19 [email or web address]) Nutritional Asmnt/Malnutrition Patient General Information Nutritional Screening Moderate Risk Diagnosis psychosis Pertinent Medical Hx/Surgical Hx HTN, OA Subjective Information Pt seen sitting in kimberley-chair in [facility]. Per notes, PO intake 100%. Current Diet Order/ Nutrition Support Regular Pertinent Medications colace, iron, lasix, theragran , seroquel Pertinent Labs 04/07 Na 137, K 4.0, cl 106, BUN 32, Cr 1.2, Glucose 110, A1c 7.0, Ca 8.5, Alb 3.4 Nutritional Hx/Data Height 1.78 m Height (Calculated Centimeters) 177.8 Current Weight (lbs) 67.132 kg Weight (Calculated Kilograms) 67.1 Weight (Calculated Grams) 81338.7 [place] Body Weight 166 % [place] Body Weight 89 Body Mass Index (BMI) 21.2 GI Symptoms GI Symptoms None Last BM 04/09 Difficult in: None Skin Integrity/Comment: wound on right 3rd finger skin dryness Current %PO Good (75-100%) Estimated Nutritional Goals BEE in Kcals: Using Current wt Calories/Kcals/Kg 25-30 Kcals Calculated Protein: Using Current wt Protein g/k-1.1 Protein Calculated - Fluid: ml 1674-2017ml (1ml/kcal) Nutritional Problem No current Nutrition Prob Problem N/A Malnutrition Alert Protein-Calorie Malnutrition N/A Is there a minimum of two criteria No selected? Query Text:Check all the applicable criteria. A minimum of two criteria are recommended for diagnosis of either severe or non-severe malnutrition. Intervention/Recommendation Comments 1. Continue with current diet as ordered. 2. Monitor PO intake, wt, labs and skin integrity 3. F/U as low risk in 7 days, 04/19 Expected Outcomes/Goals Expected Outcomes/Goals 1. PO intake to meet at least 75% of nutritional needs. 2. Wt stability, skin to remain intact, labs to approach WNL.
[2017-04-20] MEDS: HALOPERIDOL PO SCH ×2 (08:27→16:40)
[2017-04-20] MEDS: Ferrous Sulfate 325 MG TAB PO SCH ×3 (08:27→21:11)
[2017-04-20] MEDS: Multivitamin Tab PO SCH (08:28)
[2017-04-20] MEDS: Aspirin 81mg Chewable Tab PO SCH (08:28)
[2017-04-20] MEDS ORDERED: Probiotic Screen MC PRN (12:00)
[2017-04-20] MEDS: Silver Antimicrobial Wound Gel 0.25 oz Tube TP SCH (15:37)
[2017-04-21] MEDS: HALOPERIDOL PO SCH ×2 (08:07→16:05)
[2017-04-21] MEDS: Aspirin 81mg Chewable Tab PO SCH (08:08)
[2017-04-21] MEDS: Multivitamin Tab PO SCH (08:08)
[2017-04-21] MEDS: Ferrous Sulfate 325 MG TAB PO SCH ×3 (08:09→21:21)
[2017-04-21] MEDS: Lactobacillus Rhamnosus GG 15 Billion CFU CAP.SPRINK PO SCH (08:09)
[2017-04-21] MEDS: Silver Antimicrobial Wound Gel 0.25 oz Tube TP SCH (09:02)
--- NOTE | 2017-04-21 14:53 | Internal Medicine Prog Note ---
Internal Medicine Subjective - Subjective Service Date: 04/21/17 Patient is:: awake Per staff patient has:: tolerating meds Internal Medicine Objective - Results Result Diagrams: 04/07/17 01:45 04/07/17 01:45 Recent Labs: Laboratory Last Values WBC 4.1 Th/cmm (4.8-10.8) L 04/07/17 01:45 RBC 3.13 Mil/cmm (3.80-5.80) L 04/07/17 01:45 Hgb 10.0 gm/dL (12-16) L 04/07/17 01:45 Hct 29.7 % (41.0-60) L D 04/07/17 01:45 MCV 94.8 fl (80-99) 04/07/17 01:45 MCH 31.8 pg (27.0-31.0) H 04/07/17 01:45 MCHC Differential 33.6 pg (28.0-36.0) 04/07/17 01:45 RDW 15.0 % (11.5-20.0) 04/07/17 01:45 Plt Count 119 Th/cmm (150-400) L 04/07/17 01:45 MPV 8.9 fl 04/07/17 01:45 Neutrophils % 61.4 % (40.0-80.0) 04/07/17 01:45 Lymphocytes % 20.6 % (20.0-50.0) 04/07/17 01:45 Monocytes % 13.4 % (2.0-10.0) H 04/07/17 01:45 Eosinophils % 4.5 % (0.0-5.0) 04/07/17 01:45 Basophils % 0.1 % (0.0-2.0) 04/07/17 01:45 Sodium 137 mEq/L (136-145) 04/07/17 01:45 Potassium 4.0 mEq/L (3.5-5.1) 04/07/17 01:45 Chloride 106 mEq/L (98-107) 04/07/17 01:45 Carbon Dioxide 30.0 mEq/L (21.0-31.0) 04/07/17 01:45 Anion Gap 5.0 (7.0-16.0) L 04/07/17 01:45 BUN 32 mg/dL (7-25) H 04/07/17 01:45 Creatinine 1.2 mg/dL (0.7-1.3) 04/07/17 01:45 Est GFR ( Amer) > 60.0 ml/min (>90) 04/07/17 01:45 Est GFR (Non-Af Amer) > 60.0 ml/min 04/07/17 01:45 BUN/Creatinine Ratio 26.7 04/07/17 01:45 Glucose 110 mg/dL (70-105) H 04/07/17 01:45 Hemoglobin A1c % 7.0 % (4.0-6.0) H 04/07/17 01:45 Calcium 8.5 mg/dL (8.6-10.3) L 04/07/17 01:45 Total Bilirubin 0.3 mg/dL (0.3-1.0) 04/07/17 01:45 AST 15 U/L (13-39) 04/07/17 01:45 ALT 12 U/L (7-52) 04/07/17 01:45 Alkaline Phosphatase 54 U/L (34-104) 04/07/17 01:45 Total Protein 6.2 gm/dL (6.0-8.3) 04/07/17 01:45 Albumin 3.4 gm/dL (4.2-5.5) L 04/07/17 01:45 Globulin 2.8 gm/dL 04/07/17 01:45 Albumin/Globulin Ratio 1.2 (1.0-1.8) 04/07/17 01:45 Triglycerides 48 mg/dL (<150) 04/07/17 01:45 Cholesterol 136 mg/dL (<200) 04/07/17 01:45 LDL Cholesterol Direct 60 mg/dL (75-193) L 04/07/17 01:45 HDL Cholesterol 66 mg/dL (23-92) 04/07/17 01:45 TSH 2.09 uIU/ml (0.34-5.60) 04/07/17 01:45 Urine Source CLEAN C 04/07/17 01:45 Urine Color YELLOW 04/07/17 01:45 Urine Clarity CLEAR (CLEAR) 04/07/17 01:45 Urine pH 7.0 (4.6 - 8.0) 04/07/17 01:45 Ur Specific [place] <= 1.005 (1.005-1.030) 04/07/17 01:45 Urine Protein NEGATIVE mg/dL (NEGATIVE) 04/07/17 01:45 Urine Glucose (UA) NEGATIVE mg/dL (NEGATIVE) 04/07/17 01:45 Urine Ketones NEGATIVE mg/dL (NEGATIVE) 04/07/17 01:45 Urine Blood NEGATIVE (NEGATIVE) 04/07/17 01:45 Urine Nitrate NEGATIVE (NEGATIVE) 04/07/17 01:45 Urine Bilirubin NEGATIVE (NEGATIVE) 04/07/17 01:45 Urine Urobilinogen 0.2 E.U./dL (0.2 - 1.0) 04/07/17 01:45 Ur Leukocyte Esterase NEGATIVE (NEGATIVE) 04/07/17 01:45 Urine RBC NONE SEEN /hpf (0-5) 04/07/17 01:45 Urine WBC 0-2 /hpf (0-5) 04/07/17 01:45 Ur Epithelial Cells OCCASIONAL /lpf (FEW) 04/07/17 01:45 Urine Bacteria OCCASIONAL /hpf (NONE SEEN) 04/07/17 01:45 Salicylates < 25.0 mg/L (30.0-100.0) L 04/07/17 01:45 Acetaminophen < 10.0 ug/mL (10.0-30.0) L 04/07/17 01:45 Valproic Acid 48.7 ug/mL (50.0-100.0) L 04/13/17 08:20 Ethyl Alcohol < 10 mg/dL (0-10) 04/07/17 01:45 RPR NONREACTIVE (NONREACTIVE) 04/07/17 01:45 - Physical Exam Vitals and I&O: Vital Signs Temp 97.5 F 04/20/17 14:00 Pulse 76 04/21/17 08:08 Resp 20 04/20/17 14:00 BP 134/76 04/21/17 08:08 Pulse Ox 97 04/20/17 14:00 Intake & Output 04/20/17 04/21/17 04/21/17 18:59 06:59 18:59 Intake Total 900 Balance 900 Intake: Oral 900 Other: # Voids 4 # Bowel Movements 1 Active Medications: Current Medications Acetaminophen (Tylenol) 650 mg PO Q4HR PRN PRN Reason: Mild Pain / Temp above 100 Stop: 06/06/17 03:20 Last Admin: 04/12/17 10:15 Dose: 650 mg Al Hydrox/Mg Hydrox/Simethicone (Maalox) 30 ml PO Q4HR PRN PRN Reason: GI DISTRESS Stop: 06/06/17 03:20 Aspirin (Aspirin Chewable) 81 mg PO DAILY [facility] Stop: 06/06/17 08:59 Last Admin: 04/21/17 08:08 Dose: 81 mg Bisacodyl (Dulcolax 10 Mg Supp) 10 mg RC DAILY PRN PRN Reason: Constipation Stop: 06/06/17 03:23 Cephalexin Monohydrate (Keflex) 500 mg PO Q12H [facility] Stop: 06/18/17 15:44 Last Admin: 04/21/17 14:51 Dose: 500 mg Divalproex Sodium (Depakote Dr) 500 mg PO BID [facility] PRN Reason: Protocol Stop: 06/06/17 08:59 Last Admin: 04/21/17 08:09 Dose: 500 mg Docusate Sodium (Colace) 100 mg PO DAILY [facility] Stop: 06/06/17 08:59 Last Admin: 04/21/17 08:08 Dose: 100 mg Ferrous Sulfate (Iron) 325 mg PO TID [facility] Stop: 06/06/17 08:59 Last Admin: 04/21/17 14:51 Dose: 325 mg Furosemide (Lasix) 40 mg PO DAILY [facility] [place] Stop: 06/06/17 08:59 Last Admin: 04/21/17 08:08 Dose: 40 mg Haloperidol 5 mg/ Haloperidol (2 mg) 7 mg PO BID [facility] Stop: 06/09/17 08:59 Last Admin: 04/21/17 08:07 Dose: 7 mg Lactobacillus Rhamnosus (Culturelle 15b) 1 each PO DAILY [facility] Stop: 06/20/17 08:59 Last Admin: 04/21/17 08:09 Dose: 1 each Lorazepam (Ativan) 0.5 mg PO Q4HR PRN; Protocol PRN Reason: Anxiety/agitation Stop: 05/07/17 03:20 Last Admin: 04/20/17 03:52 Dose: 0.5 mg Magnesium Hydroxide (Milk Of Magnesia) 30 ml PO HS PRN PRN Reason: Constipation Miscellaneous (Probiotic Screen) 1 ea MC PRN PRN PRN Reason: PROTOCOL Stop: 06/19/17 11:59 Multivitamins/Vitamin C (Theragran) 1 tab PO DAILY [facility] Stop: 06/06/17 08:59 Last Admin: 04/21/17 08:08 Dose: 1 tab Quetiapine Fumarate (Seroquel) 400 mg PO BID [facility] PRN Reason: Protocol Stop: 06/06/17 08:59 Last Admin: 04/21/17 08:08 Dose: 400 mg Valsartan (Diovan) 80 mg PO DAILY [facility] Stop: 06/06/17 08:59 Last Admin: 04/21/17 08:08 Dose: 80 mg Wound Care/Dressing Products (Silvasorb) 1 appl TP DAILY [facility] Stop: 06/06/17 08:59 Last Admin: 04/21/17 09:02 Dose: Not Given Zolpidem Tartrate (Ambien) 5 mg PO HS PRN PRN Reason: Insomnia Stop: 06/07/17 23:15 Last Admin: 04/20/17 21:11 Dose: 5 mg General: alert HEENT: NC/AT, PERRLA Neck: Supple Lungs: CTAB Neurological: alert - Procedures Procedures: Procedures Procedure Code Date EXCISION OF FINGER NAIL, EXTERNAL APPROACH 0HBQXZZ 03/15/17 Internal Medicine Assmt/Plan - Assessment Assessment: HTN (hypertension) (Acute) I10 Osteoarthritis (Acute) M19.90 Schizophrenia (Acute) F20.9 possible effusion of finger (Acute) r/o gangrene (Acute) - Plan Plan: SAFETY PRECAUTIONS CPM Nutritional Asmnt/Malnutr-PDOC - Dietary Evaluation Malnutrition Findings (Please click <Entered> for more info): Nutritional Asmnt/Malnutrition Start: 04/12/17 13: 03 Text: Status: Complete Freq: Document 04/12/17 13:03 LCHENG (Rec: 04/12/17 13:19 [email or web address]) Nutritional Asmnt/Malnutrition Patient General Information Nutritional Screening Moderate Risk Diagnosis psychosis Pertinent Medical Hx/Surgical Hx HTN, OA Subjective Information Pt seen sitting in kimberley-chair in hallway, confused. Per notes, PO intake 100%. Current Diet Order/ Nutrition Support Regular Pertinent Medications colace, iron, lasix, theragran , seroquel Pertinent Labs 04/07 Na 137, K 4.0, cl 106, BUN 32, Cr 1.2, Glucose 110, A1c 7.0, Ca 8.5, Alb 3.4 Nutritional Hx/Data Height 5 ft 10 in Height (Calculated Centimeters) 177.8 Current Weight (lbs) 148 lb Weight (Calculated Kilograms) 67.1 Weight (Calculated Grams) 47812.7 [place] Body Weight 166 % [place] Body Weight 89 Body Mass Index (BMI) 21.2 GI Symptoms GI Symptoms None Last BM 04/09 Difficult in: None Skin Integrity/Comment: wound on right 3rd finger skin dryness Current %PO Good (75-100%) Estimated Nutritional Goals BEE in Kcals: Using Current wt Calories/Kcals/Kg 25-30 Kcals Calculated 5798-6923 Protein: Using Current wt Protein g/k-1.1 Protein Calculated 67-74 Fluid: ml 1674-2017ml (1ml/kcal) Nutritional Problem No current Nutrition Prob Problem N/A Malnutrition Alert Protein-Calorie Malnutrition N/A Is there a minimum of two criteria No selected? Query Text:Check all the applicable criteria. A minimum of two criteria are recommended for diagnosis of either severe or non-severe malnutrition. Intervention/Recommendation Comments 1. Continue with current diet as ordered. 2. Monitor PO intake, wt, labs and skin integrity 3. F/U as low risk in 7 days, 04/19 Expected Outcomes/Goals Expected Outcomes/Goals 1. PO intake to meet at least 75% of nutritional needs. 2. Wt stability, skin to remain intact, labs to approach WNL.
--- NOTE | 2017-04-22 02:49 | Progress Notes ---
DATE: 04/20/2017 SUBJECTIVE: Chart reviewed and the patient interviewed. Also discussed the patient's condition with the staff and reviewed records and labs. The patient continued to be hoarding staff and getting things from different places and other patient's rooms and stacked them in his room. The patient also is still demanding and still easily agitated and easily irritable. He also has been having difficulty following staff directions and he still needs close monitoring. Otherwise, the patient is compliant with taking his medications with no side effects of medications. ASSESSMENT: The patient is still psychotic and agitated and also still needs placement. TREATMENT PLAN: We will continue monitoring his behavior and his condition closely. Also continue adjusting psychotropic medications. Also, continue to work on discharge plans and on placement issue because the patient still needs placement. JOB# [id number]
[2017-04-22] MEDS: Aspirin 81mg Chewable Tab PO SCH (08:58)
[2017-04-22] MEDS: HALOPERIDOL PO SCH ×2 (08:58→16:33)
[2017-04-22] MEDS: Lactobacillus Rhamnosus GG 15 Billion CFU CAP.SPRINK PO SCH (08:58)
[2017-04-22] MEDS: Ferrous Sulfate 325 MG TAB PO SCH ×3 (08:58→20:51)
[2017-04-22] MEDS: Multivitamin Tab PO SCH (08:58)
[2017-04-22] MEDS: Silver Antimicrobial Wound Gel 0.25 oz Tube TP SCH (08:59)
--- NOTE | 2017-04-22 16:25 | Progress Notes ---
DATE: SUBJECTIVE: Chart reviewed and the patient interviewed. Also discussed the patient's condition with the staff and reviewed records and labs. The patient is still easily irritable and easily agitated. The patient also is still hoarding and still getting other the patient's rooms, taking up belongings, and take it to his room. He also still has severe anxiety and severe mood swings. He also still seems to be suspicious and paranoid. Otherwise, the patient continued to comply with taking his medications, with no side effects of medications. Exam of the patient showed that the patient still needs close monitoring. He also still gets disheveled and needs close treatment. DISCHARGE PLANS: Outpatient treatment and followup. We will continue as an outpatient. JOB# [id number]
--- NOTE | 2017-04-22 19:38 | Progress Notes ---
DATE: 04/22/2017 SUBJECTIVE: The patient was seen in his room, lying in the bed. The patient appears to be confused and easily gets agitated, but otherwise appears to be in no acute distress. OBJECTIVE: VITAL SIGNS: Temperature 97.2, heart rate 77, blood pressure 108/75, respirations of 18, and 100% on room air. HEENT: Head is atraumatic and normocephalic. Eyes: Bilateral conjunctivae are clear. Bilateral pupils are equally round and reactive. NECK: Supple. No JVD. CARDIOVASCULAR: S1 and S2, without murmur. PULMONARY: Clear to auscultation. GASTROINTESTINAL: Soft and nontender without guarding. Positive bowel sounds. MUSCULOSKELETAL: No clubbing. No cyanosis noted. ASSESSMENT: 1. Schizoaffective disorder. 2. Hypertension. 3. Osteoarthritis. PLAN: We will continue current treatment and will follow up with a psychiatrist to monitor the patient's behavior. Treatment plan has been discussed with the patient's nurse. Treatment plan discussed with Dr. Mcleod. JOB# [id number]
[2017-04-23] MEDS: HALOPERIDOL PO SCH ×2 (08:24→16:17)
[2017-04-23] MEDS: Lactobacillus Rhamnosus GG 15 Billion CFU CAP.SPRINK PO SCH (08:24)
[2017-04-23] MEDS: Multivitamin Tab PO SCH (08:24)
[2017-04-23] MEDS: Aspirin 81mg Chewable Tab PO SCH (08:25)
[2017-04-23] MEDS: Ferrous Sulfate 325 MG TAB PO SCH ×3 (08:25→20:55)
[2017-04-23] MEDS: Silver Antimicrobial Wound Gel 0.25 oz Tube TP SCH (08:26)
--- NOTE | 2017-04-23 09:03 | General Progress Note ---
Subjective - Review of Systems Events since last encounter: patient confused irritable in no distress Objective - Results Result Diagrams: 04/07/17 01:45 04/07/17 01:45 Recent Labs: Laboratory Last Values WBC 4.1 Th/cmm (4.8-10.8) L 04/07/17 01:45 RBC 3.13 Mil/cmm (3.80-5.80) L 04/07/17 01:45 Hgb 10.0 gm/dL (12-16) L 04/07/17 01:45 Hct 29.7 % (41.0-60) L D 04/07/17 01:45 MCV 94.8 fl (80-99) 04/07/17 01:45 MCH 31.8 pg (27.0-31.0) H 04/07/17 01:45 MCHC Differential 33.6 pg (28.0-36.0) 04/07/17 01:45 RDW 15.0 % (11.5-20.0) 04/07/17 01:45 Plt Count 119 Th/cmm (150-400) L 04/07/17 01:45 MPV 8.9 fl 04/07/17 01:45 Neutrophils % 61.4 % (40.0-80.0) 04/07/17 01:45 Lymphocytes % 20.6 % (20.0-50.0) 04/07/17 01:45 Monocytes % 13.4 % (2.0-10.0) H 04/07/17 01:45 Eosinophils % 4.5 % (0.0-5.0) 04/07/17 01:45 Basophils % 0.1 % (0.0-2.0) 04/07/17 01:45 Sodium 137 mEq/L (136-145) 04/07/17 01:45 Potassium 4.0 mEq/L (3.5-5.1) 04/07/17 01:45 Chloride 106 mEq/L (98-107) 04/07/17 01:45 Carbon Dioxide 30.0 mEq/L (21.0-31.0) 04/07/17 01:45 Anion Gap 5.0 (7.0-16.0) L 04/07/17 01:45 BUN 32 mg/dL (7-25) H 04/07/17 01:45 Creatinine 1.2 mg/dL (0.7-1.3) 04/07/17 01:45 Est GFR ( Amer) > 60.0 ml/min (>90) 04/07/17 01:45 Est GFR (Non-Af Amer) > 60.0 ml/min 04/07/17 01:45 BUN/Creatinine Ratio 26.7 04/07/17 01:45 Glucose 110 mg/dL (70-105) H 04/07/17 01:45 Hemoglobin A1c % 7.0 % (4.0-6.0) H 04/07/17 01:45 Calcium 8.5 mg/dL (8.6-10.3) L 04/07/17 01:45 Total Bilirubin 0.3 mg/dL (0.3-1.0) 04/07/17 01:45 AST 15 U/L (13-39) 04/07/17 01:45 ALT 12 U/L (7-52) 04/07/17 01:45 Alkaline Phosphatase 54 U/L (34-104) 04/07/17 01:45 Total Protein 6.2 gm/dL (6.0-8.3) 04/07/17 01:45 Albumin 3.4 gm/dL (4.2-5.5) L 04/07/17 01:45 Globulin 2.8 gm/dL 04/07/17 01:45 Albumin/Globulin Ratio 1.2 (1.0-1.8) 04/07/17 01:45 Triglycerides 48 mg/dL (<150) 04/07/17 01:45 Cholesterol 136 mg/dL (<200) 04/07/17 01:45 LDL Cholesterol Direct 60 mg/dL (75-193) L 04/07/17 01:45 HDL Cholesterol 66 mg/dL (23-92) 04/07/17 01:45 TSH 2.09 uIU/ml (0.34-5.60) 04/07/17 01:45 Urine Source CLEAN C 04/07/17 01:45 Urine Color YELLOW 04/07/17 01:45 Urine Clarity CLEAR (CLEAR) 04/07/17 01:45 Urine pH 7.0 (4.6 - 8.0) 04/07/17 01:45 Ur Specific [place] <= 1.005 (1.005-1.030) 04/07/17 01:45 Urine Protein NEGATIVE mg/dL (NEGATIVE) 04/07/17 01:45 Urine Glucose (UA) NEGATIVE mg/dL (NEGATIVE) 04/07/17 01:45 Urine Ketones NEGATIVE mg/dL (NEGATIVE) 04/07/17 01:45 Urine Blood NEGATIVE (NEGATIVE) 04/07/17 01:45 Urine Nitrate NEGATIVE (NEGATIVE) 04/07/17 01:45 Urine Bilirubin NEGATIVE (NEGATIVE) 04/07/17 01:45 Urine Urobilinogen 0.2 E.U./dL (0.2 - 1.0) 04/07/17 01:45 Ur Leukocyte Esterase NEGATIVE (NEGATIVE) 04/07/17 01:45 Urine RBC NONE SEEN /hpf (0-5) 04/07/17 01:45 Urine WBC 0-2 /hpf (0-5) 04/07/17 01:45 Ur Epithelial Cells OCCASIONAL /lpf (FEW) 04/07/17 01:45 Urine Bacteria OCCASIONAL /hpf (NONE SEEN) 04/07/17 01:45 Salicylates < 25.0 mg/L (30.0-100.0) L 04/07/17 01:45 Acetaminophen < 10.0 ug/mL (10.0-30.0) L 04/07/17 01:45 Valproic Acid 48.7 ug/mL (50.0-100.0) L 04/13/17 08:20 Ethyl Alcohol < 10 mg/dL (0-10) 04/07/17 01:45 RPR NONREACTIVE (NONREACTIVE) 04/07/17 01:45 - Physical Exam Vitals and I&O: Vital Signs Temp 97.3 F 04/22/17 21:35 Pulse 72 04/22/17 19:52 Resp 20 04/22/17 21:35 BP 101/63 04/22/17 21:35 Pulse Ox 99 04/22/17 21:35 Intake & Output 04/22/17 04/23/17 04/23/17 18:59 06:59 18:59 Intake Total 1000 240 Balance 1000 240 Intake: Oral 1000 240 Other: # Voids 4 1 # Bowel Movements 1 Active Medications: Current Medications Acetaminophen (Tylenol) 650 mg PO Q4HR PRN PRN Reason: Mild Pain / Temp above 100 Stop: 06/06/17 03:20 Last Admin: 04/12/17 10:15 Dose: 650 mg Al Hydrox/Mg Hydrox/Simethicone (Maalox) 30 ml PO Q4HR PRN PRN Reason: GI DISTRESS Stop: 06/06/17 03:20 Aspirin (Aspirin Chewable) 81 mg PO DAILY [facility] Stop: 06/06/17 08:59 Last Admin: 04/23/17 08:25 Dose: 81 mg Bisacodyl (Dulcolax 10 Mg Supp) 10 mg RC DAILY PRN PRN Reason: Constipation Stop: 06/06/17 03:23 Cephalexin Monohydrate (Keflex) 500 mg PO Q12H [facility] Stop: 06/18/17 15:44 Last Admin: 04/23/17 03:54 Dose: 500 mg Divalproex Sodium (Depakote Dr) 500 mg PO BID [facility] PRN Reason: Protocol Stop: 06/06/17 08:59 Last Admin: 04/23/17 08:24 Dose: 500 mg Docusate Sodium (Colace) 100 mg PO DAILY [facility] Stop: 06/06/17 08:59 Last Admin: 04/23/17 08:24 Dose: 100 mg Ferrous Sulfate (Iron) 325 mg PO TID [facility] Stop: 06/06/17 08:59 Last Admin: 04/23/17 08:25 Dose: 325 mg Furosemide (Lasix) 40 mg PO DAILY [facility] Stop: 06/06/17 08:59 Last Admin: 04/23/17 08:25 Dose: Not Given Haloperidol 5 mg/ Haloperidol (2 mg) 7 mg PO BID [facility] Stop: 06/09/17 08:59 Last Admin: 04/23/17 08:24 Dose: 7 mg Lactobacillus Rhamnosus (Culturelle 15b) 1 each PO DAILY [facility] Stop: 06/20/17 08:59 Last Admin: 04/23/17 08:24 Dose: 1 each Lorazepam (Ativan) 0.5 mg PO Q4HR PRN; Protocol PRN Reason: Anxiety/agitation Stop: 05/07/17 03:20 Last Admin: 04/23/17 08:24 Dose: 0.5 mg Magnesium Hydroxide (Milk Of Magnesia) 30 ml PO HS PRN PRN Reason: Constipation Miscellaneous (Probiotic Screen) 1 ea MC PRN PRN PRN Reason: PROTOCOL Stop: 06/19/17 11:59 Multivitamins/Vitamin C (Theragran) 1 tab PO DAILY [facility] Stop: 06/06/17 08:59 Last Admin: 04/23/17 08:24 Dose: 1 tab Quetiapine Fumarate (Seroquel) 400 mg PO BID [facility]ET PRN Reason: Protocol Stop: 06/06/17 08:59 Last Admin: 04/23/17 08:24 Dose: 400 mg Valsartan (Diovan) 80 mg PO DAILY [facility] Stop: 06/06/17 08:59 Last Admin: 04/23/17 08:26 Dose: Not Given Wound Care/Dressing Products (Silvasorb) 1 appl TP DAILY [facility] Stop: 06/06/17 08:59 Last Admin: 04/23/17 08:26 Dose: Not Given Zolpidem Tartrate (Ambien) 5 mg PO HS PRN PRN Reason: Insomnia Stop: 06/07/17 23:15 Last Admin: 04/20/17 21:11 Dose: 5 mg General: No acute distress HEENT: Atraumatic Neck: Supple, JVD, Thyromegaly Cardiovascular: Regular rate, Normal S1, Normal S2 Lungs: Clear to auscultation Abdomen: Bowel sounds - Procedures Procedures: Procedures Procedure Code Date EXCISION OF FINGER NAIL, EXTERNAL APPROACH [id number] 03/15/17 Assessment/Plan - Problem List Patient Problems: All Active Problems HTN (hypertension) (Acute) I10 Osteoarthritis (Acute) M19.90 Schizophrenia (Acute) F20.9 possible effusion of finger (Acute) r/o gangrene (Acute) - Plan Plan: as per psych will monitor Nutritional Asmnt/Malnutr-PDOC - Dietary Evaluation Malnutrition Findings (Please click <Entered> for more info): Nutritional Asmnt/Malnutrition Start: 04/12/17 13: 03 Text: Status: Complete Freq: Document 04/12/17 13:03 LAUREN (Rec: 04/12/17 13:19 [email or web address]) Nutritional Asmnt/Malnutrition Patient General Information Nutritional Screening Moderate Risk Diagnosis psychosis Pertinent Medical Hx/Surgical Hx HTN, OA Subjective Information Pt seen sitting in kimberley-chair in hallway, confused. Per notes, PO intake 100%. Current Diet Order/ Nutrition Support Regular Pertinent Medications colace, iron, lasix, theragran , seroquel Pertinent Labs 04/07 Na 137, K 4.0, cl 106, BUN 32, Cr 1.2, Glucose 110, A1c 7.0, Ca 8.5, Alb 3.4 Nutritional Hx/Data Height 1.78 m Height (Calculated Centimeters) 177.8 Current Weight (lbs) 67.132 kg Weight (Calculated Kilograms) 67.1 Weight (Calculated Grams) [address] Body Weight 166 % [address] Body Weight 89 Body Mass Index (BMI) 21.2 GI Symptoms GI Symptoms None Last BM 04/09 Difficult in: None Skin Integrity/Comment: wound on right 3rd finger skin dryness Current %PO Good (75-100%) Estimated Nutritional Goals BEE in Kcals: Using Current wt Calories/Kcals/Kg 25-30 Kcals Calculated 2042-0988 Protein: Using Current wt Protein g/k-1.1 Protein Calculated - Fluid: ml 1674-2017ml (1ml/kcal) Nutritional Problem No current Nutrition Prob Problem N/A Malnutrition Alert Protein-Calorie Malnutrition N/A Is there a minimum of two criteria No selected? Query Text:Check all the applicable criteria. A minimum of two criteria are recommended for diagnosis of either severe or non-severe malnutrition. Intervention/Recommendation Comments 1. Continue with current diet as ordered. 2. Monitor PO intake, wt, labs and skin integrity 3. F/U as low risk in 7 days, 04/19 Expected Outcomes/Goals Expected Outcomes/Goals 1. PO intake to meet at least 75% of nutritional needs. 2. Wt stability, skin to remain intact, labs to approach WNL.
[2017-04-24] MEDS: Lactobacillus Rhamnosus GG 15 Billion CFU CAP.SPRINK PO SCH (08:16)
[2017-04-24] MEDS: Multivitamin Tab PO SCH (08:16)
[2017-04-24] MEDS: HALOPERIDOL PO SCH ×2 (08:16→16:57)
[2017-04-24] MEDS: Ferrous Sulfate 325 MG TAB PO SCH ×3 (08:17→21:05)
[2017-04-24] MEDS: Aspirin 81mg Chewable Tab PO SCH (08:17)
[2017-04-24] MEDS: Silver Antimicrobial Wound Gel 0.25 oz Tube TP SCH (08:33)
--- NOTE | 2017-04-24 09:29 | General Progress Note ---
Subjective - Review of Systems Events since last encounter: no change Objective - Results Result Diagrams: 04/07/17 01:45 04/07/17 01:45 Recent Labs: Laboratory Last Values WBC 4.1 Th/cmm (4.8-10.8) L 04/07/17 01:45 RBC 3.13 Mil/cmm (3.80-5.80) L 04/07/17 01:45 Hgb 10.0 gm/dL (12-16) L 04/07/17 01:45 Hct 29.7 % (41.0-60) L D 04/07/17 01:45 MCV 94.8 fl (80-99) 04/07/17 01:45 MCH 31.8 pg (27.0-31.0) H 04/07/17 01:45 MCHC Differential 33.6 pg (28.0-36.0) 04/07/17 01:45 RDW 15.0 % (11.5-20.0) 04/07/17 01:45 Plt Count 119 Th/cmm (150-400) L 04/07/17 01:45 MPV 8.9 fl 04/07/17 01:45 Neutrophils % 61.4 % (40.0-80.0) 04/07/17 01:45 Lymphocytes % 20.6 % (20.0-50.0) 04/07/17 01:45 Monocytes % 13.4 % (2.0-10.0) H 04/07/17 01:45 Eosinophils % 4.5 % (0.0-5.0) 04/07/17 01:45 Basophils % 0.1 % (0.0-2.0) 04/07/17 01:45 Sodium 137 mEq/L (136-145) 04/07/17 01:45 Potassium 4.0 mEq/L (3.5-5.1) 04/07/17 01:45 Chloride 106 mEq/L (98-107) 04/07/17 01:45 Carbon Dioxide 30.0 mEq/L (21.0-31.0) 04/07/17 01:45 Anion Gap 5.0 (7.0-16.0) L 04/07/17 01:45 BUN 32 mg/dL (7-25) H 04/07/17 01:45 Creatinine 1.2 mg/dL (0.7-1.3) 04/07/17 01:45 Est GFR ( Amer) > 60.0 ml/min (>90) 04/07/17 01:45 Est GFR (Non-Af Amer) > 60.0 ml/min 04/07/17 01:45 BUN/Creatinine Ratio 26.7 04/07/17 01:45 Glucose 110 mg/dL (70-105) H 04/07/17 01:45 Hemoglobin A1c % 7.0 % (4.0-6.0) H 04/07/17 01:45 Calcium 8.5 mg/dL (8.6-10.3) L 04/07/17 01:45 Total Bilirubin 0.3 mg/dL (0.3-1.0) 04/07/17 01:45 AST 15 U/L (13-39) 04/07/17 01:45 ALT 12 U/L (7-52) 04/07/17 01:45 Alkaline Phosphatase 54 U/L (34-104) 04/07/17 01:45 Total Protein 6.2 gm/dL (6.0-8.3) 04/07/17 01:45 Albumin 3.4 gm/dL (4.2-5.5) L 04/07/17 01:45 Globulin 2.8 gm/dL 04/07/17 01:45 Albumin/Globulin Ratio 1.2 (1.0-1.8) 04/07/17 01:45 Triglycerides 48 mg/dL (<150) 04/07/17 01:45 Cholesterol 136 mg/dL (<200) 04/07/17 01:45 LDL Cholesterol Direct 60 mg/dL (75-193) L 04/07/17 01:45 HDL Cholesterol 66 mg/dL (23-92) 04/07/17 01:45 TSH 2.09 uIU/ml (0.34-5.60) 04/07/17 01:45 Urine Source CLEAN C 04/07/17 01:45 Urine Color YELLOW 04/07/17 01:45 Urine Clarity CLEAR (CLEAR) 04/07/17 01:45 Urine pH 7.0 (4.6 - 8.0) 04/07/17 01:45 Ur Specific [place] <= 1.005 (1.005-1.030) 04/07/17 01:45 Urine Protein NEGATIVE mg/dL (NEGATIVE) 04/07/17 01:45 Urine Glucose (UA) NEGATIVE mg/dL (NEGATIVE) 04/07/17 01:45 Urine Ketones NEGATIVE mg/dL (NEGATIVE) 04/07/17 01:45 Urine Blood NEGATIVE (NEGATIVE) 04/07/17 01:45 Urine Nitrate NEGATIVE (NEGATIVE) 04/07/17 01:45 Urine Bilirubin NEGATIVE (NEGATIVE) 04/07/17 01:45 Urine Urobilinogen 0.2 E.U./dL (0.2 - 1.0) 04/07/17 01:45 Ur Leukocyte Esterase NEGATIVE (NEGATIVE) 04/07/17 01:45 Urine RBC NONE SEEN /hpf (0-5) 04/07/17 01:45 Urine WBC 0-2 /hpf (0-5) 04/07/17 01:45 Ur Epithelial Cells OCCASIONAL /lpf (FEW) 04/07/17 01:45 Urine Bacteria OCCASIONAL /hpf (NONE SEEN) 04/07/17 01:45 Salicylates < 25.0 mg/L (30.0-100.0) L 04/07/17 01:45 Acetaminophen < 10.0 ug/mL (10.0-30.0) L 04/07/17 01:45 Valproic Acid 48.7 ug/mL (50.0-100.0) L 04/13/17 08:20 Ethyl Alcohol < 10 mg/dL (0-10) 04/07/17 01:45 RPR NONREACTIVE (NONREACTIVE) 04/07/17 01:45 - Physical Exam Vitals and I&O: Vital Signs Temp 97.4 F 04/23/17 20:16 Pulse 90 04/23/17 20:16 Resp 20 04/23/17 20:16 BP 116/62 04/23/17 20:16 Pulse Ox 97 04/23/17 20:16 Intake & Output 04/23/17 04/24/17 04/24/17 18:59 06:59 18:59 Intake Total 1000 120 Balance 1000 120 Intake: Oral 1000 120 Other: # Voids 4 3 # Bowel Movements 1 1 Active Medications: Current Medications Acetaminophen (Tylenol) 650 mg PO Q4HR PRN PRN Reason: Mild Pain / Temp above 100 Stop: 06/06/17 03:20 Last Admin: 04/12/17 10:15 Dose: 650 mg Al Hydrox/Mg Hydrox/Simethicone (Maalox) 30 ml PO Q4HR PRN PRN Reason: GI DISTRESS Stop: 06/06/17 03:20 Aspirin (Aspirin Chewable) 81 mg PO DAILY [facility] Stop: 06/06/17 08:59 Last Admin: 04/24/17 08:17 Dose: 81 mg Bisacodyl (Dulcolax 10 Mg Supp) 10 mg RC DAILY PRN PRN Reason: Constipation Stop: 06/06/17 03:23 Cephalexin Monohydrate (Keflex) 500 mg PO Q12H [facility] Stop: 06/22/17 20:59 Last Admin: 04/24/17 08:17 Dose: 500 mg Divalproex Sodium (Depakote Dr) 500 mg PO BID [facility] PRN Reason: Protocol Stop: 06/06/17 08:59 Last Admin: 04/24/17 08:17 Dose: 500 mg Docusate Sodium (Colace) 100 mg PO DAILY [facility] Stop: 06/06/17 08:59 Last Admin: 04/24/17 08:17 Dose: 100 mg Ferrous Sulfate (Iron) 325 mg PO TID [facility] Stop: 06/06/17 08:59 Last Admin: 04/24/17 08:17 Dose: 325 mg Furosemide (Lasix) 40 mg PO DAILY [facility] Stop: 06/06/17 08:59 Last Admin: 04/24/17 08:33 Dose: Not Given Haloperidol 5 mg/ Haloperidol (2 mg) 7 mg PO BID [facility] Stop: 06/09/17 08:59 Last Admin: 04/24/17 08:16 Dose: 7 mg Lactobacillus Rhamnosus (Culturelle 15b) 1 each PO DAILY [facility] Stop: 06/20/17 08:59 Last Admin: 04/24/17 08:16 Dose: 1 each Lorazepam (Ativan) 0.5 mg PO Q4HR PRN; Protocol PRN Reason: Anxiety/agitation Stop: 05/07/17 03:20 Last Admin: 04/23/17 08:24 Dose: 0.5 mg Magnesium Hydroxide (Milk Of Magnesia) 30 ml PO HS PRN PRN Reason: Constipation Miscellaneous (Probiotic Screen) 1 ea MC PRN PRN PRN Reason: PROTOCOL Stop: 04/02/18 11:59 Multivitamins/Vitamin C (Theragran) 1 tab PO DAILY [facility] Stop: 06/06/17 08:59 Last Admin: 04/24/17 08:16 Dose: 1 tab Quetiapine Fumarate (Seroquel) 400 mg PO BID [facility]ISABET PRN Reason: Protocol Stop: 06/06/17 08:59 Last Admin: 04/24/17 08:16 Dose: 400 mg Valsartan (Diovan) 80 mg PO DAILY [facility] Stop: 06/06/17 08:59 Last Admin: 04/24/17 08:33 Dose: Not Given Wound Care/Dressing Products (Silvasorb) 1 appl TP DAILY [facility] Stop: 06/06/17 08:59 Last Admin: 04/24/17 08:33 Dose: Not Given Zolpidem Tartrate (Ambien) 5 mg PO HS PRN PRN Reason: Insomnia Stop: 06/07/17 23:15 Last Admin: 04/20/17 21:11 Dose: 5 mg General: No acute distress HEENT: Atraumatic Neck: Supple, JVD, Thyromegaly Cardiovascular: Regular rate, Normal S1, Normal S2 Lungs: Clear to auscultation Abdomen: Bowel sounds - Procedures Procedures: Procedures Procedure Code Date EXCISION OF FINGER NAIL, EXTERNAL APPROACH [id number] 03/15/17 Assessment/Plan - Problem List Patient Problems: All Active Problems HTN (hypertension) (Acute) I10 Osteoarthritis (Acute) M19.90 Schizophrenia (Acute) F20.9 possible effusion of finger (Acute) r/o gangrene (Acute) - Plan Plan: as per psych will monitor Nutritional Asmnt/Malnutr-PDOC - Dietary Evaluation Malnutrition Findings (Please click <Entered> for more info): Nutritional Asmnt/Malnutrition Start: 04/12/17 13: 03 Text: Status: Complete Freq: Document 04/12/17 13:03 LAUREN (Rec: 04/12/17 13:19 [email or web address] Nutritional Asmnt/Malnutrition Patient General Information Nutritional Screening Moderate Risk Diagnosis psychosis Pertinent Medical Hx/Surgical Hx HTN, OA Subjective Information Pt seen sitting in kimberley-chair in hallway, confused. Per notes, PO intake 100%. Current Diet Order/ Nutrition Support Regular Pertinent Medications colace, iron, lasix, theragran , seroquel Pertinent Labs 1/19 Na 137, K 4.0, cl 106, BUN 32, Cr 1.2, Glucose 110, A1c 7.0, Ca 8.5, Alb 3.4 Nutritional Hx/Data Height 1.78 m Height (Calculated Centimeters) 177.8 Current Weight (lbs) 67.132 kg Weight (Calculated Kilograms) 67.1 Weight (Calculated Grams) 86756.7 [place] Body Weight 166 % [place] Body Weight 89 Body Mass Index (BMI) 21.2 GI Symptoms GI Symptoms None Last BM 04/09 Difficult in: None Skin Integrity/Comment: wound on right 3rd finger skin dryness Current %PO Good (75-100%) Estimated Nutritional Goals BEE in Kcals: Using Current wt Calories/Kcals/Kg 25-30 Kcals Calculated 6229-1321 Protein: Using Current wt Protein g/k-1.1 Protein Calculated 67-74 Fluid: ml 1674-2017ml (1ml/kcal) Nutritional Problem No current Nutrition Prob Problem N/A Malnutrition Alert Protein-Calorie Malnutrition N/A Is there a minimum of two criteria No selected? Query Text:Check all the applicable criteria. A minimum of two criteria are recommended for diagnosis of either severe or non-severe malnutrition. Intervention/Recommendation Comments 1. Continue with current diet as ordered. 2. Monitor PO intake, wt, labs and skin integrity 3. F/U as low risk in 7 days, 04/19 Expected Outcomes/Goals Expected Outcomes/Goals 1. PO intake to meet at least 75% of nutritional needs. 2. Wt stability, skin to remain intact, labs to approach WNL.
--- NOTE | 2017-04-24 12:27 | Progress Notes ---
DATE: 04/22/2017 SUBJECTIVE: Chart reviewed and the patient interviewed. Also discussed the patient's condition with the staff and reviewed the records and labs. The patient continued to be in irritable and angry mood. The patient is still pacing up and down the unit. Also, is still suspicious and paranoid and continue holding and the patient is going into different people's rooms picking up trash and hoarding in his room. Otherwise, the patient is compliant with taking his medications with no side effects of medications. ASSESSMENT: The patient is still psychotic. TREATMENT PLAN: Continue to monitor his behavior and his condition closely. Also, continue to work on his hoarding and agitation and also on discharge plans and placement issue since it seemed that no place accepted the patient yet. JOB# [id number]
[2017-04-25] MEDS: Aspirin 81mg Chewable Tab PO SCH (08:07)
[2017-04-25] MEDS: Ferrous Sulfate 325 MG TAB PO SCH ×3 (08:07→21:21)
[2017-04-25] MEDS: HALOPERIDOL PO SCH ×2 (08:08→16:18)
[2017-04-25] MEDS: Multivitamin Tab PO SCH (08:08)
[2017-04-25] MEDS: Silver Antimicrobial Wound Gel 0.25 oz Tube TP SCH (08:08)
[2017-04-25] MEDS: Lactobacillus Rhamnosus GG 15 Billion CFU CAP.SPRINK PO SCH (08:08)
--- NOTE | 2017-04-25 12:26 | Internal Medicine Prog Note ---
Internal Medicine Subjective - Subjective Service Date: 04/25/17 Patient is:: awake Per staff patient has:: tolerating meds Internal Medicine Objective - Results Result Diagrams: 04/07/17 01:45 04/07/17 01:45 Recent Labs: Laboratory Last Values WBC 4.1 Th/cmm (4.8-10.8) L 04/07/17 01:45 RBC 3.13 Mil/cmm (3.80-5.80) L 04/07/17 01:45 Hgb 10.0 gm/dL (12-16) L 04/07/17 01:45 Hct 29.7 % (41.0-60) L D 04/07/17 01:45 MCV 94.8 fl (80-99) 04/07/17 01:45 MCH 31.8 pg (27.0-31.0) H 04/07/17 01:45 MCHC Differential 33.6 pg (28.0-36.0) 04/07/17 01:45 RDW 15.0 % (11.5-20.0) 04/07/17 01:45 Plt Count 119 Th/cmm (150-400) L 04/07/17 01:45 MPV 8.9 fl 04/07/17 01:45 Neutrophils % 61.4 % (40.0-80.0) 04/07/17 01:45 Lymphocytes % 20.6 % (20.0-50.0) 04/07/17 01:45 Monocytes % 13.4 % (2.0-10.0) H 04/07/17 01:45 Eosinophils % 4.5 % (0.0-5.0) 04/07/17 01:45 Basophils % 0.1 % (0.0-2.0) 04/07/17 01:45 Sodium 137 mEq/L (136-145) 04/07/17 01:45 Potassium 4.0 mEq/L (3.5-5.1) 04/07/17 01:45 Chloride 106 mEq/L (98-107) 04/07/17 01:45 Carbon Dioxide 30.0 mEq/L (21.0-31.0) 04/07/17 01:45 Anion Gap 5.0 (7.0-16.0) L 04/07/17 01:45 BUN 32 mg/dL (7-25) H 04/07/17 01:45 Creatinine 1.2 mg/dL (0.7-1.3) 04/07/17 01:45 Est GFR ( Amer) > 60.0 ml/min (>90) 04/07/17 01:45 Est GFR (Non-Af Amer) > 60.0 ml/min 04/07/17 01:45 BUN/Creatinine Ratio 26.7 04/07/17 01:45 Glucose 110 mg/dL (70-105) H 04/07/17 01:45 Hemoglobin A1c % 7.0 % (4.0-6.0) H 04/07/17 01:45 Calcium 8.5 mg/dL (8.6-10.3) L 04/07/17 01:45 Total Bilirubin 0.3 mg/dL (0.3-1.0) 04/07/17 01:45 AST 15 U/L (13-39) 04/07/17 01:45 ALT 12 U/L (7-52) 04/07/17 01:45 Alkaline Phosphatase 54 U/L (34-104) 04/07/17 01:45 Total Protein 6.2 gm/dL (6.0-8.3) 04/07/17 01:45 Albumin 3.4 gm/dL (4.2-5.5) L 04/07/17 01:45 Globulin 2.8 gm/dL 04/07/17 01:45 Albumin/Globulin Ratio 1.2 (1.0-1.8) 04/07/17 01:45 Triglycerides 48 mg/dL (<150) 04/07/17 01:45 Cholesterol 136 mg/dL (<200) 04/07/17 01:45 LDL Cholesterol Direct 60 mg/dL (75-193) L 04/07/17 01:45 HDL Cholesterol 66 mg/dL (23-92) 04/07/17 01:45 TSH 2.09 uIU/ml (0.34-5.60) 04/07/17 01:45 Urine Source CLEAN C 04/07/17 01:45 Urine Color YELLOW 04/07/17 01:45 Urine Clarity CLEAR (CLEAR) 04/07/17 01:45 Urine pH 7.0 (4.6 - 8.0) 04/07/17 01:45 Ur Specific [place] <= 1.005 (1.005-1.030) 04/07/17 01:45 Urine Protein NEGATIVE mg/dL (NEGATIVE) 04/07/17 01:45 Urine Glucose (UA) NEGATIVE mg/dL (NEGATIVE) 04/07/17 01:45 Urine Ketones NEGATIVE mg/dL (NEGATIVE) 04/07/17 01:45 Urine Blood NEGATIVE (NEGATIVE) 04/07/17 01:45 Urine Nitrate NEGATIVE (NEGATIVE) 04/07/17 01:45 Urine Bilirubin NEGATIVE (NEGATIVE) 04/07/17 01:45 Urine Urobilinogen 0.2 E.U./dL (0.2 - 1.0) 04/07/17 01:45 Ur Leukocyte Esterase NEGATIVE (NEGATIVE) 04/07/17 01:45 Urine RBC NONE SEEN /hpf (0-5) 04/07/17 01:45 Urine WBC 0-2 /hpf (0-5) 04/07/17 01:45 Ur Epithelial Cells OCCASIONAL /lpf (FEW) 04/07/17 01:45 Urine Bacteria OCCASIONAL /hpf (NONE SEEN) 04/07/17 01:45 Salicylates < 25.0 mg/L (30.0-100.0) L 04/07/17 01:45 Acetaminophen < 10.0 ug/mL (10.0-30.0) L 04/07/17 01:45 Valproic Acid 48.7 ug/mL (50.0-100.0) L 04/13/17 08:20 Ethyl Alcohol < 10 mg/dL (0-10) 04/07/17 01:45 RPR NONREACTIVE (NONREACTIVE) 04/07/17 01:45 - Physical Exam Vitals and I&O: Vital Signs Temp 99.1 F 04/25/17 06:20 Pulse 87 04/25/17 06:20 Resp 20 04/25/17 06:20 BP 113/75 04/25/17 06:20 Pulse Ox 99 04/25/17 06:20 Intake & Output 04/24/17 04/25/17 04/25/17 18:59 06:59 18:59 Intake Total 1000 480 Balance 1000 480 Intake: Oral 1000 480 Other: # Voids 4 3 # Bowel Movements 1 1 Active Medications: Current Medications Acetaminophen (Tylenol) 650 mg PO Q4HR PRN PRN Reason: Mild Pain / Temp above 100 Stop: 06/06/17 03:20 Last Admin: 04/12/17 10:15 Dose: 650 mg Al Hydrox/Mg Hydrox/Simethicone (Maalox) 30 ml PO Q4HR PRN PRN Reason: GI DISTRESS Stop: 06/06/17 03:20 Aspirin (Aspirin Chewable) 81 mg PO DAILY [facility] Stop: 06/06/17 08:59 Last Admin: 04/25/17 08:07 Dose: 81 mg Bisacodyl (Dulcolax 10 Mg Supp) 10 mg RC DAILY PRN PRN Reason: Constipation Stop: 06/06/17 03:23 Cephalexin Monohydrate (Keflex) 500 mg PO Q12H [facility] Stop: 06/22/17 20:59 Last Admin: 04/25/17 08:07 Dose: 500 mg Divalproex Sodium (Depakote Dr) 500 mg PO BID [facility] PRN Reason: Protocol Stop: 06/06/17 08:59 Last Admin: 04/25/17 08:07 Dose: 500 mg Docusate Sodium (Colace) 100 mg PO DAILY [facility] Stop: 06/06/17 08:59 Last Admin: 04/25/17 08:07 Dose: 100 mg Ferrous Sulfate (Iron) 325 mg PO TID [facility] Stop: 06/06/17 08:59 Last Admin: 04/25/17 08:07 Dose: 325 mg Furosemide (Lasix) 40 mg PO DAILY [facility] Stop: 06/06/17 08:59 Last Admin: 04/25/17 08:07 Dose: Not Given Haloperidol 5 mg/ Haloperidol (2 mg) 7 mg PO BID [facility] Stop: 06/09/17 08:59 Last Admin: 04/25/17 08:08 Dose: 7 mg Lactobacillus Rhamnosus (Culturelle 15b) 1 each PO DAILY [facility] Stop: 06/20/17 08:59 Last Admin: 04/25/17 08:08 Dose: 1 each Lorazepam (Ativan) 0.5 mg PO Q4HR PRN; Protocol PRN Reason: Anxiety/agitation Stop: 05/07/17 03:20 Last Admin: 04/25/17 08:08 Dose: 0.5 mg Magnesium Hydroxide (Milk Of Magnesia) 30 ml PO HS PRN PRN Reason: Constipation Miscellaneous (Probiotic Screen) 1 ea MC PRN PRN PRN Reason: PROTOCOL Stop: 06/19/17 11:59 Multivitamins/Vitamin C (Theragran) 1 tab PO DAILY [facility] Stop: 06/06/17 08:59 Last Admin: 04/25/17 08:08 Dose: 1 tab Quetiapine Fumarate (Seroquel) 400 mg PO BID [facility] PRN Reason: Protocol Stop: 06/06/17 08:59 Last Admin: 04/25/17 08:08 Dose: 400 mg Valsartan (Diovan) 80 mg PO DAILY [facility] Stop: 06/06/17 08:59 Last Admin: 04/25/17 08:08 Dose: Not Given Wound Care/Dressing Products (Silvasorb) 1 appl TP DAILY [facility] Stop: 06/06/17 08:59 Last Admin: 04/25/17 08:08 Dose: Not Given Zolpidem Tartrate (Ambien) 5 mg PO HS PRN PRN Reason: Insomnia Stop: 06/07/17 23:15 Last Admin: 04/24/17 21:05 Dose: 5 mg General: alert HEENT: NC/AT, PERRLA Neck: Supple Lungs: CTAB Neurological: alert - Procedures Procedures: Procedures Procedure Code Date EXCISION OF FINGER NAIL, EXTERNAL APPROACH [id number] 03/15/17 Internal Medicine Assmt/Plan - Assessment Assessment: HTN (hypertension) (Acute) I10 Osteoarthritis (Acute) M19.90 Schizophrenia (Acute) F20.9 possible effusion of finger (Acute) r/o gangrene (Acute) - Plan Plan: SAFETY PRECAUTIONS CPM Nutritional Asmnt/Malnutr-PDOC - Dietary Evaluation Malnutrition Findings (Please click <Entered> for more info): Nutritional Asmnt/Malnutrition Start: 04/12/17 13: 03 Text: Status: Complete Freq: Document 04/12/17 13:03 LCHENG (Rec: 04/12/17 13:19 LCHENG [email or web address]) Nutritional Asmnt/Malnutrition Patient General Information Nutritional Screening Moderate Risk Diagnosis psychosis Pertinent Medical Hx/Surgical Hx HTN, OA Subjective Information Pt seen sitting in kimberley-chair in hallway, confused. Per notes, PO intake 100%. Current Diet Order/ Nutrition Support Regular Pertinent Medications colace, iron, lasix, theragran , seroquel Pertinent Labs 04/07 Na 137, K 4.0, cl 106, BUN 32, Cr 1.2, Glucose 110, A1c 7.0, Ca 8.5, Alb 3.4 Nutritional Hx/Data Height 5 ft 10 in Height (Calculated Centimeters) 177.8 Current Weight (lbs) 148 lb Weight (Calculated Kilograms) 67.1 Weight (Calculated Grams) 96641.7 [place] Body Weight 166 % [place] Body Weight 89 Body Mass Index (BMI) 21.2 GI Symptoms GI Symptoms None Last BM 04/09 Difficult in: None Skin Integrity/Comment: wound on right 3rd finger skin dryness Current %PO Good (75-100%) Estimated Nutritional Goals BEE in Kcals: Using Current wt Calories/Kcals/Kg 25-30 Kcals Calculated 2732-4261 Protein: Using Current wt Protein g/k-1.1 Protein Calculated - Fluid: ml 1674-2017ml (1ml/kcal) Nutritional Problem No current Nutrition Prob Problem N/A Malnutrition Alert Protein-Calorie Malnutrition N/A Is there a minimum of two criteria No selected? Query Text:Check all the applicable criteria. A minimum of two criteria are recommended for diagnosis of either severe or non-severe malnutrition. Intervention/Recommendation Comments 1. Continue with current diet as ordered. 2. Monitor PO intake, wt, labs and skin integrity 3. F/U as low risk in 7 days, 04/19 Expected Outcomes/Goals Expected Outcomes/Goals 1. PO intake to meet at least 75% of nutritional needs. 2. Wt stability, skin to remain intact, labs to approach WNL.
--- NOTE | 2017-04-26 07:30 | Progress Notes ---
DATE: 04/23/2017 SUBJECTIVE: Chart reviewed and the patient interviewed. Also discussed the patient's condition with the staff and reviewed records and labs. The patient continued to be irritable and in angry mood. The patient continued to entering other patients' rooms collecting trash and hoarding it in his room. He also is still focused on food. He also still needs a lot of observation and he still has difficulty following directions. Otherwise, the patient is compliant with taking his medications with no side effects of medications. manager search engine still has difficulty finding placement for the patient. ASSESSMENT: The patient is still psychotic, but seems to be reaching his baseline. TREATMENT PLAN: We will continue monitoring his behavior and his condition closely. Also, continue adjusting psychotropic medications and follow up his behavior and working with behavioral health case manager in regard to placement issue. JOB# [id number]
--- NOTE | 2017-04-26 09:39 | General Progress Note ---
Subjective - Review of Systems Events since last encounter: patient awake still irritable denies pain Objective - Results Result Diagrams: 04/07/17 01:45 04/07/17 01:45 Recent Labs: Laboratory Last Values WBC 4.1 Th/cmm (4.8-10.8) L 04/07/17 01:45 RBC 3.13 Mil/cmm (3.80-5.80) L 04/07/17 01:45 Hgb 10.0 gm/dL (12-16) L 04/07/17 01:45 Hct 29.7 % (41.0-60) L D 04/07/17 01:45 MCV 94.8 fl (80-99) 04/07/17 01:45 MCH 31.8 pg (27.0-31.0) H 04/07/17 01:45 MCHC Differential 33.6 pg (28.0-36.0) 04/07/17 01:45 RDW 15.0 % (11.5-20.0) 04/07/17 01:45 Plt Count 119 Th/cmm (150-400) L 04/07/17 01:45 MPV 8.9 fl 04/07/17 01:45 Neutrophils % 61.4 % (40.0-80.0) 04/07/17 01:45 Lymphocytes % 20.6 % (20.0-50.0) 04/07/17 01:45 Monocytes % 13.4 % (2.0-10.0) H 04/07/17 01:45 Eosinophils % 4.5 % (0.0-5.0) 04/07/17 01:45 Basophils % 0.1 % (0.0-2.0) 04/07/17 01:45 Sodium 137 mEq/L (136-145) 04/07/17 01:45 Potassium 4.0 mEq/L (3.5-5.1) 04/07/17 01:45 Chloride 106 mEq/L (98-107) 04/07/17 01:45 Carbon Dioxide 30.0 mEq/L (21.0-31.0) 04/07/17 01:45 Anion Gap 5.0 (7.0-16.0) L 04/07/17 01:45 BUN 32 mg/dL (7-25) H 04/07/17 01:45 Creatinine 1.2 mg/dL (0.7-1.3) 04/07/17 01:45 Est GFR ( Amer) > 60.0 ml/min (>90) 04/07/17 01:45 Est GFR (Non-Af Amer) > 60.0 ml/min 04/07/17 01:45 BUN/Creatinine Ratio 26.7 04/07/17 01:45 Glucose 110 mg/dL (70-105) H 04/07/17 01:45 Hemoglobin A1c % 7.0 % (4.0-6.0) H 04/07/17 01:45 Calcium 8.5 mg/dL (8.6-10.3) L 04/07/17 01:45 Total Bilirubin 0.3 mg/dL (0.3-1.0) 04/07/17 01:45 AST 15 U/L (13-39) 04/07/17 01:45 ALT 12 U/L (7-52) 04/07/17 01:45 Alkaline Phosphatase 54 U/L (34-104) 04/07/17 01:45 Total Protein 6.2 gm/dL (6.0-8.3) 04/07/17 01:45 Albumin 3.4 gm/dL (4.2-5.5) L 04/07/17 01:45 Globulin 2.8 gm/dL 04/07/17 01:45 Albumin/Globulin Ratio 1.2 (1.0-1.8) 04/07/17 01:45 Triglycerides 48 mg/dL (<150) 04/07/17 01:45 Cholesterol 136 mg/dL (<200) 04/07/17 01:45 LDL Cholesterol Direct 60 mg/dL (75-193) L 04/07/17 01:45 HDL Cholesterol 66 mg/dL (23-92) 04/07/17 01:45 TSH 2.09 uIU/ml (0.34-5.60) 04/07/17 01:45 Urine Source CLEAN C 04/07/17 01:45 Urine Color YELLOW 04/07/17 01:45 Urine Clarity CLEAR (CLEAR) 04/07/17 01:45 Urine pH 7.0 (4.6 - 8.0) 04/07/17 01:45 Ur Specific [place] <= 1.005 (1.005-1.030) 04/07/17 01:45 Urine Protein NEGATIVE mg/dL (NEGATIVE) 04/07/17 01:45 Urine Glucose (UA) NEGATIVE mg/dL (NEGATIVE) 04/07/17 01:45 Urine Ketones NEGATIVE mg/dL (NEGATIVE) 04/07/17 01:45 Urine Blood NEGATIVE (NEGATIVE) 04/07/17 01:45 Urine Nitrate NEGATIVE (NEGATIVE) 04/07/17 01:45 Urine Bilirubin NEGATIVE (NEGATIVE) 04/07/17 01:45 Urine Urobilinogen 0.2 E.U./dL (0.2 - 1.0) 04/07/17 01:45 Ur Leukocyte Esterase NEGATIVE (NEGATIVE) 04/07/17 01:45 Urine RBC NONE SEEN /hpf (0-5) 04/07/17 01:45 Urine WBC 0-2 /hpf (0-5) 04/07/17 01:45 Ur Epithelial Cells OCCASIONAL /lpf (FEW) 04/07/17 01:45 Urine Bacteria OCCASIONAL /hpf (NONE SEEN) 04/07/17 01:45 Salicylates < 25.0 mg/L (30.0-100.0) L 04/07/17 01:45 Acetaminophen < 10.0 ug/mL (10.0-30.0) L 04/07/17 01:45 Valproic Acid 48.7 ug/mL (50.0-100.0) L 04/13/17 08:20 Ethyl Alcohol < 10 mg/dL (0-10) 04/07/17 01:45 RPR NONREACTIVE (NONREACTIVE) 04/07/17 01:45 - Physical Exam Vitals and I&O: Vital Signs Temp 98 F 04/26/17 06:13 Pulse 68 04/26/17 06:13 Resp 20 04/26/17 06:13 BP 121/71 04/26/17 06:13 Pulse Ox 98 04/26/17 06:13 Intake & Output 04/25/17 04/26/17 04/26/17 18:59 06:59 18:59 Intake Total 1000 120 Balance 1000 120 Intake: Oral 1000 120 Other: # Voids 4 3 # Bowel Movements 1 Active Medications: Current Medications Acetaminophen (Tylenol) 650 mg PO Q4HR PRN PRN Reason: Mild Pain / Temp above 100 Stop: 06/06/17 03:20 Last Admin: 04/12/17 10:15 Dose: 650 mg Al Hydrox/Mg Hydrox/Simethicone (Maalox) 30 ml PO Q4HR PRN PRN Reason: GI DISTRESS Stop: 06/06/17 03:20 Aspirin (Aspirin Chewable) 81 mg PO DAILY [facility] Stop: 06/06/17 08:59 Last Admin: 04/25/17 08:07 Dose: 81 mg Bisacodyl (Dulcolax 10 Mg Supp) 10 mg RC DAILY PRN PRN Reason: Constipation Stop: 06/06/17 03:23 Cephalexin Monohydrate (Keflex) 500 mg PO Q12H [facility] Stop: 06/22/17 20:59 Last Admin: 04/25/17 21:21 Dose: 500 mg Divalproex Sodium (Depakote Dr) 500 mg PO BID [facility] PRN Reason: Protocol Stop: 06/06/17 08:59 Last Admin: 04/25/17 16:18 Dose: 500 mg Docusate Sodium (Colace) 100 mg PO DAILY [facility] Stop: 06/06/17 08:59 Last Admin: 04/25/17 08:07 Dose: 100 mg Ferrous Sulfate (Iron) 325 mg PO TID [facility] Stop: 06/06/17 08:59 Last Admin: 04/25/17 21:21 Dose: 325 mg Furosemide (Lasix) 40 mg PO DAILY [facility] Stop: 06/06/17 08:59 Last Admin: 04/25/17 08:07 Dose: Not Given Haloperidol 5 mg/ Haloperidol (2 mg) 7 mg PO BID [facility] Stop: 06/09/17 08:59 Last Admin: 04/25/17 16:18 Dose: 7 mg Lactobacillus Rhamnosus (Culturelle 15b) 1 each PO DAILY [facility] Stop: 06/20/17 08:59 Last Admin: 04/25/17 08:08 Dose: 1 each Lorazepam (Ativan) 0.5 mg PO Q4HR PRN; Protocol PRN Reason: Anxiety/agitation Stop: 05/07/17 03:20 Last Admin: 04/25/17 21:21 Dose: 0.5 mg Magnesium Hydroxide (Milk Of Magnesia) 30 ml PO HS PRN PRN Reason: Constipation Miscellaneous (Probiotic Screen) 1 ea MC PRN PRN PRN Reason: PROTOCOL Stop: 06/19/17 11:59 Multivitamins/Vitamin C (Theragran) 1 tab PO DAILY [facility] Stop: 06/06/17 08:59 Last Admin: 04/25/17 08:08 Dose: 1 tab Quetiapine Fumarate (Seroquel) 400 mg PO BID [facility] PRN Reason: Protocol Stop: 06/06/17 08:59 Last Admin: 04/25/17 16:18 Dose: 400 mg Valsartan (Diovan) 80 mg PO DAILY [facility] Stop: 06/06/17 08:59 Last Admin: 04/25/17 08:08 Dose: Not Given Wound Care/Dressing Products (Silvasorb) 1 appl TP DAILY [facility] Stop: 06/06/17 08:59 Last Admin: 04/25/17 08:08 Dose: Not Given Zolpidem Tartrate (Ambien) 5 mg PO HS PRN PRN Reason: Insomnia Stop: 06/07/17 23:15 Last Admin: 04/24/17 21:05 Dose: 5 mg General: No acute distress HEENT: Atraumatic Neck: Supple, JVD, Thyromegaly Cardiovascular: Regular rate, Normal S1, Normal S2 Lungs: Clear to auscultation Abdomen: Bowel sounds - Procedures Procedures: Procedures Procedure Code Date EXCISION OF FINGER NAIL, EXTERNAL APPROACH 0HBQXZZ 03/15/17 Assessment/Plan - Problem List Patient Problems: All Active Problems HTN (hypertension) (Acute) I10 Osteoarthritis (Acute) M19.90 Schizophrenia (Acute) F20.9 possible effusion of finger (Acute) r/o gangrene (Acute) - Plan Plan: as per psych will monitor Nutritional Asmnt/Malnutr-PDOC - Dietary Evaluation Malnutrition Findings (Please click <Entered> for more info): Nutritional Asmnt/Malnutrition Start: 04/12/17 13: 03 Text: Status: Complete Freq: Document 04/12/17 13:03 LAUREN (Rec: 04/12/17 13:19 [email or web address] Nutritional Asmnt/Malnutrition Patient General Information Nutritional Screening Moderate Risk Diagnosis psychosis Pertinent Medical Hx/Surgical Hx HTN, OA Subjective Information Pt seen sitting in kimberley-chair in hallway, confused. Per notes, PO intake 100%. Current Diet Order/ Nutrition Support Regular Pertinent Medications colace, iron, lasix, theragran , seroquel Pertinent Labs 04/07 Na 137, K 4.0, cl 106, BUN 32, Cr 1.2, Glucose 110, A1c 7.0, Ca 8.5, Alb 3.4 Nutritional Hx/Data Height 1.78 m Height (Calculated Centimeters) 177.8 Current Weight (lbs) 67.132 kg Weight (Calculated Kilograms) 67.1 Weight (Calculated Grams) 16776.7 [place] Body Weight 166 % [place] Body Weight 89 Body Mass Index (BMI) 21.2 GI Symptoms GI Symptoms None Last BM 04/09 Difficult in: None Skin Integrity/Comment: wound on right 3rd finger skin dryness Current %PO Good (75-100%) Estimated Nutritional Goals BEE in Kcals: Using Current wt Calories/Kcals/Kg 25-30 Kcals Calculated 9526-2746 Protein: Using Current wt Protein g/k-1.1 Protein Calculated - Fluid: ml 1674-2017ml (1ml/kcal) Nutritional Problem No current Nutrition Prob Problem N/A Malnutrition Alert Protein-Calorie Malnutrition N/A Is there a minimum of two criteria No selected? Query Text:Check all the applicable criteria. A minimum of two criteria are recommended for diagnosis of either severe or non-severe malnutrition. Intervention/Recommendation Comments 1. Continue with current diet as ordered. 2. Monitor PO intake, wt, labs and skin integrity 3. F/U as low risk in 7 days, 04/19 Expected Outcomes/Goals Expected Outcomes/Goals 1. PO intake to meet at least 75% of nutritional needs. 2. Wt stability, skin to remain intact, labs to approach WNL.
[2017-04-26] MEDS: Lactobacillus Rhamnosus GG 15 Billion CFU CAP.SPRINK PO SCH (09:57)
[2017-04-26] MEDS: Multivitamin Tab PO SCH (09:59)
[2017-04-26] MEDS: Ferrous Sulfate 325 MG TAB PO SCH ×3 (09:59→20:36)
[2017-04-26] MEDS: HALOPERIDOL PO SCH ×2 (09:59→17:06)
[2017-04-26] MEDS: Aspirin 81mg Chewable Tab PO SCH (11:25)
[2017-04-26] MEDS: Silver Antimicrobial Wound Gel 0.25 oz Tube TP SCH (17:05)
--- NOTE | 2017-04-27 00:18 | Progress Notes ---
DATE: 04/24/2017 SUBJECTIVE: Chart reviewed and the patient interviewed. Also discussed the patient's condition with the staff and reviewed records and labs. The patient is still easily agitated and in irritable and angry mood. The patient also is still entering other patient's rooms. Also, is still collecting trash and other items and holding it in his room. Otherwise, the patient is compliant with taking his medications with no side effects of medications. ASSESSMENT: The patient is still psychotic. TREATMENT PLAN: Continue monitoring his medications and his condition closely. Also, returned case inspector still cannot find placement for the patient. We will continue adjusting psychotropic medications and also working on discharge plans and placement issue. JOB# [id number]
--- NOTE | 2017-04-27 08:39 | General Progress Note ---
Subjective - Review of Systems Events since last encounter: confused psychotic Objective - Results Result Diagrams: 04/07/17 01:45 04/07/17 01:45 Recent Labs: Laboratory Last Values WBC 4.1 Th/cmm (4.8-10.8) L 04/07/17 01:45 RBC 3.13 Mil/cmm (3.80-5.80) L 04/07/17 01:45 Hgb 10.0 gm/dL (12-16) L 04/07/17 01:45 Hct 29.7 % (41.0-60) L D 04/07/17 01:45 MCV 94.8 fl (80-99) 04/07/17 01:45 MCH 31.8 pg (27.0-31.0) H 04/07/17 01:45 MCHC Differential 33.6 pg (28.0-36.0) 04/07/17 01:45 RDW 15.0 % (11.5-20.0) 04/07/17 01:45 Plt Count 119 Th/cmm (150-400) L 04/07/17 01:45 MPV 8.9 fl 04/07/17 01:45 Neutrophils % 61.4 % (40.0-80.0) 04/07/17 01:45 Lymphocytes % 20.6 % (20.0-50.0) 04/07/17 01:45 Monocytes % 13.4 % (2.0-10.0) H 04/07/17 01:45 Eosinophils % 4.5 % (0.0-5.0) 04/07/17 01:45 Basophils % 0.1 % (0.0-2.0) 04/07/17 01:45 Sodium 137 mEq/L (136-145) 04/07/17 01:45 Potassium 4.0 mEq/L (3.5-5.1) 04/07/17 01:45 Chloride 106 mEq/L (98-107) 04/07/17 01:45 Carbon Dioxide 30.0 mEq/L (21.0-31.0) 04/07/17 01:45 Anion Gap 5.0 (7.0-16.0) L 04/07/17 01:45 BUN 32 mg/dL (7-25) H 04/07/17 01:45 Creatinine 1.2 mg/dL (0.7-1.3) 04/07/17 01:45 Est GFR ( Amer) > 60.0 ml/min (>90) 04/07/17 01:45 Est GFR (Non-Af Amer) > 60.0 ml/min 04/07/17 01:45 BUN/Creatinine Ratio 26.7 04/07/17 01:45 Glucose 110 mg/dL (70-105) H 04/07/17 01:45 Hemoglobin A1c % 7.0 % (4.0-6.0) H 04/07/17 01:45 Calcium 8.5 mg/dL (8.6-10.3) L 04/07/17 01:45 Total Bilirubin 0.3 mg/dL (0.3-1.0) 04/07/17 01:45 AST 15 U/L (13-39) 04/07/17 01:45 ALT 12 U/L (7-52) 04/07/17 01:45 Alkaline Phosphatase 54 U/L (34-104) 04/07/17 01:45 Total Protein 6.2 gm/dL (6.0-8.3) 04/07/17 01:45 Albumin 3.4 gm/dL (4.2-5.5) L 04/07/17 01:45 Globulin 2.8 gm/dL 04/07/17 01:45 Albumin/Globulin Ratio 1.2 (1.0-1.8) 04/07/17 01:45 Triglycerides 48 mg/dL (<150) 04/07/17 01:45 Cholesterol 136 mg/dL (<200) 04/07/17 01:45 LDL Cholesterol Direct 60 mg/dL (75-193) L 04/07/17 01:45 HDL Cholesterol 66 mg/dL (23-92) 04/07/17 01:45 TSH 2.09 uIU/ml (0.34-5.60) 04/07/17 01:45 Urine Source CLEAN C 04/07/17 01:45 Urine Color YELLOW 04/07/17 01:45 Urine Clarity CLEAR (CLEAR) 04/07/17 01:45 Urine pH 7.0 (4.6 - 8.0) 04/07/17 01:45 Ur Specific [place] <= 1.005 (1.005-1.030) 04/07/17 01:45 Urine Protein NEGATIVE mg/dL (NEGATIVE) 04/07/17 01:45 Urine Glucose (UA) NEGATIVE mg/dL (NEGATIVE) 04/07/17 01:45 Urine Ketones NEGATIVE mg/dL (NEGATIVE) 04/07/17 01:45 Urine Blood NEGATIVE (NEGATIVE) 04/07/17 01:45 Urine Nitrate NEGATIVE (NEGATIVE) 04/07/17 01:45 Urine Bilirubin NEGATIVE (NEGATIVE) 04/07/17 01:45 Urine Urobilinogen 0.2 E.U./dL (0.2 - 1.0) 04/07/17 01:45 Ur Leukocyte Esterase NEGATIVE (NEGATIVE) 04/07/17 01:45 Urine RBC NONE SEEN /hpf (0-5) 04/07/17 01:45 Urine WBC 0-2 /hpf (0-5) 04/07/17 01:45 Ur Epithelial Cells OCCASIONAL /lpf (FEW) 04/07/17 01:45 Urine Bacteria OCCASIONAL /hpf (NONE SEEN) 04/07/17 01:45 Salicylates < 25.0 mg/L (30.0-100.0) L 04/07/17 01:45 Acetaminophen < 10.0 ug/mL (10.0-30.0) L 04/07/17 01:45 Valproic Acid 48.7 ug/mL (50.0-100.0) L 04/13/17 08:20 Ethyl Alcohol < 10 mg/dL (0-10) 04/07/17 01:45 RPR NONREACTIVE (NONREACTIVE) 04/07/17 01:45 - Physical Exam Vitals and I&O: Vital Signs Temp 97.2 F 04/27/17 06:35 Pulse 89 04/27/17 06:35 Resp 20 04/27/17 06:35 BP 131/83 04/27/17 06:35 Pulse Ox 100 04/27/17 06:35 Intake & Output 04/26/17 04/27/17 04/27/17 18:59 06:59 18:59 Intake Total 1200 120 Balance 1200 120 Intake: Oral 1200 120 Other: # Voids 3 # Bowel Movements 1 Active Medications: Current Medications Acetaminophen (Tylenol) 650 mg PO Q4HR PRN PRN Reason: Mild Pain / Temp above 100 Stop: 06/06/17 03:20 Last Admin: 04/12/17 10:15 Dose: 650 mg Al Hydrox/Mg Hydrox/Simethicone (Maalox) 30 ml PO Q4HR PRN PRN Reason: GI DISTRESS Stop: 06/06/17 03:20 Aspirin (Aspirin Chewable) 81 mg PO DAILY ELISABET Stop: 06/06/17 08:59 Last Admin: 04/26/17 11:25 Dose: Not Given Bisacodyl (Dulcolax 10 Mg Supp) 10 mg RC DAILY PRN PRN Reason: Constipation Stop: 06/06/17 03:23 Cephalexin Monohydrate (Keflex) 500 mg PO Q12H ELISABET Stop: 06/22/17 20:59 Last Admin: 04/26/17 20:36 Dose: 500 mg Divalproex Sodium (Depakote Dr) 500 mg PO BID ELISABET PRN Reason: Protocol Stop: 06/06/17 08:59 Last Admin: 04/26/17 17:06 Dose: 500 mg Docusate Sodium (Colace) 100 mg PO DAILY ELISABET Stop: 06/06/17 08:59 Last Admin: 04/26/17 11:25 Dose: Not Given Ferrous Sulfate (Iron) 325 mg PO TID ELISABET Stop: 06/06/17 08:59 Last Admin: 04/26/17 20:36 Dose: 325 mg Furosemide (Lasix) 40 mg PO DAILY ELISABET Stop: 06/06/17 08:59 Last Admin: 04/26/17 10:00 Dose: 40 mg Haloperidol 5 mg/ Haloperidol (2 mg) 7 mg PO BID ELISABET Stop: 06/09/17 08:59 Last Admin: 04/26/17 17:06 Dose: 7 mg Lactobacillus Rhamnosus (Culturelle 15b) 1 each PO DAILY ELISABET Stop: 06/20/17 08:59 Last Admin: 04/26/17 09:57 Dose: 1 each Lorazepam (Ativan) 0.5 mg PO Q4HR PRN; Protocol PRN Reason: Anxiety/agitation Stop: 05/07/17 03:20 Last Admin: 04/26/17 09:58 Dose: 0.5 mg Magnesium Hydroxide (Milk Of Magnesia) 30 ml PO HS PRN PRN Reason: Constipation Miscellaneous (Probiotic Screen) 1 ea MC PRN PRN PRN Reason: PROTOCOL Stop: 06/19/17 11:59 Multivitamins/Vitamin C (Theragran) 1 tab PO DAILY ELISABET Stop: 06/06/17 08:59 Last Admin: 04/26/17 09:59 Dose: 1 tab Quetiapine Fumarate (Seroquel) 400 mg PO BID ELISABET PRN Reason: Protocol Stop: 06/06/17 08:59 Last Admin: 04/26/17 17:06 Dose: 400 mg Valsartan (Diovan) 80 mg PO DAILY ELISABET Stop: 06/06/17 08:59 Last Admin: 04/26/17 11:26 Dose: Not Given Wound Care/Dressing Products (Silvasorb) 1 appl TP DAILY ELISABET Stop: 06/06/17 08:59 Last Admin: 04/26/17 17:05 Dose: Not Given Zolpidem Tartrate (Ambien) 5 mg PO HS PRN PRN Reason: Insomnia Stop: 06/07/17 23:15 Last Admin: 04/26/17 20:36 Dose: 5 mg General: No acute distress HEENT: Atraumatic Neck: Supple, JVD, Thyromegaly Cardiovascular: Regular rate, Normal S1, Normal S2 Lungs: Clear to auscultation Abdomen: Bowel sounds - Procedures Procedures: Procedures Procedure Code Date EXCISION OF FINGER NAIL, EXTERNAL APPROACH 0HBQXZZ 03/15/17 Assessment/Plan - Problem List Patient Problems: All Active Problems HTN (hypertension) (Acute) I10 Osteoarthritis (Acute) M19.90 Schizophrenia (Acute) F20.9 possible effusion of finger (Acute) r/o gangrene (Acute) - Plan Plan: as per psych will monitor Nutritional Asmnt/Malnutr-PDOC - Dietary Evaluation Malnutrition Findings (Please click <Entered> for more info): Nutritional Asmnt/Malnutrition Start: 04/12/17 13: 03 Text: Status: Complete Freq: Document 04/12/17 13:03 LCHENG (Rec: 04/12/17 13:19 LCDAVIDG [email or web address]) Nutritional Asmnt/Malnutrition Patient General Information Nutritional Screening Moderate Risk Diagnosis psychosis Pertinent Medical Hx/Surgical Hx HTN, OA Subjective Information Pt seen sitting in kimberley-chair in hallway, confused. Per notes, PO intake 100%. Current Diet Order/ Nutrition Support Regular Pertinent Medications colace, iron, lasix, theragran , seroquel Pertinent Labs 04/07 Na 137, K 4.0, cl 106, BUN 32, Cr 1.2, Glucose 110, A1c 7.0, Ca 8.5, Alb 3.4 Nutritional Hx/Data Height 1.78 m Height (Calculated Centimeters) 177.8 Current Weight (lbs) 67.132 kg Weight (Calculated Kilograms) 67.1 Weight (Calculated Grams) 62876.7 [place] Body Weight 166 % [place] Body Weight 89 Body Mass Index (BMI) 21.2 GI Symptoms GI Symptoms None Last BM 04/09 Difficult in: None Skin Integrity/Comment: wound on right 3rd finger skin dryness Current %PO Good (75-100%) Estimated Nutritional Goals BEE in Kcals: Using Current wt Calories/Kcals/Kg 25-30 Kcals Calculated 6270-0211 Protein: Using Current wt Protein g/k-1.1 Protein Calculated -74 Fluid: ml 1674-2017ml (1ml/kcal) Nutritional Problem No current Nutrition Prob Problem N/A Malnutrition Alert Protein-Calorie Malnutrition N/A Is there a minimum of two criteria No selected? Query Text:Check all the applicable criteria. A minimum of two criteria are recommended for diagnosis of either severe or non-severe malnutrition. Intervention/Recommendation Comments 1. Continue with current diet as ordered. 2. Monitor PO intake, wt, labs and skin integrity 3. F/U as low risk in 7 days, 04/19 Expected Outcomes/Goals Expected Outcomes/Goals 1. PO intake to meet at least 75% of nutritional needs. 2. Wt stability, skin to remain intact, labs to approach WNL.
[2017-04-27] MEDS: HALOPERIDOL PO SCH ×2 (10:07→16:43)
[2017-04-27] MEDS: Aspirin 81mg Chewable Tab PO SCH (10:09)
[2017-04-27] MEDS: Lactobacillus Rhamnosus GG 15 Billion CFU CAP.SPRINK PO SCH (10:12)
[2017-04-27] MEDS: Multivitamin Tab PO SCH (10:13)
[2017-04-27] MEDS: Ferrous Sulfate 325 MG TAB PO SCH ×3 (10:13→21:46)
[2017-04-27] MEDS: Silver Antimicrobial Wound Gel 0.25 oz Tube TP SCH (16:48)
[2017-04-28] MEDS: HALOPERIDOL PO SCH ×2 (09:12→17:17)
[2017-04-28] MEDS: Silver Antimicrobial Wound Gel 0.25 oz Tube TP SCH (09:14)
[2017-04-28] MEDS: Ferrous Sulfate 325 MG TAB PO SCH ×3 (09:14→21:34)
[2017-04-28] MEDS: Multivitamin Tab PO SCH (09:15)
[2017-04-28] MEDS: Lactobacillus Rhamnosus GG 15 Billion CFU CAP.SPRINK PO SCH (09:16)
[2017-04-28] MEDS: Aspirin 81mg Chewable Tab PO SCH (09:16)
--- NOTE | 2017-04-28 10:11 | Progress Notes ---
DATE: 04/25/2017 SUBJECTIVE: Chart reviewed and the patient interviewed. Also discussed the patient's condition with the staff and reviewed records and labs. The patient is still agitated and he is still entering other patients' rooms, stealing belongings and hoarding it in his room. Also, still disheveled and personal hygiene is still poor. Also, staff notes that the patient has been tearing stuff from magazines and putting them in a paper bag in his room and stacking things. The patient also still have inappropriate behavior and he is telling others to have sex to exchange with food. ASSESSMENT: The patient is still agitated and irritable and confused. TREATMENT PLAN: Continue to monitor his behavior and condition closely. Also, try to work on behavior modification and his impulsivity. Also, adjusting psychotropic medications and the patient denies side effects of medications. At the same time, case aide still have difficult time finding placement for the patient with his current behavior. A lot of places refused to take him. [facility]# [id number]
--- NOTE | 2017-04-28 11:08 | Progress Notes ---
DATE: 04/26/2017 SUBJECTIVE: Chart reviewed and the patient interviewed. Also discussed the patient's condition with the staff and reviewed the records and labs. The patient is still hoarding his and collecting trash to his room. The patient also is focused on food and asking for more food. The patient also is still agitated and irritable and needs lots of redirections. Otherwise, the patient is compliant with taking medications with no side effect of medications. ASSESSMENT: The patient is still agitated and is still delusional. TREATMENT PLAN: Continue to monitor his behavior and his condition closely. Also, continue to adjust psychotropic medications. Also, case coordinator still has difficulty finding a place for the patient. [facility]# [id number]
--- NOTE | 2017-04-28 12:35 | Progress Notes ---
DATE: 04/27/2017 SUBJECTIVE: Chart reviewed and the patient interviewed. Also discussed the patient's condition with the staff and reviewed records and labs. The patient is still anxious and in irritable mood. The patient also is still in irritable and in depressed mood and confused. He also is still going to patients room and tried to collect the trash and garbage in a paper bag and take it to his room. He still has difficulty resisting hoarding stuff in spite of any staff directions and staff observation. The patient denies any side effects of medications. ASSESSMENT: The patient is still psychotic, but seems to be less. TREATMENT PLAN: The patient is still needs behavioral modification and also still needs placement. abstract manager continue to work on discharge plans and so far no placement available for the patient. JOB# [id number]
--- NOTE | 2017-04-28 17:27 | Internal Medicine Prog Note ---
Internal Medicine Subjective - Subjective Service Date: 04/28/17 Patient is:: awake Per staff patient has:: tolerating meds Internal Medicine Objective - Results Result Diagrams: 04/07/17 01:45 04/07/17 01:45 Recent Labs: Laboratory Last Values WBC 4.1 Th/cmm (4.8-10.8) L 04/07/17 01:45 RBC 3.13 Mil/cmm (3.80-5.80) L 04/07/17 01:45 Hgb 10.0 gm/dL (12-16) L 04/07/17 01:45 Hct 29.7 % (41.0-60) L D 04/07/17 01:45 MCV 94.8 fl (80-99) 04/07/17 01:45 MCH 31.8 pg (27.0-31.0) H 04/07/17 01:45 MCHC Differential 33.6 pg (28.0-36.0) 04/07/17 01:45 RDW 15.0 % (11.5-20.0) 04/07/17 01:45 Plt Count 119 Th/cmm (150-400) L 04/07/17 01:45 MPV 8.9 fl 04/07/17 01:45 Neutrophils % 61.4 % (40.0-80.0) 04/07/17 01:45 Lymphocytes % 20.6 % (20.0-50.0) 04/07/17 01:45 Monocytes % 13.4 % (2.0-10.0) H 04/07/17 01:45 Eosinophils % 4.5 % (0.0-5.0) 04/07/17 01:45 Basophils % 0.1 % (0.0-2.0) 04/07/17 01:45 Sodium 137 mEq/L (136-145) 04/07/17 01:45 Potassium 4.0 mEq/L (3.5-5.1) 04/07/17 01:45 Chloride 106 mEq/L (98-107) 04/07/17 01:45 Carbon Dioxide 30.0 mEq/L (21.0-31.0) 04/07/17 01:45 Anion Gap 5.0 (7.0-16.0) L 04/07/17 01:45 BUN 32 mg/dL (7-25) H 04/07/17 01:45 Creatinine 1.2 mg/dL (0.7-1.3) 04/07/17 01:45 Est GFR ( Amer) > 60.0 ml/min (>90) 04/07/17 01:45 Est GFR (Non-Af Amer) > 60.0 ml/min 04/07/17 01:45 BUN/Creatinine Ratio 26.7 04/07/17 01:45 Glucose 110 mg/dL (70-105) H 04/07/17 01:45 Hemoglobin A1c % 7.0 % (4.0-6.0) H 04/07/17 01:45 Calcium 8.5 mg/dL (8.6-10.3) L 04/07/17 01:45 Total Bilirubin 0.3 mg/dL (0.3-1.0) 04/07/17 01:45 AST 15 U/L (13-39) 04/07/17 01:45 ALT 12 U/L (7-52) 04/07/17 01:45 Alkaline Phosphatase 54 U/L (34-104) 04/07/17 01:45 Total Protein 6.2 gm/dL (6.0-8.3) 04/07/17 01:45 Albumin 3.4 gm/dL (4.2-5.5) L 04/07/17 01:45 Globulin 2.8 gm/dL 04/07/17 01:45 Albumin/Globulin Ratio 1.2 (1.0-1.8) 04/07/17 01:45 Triglycerides 48 mg/dL (<150) 04/07/17 01:45 Cholesterol 136 mg/dL (<200) 04/07/17 01:45 LDL Cholesterol Direct 60 mg/dL (75-193) L 04/07/17 01:45 HDL Cholesterol 66 mg/dL (23-92) 04/07/17 01:45 TSH 2.09 uIU/ml (0.34-5.60) 04/07/17 01:45 Urine Source CLEAN C 04/07/17 01:45 Urine Color YELLOW 04/07/17 01:45 Urine Clarity CLEAR (CLEAR) 04/07/17 01:45 Urine pH 7.0 (4.6 - 8.0) 04/07/17 01:45 Ur Specific [place] <= 1.005 (1.005-1.030) 04/07/17 01:45 Urine Protein NEGATIVE mg/dL (NEGATIVE) 04/07/17 01:45 Urine Glucose (UA) NEGATIVE mg/dL (NEGATIVE) 04/07/17 01:45 Urine Ketones NEGATIVE mg/dL (NEGATIVE) 04/07/17 01:45 Urine Blood NEGATIVE (NEGATIVE) 04/07/17 01:45 Urine Nitrate NEGATIVE (NEGATIVE) 04/07/17 01:45 Urine Bilirubin NEGATIVE (NEGATIVE) 04/07/17 01:45 Urine Urobilinogen 0.2 E.U./dL (0.2 - 1.0) 04/07/17 01:45 Ur Leukocyte Esterase NEGATIVE (NEGATIVE) 04/07/17 01:45 Urine RBC NONE SEEN /hpf (0-5) 04/07/17 01:45 Urine WBC 0-2 /hpf (0-5) 04/07/17 01:45 Ur Epithelial Cells OCCASIONAL /lpf (FEW) 04/07/17 01:45 Urine Bacteria OCCASIONAL /hpf (NONE SEEN) 04/07/17 01:45 Salicylates < 25.0 mg/L (30.0-100.0) L 04/07/17 01:45 Acetaminophen < 10.0 ug/mL (10.0-30.0) L 04/07/17 01:45 Valproic Acid 48.7 ug/mL (50.0-100.0) L 04/13/17 08:20 Ethyl Alcohol < 10 mg/dL (0-10) 04/07/17 01:45 RPR NONREACTIVE (NONREACTIVE) 04/07/17 01:45 - Physical Exam Vitals and I&O: Vital Signs Temp 97 F 04/28/17 14:30 Pulse 80 04/28/17 14:30 Resp 20 04/28/17 14:30 BP 128/79 04/28/17 14:30 Pulse Ox 98 04/28/17 14:30 Intake & Output 04/27/17 04/28/17 04/28/17 18:59 06:59 18:59 Intake Total 1200 Balance 1200 Intake: Oral 1200 Other: # Bowel Movements 1 Active Medications: Current Medications Acetaminophen (Tylenol) 650 mg PO Q4HR PRN PRN Reason: Mild Pain / Temp above 100 Stop: 06/06/17 03:20 Last Admin: 04/12/17 10:15 Dose: 650 mg Al Hydrox/Mg Hydrox/Simethicone (Maalox) 30 ml PO Q4HR PRN PRN Reason: GI DISTRESS Stop: 06/06/17 03:20 Aspirin (Aspirin Chewable) 81 mg PO DAILY ELISABET Stop: 06/06/17 08:59 Last Admin: 04/28/17 09:16 Dose: 81 mg Bisacodyl (Dulcolax 10 Mg Supp) 10 mg RC DAILY PRN PRN Reason: Constipation Stop: 06/06/17 03:23 Cephalexin Monohydrate (Keflex) 500 mg PO Q12H ELISABET Stop: 06/22/17 20:59 Last Admin: 04/28/17 09:13 Dose: 500 mg Divalproex Sodium (Depakote Dr) 500 mg PO BID ELISABET PRN Reason: Protocol Stop: 06/06/17 08:59 Last Admin: 04/28/17 17:17 Dose: 500 mg Docusate Sodium (Colace) 100 mg PO DAILY ELISABET Stop: 06/06/17 08:59 Last Admin: 04/28/17 09:15 Dose: Not Given Ferrous Sulfate (Iron) 325 mg PO TID ELISABET Stop: 06/06/17 08:59 Last Admin: 04/28/17 15:02 Dose: Not Given Furosemide (Lasix) 40 mg PO DAILY ELISABET Stop: 06/06/17 08:59 Last Admin: 04/28/17 09:14 Dose: 40 mg Haloperidol 5 mg/ Haloperidol (2 mg) 7 mg PO BID ELISABET Stop: 06/09/17 08:59 Last Admin: 04/28/17 17:17 Dose: 7 mg Lactobacillus Rhamnosus (Culturelle 15b) 1 each PO DAILY ELISABET Stop: 06/20/17 08:59 Last Admin: 04/28/17 09:16 Dose: 1 each Lorazepam (Ativan) 0.5 mg PO Q4HR PRN; Protocol PRN Reason: Anxiety/agitation Stop: 05/07/17 03:20 Last Admin: 04/27/17 10:09 Dose: 0.5 mg Magnesium Hydroxide (Milk Of Magnesia) 30 ml PO HS PRN PRN Reason: Constipation Miscellaneous (Probiotic Screen) 1 ea MC PRN PRN PRN Reason: PROTOCOL Stop: 06/19/17 11:59 Multivitamins/Vitamin C (Theragran) 1 tab PO DAILY ELISABET Stop: 06/06/17 08:59 Last Admin: 04/28/17 09:15 Dose: 1 tab Quetiapine Fumarate (Seroquel) 400 mg PO BID ELISABET PRN Reason: Protocol Stop: 06/06/17 08:59 Last Admin: 04/28/17 17:16 Dose: 400 mg Valsartan (Diovan) 80 mg PO DAILY ELISABET Stop: 06/06/17 08:59 Last Admin: 04/28/17 09:13 Dose: 80 mg Wound Care/Dressing Products (Silvasorb) 1 appl TP DAILY ELISABET Stop: 06/06/17 08:59 Last Admin: 04/28/17 09:14 Dose: 1 appl Zolpidem Tartrate (Ambien) 5 mg PO HS PRN PRN Reason: Insomnia Stop: 06/07/17 23:15 Last Admin: 04/27/17 21:46 Dose: 5 mg General: alert HEENT: NC/AT, PERRLA Neck: Supple Lungs: CTAB Neurological: alert - Procedures Procedures: Procedures Procedure Code Date EXCISION OF FINGER NAIL, EXTERNAL APPROACH [id number] 03/15/17 Internal Medicine Assmt/Plan - Assessment Assessment: HTN (hypertension) (Acute) I10 Osteoarthritis (Acute) M19.90 Schizophrenia (Acute) F20.9 possible effusion of finger (Acute) r/o gangrene (Acute) - Plan Plan: SAFETY PRECAUTIONS CPM Nutritional Asmnt/Malnutr-PDOC - Dietary Evaluation Malnutrition Findings (Please click <Entered> for more info): Nutritional Asmnt/Malnutrition Start: 04/12/17 13: 03 Text: Status: Complete Freq: Document 04/12/17 13:03 DAVID (Rec: 04/12/17 13:19 [email or web address] Nutritional Asmnt/Malnutrition Patient General Information Nutritional Screening Moderate Risk Diagnosis psychosis Pertinent Medical Hx/Surgical Hx HTN, OA Subjective Information Pt seen sitting in kimberley-chair in hallway, confused. Per notes, PO intake 100%. Current Diet Order/ Nutrition Support Regular Pertinent Medications colace, iron, lasix, theragran , seroquel Pertinent Labs 04/07 Na 137, K 4.0, cl 106, BUN 32, Cr 1.2, Glucose 110, A1c 7.0, Ca 8.5, Alb 3.4 Nutritional Hx/Data Height 5 ft 10 in Height (Calculated Centimeters) 177.8 Current Weight (lbs) 148 lb Weight (Calculated Kilograms) 67.1 Weight (Calculated Grams) 20448.7 [place] Body Weight 166 % [place] Body Weight 89 Body Mass Index (BMI) 21.2 GI Symptoms GI Symptoms None Last BM 04/09 Difficult in: None Skin Integrity/Comment: wound on right 3rd finger skin dryness Current %PO Good (75-100%) Estimated Nutritional Goals BEE in Kcals: Using Current wt Calories/Kcals/Kg 25-30 Kcals Calculated Protein: Using Current wt Protein g/k-1.1 Protein Calculated 67-74 Fluid: ml 1674-2017ml (1ml/kcal) Nutritional Problem No current Nutrition Prob Problem N/A Malnutrition Alert Protein-Calorie Malnutrition N/A Is there a minimum of two criteria No selected? Query Text:Check all the applicable criteria. A minimum of two criteria are recommended for diagnosis of either severe or non-severe malnutrition. Intervention/Recommendation Comments 1. Continue with current diet as ordered. 2. Monitor PO intake, wt, labs and skin integrity 3. F/U as low risk in 7 days, 04/19 Expected Outcomes/Goals Expected Outcomes/Goals 1. PO intake to meet at least 75% of nutritional needs. 2. Wt stability, skin to remain intact, labs to approach WNL.
--- NOTE | 2017-04-28 19:59 | Progress Notes ---
DATE: SUBJECTIVE: Chart reviewed and the patient interviewed. Also discussed the patient's condition with the staff and reviewed records and labs. The patient is still restless and is still in irritable mood. The patient also still has difficulty following any of staff directions. Also, still getting different items from the patient's rooms and holding it in his room. Also, still gets agitated when staff tried to redirect him. ASSESSMENT: The patient is still irritable and anxious. TREATMENT PLAN: Continue to monitor his behavior and his condition. Also, working on placement issue and casework manager still have difficulty finding placement for the patient. JOB# [id number]
[2017-04-29] MEDS: Aspirin 81mg Chewable Tab PO SCH (10:00)
[2017-04-29] MEDS: Lactobacillus Rhamnosus GG 15 Billion CFU CAP.SPRINK PO SCH (10:00)
[2017-04-29] MEDS: Silver Antimicrobial Wound Gel 0.25 oz Tube TP SCH (10:00)
[2017-04-29] MEDS: HALOPERIDOL PO SCH ×2 (10:00→17:01)
[2017-04-29] MEDS: Ferrous Sulfate 325 MG TAB PO SCH ×3 (10:00→20:41)
[2017-04-29] MEDS: Multivitamin Tab PO SCH (10:00)
--- NOTE | 2017-04-29 23:42 | Progress Notes ---
DATE: 04/29/2017 SUBJECTIVE: The patient seen, chart reviewed, discussed with staff. The patient is a 71-year-old male, discharged recently from the hospital, went to a alf, became very agitated, irritable, not following directions. The patient states he feels clinically fine. Answers all questions with clinically fine. Very poor historian, remains irritable, restless and unruly, highly impulsive, unpredictable and clearly and overtly gravely disabled. Erratic, noncompliance in the past, rn cvicu awakenings, eating with prompting. MEDICATIONS: Reviewed. ASSESSMENT: The patient remains symptomatic, still disorganized and gravely disabled. PLAN: We will continue to monitor given his ongoing symptoms. He is not safe for discharge at this time. [facility]# [id number]
--- NOTE | 2017-04-30 07:54 | Progress Notes ---
DATE: 04/30/2017 SUBJECTIVE: The patient is currently in the hospital, disorganized, symptomatic, unruly at times. On [id number], the patient disorganized, nonsensical, disoriented, still wandering behaviors, unable to be cared for at a lower level of care, reclusive, isolative, some obsessive behaviors noted. He is somewhat more redirectable, but we are struggling to find him a lower level of care at this time. ASSESSMENT: The patient remains symptomatic, confused, disoriented. PLAN: We will continue to monitor. We are also trying to work hard on placement. JOB# [id number]
[2017-04-30] MEDS: HALOPERIDOL PO SCH ×2 (08:44→16:39)
[2017-04-30] MEDS: Aspirin 81mg Chewable Tab PO SCH (08:45)
[2017-04-30] MEDS: Silver Antimicrobial Wound Gel 0.25 oz Tube TP SCH (08:46)
[2017-04-30] MEDS: Lactobacillus Rhamnosus GG 15 Billion CFU CAP.SPRINK PO SCH (08:46)
[2017-04-30] MEDS: Ferrous Sulfate 325 MG TAB PO SCH ×3 (08:46→20:18)
[2017-04-30] MEDS: Multivitamin Tab PO SCH (08:46)
--- NOTE | 2017-04-30 10:25 | General Progress Note ---
Subjective - Review of Systems Events since last encounter: still confused in no distress Objective - Results Result Diagrams: 04/07/17 01:45 04/07/17 01:45 Recent Labs: Laboratory Last Values WBC 4.1 Th/cmm (4.8-10.8) L 04/07/17 01:45 RBC 3.13 Mil/cmm (3.80-5.80) L 04/07/17 01:45 Hgb 10.0 gm/dL (12-16) L 04/07/17 01:45 Hct 29.7 % (41.0-60) L D 04/07/17 01:45 MCV 94.8 fl (80-99) 04/07/17 01:45 MCH 31.8 pg (27.0-31.0) H 04/07/17 01:45 MCHC Differential 33.6 pg (28.0-36.0) 04/07/17 01:45 RDW 15.0 % (11.5-20.0) 04/07/17 01:45 Plt Count 119 Th/cmm (150-400) L 04/07/17 01:45 MPV 8.9 fl 04/07/17 01:45 Neutrophils % 61.4 % (40.0-80.0) 04/07/17 01:45 Lymphocytes % 20.6 % (20.0-50.0) 04/07/17 01:45 Monocytes % 13.4 % (2.0-10.0) H 04/07/17 01:45 Eosinophils % 4.5 % (0.0-5.0) 04/07/17 01:45 Basophils % 0.1 % (0.0-2.0) 04/07/17 01:45 Sodium 137 mEq/L (136-145) 04/07/17 01:45 Potassium 4.0 mEq/L (3.5-5.1) 04/07/17 01:45 Chloride 106 mEq/L (98-107) 04/07/17 01:45 Carbon Dioxide 30.0 mEq/L (21.0-31.0) 04/07/17 01:45 Anion Gap 5.0 (7.0-16.0) L 04/07/17 01:45 BUN 32 mg/dL (7-25) H 04/07/17 01:45 Creatinine 1.2 mg/dL (0.7-1.3) 04/07/17 01:45 Est GFR ( Amer) > 60.0 ml/min (>90) 04/07/17 01:45 Est GFR (Non-Af Amer) > 60.0 ml/min 04/07/17 01:45 BUN/Creatinine Ratio 26.7 04/07/17 01:45 Glucose 110 mg/dL (70-105) H 04/07/17 01:45 Hemoglobin A1c % 7.0 % (4.0-6.0) H 04/07/17 01:45 Calcium 8.5 mg/dL (8.6-10.3) L 04/07/17 01:45 Total Bilirubin 0.3 mg/dL (0.3-1.0) 04/07/17 01:45 AST 15 U/L (13-39) 04/07/17 01:45 ALT 12 U/L (7-52) 04/07/17 01:45 Alkaline Phosphatase 54 U/L (34-104) 04/07/17 01:45 Total Protein 6.2 gm/dL (6.0-8.3) 04/07/17 01:45 Albumin 3.4 gm/dL (4.2-5.5) L 04/07/17 01:45 Globulin 2.8 gm/dL 04/07/17 01:45 Albumin/Globulin Ratio 1.2 (1.0-1.8) 04/07/17 01:45 Triglycerides 48 mg/dL (<150) 04/07/17 01:45 Cholesterol 136 mg/dL (<200) 04/07/17 01:45 LDL Cholesterol Direct 60 mg/dL (75-193) L 04/07/17 01:45 HDL Cholesterol 66 mg/dL (23-92) 04/07/17 01:45 TSH 2.09 uIU/ml (0.34-5.60) 04/07/17 01:45 Urine Source CLEAN C 04/07/17 01:45 Urine Color YELLOW 04/07/17 01:45 Urine Clarity CLEAR (CLEAR) 04/07/17 01:45 Urine pH 7.0 (4.6 - 8.0) 04/07/17 01:45 Ur Specific [place] <= 1.005 (1.005-1.030) 04/07/17 01:45 Urine Protein NEGATIVE mg/dL (NEGATIVE) 04/07/17 01:45 Urine Glucose (UA) NEGATIVE mg/dL (NEGATIVE) 04/07/17 01:45 Urine Ketones NEGATIVE mg/dL (NEGATIVE) 04/07/17 01:45 Urine Blood NEGATIVE (NEGATIVE) 04/07/17 01:45 Urine Nitrate NEGATIVE (NEGATIVE) 04/07/17 01:45 Urine Bilirubin NEGATIVE (NEGATIVE) 04/07/17 01:45 Urine Urobilinogen 0.2 E.U./dL (0.2 - 1.0) 04/07/17 01:45 Ur Leukocyte Esterase NEGATIVE (NEGATIVE) 04/07/17 01:45 Urine RBC NONE SEEN /hpf (0-5) 04/07/17 01:45 Urine WBC 0-2 /hpf (0-5) 04/07/17 01:45 Ur Epithelial Cells OCCASIONAL /lpf (FEW) 04/07/17 01:45 Urine Bacteria OCCASIONAL /hpf (NONE SEEN) 04/07/17 01:45 Salicylates < 25.0 mg/L (30.0-100.0) L 04/07/17 01:45 Acetaminophen < 10.0 ug/mL (10.0-30.0) L 04/07/17 01:45 Valproic Acid 48.7 ug/mL (50.0-100.0) L 04/13/17 08:20 Ethyl Alcohol < 10 mg/dL (0-10) 04/07/17 01:45 RPR NONREACTIVE (NONREACTIVE) 04/07/17 01:45 - Physical Exam Vitals and I&O: Vital Signs Temp 97 F 04/30/17 06:42 Pulse 88 04/30/17 08:43 Resp 20 04/30/17 06:42 BP 129/76 04/30/17 08:45 Pulse Ox 99 04/30/17 06:42 Intake & Output 04/29/17 04/30/17 04/30/17 18:59 06:59 18:59 Intake Total 2400 120 Balance 2400 120 Intake: Oral 2400 120 Other: # Voids 4 3 # Bowel Movements 1 Active Medications: Current Medications Acetaminophen (Tylenol) 650 mg PO Q4HR PRN PRN Reason: Mild Pain / Temp above 100 Stop: 06/06/17 03:20 Last Admin: 04/12/17 10:15 Dose: 650 mg Al Hydrox/Mg Hydrox/Simethicone (Maalox) 30 ml PO Q4HR PRN PRN Reason: GI DISTRESS Stop: 06/06/17 03:20 Aspirin (Aspirin Chewable) 81 mg PO DAILY [facility] Stop: 06/06/17 08:59 Last Admin: 04/30/17 08:45 Dose: 81 mg Bisacodyl (Dulcolax 10 Mg Supp) 10 mg RC DAILY PRN PRN Reason: Constipation Stop: 06/06/17 03:23 Divalproex Sodium (Depakote Dr) 500 mg PO BID [facility] PRN Reason: Protocol Stop: 06/06/17 08:59 Last Admin: 04/30/17 08:43 Dose: 500 mg Docusate Sodium (Colace) 100 mg PO DAILY [facility] Stop: 06/06/17 08:59 Last Admin: 04/30/17 08:43 Dose: 100 mg Ferrous Sulfate (Iron) 325 mg PO TID [facility] Stop: 06/06/17 08:59 Last Admin: 04/30/17 08:46 Dose: 325 mg Furosemide (Lasix) 40 mg PO DAILY [facility] Stop: 06/06/17 08:59 Last Admin: 04/30/17 08:45 Dose: 40 mg Haloperidol 5 mg/ Haloperidol (2 mg) 7 mg PO BID [facility] Stop: 06/09/17 08:59 Last Admin: 04/30/17 08:44 Dose: 7 mg Lactobacillus Rhamnosus (Culturelle 15b) 1 each PO DAILY [facility] Stop: 06/20/17 08:59 Last Admin: 04/30/17 08:46 Dose: 1 each Lorazepam (Ativan) 0.5 mg PO Q4HR PRN; Protocol PRN Reason: Anxiety/agitation Stop: 05/07/17 03:20 Last Admin: 04/28/17 21:35 Dose: 0.5 mg Magnesium Hydroxide (Milk Of Magnesia) 30 ml PO HS PRN PRN Reason: Constipation Miscellaneous (Probiotic Screen) 1 ea MC PRN PRN PRN Reason: PROTOCOL Stop: 06/19/17 11:59 Multivitamins/Vitamin C (Theragran) 1 tab PO DAILY [facility] Stop: 06/06/17 08:59 Last Admin: 04/30/17 08:46 Dose: 1 tab Quetiapine Fumarate (Seroquel) 400 mg PO BID [facility] PRN Reason: Protocol Stop: 06/06/17 08:59 Last Admin: 04/30/17 08:43 Dose: 400 mg Valsartan (Diovan) 80 mg PO DAILY [facility] Stop: 06/06/17 08:59 Last Admin: 04/30/17 08:43 Dose: 80 mg Wound Care/Dressing Products (Silvasorb) 1 appl TP DAILY [facility] Stop: 06/06/17 08:59 Last Admin: 04/30/17 08:46 Dose: 1 appl Zolpidem Tartrate (Ambien) 5 mg PO HS PRN PRN Reason: Insomnia Stop: 06/07/17 23:15 Last Admin: 04/28/17 21:34 Dose: 5 mg General: No acute distress HEENT: Atraumatic Neck: Supple, JVD, Thyromegaly Cardiovascular: Regular rate, Normal S1, Normal S2 Lungs: Clear to auscultation Abdomen: Bowel sounds - Procedures Procedures: Procedures Procedure Code Date EXCISION OF FINGER NAIL, EXTERNAL APPROACH 0HBQXZZ 03/15/17 Assessment/Plan - Problem List Patient Problems: All Active Problems HTN (hypertension) (Acute) I10 Osteoarthritis (Acute) M19.90 - Plan Plan: as per psych will monitor Nutritional Asmnt/Malnutr-PDOC - Dietary Evaluation Malnutrition Findings (Please click <Entered> for more info): Nutritional Asmnt/Malnutrition Start: 04/12/17 13: 03 Text: Status: Complete Freq: Document 04/12/17 13:03 LAUREN (Rec: 04/12/17 13:19 [id number]) Nutritional Asmnt/Malnutrition Patient General Information Nutritional Screening Moderate Risk Diagnosis psychosis Pertinent Medical Hx/Surgical Hx HTN, OA Subjective Information Pt seen sitting in kimberley-chair in [facility], confused. Per notes, PO intake 100%. Current Diet Order/ Nutrition Support Regular Pertinent Medications colace, iron, lasix, theragran , seroquel Pertinent Labs 04/07 Na 137, K 4.0, cl 106, BUN 32, Cr 1.2, Glucose 110, A1c 7.0, Ca 8.5, Alb 3.4 Nutritional Hx/Data Height 1.78 m Height (Calculated Centimeters) 177.8 Current Weight (lbs) 67.132 kg Weight (Calculated Kilograms) 67.1 Weight (Calculated Grams) 72063.7 [place] Body Weight 166 % [place] Body Weight 89 Body Mass Index (BMI) 21.2 GI Symptoms GI Symptoms None Last BM 04/09 Difficult in: None Skin Integrity/Comment: wound on right 3rd finger skin dryness Current %PO Good (75-100%) Estimated Nutritional Goals BEE in Kcals: Using Current wt Calories/Kcals/Kg 25-30 Kcals Calculated 8652-8370 Protein: Using Current wt Protein g/k-1.1 Protein Calculated 67-74 Fluid: ml 1674-2017ml (1ml/kcal) Nutritional Problem No current Nutrition Prob Problem N/A Malnutrition Alert Protein-Calorie Malnutrition N/A Is there a minimum of two criteria No selected? Query Text:Check all the applicable criteria. A minimum of two criteria are recommended for diagnosis of either severe or non-severe malnutrition. Intervention/Recommendation Comments 1. Continue with current diet as ordered. 2. Monitor PO intake, wt, labs and skin integrity 3. F/U as low risk in 7 days, 04/19 Expected Outcomes/Goals Expected Outcomes/Goals 1. PO intake to meet at least 75% of nutritional needs. 2. Wt stability, skin to remain intact, labs to approach WNL.
[2017-05-01] MEDS: Aspirin 81mg Chewable Tab PO SCH (08:47)
[2017-05-01] MEDS: Multivitamin Tab PO SCH (08:47)
[2017-05-01] MEDS: Ferrous Sulfate 325 MG TAB PO SCH ×3 (08:47→20:49)
[2017-05-01] MEDS: Lactobacillus Rhamnosus GG 15 Billion CFU CAP.SPRINK PO SCH (08:47)
[2017-05-01] MEDS: HALOPERIDOL PO SCH ×2 (08:48→16:07)
[2017-05-01] MEDS: Silver Antimicrobial Wound Gel 0.25 oz Tube TP SCH (08:58)
--- NOTE | 2017-05-01 16:13 | General Progress Note ---
Subjective - Review of Systems Events since last encounter: confused comfortable Objective - Results Result Diagrams: 04/07/17 01:45 04/07/17 01:45 Recent Labs: Laboratory Last Values WBC 4.1 Th/cmm (4.8-10.8) L 04/07/17 01:45 RBC 3.13 Mil/cmm (3.80-5.80) L 04/07/17 01:45 Hgb 10.0 gm/dL (12-16) L 04/07/17 01:45 Hct 29.7 % (41.0-60) L D 04/07/17 01:45 MCV 94.8 fl (80-99) 04/07/17 01:45 MCH 31.8 pg (27.0-31.0) H 04/07/17 01:45 MCHC Differential 33.6 pg (28.0-36.0) 04/07/17 01:45 RDW 15.0 % (11.5-20.0) 04/07/17 01:45 Plt Count 119 Th/cmm (150-400) L 04/07/17 01:45 MPV 8.9 fl 04/07/17 01:45 Neutrophils % 61.4 % (40.0-80.0) 04/07/17 01:45 Lymphocytes % 20.6 % (20.0-50.0) 04/07/17 01:45 Monocytes % 13.4 % (2.0-10.0) H 04/07/17 01:45 Eosinophils % 4.5 % (0.0-5.0) 04/07/17 01:45 Basophils % 0.1 % (0.0-2.0) 04/07/17 01:45 Sodium 137 mEq/L (136-145) 04/07/17 01:45 Potassium 4.0 mEq/L (3.5-5.1) 04/07/17 01:45 Chloride 106 mEq/L (98-107) 04/07/17 01:45 Carbon Dioxide 30.0 mEq/L (21.0-31.0) 04/07/17 01:45 Anion Gap 5.0 (7.0-16.0) L 04/07/17 01:45 BUN 32 mg/dL (7-25) H 04/07/17 01:45 Creatinine 1.2 mg/dL (0.7-1.3) 04/07/17 01:45 Est GFR ( Amer) > 60.0 ml/min (>90) 04/07/17 01:45 Est GFR (Non-Af Amer) > 60.0 ml/min 04/07/17 01:45 BUN/Creatinine Ratio 26.7 04/07/17 01:45 Glucose 110 mg/dL (70-105) H 04/07/17 01:45 Hemoglobin A1c % 7.0 % (4.0-6.0) H 04/07/17 01:45 Calcium 8.5 mg/dL (8.6-10.3) L 04/07/17 01:45 Total Bilirubin 0.3 mg/dL (0.3-1.0) 04/07/17 01:45 AST 15 U/L (13-39) 04/07/17 01:45 ALT 12 U/L (7-52) 04/07/17 01:45 Alkaline Phosphatase 54 U/L (34-104) 04/07/17 01:45 Total Protein 6.2 gm/dL (6.0-8.3) 04/07/17 01:45 Albumin 3.4 gm/dL (4.2-5.5) L 04/07/17 01:45 Globulin 2.8 gm/dL 04/07/17 01:45 Albumin/Globulin Ratio 1.2 (1.0-1.8) 04/07/17 01:45 Triglycerides 48 mg/dL (<150) 04/07/17 01:45 Cholesterol 136 mg/dL (<200) 04/07/17 01:45 LDL Cholesterol Direct 60 mg/dL (75-193) L 04/07/17 01:45 HDL Cholesterol 66 mg/dL (23-92) 04/07/17 01:45 TSH 2.09 uIU/ml (0.34-5.60) 04/07/17 01:45 Urine Source CLEAN C 04/07/17 01:45 Urine Color YELLOW 04/07/17 01:45 Urine Clarity CLEAR (CLEAR) 04/07/17 01:45 Urine pH 7.0 (4.6 - 8.0) 04/07/17 01:45 Ur Specific [place] <= 1.005 (1.005-1.030) 04/07/17 01:45 Urine Protein NEGATIVE mg/dL (NEGATIVE) 04/07/17 01:45 Urine Glucose (UA) NEGATIVE mg/dL (NEGATIVE) 04/07/17 01:45 Urine Ketones NEGATIVE mg/dL (NEGATIVE) 04/07/17 01:45 Urine Blood NEGATIVE (NEGATIVE) 04/07/17 01:45 Urine Nitrate NEGATIVE (NEGATIVE) 04/07/17 01:45 Urine Bilirubin NEGATIVE (NEGATIVE) 04/07/17 01:45 Urine Urobilinogen 0.2 E.U./dL (0.2 - 1.0) 04/07/17 01:45 Ur Leukocyte Esterase NEGATIVE (NEGATIVE) 04/07/17 01:45 Urine RBC NONE SEEN /hpf (0-5) 04/07/17 01:45 Urine WBC 0-2 /hpf (0-5) 04/07/17 01:45 Ur Epithelial Cells OCCASIONAL /lpf (FEW) 04/07/17 01:45 Urine Bacteria OCCASIONAL /hpf (NONE SEEN) 04/07/17 01:45 Salicylates < 25.0 mg/L (30.0-100.0) L 04/07/17 01:45 Acetaminophen < 10.0 ug/mL (10.0-30.0) L 04/07/17 01:45 Valproic Acid 48.7 ug/mL (50.0-100.0) L 04/13/17 08:20 Ethyl Alcohol < 10 mg/dL (0-10) 04/07/17 01:45 RPR NONREACTIVE (NONREACTIVE) 04/07/17 01:45 - Physical Exam Vitals and I&O: Vital Signs Temp 98.0 F 05/01/17 14:47 Pulse 94 05/01/17 14:47 Resp 20 05/01/17 14:47 BP 112/66 05/01/17 14:47 Pulse Ox 97 05/01/17 14:47 Intake & Output 04/30/17 05/01/17 05/01/17 18:59 06:59 18:59 Intake Total 2400 360 Balance 2400 360 Intake: Oral 2400 360 Other: # Voids 4 2 # Bowel Movements 1 1 Active Medications: Current Medications Acetaminophen (Tylenol) 650 mg PO Q4HR PRN PRN Reason: Mild Pain / Temp above 100 Stop: 06/06/17 03:20 Last Admin: 04/12/17 10:15 Dose: 650 mg Al Hydrox/Mg Hydrox/Simethicone (Maalox) 30 ml PO Q4HR PRN PRN Reason: GI DISTRESS Stop: 06/06/17 03:20 Aspirin (Aspirin Chewable) 81 mg PO DAILY [facility] Stop: 06/06/17 08:59 Last Admin: 05/01/17 08:47 Dose: 81 mg Bisacodyl (Dulcolax 10 Mg Supp) 10 mg RC DAILY PRN PRN Reason: Constipation Stop: 06/06/17 03:23 Divalproex Sodium (Depakote Dr) 500 mg PO BID [facility] PRN Reason: Protocol Stop: 06/06/17 08:59 Last Admin: 05/01/17 16:07 Dose: 500 mg Docusate Sodium (Colace) 100 mg PO DAILY [facility] Stop: 06/06/17 08:59 Last Admin: 05/01/17 08:47 Dose: 100 mg Ferrous Sulfate (Iron) 325 mg PO TID [facility] Stop: 06/06/17 08:59 Last Admin: 05/01/17 13:15 Dose: 325 mg Furosemide (Lasix) 40 mg PO DAILY [facility] Stop: 06/06/17 08:59 Last Admin: 05/01/17 08:48 Dose: 40 mg Haloperidol 5 mg/ Haloperidol (2 mg) 7 mg PO BID [facility] Stop: 06/09/17 08:59 Last Admin: 05/01/17 16:07 Dose: 7 mg Lactobacillus Rhamnosus (Culturelle 15b) 1 each PO DAILY [facility] Stop: 06/20/17 08:59 Last Admin: 05/01/17 08:47 Dose: 1 each Lorazepam (Ativan) 0.5 mg PO Q4HR PRN; Protocol PRN Reason: Anxiety/agitation Stop: 05/07/17 03:20 Last Admin: 04/28/17 21:35 Dose: 0.5 mg Magnesium Hydroxide (Milk Of Magnesia) 30 ml PO HS PRN PRN Reason: Constipation Miscellaneous (Probiotic Screen) 1 ea MC PRN PRN PRN Reason: PROTOCOL Stop: 06/19/17 11:59 Multivitamins/Vitamin C (Theragran) 1 tab PO DAILY [facility] Stop: 06/06/17 08:59 Last Admin: 05/01/17 08:47 Dose: 1 tab Quetiapine Fumarate (Seroquel) 400 mg PO BID [facility] PRN Reason: Protocol Stop: 06/06/17 08:59 Last Admin: 05/01/17 16:07 Dose: 400 mg Valsartan (Diovan) 80 mg PO DAILY [facility] Stop: 06/06/17 08:59 Last Admin: 05/01/17 08:48 Dose: 80 mg Wound Care/Dressing Products (Silvasorb) 1 appl TP DAILY [facility] Stop: 06/06/17 08:59 Last Admin: 05/01/17 08:58 Dose: Not Given General: No acute distress HEENT: Atraumatic Neck: Supple, JVD, Thyromegaly Cardiovascular: Regular rate, Normal S1, Normal S2 Lungs: Clear to auscultation Abdomen: Bowel sounds - Procedures Procedures: Procedures Procedure Code Date EXCISION OF FINGER NAIL, EXTERNAL APPROACH 0HBQXZZ 03/15/17 Assessment/Plan - Problem List Patient Problems: All Active Problems HTN (hypertension) (Acute) I10 Osteoarthritis (Acute) M19.90 - Plan Plan: as per psych will monitor Nutritional Asmnt/Malnutr-PDOC - Dietary Evaluation Malnutrition Findings (Please click <Entered> for more info): Nutritional Asmnt/Malnutrition Start: 04/12/17 13: 03 Text: Status: Complete Freq: Document 04/12/17 13:03 LAUREN (Rec: 04/12/17 13:19 [email or web address]) Nutritional Asmnt/Malnutrition Patient General Information Nutritional Screening Moderate Risk Diagnosis psychosis Pertinent Medical Hx/Surgical Hx HTN, OA Subjective Information Pt seen sitting in kimberley-chair in [facility], confused. Per notes, PO intake 100%. Current Diet Order/ Nutrition Support Regular Pertinent Medications colace, iron, lasix, theragran , seroquel Pertinent Labs 04/07 Na 137, K 4.0, cl 106, BUN 32, Cr 1.2, Glucose 110, A1c 7.0, Ca 8.5, Alb 3.4 Nutritional Hx/Data Height 1.78 m Height (Calculated Centimeters) 177.8 Current Weight (lbs) 67.132 kg Weight (Calculated Kilograms) 67.1 Weight (Calculated Grams) 73909.7 [place] Body Weight 166 % [place] Body Weight 89 Body Mass Index (BMI) 21.2 GI Symptoms GI Symptoms None Last BM 04/09 Difficult in: None Skin Integrity/Comment: wound on right 3rd finger skin dryness Current %PO Good (75-100%) Estimated Nutritional Goals BEE in Kcals: Using Current wt Calories/Kcals/Kg 25-30 Kcals Calculated 7784-8052 Protein: Using Current wt Protein g/k-1.1 Protein Calculated 67-74 Fluid: ml 5-2018ml (1ml/kcal) Nutritional Problem No current Nutrition Prob Problem N/A Malnutrition Alert Protein-Calorie Malnutrition N/A Is there a minimum of two criteria No selected? Query Text:Check all the applicable criteria. A minimum of two criteria are recommended for diagnosis of either severe or non-severe malnutrition. Intervention/Recommendation Comments 1. Continue with current diet as ordered. 2. Monitor PO intake, wt, labs and skin integrity 3. F/U as low risk in 7 days, 04/19 Expected Outcomes/Goals Expected Outcomes/Goals 1. PO intake to meet at least 75% of nutritional needs. 2. Wt stability, skin to remain intact, labs to approach WNL.
--- NOTE | 2017-05-02 07:46 | Progress Notes ---
DATE: 05/01/2017 The patient is currently in the hospital, disorganized, symptomatic, still unruly at times, wandering behavior, is unable to verbalize a clear and a succinct plan for self-care. He is more redirectable. No agitation. MEDICATIONS: Reviewed. ASSESSMENT: The patient remains symptomatic, still disoriented, gravely disabled. PLAN: We will continue to monitor given his ongoing behaviors. There are concerns about his ability to be cared for at a lower level of care. [facility]# [id number]
[2017-05-02] MEDS: Silver Antimicrobial Wound Gel 0.25 oz Tube TP SCH (09:15)
[2017-05-02] MEDS: Multivitamin Tab PO SCH (09:16)
[2017-05-02] MEDS: Lactobacillus Rhamnosus GG 15 Billion CFU CAP.SPRINK PO SCH (09:16)
[2017-05-02] MEDS: Aspirin 81mg Chewable Tab PO SCH (09:16)
[2017-05-02] MEDS: Ferrous Sulfate 325 MG TAB PO SCH ×3 (09:17→20:21)
[2017-05-02] MEDS: HALOPERIDOL PO SCH ×2 (09:17→16:09)
--- NOTE | 2017-05-02 11:37 | Internal Medicine Prog Note ---
Internal Medicine Subjective - Subjective Service Date: 05/02/17 Patient is:: awake Per staff patient has:: tolerating meds Internal Medicine Objective - Results Result Diagrams: 04/07/17 01:45 04/07/17 01:45 Recent Labs: Laboratory Last Values WBC 4.1 Th/cmm (4.8-10.8) L 04/07/17 01:45 RBC 3.13 Mil/cmm (3.80-5.80) L 04/07/17 01:45 Hgb 10.0 gm/dL (12-16) L 04/07/17 01:45 Hct 29.7 % (41.0-60) L D 04/07/17 01:45 MCV 94.8 fl (80-99) 04/07/17 01:45 MCH 31.8 pg (27.0-31.0) H 04/07/17 01:45 MCHC Differential 33.6 pg (28.0-36.0) 04/07/17 01:45 RDW 15.0 % (11.5-20.0) 04/07/17 01:45 Plt Count 119 Th/cmm (150-400) L 04/07/17 01:45 MPV 8.9 fl 04/07/17 01:45 Neutrophils % 61.4 % (40.0-80.0) 04/07/17 01:45 Lymphocytes % 20.6 % (20.0-50.0) 04/07/17 01:45 Monocytes % 13.4 % (2.0-10.0) H 04/07/17 01:45 Eosinophils % 4.5 % (0.0-5.0) 04/07/17 01:45 Basophils % 0.1 % (0.0-2.0) 04/07/17 01:45 Sodium 137 mEq/L (136-145) 04/07/17 01:45 Potassium 4.0 mEq/L (3.5-5.1) 04/07/17 01:45 Chloride 106 mEq/L (98-107) 04/07/17 01:45 Carbon Dioxide 30.0 mEq/L (21.0-31.0) 04/07/17 01:45 Anion Gap 5.0 (7.0-16.0) L 04/07/17 01:45 BUN 32 mg/dL (7-25) H 04/07/17 01:45 Creatinine 1.2 mg/dL (0.7-1.3) 04/07/17 01:45 Est GFR ( Amer) > 60.0 ml/min (>90) 04/07/17 01:45 Est GFR (Non-Af Amer) > 60.0 ml/min 04/07/17 01:45 BUN/Creatinine Ratio 26.7 04/07/17 01:45 Glucose 110 mg/dL (70-105) H 04/07/17 01:45 Hemoglobin A1c % 7.0 % (4.0-6.0) H 04/07/17 01:45 Calcium 8.5 mg/dL (8.6-10.3) L 04/07/17 01:45 Total Bilirubin 0.3 mg/dL (0.3-1.0) 04/07/17 01:45 AST 15 U/L (13-39) 04/07/17 01:45 ALT 12 U/L (7-52) 04/07/17 01:45 Alkaline Phosphatase 54 U/L (34-104) 04/07/17 01:45 Total Protein 6.2 gm/dL (6.0-8.3) 04/07/17 01:45 Albumin 3.4 gm/dL (4.2-5.5) L 04/07/17 01:45 Globulin 2.8 gm/dL 04/07/17 01:45 Albumin/Globulin Ratio 1.2 (1.0-1.8) 04/07/17 01:45 Triglycerides 48 mg/dL (<150) 04/07/17 01:45 Cholesterol 136 mg/dL (<200) 04/07/17 01:45 LDL Cholesterol Direct 60 mg/dL (75-193) L 04/07/17 01:45 HDL Cholesterol 66 mg/dL (23-92) 04/07/17 01:45 TSH 2.09 uIU/ml (0.34-5.60) 04/07/17 01:45 Urine Source CLEAN C 04/07/17 01:45 Urine Color YELLOW 04/07/17 01:45 Urine Clarity CLEAR (CLEAR) 04/07/17 01:45 Urine pH 7.0 (4.6 - 8.0) 04/07/17 01:45 Ur Specific [place] <= 1.005 (1.005-1.030) 04/07/17 01:45 Urine Protein NEGATIVE mg/dL (NEGATIVE) 04/07/17 01:45 Urine Glucose (UA) NEGATIVE mg/dL (NEGATIVE) 04/07/17 01:45 Urine Ketones NEGATIVE mg/dL (NEGATIVE) 04/07/17 01:45 Urine Blood NEGATIVE (NEGATIVE) 04/07/17 01:45 Urine Nitrate NEGATIVE (NEGATIVE) 04/07/17 01:45 Urine Bilirubin NEGATIVE (NEGATIVE) 04/07/17 01:45 Urine Urobilinogen 0.2 E.U./dL (0.2 - 1.0) 04/07/17 01:45 Ur Leukocyte Esterase NEGATIVE (NEGATIVE) 04/07/17 01:45 Urine RBC NONE SEEN /hpf (0-5) 04/07/17 01:45 Urine WBC 0-2 /hpf (0-5) 04/07/17 01:45 Ur Epithelial Cells OCCASIONAL /lpf (FEW) 04/07/17 01:45 Urine Bacteria OCCASIONAL /hpf (NONE SEEN) 04/07/17 01:45 Salicylates < 25.0 mg/L (30.0-100.0) L 04/07/17 01:45 Acetaminophen < 10.0 ug/mL (10.0-30.0) L 04/07/17 01:45 Valproic Acid 48.7 ug/mL (50.0-100.0) L 04/13/17 08:20 Ethyl Alcohol < 10 mg/dL (0-10) 04/07/17 01:45 RPR NONREACTIVE (NONREACTIVE) 04/07/17 01:45 - Physical Exam Vitals and I&O: Vital Signs Temp 97.8 F 05/02/17 06:51 Pulse 85 05/02/17 09:16 Resp 19 05/02/17 06:51 BP 131/86 05/02/17 09:16 Pulse Ox 100 05/02/17 06:51 Intake & Output 05/01/17 05/02/17 05/02/17 18:59 06:59 18:59 Intake Total 1000 480 Balance 1000 480 Intake: Oral 1000 480 Other: # Voids 4 3 # Bowel Movements 1 0 Active Medications: Current Medications Acetaminophen (Tylenol) 650 mg PO Q4HR PRN PRN Reason: Mild Pain / Temp above 100 Stop: 06/06/17 03:20 Last Admin: 04/12/17 10:15 Dose: 650 mg Al Hydrox/Mg Hydrox/Simethicone (Maalox) 30 ml PO Q4HR PRN PRN Reason: GI DISTRESS Stop: 06/06/17 03:20 Aspirin (Aspirin Chewable) 81 mg PO DAILY [facility] Stop: 06/06/17 08:59 Last Admin: 05/02/17 09:16 Dose: 81 mg Bisacodyl (Dulcolax 10 Mg Supp) 10 mg RC DAILY PRN PRN Reason: Constipation Stop: 06/06/17 03:23 Divalproex Sodium (Depakote Dr) 500 mg PO BID ELISABET PRN Reason: Protocol Stop: 06/06/17 08:59 Last Admin: 05/02/17 09:16 Dose: 500 mg Docusate Sodium (Colace) 100 mg PO DAILY [facility] Stop: 06/06/17 08:59 Last Admin: 05/02/17 09:17 Dose: 100 mg Ferrous Sulfate (Iron) 325 mg PO TID [facility]AB[facility] Stop: 06/06/17 08:59 Last Admin: 05/02/17 09:17 Dose: 325 mg Furosemide (Lasix) 40 mg PO DAILY [facility] Stop: 06/06/17 08:59 Last Admin: 05/02/17 09:16 Dose: 40 mg Haloperidol 5 mg/ Haloperidol (2 mg) 7 mg PO BID [facility]ABET Stop: 06/09/17 08:59 Last Admin: 05/02/17 09:17 Dose: 7 mg Lactobacillus Rhamnosus (Culturelle 15b) 1 each PO DAILY [facility] Stop: 06/20/17 08:59 Last Admin: 05/02/17 09:16 Dose: 1 each Lorazepam (Ativan) 0.5 mg PO Q4HR PRN; Protocol PRN Reason: Anxiety/agitation Stop: 05/07/17 03:20 Last Admin: 05/01/17 20:49 Dose: 0.5 mg Magnesium Hydroxide (Milk Of Magnesia) 30 ml PO HS PRN PRN Reason: Constipation Miscellaneous (Probiotic Screen) 1 ea [facility] PRN PRN PRN Reason: PROTOCOL Stop: 06/19/17 11:59 Multivitamins/Vitamin C (Theragran) 1 tab PO DAILY [facility] Stop: 06/06/17 08:59 Last Admin: 05/02/17 09:16 Dose: 1 tab Quetiapine Fumarate (Seroquel) 400 mg PO BID [facility] PRN Reason: Protocol Stop: 06/06/17 08:59 Last Admin: 05/02/17 09:16 Dose: 400 mg Valsartan (Diovan) 80 mg PO DAILY [facility] Stop: 06/06/17 08:59 Last Admin: 05/02/17 09:16 Dose: 80 mg Wound Care/Dressing Products (Silvasorb) 1 appl TP DAILY ELIS[facility]ET Stop: 06/06/17 08:59 Last Admin: 05/02/17 09:15 Dose: Not Given Zolpidem Tartrate (Ambien) 5 mg PO HS PRN PRN Reason: Insomnia Stop: 07/01/17 20:59 General: alert HEENT: NC/AT, PERRLA Neck: Supple Lungs: CTAB Neurological: alert - Procedures Procedures: Procedures Procedure Code Date EXCISION OF FINGER NAIL, EXTERNAL APPROACH [id number] 03/15/17 Internal Medicine Assmt/Plan - Assessment Assessment: HTN (hypertension) (Acute) I10 Osteoarthritis (Acute) M19.90 Schizophrenia (Acute) F20.9 possible effusion of finger (Acute) r/o gangrene (Acute) - Plan Plan: SAFETY PRECAUTIONS CPM Nutritional Asmnt/Malnutr-PDOC - Dietary Evaluation Malnutrition Findings (Please click <Entered> for more info): Nutritional Asmnt/Malnutrition Start: 04/12/17 13: 03 Text: Status: Complete Freq: Document 04/12/17 13:03 LAUREN (Rec: 04/12/17 13:19 [email or web address] Nutritional Asmnt/Malnutrition Patient General Information Nutritional Screening Moderate Risk Diagnosis psychosis Pertinent Medical Hx/Surgical Hx HTN, OA Subjective Information Pt seen sitting in kimberley-chair in hallway, confused. Per notes, PO intake 100%. Current Diet Order/ Nutrition Support Regular Pertinent Medications colace, iron, lasix, theragran , seroquel Pertinent Labs 04/07 Na 137, K 4.0, cl 106, BUN 32, Cr 1.2, Glucose 110, A1c 7.0, Ca 8.5, Alb 3.4 Nutritional Hx/Data Height 5 ft 10 in Height (Calculated Centimeters) 177.8 Current Weight (lbs) 148 lb Weight (Calculated Kilograms) 67.1 Weight (Calculated Grams) 54621.7 [place] Body Weight 166 % [place] Body Weight 89 Body Mass Index (BMI) 21.2 GI Symptoms GI Symptoms None Last BM 04/09 Difficult in: None Skin Integrity/Comment: wound on right 3rd finger skin dryness Current %PO Good (75-100%) Estimated Nutritional Goals BEE in Kcals: Using Current wt Calories/Kcals/Kg 25-30 Kcals Calculated 1465-2445 Protein: Using Current wt Protein g/k-1.1 Protein Calculated - Fluid: ml 1674-2017ml (1ml/kcal) Nutritional Problem No current Nutrition Prob Problem N/A Malnutrition Alert Protein-Calorie Malnutrition N/A Is there a minimum of two criteria No selected? Query Text:Check all the applicable criteria. A minimum of two criteria are recommended for diagnosis of either severe or non-severe malnutrition. Intervention/Recommendation Comments 1. Continue with current diet as ordered. 2. Monitor PO intake, wt, labs and skin integrity 3. F/U as low risk in 7 days, 04/19 Expected Outcomes/Goals Expected Outcomes/Goals 1. PO intake to meet at least 75% of nutritional needs. 2. Wt stability, skin to remain intact, labs to approach WNL.
--- NOTE | 2017-05-03 07:03 | Progress Notes ---
DATE: 05/02/2017 SUBJECTIVE: The patient remains disorganized, symptomatic, wandering behaviors, isolative, reclusive, unable to verbalize a plan for self-care. We have attempted to discharge him in the past, but to no avail. MEDICATIONS: Reviewed. ASSESSMENT: The patient remains symptomatic, disoriented, gravely disabled, cannot verbalize a plan for self-care, requiring prompting for ADLs, requiring prompting to eat. PLAN: We will continue to monitor, titrate and adjust medications. We are working on a safe discharge plan. JOB# [id number]
[2017-05-03] MEDS: Ferrous Sulfate 325 MG TAB PO SCH ×2 (08:28→14:16)
[2017-05-03] MEDS: Aspirin 81mg Chewable Tab PO SCH (08:29)
[2017-05-03] MEDS: Lactobacillus Rhamnosus GG 15 Billion CFU CAP.SPRINK PO SCH (08:30)
[2017-05-03] MEDS: HALOPERIDOL PO SCH ×2 (08:33→17:03)
[2017-05-03] MEDS: Silver Antimicrobial Wound Gel 0.25 oz Tube TP SCH (08:35)
[2017-05-03] MEDS: Multivitamin Tab PO SCH (08:35)
--- NOTE | 2017-05-03 23:46 | Discharge Summary ---
DATE OF DISCHARGE: 05/03/2017 AGE: 71. SEX: Male. PHYSICIAN: Dr. Romero. FINAL DIAGNOSIS: PRIMARY DIAGNOSIS: Unspecified psychosis. REASON FOR HOSPITALIZATION: The patient was admitted to the hospital because of increased delusion and irritability and also increased agitation. HOSPITAL COURSE: The patient continued to be agitated and in irritable mood. The patient also was anxious and restless. The patient also is having difficulty following directions and the patient was hoarding the stuff and getting things placed on his room and cutting magazines and newspaper pictures and put hoarding in separate room. He continued to do that and the patient was given adjusted psychotropic medications. But the patient still has difficulty following that instructions. Finally, the patient's affect was brighter and the patient was less irritable and less agitated. Also, was able to comply with taking his medications. Also, hoarding decreased. Also, the patient was accepted by [facility] and the patient was discharged there. PHYSICAL EXAMINATION: The patient showed no major medical problems. AFTER DISCHARGE PLANS: The patient discharged from the hospital and went to [facility] with plan to follow him up there. EXPECTED OUTCOME AFTER DISCHARGE: Fair if the patient continues to take his psychotropic medications and continue follow up with discharge plans. JOB# [id number]
== END 2017-05-03 18:40 | DRG 885 ==
LOC: ER 00:48 → GERO 02:33
PROVIDERS: ADMIT Psychiatry & Neurology Psychiatry; ATTEND Psychiatry & Neurology Psychiatry
DX: F25.0 Schizoaffective disorder, bipolar type (principal); F03.90 Unspecified dementia, unspecified severity, without behavioral disturbance, psychotic disturbance, mood disturbance, and anxiety; F17.200 Nicotine dependence, unspecified, uncomplicated; I10 Essential (primary) hypertension; M19.90 Unspecified osteoarthritis, unspecified site; Z88.8 Allergy status to other drugs, medicaments and biological substances; Z79.82 Long term (current) use of aspirin; Z79.899 Other long term (current) drug therapy
CPT/HCPCS: 36415-UA; 80053-TC; 80061-TC; 80164-TC; 80320-TC; 80329-TC; 81001-TC; 83036-90; 84443-TC; 85025-TC; 86592-TC; 87075-90; 90899; 93005; G0410; Z7610

== ENCOUNTER 2018-06-21 13:20 | Inpatient (IN) | payer MEDICARE, MEDICAID ==
--- NOTE | 2018-06-21 13:39 | ED Physician Chart ---
ED Chief Complaint/HPI - Patient Information Date Seen:: 06/21/18 Time Seen:: 13:35 Chief Complaint:: bilateral flank pain and anorexia History of Present Illness:: Patient's had bilateral flank pain and anorexia for 2 days. No mention or chills, fever, cough, vomiting, diarrhea, abdominal pain. Allergies:: Allergies Allergy/AdvReac Type Severity Reaction Status Date / Time benztropine [From Cogentin] Allergy Verified 06/21/18 13:32 Historian:: Medical Records Review:: Nurse's Note Reviewed ED Review of Systems - Review of Systems General/Constitutional: No fever, No chills Skin: No skin lesions Head: No headache Eyes: No loss of vision ENT: No earache Neck: No neck pain, No swelling Cardio Vascular: No chest pain Pulmonary: No SOB, No cough GI: No nausea, No vomiting, No diarrhea, Other (anorexia) G/U: No dysuria Endocrine: No polyuria, No polydipsia Psychiatric: No prior psych history Hematopoietic: No bruising Allergic/Immuno: No urticaria ED Past Medical History - Past Medical History Past Medical History: HTN, Arthritis, Other (nicotine dependence; anemia; schizophrenia; Alzheimer's disease; dementia) Family History: Other (bilateral) Social History: Care Facility Surgical History: other (not available) Psychiatricy History: Schizophrenia, Dementia Family Medical History - Family Member Mother History Unknown: Yes Ethnicity: Unknown Living Status: Unknown Hx Family Cancer: (unknown) Hx Family Coronary Artery Disease: (unknown) Hx Family Congestive Heart Failure: (unknown) Hx Family Hypertension: (unknown) Hx Family Stroke: (unknown) Hx Family Diabetes: (unknown) Hx Family Seizures: (unknown) Hx Family Dementia: (unknown) Hx Family AIDS: (unknown) Hx Family COPD: (unknown) Hx Family Hepatitis: (unknown) Hx Family Psychiatric Problems: (unknown) Hx Family Tuberculosis: (unknown) ED Physical Exam - Physical Examination General/Constitutional: Well-developed, well-nourished, Alert Head: Atraumatic Eyes: Lids, conjuctiva normal, PERRL Other Skin comments:: 1.5/4 pretibial pitting edema ENMT: External ears, nose nl Other ENMT comments:: Edentulous Neck: Nontender Respiratory: Clear to Auscultation Cardio Vascular: RRR, No murmur, gallop, rubs Other Cardio Vascular comments:: Heart sounds faint GI: No tenderness/rebounding/guarding, No organomegaly Other Extremities comments:: See above under skin ED Labs/Radiology/EKG Results - Lab Results Results: Laboratory Results WBC 4.2 Th/cmm (4.8-10.8) L 06/21/18 13:48 RBC 3.04 Mil/cmm (3.80-5.80) L 06/21/18 13:48 Hgb 9.5 gm/dL (12-16) L 06/21/18 13:48 Hct 28.6 % (41.0-60) L 06/21/18 13:48 MCV 94.3 fl (80-99) 06/21/18 13:48 MCH 31.4 pg (27.0-31.0) H 06/21/18 13:48 MCHC Differential 33.3 pg (28.0-36.0) 06/21/18 13:48 RDW 15.3 % (11.5-20.0) 06/21/18 13:48 Plt Count 111 Th/cmm (150-400) L 06/21/18 13:48 MPV 9.4 fl 06/21/18 13:48 Add Manual Diff YES 06/21/18 13:48 Band Neutrophils % 2 % (0-10) 06/21/18 13:48 Neutrophils (Manual) 62 % (40-80) 06/21/18 13:48 Lymphocytes 19 % (20-50) L 06/21/18 13:48 Monocytes 16 % (2-10) H 06/21/18 13:48 Eosinophils 1 % (0-5) 06/21/18 13:48 Sodium 136 mEq/L (136-145) 06/21/18 13:48 Potassium 4.2 mEq/L (3.5-5.1) 06/21/18 13:48 Chloride 101 mEq/L (98-107) 06/21/18 13:48 Carbon Dioxide 27.4 mEq/L (21.0-31.0) 06/21/18 13:48 Anion Gap 11.8 (7.0-16.0) 06/21/18 13:48 BUN 20 mg/dL (7-25) 06/21/18 13:48 Creatinine 1.0 mg/dL (0.7-1.3) 06/21/18 13:48 Est GFR ( Amer) > 60.0 ml/min (>90) 06/21/18 13:48 Est GFR (Non-Af Amer) > 60.0 ml/min 06/21/18 13:48 BUN/Creatinine Ratio 20.0 06/21/18 13:48 Glucose 119 mg/dL (70-105) H 06/21/18 13:48 Calcium 10.1 mg/dL (8.6-10.3) 06/21/18 13:48 Total Bilirubin 0.3 mg/dL (0.3-1.0) 06/21/18 13:48 Direct Bilirubin 0.09 mg/dL (0.0-0.2) 06/21/18 13:48 AST 15 U/L (13-39) 06/21/18 13:48 ALT 8 U/L (7-52) 06/21/18 13:48 Alkaline Phosphatase 81 U/L (34-104) 06/21/18 13:48 Total Protein 7.2 gm/dL (6.0-8.3) 06/21/18 13:48 Albumin 3.3 gm/dL (4.2-5.5) L 06/21/18 13:48 Globulin 3.9 gm/dL 06/21/18 13:48 Albumin/Globulin Ratio 0.9 (1.0-1.8) L 06/21/18 13:48 - Radiology Results Results: Chest x-ray showed no acute disease - EKG Interpretations Rate & Rhythm: normal sinus rhythm with a rate of 83 [place]: left axis deviation Comments:: Wandering baseline ED Assessment - Assessment General Assessment: text'd Dr. Mcleod at 1620 thatthe patient admitted to [facility] ED Septic Shock - . Is Septic Shock (SBP<90, OR Lactate>4 mmol\L) present?: No ED Reassessment (Disposition) - Reassessment Reassessment Condition:: Unchanged - Diagnosis Diagnosis:: Anorexia; Anemia; nicotine use; back pain - Patient Disposition Admitted to:: Med/Surg Admitting Medical Physician:: Derian Mcleod Condition at Disposition:: Stable, Unchanged
[2018-06-21 13:54] LABS: EOSINOPHILE ABSOLUTE 0.1 Th/cmm (0.1-0.4); HEMATOCRIT 28.6 % (41.0-60); HEMOGLOBIN 9.5 gm/dL (12-16); LYMPHOCYTE ABSOLUTE 0.7 Th/cmm (1.5-3.0); MEAN CELL VOLUME 94.3 fl (80-99); MEAN CORPUSCULAR HEMOGLOBIN 31.4 pg (27.0-31.0); MEAN CORPUSCULAR HGB CONC 33.3 pg (28.0-36.0); MEAN PLATELET VOLUME 9.4 fl; MONOCYTE ABSOLUTE 0.7 Th/cmm (0.3-1.0); NEUTROPHILE ABSOLUTE 2.7 Th/cmm (1.8-8.0); RED BLOOD COUNT 3.04 Mil/cmm (3.80-5.80); RED CELL DISTRIBUTION WIDTH 15.3 % (11.5-20.0); WHITE BLOOD COUNT 4.2 Th/cmm (4.8-10.8)
--- NOTE | 2018-06-21 13:57 | Diagnostic Imaging Report ---
CHEST X-RAY: AP view INDICATION: COPD COMPARISON: 03/15/2017 FINDINGS: Suboptimal lung volumes are noted. No focal consolidation or effusions. Mild chronic changes are noted. Gas-filled loops of bowel in left upper quadrant noted. Heart size is normal. Degenerative changes of the spine are noted. IMPRESSION: Suboptimal lung volume and mild chronic changes. No focal airspace consolidation identified.
[2018-06-21 14:08] LABS: PLATELET COUNT 111 Th/cmm (150-400)
[2018-06-21 14:18] LABS: ANION GAP 11.8 (7.0-16.0); BUN - UREA NITROGEN 20 mg/dL (7-25); CALCIUM SERUM 10.1 mg/dL (8.6-10.3); CARBON DIOXIDE 27.4 mEq/L (21.0-31.0); CHLORIDE 101 mEq/L (98-107); GFR AFRICAN-AMERICAN > 60.0 ml/min (>90); GFR NON AFRICAN-AMERICAN > 60.0 ml/min; GLUCOSE 119 mg/dL (70-105); POTASSIUM SERUM 4.2 mEq/L (3.5-5.1); SODIUM SERUM 136 mEq/L (136-145)
[2018-06-21 14:19] LABS: ALB/GLOB RATIO 0.9 (1.0-1.8); ALBUMIN 3.3 gm/dL (4.2-5.5); BILIRUBIN,TOTAL 0.3 mg/dL (0.3-1.0); TOTAL PROTEIN,SERUM 7.2 gm/dL (6.0-8.3)
[2018-06-21 14:23] LABS: BILIRUBIN,DIRECT 0.09 mg/dL (0.0-0.2)
[2018-06-21 14:55] LABS: BAND NEUTROPHILE 2 % (0-10); EOSINOPHIL 1 % (0-5); LYMPHOCYTE 19 % (20-50); MONOCYTE 16 % (2-10); NEUTROPHILS 62 % (40-80)
[2018-06-21 15:43] LABS: URINE SOURCE RANDOM
[2018-06-21 15:45] LABS: URINE BILIRUBIN NEGATIVE (NEGATIVE); URINE BLOOD TRACE (NEGATIVE); URINE GLUCOSE (UA) NEGATIVE (NEGATIVE); URINE KETONE NEGATIVE (NEGATIVE); URINE LEUKOCYTE ESTERASE NEGATIVE (NEGATIVE); URINE MICROSCOPIC INDICATED? YES; URINE NITRATE NEGATIVE (NEGATIVE); URINE PROTEIN NEGATIVE (NEGATIVE); URINE UROBILINOGEN 0.2 E.U./dL (0.2 - 1.0)
[2018-06-21 15:55] LABS: URINE CLARITY CLEAR (CLEAR); URINE COLOR STRAW
[2018-06-21 15:56] LABS: URINE EPITHELIAL CELLS NONE SEEN /lpf (FEW); URINE RBC 0-2 /hpf (0-5); URINE WBC NONE SEEN /hpf (0-5)
[2018-06-21 15:57] LABS: URINE BACTERIA NONE SEEN /hpf (NONE SEEN)
[2018-06-21] MEDS ORDERED: Magnesium Hydroxide (MOM) 30 mL UDC PO PRN (18:48)
[2018-06-21] MEDS ORDERED: Maalox 30 mL Cup PO PRN (18:48)
[2018-06-21 18:59] VITALS: BP 138/83
--- NOTE | 2018-06-21 20:33 | History & Physical ---
ADMIT DATE: 06/21/2018 CHIEF COMPLAINT: From [facility] per charge nurse, bilateral flank pain. HISTORY OF PRESENT ILLNESS: This is a 72-year-old -[place] male who is well known to me from previous admissions. The patient now presents to the ER with complaints of bilateral flank pain. No reports of any fevers at the [facility]. The patient denies any abdominal pain. PAST MEDICAL HISTORY: Hypertension, arthritis, nicotine dependence, anemia, schizophrenia, Alzheimer's dementia. FAMILY HISTORY: Noncontributory. SOCIAL HISTORY: The patient is a [facility] resident, requiring 24-hour nursing care. PAST SURGICAL HISTORY: Unknown. MEDICATIONS: See medications list. REVIEW OF SYSTEMS: Unable to obtain. The patient is confused. PHYSICAL EXAMINATION: GENERAL: Elderly male, awake with confusion, in no apparent distress. VITAL SIGNS: Temperature 97.6, heart rate 81, blood pressure 121/75, respirations 18, and O2 96%. HEENT: Head, normocephalic, atraumatic. NECK: Supple. No mass. LUNGS: Clear bilaterally. ABDOMEN: Soft, nontender. LABORATORY DATA: WBC 4.2, H and H 9.5 and 28.6, platelet of 111. Sodium 136, potassium 4.2, chloride 101, BUN 20, and creatinine 1.0. DIAGNOSTICS: The patient had a chest x-ray done, impression is suboptimal lung volume, mild chronic changes. No focal airspace consolidation identified. ASSESSMENT: Bilateral flank pain, generalized weakness, anemia, dementia, and hypertension. PLAN: The patient to be admitted to the med/surg unit. We will get Neurology consultation, PT evaluation. We will continue to monitor this patient. JOB# [id number]
[2018-06-22 06:09] LABS: HEMATOCRIT 26.7 % (41.0-60); MEAN CELL VOLUME 94.7 fl (80-99); MEAN CORPUSCULAR HEMOGLOBIN 31.8 pg (27.0-31.0); MEAN CORPUSCULAR HGB CONC 33.6 pg (28.0-36.0); MEAN PLATELET VOLUME 11.1 fl; PLATELET COUNT 105 Th/cmm (150-400); RED BLOOD COUNT 2.82 Mil/cmm (3.80-5.80); RED CELL DISTRIBUTION WIDTH 15.4 % (11.5-20.0)
[2018-06-22 06:17] LABS: ALB/GLOB RATIO 0.8 (1.0-1.8); ALKALINE PHOSPHATASE 69 U/L (34-104); ANION GAP 10.1 (7.0-16.0); BILIRUBIN,TOTAL 0.2 mg/dL (0.3-1.0); BUN - UREA NITROGEN 18 mg/dL (7-25); CALCIUM SERUM 9.5 mg/dL (8.6-10.3); CHLORIDE 103 mEq/L (98-107); CHOLESTEROL 104 mg/dL (<200); GFR AFRICAN-AMERICAN > 60.0 ml/min (>90); GFR NON AFRICAN-AMERICAN > 60.0 ml/min; GLUCOSE 90 mg/dL (70-105); HDL -HIGH DENSITY LIPOPROTEIN 34 mg/dL (23-92); MAGNESIUM 1.9 mg/dL (1.9-2.7); POTASSIUM SERUM 4.1 mEq/L (3.5-5.1); SGOT 12 U/L (13-39); SGPT/ALT 7 U/L (7-52); SODIUM SERUM 137 mEq/L (136-145); TOTAL PROTEIN,SERUM 6.7 gm/dL (6.0-8.3); TRIGLYCERIDES 40 mg/dL (<150)
[2018-06-22 06:53] LABS: WHITE BLOOD COUNT 3.9 Th/cmm (4.8-10.8)
[2018-06-22 07:51] LABS: BAND NEUTROPHILE 0 % (0-10); BASOPHIL 0 % (0-3); EOSINOPHIL 1 % (0-5); LYMPHOCYTE 16 % (20-50); MONOCYTE 20 % (2-10); NEUTROPHILS 63 % (40-80)
--- NOTE | 2018-06-22 08:06 | Diagnostic Imaging Report ---
CT scan of the brain without intravenous contrast HISTORY: Altered mental status, headache Total DLP equals 711 CTDI equals 38.9 There is enlargement of ventricular system along with enlargement of cerebral sulci and some arachnoid cisterns reflecting generalized cerebral atrophy. There is an approximate 1.5 cm round hyperdense focus within the left thalamus with surrounding hypodensity consistent with edema. Mass effect encroachment on the adjacent third ventricle which is slightly displaced to the right side. Hypodensity may be associated with calcification. However, acute hemorrhage cannot be excluded. A neoplastic etiology cannot be excluded. An MRI examination with and without intravenous contrast would provide further assessment and evaluation. No extra-axial masses or abnormal fluid collections. IMPRESSION: 1. 1.5 cm hyperdensity within the left thalamus with mass effect and surrounding edema. Hyperdensity may be associated with calcification. Hemorrhage cannot be excluded. The overall appearance is suggestive of a possible neoplastic etiology. An MRI examination with and without intravenous contrast would provide for further assessment and evaluation. 2. Generalized cerebral atrophy
[2018-06-22] MEDS: Lactobacillus Rhamnosus GG 15 Billion CFU CAP.SPRINK PO SCH (09:01)
[2018-06-22] MEDS: Ferrous Sulfate 325 MG TAB PO SCH (09:01)
[2018-06-22] MEDS: Multivitamin Tab PO SCH (09:01)
[2018-06-22] MEDS ORDERED: VTE Chemical Prophylaxis Screen/Admission MC PRN (09:55)
--- NOTE | 2018-06-22 14:32 | Internal Medicine Prog Note ---
Internal Medicine Subjective - Subjective Service Date: 06/22/18 Patient seen and examined:: chart reviewed Patient is:: awake, verbal, interactive, in bed, denies any new complaints Per staff patient has:: no adverse event, no episodes of fall Internal Medicine Objective - Results Result Diagrams: 06/22/18 05:40 06/22/18 05:40 Recent Labs: Laboratory Last Values WBC 3.9 Th/cmm (4.8-10.8) L 06/22/18 05:40 RBC 2.82 Mil/cmm (3.80-5.80) L 06/22/18 05:40 Hgb 9.0 gm/dL (12-16) L 06/22/18 05:40 Hct 26.7 % (41.0-60) L 06/22/18 05:40 MCV 94.7 fl (80-99) 06/22/18 05:40 MCH 31.8 pg (27.0-31.0) H 06/22/18 05:40 MCHC Differential 33.6 pg (28.0-36.0) 06/22/18 05:40 RDW 15.4 % (11.5-20.0) 06/22/18 05:40 Plt Count 105 Th/cmm (150-400) L 06/22/18 05:40 MPV 11.1 fl 06/22/18 05:40 Add Manual Diff YES 06/22/18 05:40 Band Neutrophils % 0 % (0-10) 06/22/18 05:40 Neutrophils (Manual) 63 % (40-80) 06/22/18 05:40 Lymphocytes 16 % (20-50) L 06/22/18 05:40 Monocytes 20 % (2-10) H 06/22/18 05:40 Eosinophils 1 % (0-5) 06/22/18 05:40 Basophils 0 % (0-3) 06/22/18 05:40 Sodium 137 mEq/L (136-145) 06/22/18 05:40 Potassium 4.1 mEq/L (3.5-5.1) 06/22/18 05:40 Chloride 103 mEq/L (98-107) 06/22/18 05:40 Carbon Dioxide 28.0 mEq/L (21.0-31.0) 06/22/18 05:40 Anion Gap 10.1 (7.0-16.0) 06/22/18 05:40 BUN 18 mg/dL (7-25) 06/22/18 05:40 Creatinine 1.0 mg/dL (0.7-1.3) 06/22/18 05:40 Est GFR ( Amer) > 60.0 ml/min (>90) 06/22/18 05:40 Est GFR (Non-Af Amer) > 60.0 ml/min 06/22/18 05:40 BUN/Creatinine Ratio 18.0 06/22/18 05:40 Glucose 90 mg/dL (70-105) 06/22/18 05:40 POC Glucose 128 MG/DL (70 - 105) H 06/21/18 18:34 Calcium 9.5 mg/dL (8.6-10.3) 06/22/18 05:40 Magnesium 1.9 mg/dL (1.9-2.7) 06/22/18 05:40 Total Bilirubin 0.2 mg/dL (0.3-1.0) L 06/22/18 05:40 Direct Bilirubin 0.09 mg/dL (0.0-0.2) 06/21/18 13:48 AST 12 U/L (13-39) L 06/22/18 05:40 ALT 7 U/L (7-52) 06/22/18 05:40 Alkaline Phosphatase 69 U/L (34-104) 06/22/18 05:40 Ammonia 77 umol/L (16-53) H 06/22/18 10:45 Total Protein 6.7 gm/dL (6.0-8.3) 06/22/18 05:40 Albumin 3.0 gm/dL (4.2-5.5) L 06/22/18 05:40 Globulin 3.7 gm/dL 06/22/18 05:40 Albumin/Globulin Ratio 0.8 (1.0-1.8) L 06/22/18 05:40 Triglycerides 40 mg/dL (<150) 06/22/18 05:40 Cholesterol 104 mg/dL (<200) 06/22/18 05:40 LDL Cholesterol Direct 65 mg/dL (75-193) L 06/22/18 05:40 HDL Cholesterol 34 mg/dL (23-92) 06/22/18 05:40 Urine Source RANDOM 06/21/18 15:00 Urine Color STRAW 06/21/18 15:00 Urine Clarity CLEAR (CLEAR) 06/21/18 15:00 Urine pH 6.0 (4.6 - 8.0) 06/21/18 15:00 Ur Specific [place] 1.015 (1.005-1.030) 06/21/18 15:00 Urine Protein NEGATIVE mg/dL (NEGATIVE) 06/21/18 15:00 Urine Glucose (UA) NEGATIVE mg/dL (NEGATIVE) 06/21/18 15:00 Urine Ketones NEGATIVE mg/dL (NEGATIVE) 06/21/18 15:00 Urine Blood TRACE (NEGATIVE) 06/21/18 15:00 Urine Nitrate NEGATIVE (NEGATIVE) 06/21/18 15:00 Urine Bilirubin NEGATIVE (NEGATIVE) 06/21/18 15:00 Urine Urobilinogen 0.2 E.U./dL (0.2 - 1.0) 06/21/18 15:00 Ur Leukocyte Esterase NEGATIVE (NEGATIVE) 06/21/18 15:00 Urine RBC 0-2 /hpf (0-5) H 06/21/18 15:00 Urine WBC NONE SEEN /hpf (0-5) 06/21/18 15:00 Ur Epithelial Cells NONE SEEN /lpf (FEW) 06/21/18 15:00 Urine Bacteria NONE SEEN /hpf (NONE SEEN) 06/21/18 15:00 - Physical Exam Vitals and I&O: Vital Signs Temp 97.0 F 06/22/18 11:35 Pulse 71 06/22/18 11:35 Resp 18 06/22/18 11:35 BP 126/70 06/22/18 11:35 Pulse Ox 98 06/22/18 11:35 Intake & Output 06/21/18 06/22/18 06/22/18 18:59 06:59 18:59 Intake Total 1000 Output Total 800 Balance 200 Weight (lbs) 70.76 kg 70.76 kg Intake: Oral 1000 Output: Urine 800 Other: Weight Source Patient stated Patient stated Active Medications: Current Medications Acetaminophen (Tylenol) 650 mg PO Q4HR PRN PRN Reason: moderate to severe pain Stop: 08/20/18 18:47 Al Hydrox/Mg Hydrox/Simethicone (Maalox) 30 ml PO Q4HR PRN PRN Reason: GI DISTRESS Stop: 08/20/18 18:47 Cholecalciferol (Vitamin D3) 1,000 iu PO BID [facility] Stop: 08/21/18 08:59 Last Admin: 06/22/18 09:01 Dose: 1,000 iu Clonazepam (Klonopin) 1 mg PO BID [facility]; Protocol Stop: 08/21/18 08:59 Last Admin: 06/22/18 09:02 Dose: 1 mg Divalproex Sodium (Depakote Dr) 500 mg PO DAILY [facility]; Protocol Stop: 08/21/18 08:59 Last Admin: 06/22/18 09:02 Dose: 500 mg Divalproex Sodium (Depakote Dr) 750 mg PO HS [facility]; Protocol Stop: 08/20/18 21:59 Last Admin: 06/21/18 23:11 Dose: 750 mg Docusate Sodium (Colace) 100 mg PO DAILY [facility] Stop: 08/21/18 08:59 Last Admin: 06/22/18 09:01 Dose: 100 mg Ferrous Sulfate (Iron) 325 mg PO DAILY [facility] Stop: 08/21/18 08:59 Last Admin: 06/22/18 09:01 Dose: 325 mg Furosemide (Lasix) 40 mg PO DAILY [facility] Stop: 08/21/18 08:59 Last Admin: 06/22/18 09:01 Dose: 40 mg Lactobacillus Rhamnosus (Culturelle 15b) 1 each PO DAILY [facility] Stop: 08/21/18 08:59 Last Admin: 06/22/18 09:01 Dose: 1 each Magnesium Hydroxide (Milk Of Magnesia) 30 ml PO HS PRN PRN Reason: Constipation Stop: 08/20/18 18:47 Memantine (Namenda) 10 mg PO BID [facility] Stop: 08/21/18 08:59 Last Admin: 06/22/18 09:02 Dose: 10 mg Miscellaneous (Vte Chemical Prophylaxis Screen/ Admission) 1 ea [facility] PRN PRN PRN Reason: PROTOCOL Stop: 08/21/18 09:54 Multivitamins/Vitamin C (Theragran) 1 tab PO DAILY [facility] Stop: 08/21/18 08:59 Last Admin: 06/22/18 09:01 Dose: 1 tab Quetiapine Fumarate (Seroquel) 400 mg PO BID [facility]; Protocol Stop: 08/21/18 08:59 Last Admin: 06/22/18 09:03 Dose: 400 mg Risperidone (Risperdal) 3 mg PO BID [facility]; Protocol Stop: 08/21/18 08:59 Last Admin: 06/22/18 09:02 Dose: 3 mg Valsartan (Diovan) 80 mg PO DAILY [facility] Stop: 08/21/18 08:59 Last Admin: 06/22/18 09:02 Dose: 80 mg - Procedures Procedures: Procedures Procedure Code Date EXCISION OF FINGER NAIL, EXTERNAL APPROACH 0HBQXZZ 03/15/17
[2018-06-22] MEDS ORDERED: IOHEXOL 300mgI/mL 100 ML VIAL IVP ONE (17:46)
--- NOTE | 2018-06-22 18:03 | Consultation ---
DATE OF CONSULTATION: 06/22/2018 REQUESTING PHYSICIAN: Dr. Mcleod. REASON FOR CONSULTATION: Anemia. Thank you for asking me to see this patient in consultation. HISTORY OF PRESENT ILLNESS: This is a 72-year-old -[place] gentleman who has schizophrenia, Alzheimer dementia and is relatively mute, who presents for bilateral flank pain. The patient is confused, unable to completely communicate; however, does appear calm and comfortable. PAST MEDICAL HISTORY: Hypertension, arthritis, nicotine dependence, anemia, schizophrenia, Alzheimer's. FAMILY HISTORY: Noncontributory for GI disease. SOCIAL HISTORY: He is a jail resident, requiring 24-hour care. MEDICATIONS: Have been reviewed. REVIEW OF SYSTEMS: Unable to obtain given the patient's current state. PHYSICAL EXAMINATION: VITAL SIGNS: Temperature 97.6, heart rate of 81. Blood pressure is 121/75, respiratory rate of 18, satting 96%. GENERAL: He is in no acute distress. HEENT: Normocephalic, atraumatic. PERRL positive. LUNGS: Clear bilaterally. No wheezes, rales or rhonchi. HEART: Regular rate and rhythm, normal S1, S2. ABDOMEN: Has a slightly protuberant abdominal mass in the left upper quadrant area palpated. EXTREMITIES: Show no lower extremity edema. PSYCHOLOGICAL: Alert and oriented x 3. NEUROLOGIC: Grossly intact. LABORATORY DATA: White count of 4.2, hemoglobin of 9.5, hematocrit of 28.6, platelets of 111, BUN is 20, creatinine is 1.0. No relevant imaging at this time. ASSESSMENT AND PLAN: This is a 72-year-old male who presents with anemia and bilateral flank pain with palpable protuberant type of either bony mass or abdominal mass in the left upper quadrant. 1. Anemia. 2. Concern for abdominal mass. 3. Schizophrenia and mutism. 4. Flank and abdominal pain. Would recommend getting a CT of the abdomen and pelvis for further evaluation and assessment. Physical exam findings. Currently no indication for any urgent upper endoscopy or colonoscopy in this patient. We will continue to follow alongside with you for the supportive care management per Dr. Mcleod. Thank you for allowing us to participate in your patient's care. JOB# [id number]
--- NOTE | 2018-06-23 05:52 | Consultation ---
DATE OF CONSULTATION: 06/22/2018 HISTORY OF PRESENT ILLNESS: The patient is 72 years old. The patient brought in because of continuous abdominal pain. The patient also complained because of weakness. Confusion. Becoming worse than before. PAST MEDICAL HISTORY: The patient with: 1. Schizophrenia. 2. Alzheimer. 3. Dementia. 4. Anemia. 5. Arthritis. 6. Hypertension. MEDICATIONS: As per reconciliation. Here, the patient on Klonopin, Depakote, 750+500. The patient on Lasix, Namenda, Seroquel 400 b.i.d., risperidone 3 mg b.i.d., valsartan. REVIEW OF SYSTEMS: Twelve-point negative except for above. OBJECTIVE: VITAL SIGNS: Temperature 99.4, blood pressure 138/83, pulse is 80. NECK: Supple, no bruits. HEART: Sounds S1, S2. LUNGS: Clear. NEUROLOGIC: The patient is lying in bed. The patient is awake, alert. He has actually been able to sit by himself, answers questions. Gives me his name, his age. The patient did not know what date. The patient is able to name simple objects. His short term memory is poor. Cranial: Pupils react to light. Full eye movements. Some movements. Motor: Slightly increased tone and slowness of the movements, probably from the medications. The patient will lift both arms up, lift both legs up. Reflex about 1. INVESTIGATIONS: I do not see a CT scan. We will go ahead and do one of that. LABORATORY DATA: WBC is 4.2, hemoglobin 9.5. Sodium 136, BUN is 20. Chest x-ray, no acute changes. ASSESSMENT: 1. Encephalopathy, improved. 2. Underlying dementia, Alzheimer. 3. General weakness. 4. Some parkinsonian features, probably medication related. 5. Schizophrenia. 6. Arthritis. 7. Hypertension. PLAN: CT scan of the head. Lab studies. JOB# [id number]
[2018-06-23] MEDS: Ferrous Sulfate 325 MG TAB PO SCH (09:19)
[2018-06-23] MEDS: Lactobacillus Rhamnosus GG 15 Billion CFU CAP.SPRINK PO SCH (09:19)
--- NOTE | 2018-06-23 09:50 | Diagnostic Imaging Report ---
Head CT without intravenous contrast Indication: CVA Comparison: Head CT on 06/21/2018 Technique: Axial images were obtained from the vertex to the skull base without IV contrast. Coronal reconstructions were made. Total DLP: 723, CTDI 37 FINDINGS: Images of the brain obtained without contrast again demonstrate abnormal edema along the left thalamic region and basal ganglia with associated mass effect upon the third ventricle and foramen of Myrna. Surrounding increased density is noted. No evidence of hydrocephalus. There is 2 mm left to right midline shift. No evidence of a skull fracture or focal soft tissue swelling. The visualized paranasal sinuses are clear. IMPRESSION: Persistent low-attenuation, likely mass lesion along the left basal ganglia and thalamic region. Rim of high density may be due to calcifications versus less likely hemorrhage. This may be due to neoplastic etiology. Infectious inflammatory process cannot be excluded. A subacute infarct is less likely. Recommend further assessment with MRI probably IV contrast There is mild mass effect upon the third ventricle and foramen of Myrna. There is 2 mm left to right midline shift. No evidence of hydrocephalus at this time.
--- NOTE | 2018-06-23 10:03 | Diagnostic Imaging Report ---
CT abdomen and pelvis with intravenous contrast Indication: Mass, left upper quadrant Comparison: None, Technique: Axial images were obtained from the lung bases to the bilateral proximal femurs with IV contrast. Coronal reconstructions were made. total DLP: 454, CTDI8.2 FINDINGS: Small bilateral effusions are seen atelectatic and consolidative changes. There are numerous lesions along the upper abdomen location difficult to determine but probably arising from the left lobe of the liver with the largest area measuring 6.5 x 6.9 cm. Lack of oral contrast also limits assessment of these regions. There is suboptimal assessment of the pancreas. No focal splenic lesions. The adrenal glands are suboptimally evaluated. Bilateral subcentimeter low-density lesion renal lesions are noted. No hydronephrosis. There is mild ascites. Mild urinary bladder wall thickening is noted. There is a large colonic gas distended loop of the left upper quadrant is difficult to assess does not appear perforated. Areas of mild small bowel wall thickening is noted. Mild atherosclerosis noted. Degenerative changes of the spine are noted. There is a large ill defined mass lesion of the L3 vertebral body measuring 3.2 cm. Pathologic fracture of this vertebral body is noted. No retropulsion. Degenerative changes of SI joints are noted. Ill-defined small lucent lesions of the iliac bones are noted. There is extensive retroperitoneal lymphadenopathy. IMPRESSION: Multiple large low-density lesions within the right upper quadrant probably arising from the liver some which from a rise from the left lobe of the liver. Findings are most likely due to metastatic disease. Adjacent biliary mass or pancreatic mass cannot be excluded but is less likely. Note exam was limited due to lack of oral contrast. Mild abdominal and pelvic ascites. Extensive retroperitoneal lymphadenopathy likely due to metastatic disease. Copious stool throughout the colon. There is distention of what appears to be markedly distended large bowel loop along the splenic flexure under the left hemidiaphragm. No gross free air identified. Areas of mild small bowel wall thickening. Inflammatory process cannot be excluded. Suspect gastric wall thickening. The Significance should be correlated clinically. Ill-defined lesion of the L3 vertebral body probably due to metastatic disease. There is a pathological fracture of the vertebral body at this level. No significant loss of height. No retropulsion. Suspect subtle lucencies of the iliac bones possibly due to underlying osseous metastatic disease. Small bilateral effusions and bibasal consolidative changes. Please refer to above for details.
[2018-06-23] MEDS: Multivitamin Tab PO SCH (12:27)
--- NOTE | 2018-06-23 20:20 | GI Progress Note ---
Subjective - Review of Systems Service Date: 06/23/18 Events since last encounter: No events Objective - Results Result Diagrams: 06/22/18 05:40 06/22/18 05:40 Recent Labs: Laboratory Last Values WBC 3.9 Th/cmm (4.8-10.8) L 06/22/18 05:40 RBC 2.82 Mil/cmm (3.80-5.80) L 06/22/18 05:40 Hgb 9.0 gm/dL (12-16) L 06/22/18 05:40 Hct 26.7 % (41.0-60) L 06/22/18 05:40 MCV 94.7 fl (80-99) 06/22/18 05:40 MCH 31.8 pg (27.0-31.0) H 06/22/18 05:40 MCHC Differential 33.6 pg (28.0-36.0) 06/22/18 05:40 RDW 15.4 % (11.5-20.0) 06/22/18 05:40 Plt Count 105 Th/cmm (150-400) L 06/22/18 05:40 MPV 11.1 fl 06/22/18 05:40 Add Manual Diff YES 06/22/18 05:40 Band Neutrophils % 0 % (0-10) 06/22/18 05:40 Neutrophils (Manual) 63 % (40-80) 06/22/18 05:40 Lymphocytes 16 % (20-50) L 06/22/18 05:40 Monocytes 20 % (2-10) H 06/22/18 05:40 Eosinophils 1 % (0-5) 06/22/18 05:40 Basophils 0 % (0-3) 06/22/18 05:40 Sodium 137 mEq/L (136-145) 06/22/18 05:40 Potassium 4.1 mEq/L (3.5-5.1) 06/22/18 05:40 Chloride 103 mEq/L (98-107) 06/22/18 05:40 Carbon Dioxide 28.0 mEq/L (21.0-31.0) 06/22/18 05:40 Anion Gap 10.1 (7.0-16.0) 06/22/18 05:40 BUN 18 mg/dL (7-25) 06/22/18 05:40 Creatinine 1.0 mg/dL (0.7-1.3) 06/22/18 05:40 Est GFR ( Amer) > 60.0 ml/min (>90) 06/22/18 05:40 Est GFR (Non-Af Amer) > 60.0 ml/min 06/22/18 05:40 BUN/Creatinine Ratio 18.0 06/22/18 05:40 Glucose 90 mg/dL (70-105) 06/22/18 05:40 POC Glucose 128 MG/DL (70 - 105) H 06/21/18 18:34 Calcium 9.5 mg/dL (8.6-10.3) 06/22/18 05:40 Magnesium 1.9 mg/dL (1.9-2.7) 06/22/18 05:40 Total Bilirubin 0.2 mg/dL (0.3-1.0) L 06/22/18 05:40 Direct Bilirubin 0.09 mg/dL (0.0-0.2) 06/21/18 13:48 AST 12 U/L (13-39) L 06/22/18 05:40 ALT 7 U/L (7-52) 06/22/18 05:40 Alkaline Phosphatase 69 U/L (34-104) 06/22/18 05:40 Ammonia 77 umol/L (16-53) H 06/22/18 10:45 Total Protein 6.7 gm/dL (6.0-8.3) 06/22/18 05:40 Albumin 3.0 gm/dL (4.2-5.5) L 06/22/18 05:40 Globulin 3.7 gm/dL 06/22/18 05:40 Albumin/Globulin Ratio 0.8 (1.0-1.8) L 06/22/18 05:40 Triglycerides 40 mg/dL (<150) 06/22/18 05:40 Cholesterol 104 mg/dL (<200) 06/22/18 05:40 LDL Cholesterol Direct 65 mg/dL (75-193) L 06/22/18 05:40 HDL Cholesterol 34 mg/dL (23-92) 06/22/18 05:40 Folic Acid 11.8 ng/mL (>3.0) 06/22/18 05:40 Urine Source RANDOM 06/21/18 15:00 Urine Color STRAW 06/21/18 15:00 Urine Clarity CLEAR (CLEAR) 06/21/18 15:00 Urine pH 6.0 (4.6 - 8.0) 06/21/18 15:00 Ur Specific [place] 1.015 (1.005-1.030) 06/21/18 15:00 Urine Protein NEGATIVE mg/dL (NEGATIVE) 06/21/18 15:00 Urine Glucose (UA) NEGATIVE mg/dL (NEGATIVE) 06/21/18 15:00 Urine Ketones NEGATIVE mg/dL (NEGATIVE) 06/21/18 15:00 Urine Blood TRACE (NEGATIVE) 06/21/18 15:00 Urine Nitrate NEGATIVE (NEGATIVE) 06/21/18 15:00 Urine Bilirubin NEGATIVE (NEGATIVE) 06/21/18 15:00 Urine Urobilinogen 0.2 E.U./dL (0.2 - 1.0) 06/21/18 15:00 Ur Leukocyte Esterase NEGATIVE (NEGATIVE) 06/21/18 15:00 Urine RBC 0-2 /hpf (0-5) H 06/21/18 15:00 Urine WBC NONE SEEN /hpf (0-5) 06/21/18 15:00 Ur Epithelial Cells NONE SEEN /lpf (FEW) 06/21/18 15:00 Urine Bacteria NONE SEEN /hpf (NONE SEEN) 06/21/18 15:00 - Physical Exam Vitals and I&O: Vital Signs Temp 99 F 06/23/18 19:46 Pulse 105 06/23/18 19:46 Resp 19 06/23/18 19:46 BP 97/56 06/23/18 19:46 Pulse Ox 100 06/23/18 19:46 Intake & Output 06/23/18 06/23/18 06/24/18 06:59 18:59 06:59 Intake Total 250 600 Balance 250 600 Weight (lbs) 70.76 kg 70.76 kg Intake: Oral 250 600 Other: # Voids 2 3 # Bowel Movements 1 Weight Source Bedscale Bedscale Active Medications: Current Medications Acetaminophen (Tylenol) 650 mg PO Q4HR PRN PRN Reason: moderate to severe pain Stop: 08/20/18 18:47 Al Hydrox/Mg Hydrox/Simethicone (Maalox) 30 ml PO Q4HR PRN PRN Reason: GI DISTRESS Stop: 08/20/18 18:47 Cholecalciferol (Vitamin D3) 1,000 iu PO BID [facility] Stop: 08/21/18 08:59 Last Admin: 06/23/18 17:19 Dose: 1,000 iu Clonazepam (Klonopin) 1 mg PO BID [facility]; Protocol Stop: 08/21/18 08:59 Last Admin: 06/23/18 17:18 Dose: 1 mg Divalproex Sodium (Depakote Dr) 500 mg PO DAILY [facility]; Protocol Stop: 08/21/18 08:59 Last Admin: 06/23/18 09:21 Dose: 500 mg Divalproex Sodium (Depakote Dr) 750 mg PO HS [facility]; Protocol Stop: 08/20/18 21:59 Last Admin: 06/22/18 20:03 Dose: Not Given Docusate Sodium (Colace) 100 mg PO DAILY [facility] Stop: 08/21/18 08:59 Last Admin: 06/23/18 09:20 Dose: 100 mg Ferrous Sulfate (Iron) 325 mg PO DAILY [facility] Stop: 08/21/18 08:59 Last Admin: 06/23/18 09:19 Dose: 325 mg Furosemide (Lasix) 40 mg PO DAILY [facility] Stop: 08/21/18 08:59 Last Admin: 06/23/18 09:20 Dose: Not Given Lactobacillus Rhamnosus (Culturelle 15b) 1 each PO DAILY [facility] Stop: 08/21/18 08:59 Last Admin: 06/23/18 09:19 Dose: 1 each Magnesium Hydroxide (Milk Of Magnesia) 30 ml PO HS PRN PRN Reason: Constipation Stop: 08/20/18 18:47 Memantine (Namenda) 10 mg PO BID [facility] Stop: 08/21/18 08:59 Last Admin: 06/23/18 17:19 Dose: 10 mg Miscellaneous (Vte Chemical Prophylaxis Screen/ Admission) 1 ea PRN PRN PRN Reason: PROTOCOL Stop: 08/21/18 09:54 Multivitamins/Vitamin C (Theragran) 1 tab PO DAILY [facility] Stop: 08/21/18 08:59 Last Admin: 06/23/18 12:27 Dose: 1 tab Quetiapine Fumarate (Seroquel) 400 mg PO BID [facility]; Protocol Stop: 08/21/18 08:59 Last Admin: 06/23/18 17:19 Dose: 400 mg Risperidone (Risperdal) 3 mg PO BID [facility]; Protocol Stop: 08/21/18 08:59 Last Admin: 06/23/18 17:19 Dose: 3 mg Valsartan (Diovan) 80 mg PO DAILY [facility] Stop: 08/21/18 08:59 Last Admin: 06/23/18 09:21 Dose: Not Given General: Alert HEENT: Atraumatic, PERRLA Neck: Supple, JVD Cardiovascular: Normal S1, Normal S2 Lungs: Clear to auscultation Abdomen: Bowel sounds, Distended - Procedures Procedures: Procedures Procedure Code Date EXCISION OF FINGER NAIL, EXTERNAL APPROACH [id number] 03/15/17 Assessment/Plan - Assessment Assessment: 1. 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 cachexia 3. failure to thrive -recommend obtaining liver biopsy -consider oncology evaluation -no plans for endoscopy currently
--- NOTE | 2018-06-23 22:59 | Progress Notes ---
DATE: 06/23/2018 SUBJECTIVE: The patient was seen in his room. The patient is asleep, easily arousable. Appears to be calm. Denies any pain or discomfort. Otherwise, the patient appears in no acute distress. OBJECTIVE: VITAL SIGNS: Temperature 97.8, heart rate 75, blood pressure 110/74, respirations of 19 and 96% on room air. HEENT: Head is atraumatic and normocephalic. Eyes: Bilateral conjunctivae are clear. Bilateral pupils are equally round and reactive. NECK: Supple. No JVD. CARDIOVASCULAR: S1 and S2, without murmur. PULMONARY: Clear to auscultation. GASTROINTESTINAL: Soft and nontender without guarding. Positive bowel sounds. MUSCULOSKELETAL: No clubbing. No cyanosis noted. ASSESSMENT: 1. Anemia. 2. Abdominal mass. 3. Schizophrenia. PLAN: The patient will undergo CT scan of the abdomen and pelvis for further management and evaluation of the mass. We will keep the patient inpatient. We will do pain management as needed. Treatment plans were discussed with the patient's nurse. Treatment plans were discussed with Dr. Mcleod. JOB# [id number]
[2018-06-24] MEDS: POLYETHYLENE GLYCOL 3350 17 GM PACK PO SCH (08:56)
[2018-06-24] MEDS: Lactobacillus Rhamnosus GG 15 Billion CFU CAP.SPRINK PO SCH (08:56)
[2018-06-24] MEDS: Ferrous Sulfate 325 MG TAB PO SCH (08:57)
[2018-06-24] MEDS: Multivitamin Tab PO SCH (08:57)
--- NOTE | 2018-06-24 09:38 | GI Progress Note ---
Subjective - Review of Systems Service Date: 06/24/18 Events since last encounter: No acute events overnight Objective - Results Result Diagrams: 06/22/18 05:40 06/22/18 05:40 Recent Labs: Laboratory Last Values WBC 3.9 Th/cmm (4.8-10.8) L 06/22/18 05:40 RBC 2.82 Mil/cmm (3.80-5.80) L 06/22/18 05:40 Hgb 9.0 gm/dL (12-16) L 06/22/18 05:40 Hct 26.7 % (41.0-60) L 06/22/18 05:40 MCV 94.7 fl (80-99) 06/22/18 05:40 MCH 31.8 pg (27.0-31.0) H 06/22/18 05:40 MCHC Differential 33.6 pg (28.0-36.0) 06/22/18 05:40 RDW 15.4 % (11.5-20.0) 06/22/18 05:40 Plt Count 105 Th/cmm (150-400) L 06/22/18 05:40 MPV 11.1 fl 06/22/18 05:40 Add Manual Diff YES 06/22/18 05:40 Band Neutrophils % 0 % (0-10) 06/22/18 05:40 Neutrophils (Manual) 63 % (40-80) 06/22/18 05:40 Lymphocytes 16 % (20-50) L 06/22/18 05:40 Monocytes 20 % (2-10) H 06/22/18 05:40 Eosinophils 1 % (0-5) 06/22/18 05:40 Basophils 0 % (0-3) 06/22/18 05:40 Sodium 137 mEq/L (136-145) 06/22/18 05:40 Potassium 4.1 mEq/L (3.5-5.1) 06/22/18 05:40 Chloride 103 mEq/L (98-107) 06/22/18 05:40 Carbon Dioxide 28.0 mEq/L (21.0-31.0) 06/22/18 05:40 Anion Gap 10.1 (7.0-16.0) 06/22/18 05:40 BUN 18 mg/dL (7-25) 06/22/18 05:40 Creatinine 1.0 mg/dL (0.7-1.3) 06/22/18 05:40 Est GFR ( Amer) > 60.0 ml/min (>90) 06/22/18 05:40 Est GFR (Non-Af Amer) > 60.0 ml/min 06/22/18 05:40 BUN/Creatinine Ratio 18.0 06/22/18 05:40 Glucose 90 mg/dL (70-105) 06/22/18 05:40 POC Glucose 128 MG/DL (70 - 105) H 06/21/18 18:34 Calcium 9.5 mg/dL (8.6-10.3) 06/22/18 05:40 Magnesium 1.9 mg/dL (1.9-2.7) 06/22/18 05:40 Total Bilirubin 0.2 mg/dL (0.3-1.0) L 06/22/18 05:40 Direct Bilirubin 0.09 mg/dL (0.0-0.2) 06/21/18 13:48 AST 12 U/L (13-39) L 06/22/18 05:40 ALT 7 U/L (7-52) 06/22/18 05:40 Alkaline Phosphatase 69 U/L (34-104) 06/22/18 05:40 Ammonia 77 umol/L (16-53) H 06/22/18 10:45 Total Protein 6.7 gm/dL (6.0-8.3) 06/22/18 05:40 Albumin 3.0 gm/dL (4.2-5.5) L 06/22/18 05:40 Globulin 3.7 gm/dL 06/22/18 05:40 Albumin/Globulin Ratio 0.8 (1.0-1.8) L 06/22/18 05:40 Triglycerides 40 mg/dL (<150) 06/22/18 05:40 Cholesterol 104 mg/dL (<200) 06/22/18 05:40 LDL Cholesterol Direct 65 mg/dL (75-193) L 06/22/18 05:40 HDL Cholesterol 34 mg/dL (23-92) 06/22/18 05:40 Folic Acid 11.8 ng/mL (>3.0) 06/22/18 05:40 Urine Source RANDOM 06/21/18 15:00 Urine Color STRAW 06/21/18 15:00 Urine Clarity CLEAR (CLEAR) 06/21/18 15:00 Urine pH 6.0 (4.6 - 8.0) 06/21/18 15:00 Ur Specific [place] 1.015 (1.005-1.030) 06/21/18 15:00 Urine Protein NEGATIVE mg/dL (NEGATIVE) 06/21/18 15:00 Urine Glucose (UA) NEGATIVE mg/dL (NEGATIVE) 06/21/18 15:00 Urine Ketones NEGATIVE mg/dL (NEGATIVE) 06/21/18 15:00 Urine Blood TRACE (NEGATIVE) 06/21/18 15:00 Urine Nitrate NEGATIVE (NEGATIVE) 06/21/18 15:00 Urine Bilirubin NEGATIVE (NEGATIVE) 06/21/18 15:00 Urine Urobilinogen 0.2 E.U./dL (0.2 - 1.0) 06/21/18 15:00 Ur Leukocyte Esterase NEGATIVE (NEGATIVE) 06/21/18 15:00 Urine RBC 0-2 /hpf (0-5) H 06/21/18 15:00 Urine WBC NONE SEEN /hpf (0-5) 06/21/18 15:00 Ur Epithelial Cells NONE SEEN /lpf (FEW) 06/21/18 15:00 Urine Bacteria NONE SEEN /hpf (NONE SEEN) 06/21/18 15:00 - Physical Exam Vitals and I&O: Vital Signs Temp 98.0 F 06/24/18 08:00 Pulse 80 06/24/18 08:58 Resp 18 06/24/18 08:00 BP 114/88 06/24/18 08:58 Pulse Ox 98 06/24/18 08:00 Intake & Output 06/23/18 06/24/18 06/24/18 18:59 06:59 18:59 Intake Total 600 600 Balance 600 600 Weight (lbs) 70.76 kg 70.76 kg Intake: Oral 600 600 Other: # Voids 3 1 # Bowel Movements 1 Weight Source Bedscale Bedscale Active Medications: Current Medications Acetaminophen (Tylenol) 650 mg PO Q4HR PRN PRN Reason: moderate to severe pain Stop: 08/20/18 18:47 Last Admin: 06/24/18 00:50 Dose: 650 mg Al Hydrox/Mg Hydrox/Simethicone (Maalox) 30 ml PO Q4HR PRN PRN Reason: GI DISTRESS Stop: 08/20/18 18:47 Cholecalciferol (Vitamin D3) 1,000 iu PO BID [facility] Stop: 08/21/18 08:59 Last Admin: 06/24/18 08:57 Dose: 1,000 iu Clonazepam (Klonopin) 1 mg PO BID [facility]; Protocol Stop: 08/21/18 08:59 Last Admin: 06/24/18 08:57 Dose: 1 mg Divalproex Sodium (Depakote Dr) 500 mg PO DAILY [facility]; Protocol Stop: 08/21/18 08:59 Last Admin: 06/24/18 08:57 Dose: 500 mg Divalproex Sodium (Depakote Dr) 750 mg PO HS [facility]; Protocol Stop: 08/20/18 21:59 Last Admin: 06/23/18 21:38 Dose: 750 mg Docusate Sodium (Colace) 100 mg PO DAILY [facility] Stop: 08/21/18 08:59 Last Admin: 06/24/18 08:57 Dose: 100 mg Ferrous Sulfate (Iron) 325 mg PO DAILY [facility] Stop: 08/21/18 08:59 Last Admin: 06/24/18 08:57 Dose: 325 mg Furosemide (Lasix) 40 mg PO DAILY [facility] Stop: 08/21/18 08:59 Last Admin: 06/24/18 08:58 Dose: 40 mg Lactobacillus Rhamnosus (Culturelle 15b) 1 each PO DAILY [facility] Stop: 08/21/18 08:59 Last Admin: 06/24/18 08:56 Dose: 1 each Magnesium Hydroxide (Milk Of Magnesia) 30 ml PO HS PRN PRN Reason: Constipation Stop: 08/20/18 18:47 Memantine (Namenda) 10 mg PO BID [facility] Stop: 08/21/18 08:59 Last Admin: 06/24/18 08:57 Dose: 10 mg Miscellaneous (Vte Chemical Prophylaxis Screen/ Admission) 1 ea [facility] PRN PRN PRN Reason: PROTOCOL Stop: 08/21/18 09:54 Multivitamins/Vitamin C (Theragran) 1 tab PO DAILY [facility] Stop: 08/21/18 08:59 Last Admin: 06/24/18 08:57 Dose: 1 tab Polyethylene Glycol (Miralax) 17 gm PO DAILY [facility] Stop: 08/23/18 08:59 Last Admin: 06/24/18 08:56 Dose: 17 gm Quetiapine Fumarate (Seroquel) 400 mg PO BID [facility]; Protocol Stop: 08/21/18 08:59 Last Admin: 06/24/18 08:56 Dose: 400 mg Risperidone (Risperdal) 3 mg PO BID [facility]; Protocol Stop: 08/21/18 08:59 Last Admin: 06/24/18 08:56 Dose: 3 mg Valsartan (Diovan) 80 mg PO DAILY [facility] Stop: 08/21/18 08:59 Last Admin: 06/24/18 08:58 Dose: 80 mg General: Alert HEENT: Atraumatic, PERRLA Neck: Supple, JVD Cardiovascular: Normal S1, Normal S2 Lungs: Clear to auscultation Abdomen: Bowel sounds, Distended - Procedures Procedures: Procedures Procedure Code Date EXCISION OF FINGER NAIL, EXTERNAL APPROACH 0HBQXZZ 03/15/17 Assessment/Plan - Assessment Assessment: 1. 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 cachexia 3. failure to thrive -recommend obtaining liver biopsy -consider oncology evaluation -no plans for endoscopy currently, unless develops any overt symptoms -wide differentials, check tumor markers
--- NOTE | 2018-06-24 13:59 | Internal Medicine Prog Note ---
Internal Medicine Subjective - Subjective Service Date: 06/24/18 Patient is:: awake, verbal, interactive, in bed, denies any new complaints Per staff patient has:: no adverse event, no episodes of fall Internal Medicine Objective - Results Result Diagrams: 06/22/18 05:40 06/22/18 05:40 Recent Labs: Laboratory Last Values WBC 3.9 Th/cmm (4.8-10.8) L 06/22/18 05:40 RBC 2.82 Mil/cmm (3.80-5.80) L 06/22/18 05:40 Hgb 9.0 gm/dL (12-16) L 06/22/18 05:40 Hct 26.7 % (41.0-60) L 06/22/18 05:40 MCV 94.7 fl (80-99) 06/22/18 05:40 MCH 31.8 pg (27.0-31.0) H 06/22/18 05:40 MCHC Differential 33.6 pg (28.0-36.0) 06/22/18 05:40 RDW 15.4 % (11.5-20.0) 06/22/18 05:40 Plt Count 105 Th/cmm (150-400) L 06/22/18 05:40 MPV 11.1 fl 06/22/18 05:40 Add Manual Diff YES 06/22/18 05:40 Band Neutrophils % 0 % (0-10) 06/22/18 05:40 Neutrophils (Manual) 63 % (40-80) 06/22/18 05:40 Lymphocytes 16 % (20-50) L 06/22/18 05:40 Monocytes 20 % (2-10) H 06/22/18 05:40 Eosinophils 1 % (0-5) 06/22/18 05:40 Basophils 0 % (0-3) 06/22/18 05:40 Sodium 137 mEq/L (136-145) 06/22/18 05:40 Potassium 4.1 mEq/L (3.5-5.1) 06/22/18 05:40 Chloride 103 mEq/L (98-107) 06/22/18 05:40 Carbon Dioxide 28.0 mEq/L (21.0-31.0) 06/22/18 05:40 Anion Gap 10.1 (7.0-16.0) 06/22/18 05:40 BUN 18 mg/dL (7-25) 06/22/18 05:40 Creatinine 1.0 mg/dL (0.7-1.3) 06/22/18 05:40 Est GFR ( Amer) > 60.0 ml/min (>90) 06/22/18 05:40 Est GFR (Non-Af Amer) > 60.0 ml/min 06/22/18 05:40 BUN/Creatinine Ratio 18.0 06/22/18 05:40 Glucose 90 mg/dL (70-105) 06/22/18 05:40 POC Glucose 128 MG/DL (70 - 105) H 06/21/18 18:34 Calcium 9.5 mg/dL (8.6-10.3) 06/22/18 05:40 Magnesium 1.9 mg/dL (1.9-2.7) 06/22/18 05:40 Total Bilirubin 0.2 mg/dL (0.3-1.0) L 06/22/18 05:40 Direct Bilirubin 0.09 mg/dL (0.0-0.2) 06/21/18 13:48 AST 12 U/L (13-39) L 06/22/18 05:40 ALT 7 U/L (7-52) 06/22/18 05:40 Alkaline Phosphatase 69 U/L (34-104) 06/22/18 05:40 Ammonia 77 umol/L (16-53) H 06/22/18 10:45 Total Protein 6.7 gm/dL (6.0-8.3) 06/22/18 05:40 Albumin 3.0 gm/dL (4.2-5.5) L 06/22/18 05:40 Globulin 3.7 gm/dL 06/22/18 05:40 Albumin/Globulin Ratio 0.8 (1.0-1.8) L 06/22/18 05:40 Triglycerides 40 mg/dL (<150) 06/22/18 05:40 Cholesterol 104 mg/dL (<200) 06/22/18 05:40 LDL Cholesterol Direct 65 mg/dL (75-193) L 06/22/18 05:40 HDL Cholesterol 34 mg/dL (23-92) 06/22/18 05:40 Folic Acid 11.8 ng/mL (>3.0) 06/22/18 05:40 Urine Source RANDOM 06/21/18 15:00 Urine Color STRAW 06/21/18 15:00 Urine Clarity CLEAR (CLEAR) 06/21/18 15:00 Urine pH 6.0 (4.6 - 8.0) 06/21/18 15:00 Ur Specific [place] 1.015 (1.005-1.030) 06/21/18 15:00 Urine Protein NEGATIVE mg/dL (NEGATIVE) 06/21/18 15:00 Urine Glucose (UA) NEGATIVE mg/dL (NEGATIVE) 06/21/18 15:00 Urine Ketones NEGATIVE mg/dL (NEGATIVE) 06/21/18 15:00 Urine Blood TRACE (NEGATIVE) 06/21/18 15:00 Urine Nitrate NEGATIVE (NEGATIVE) 06/21/18 15:00 Urine Bilirubin NEGATIVE (NEGATIVE) 06/21/18 15:00 Urine Urobilinogen 0.2 E.U./dL (0.2 - 1.0) 06/21/18 15:00 Ur Leukocyte Esterase NEGATIVE (NEGATIVE) 06/21/18 15:00 Urine RBC 0-2 /hpf (0-5) H 06/21/18 15:00 Urine WBC NONE SEEN /hpf (0-5) 06/21/18 15:00 Ur Epithelial Cells NONE SEEN /lpf (FEW) 06/21/18 15:00 Urine Bacteria NONE SEEN /hpf (NONE SEEN) 06/21/18 15:00 - Physical Exam Vitals and I&O: Vital Signs Temp 98.3 F 06/24/18 12:00 Pulse 81 06/24/18 12:00 Resp 18 06/24/18 12:00 BP 116/78 06/24/18 12:00 Pulse Ox 98 06/24/18 12:00 Intake & Output 06/23/18 06/24/18 06/24/18 18:59 06:59 18:59 Intake Total 600 600 200 Balance 600 600 200 Weight (lbs) 156 lb 156 lb 156 lb Intake: Oral 600 600 200 Other: # Voids 3 1 # Bowel Movements 1 Weight Source Bedscale Bedscale Bedscale Active Medications: Current Medications Acetaminophen (Tylenol) 650 mg PO Q4HR PRN PRN Reason: moderate to severe pain Stop: 08/20/18 18:47 Last Admin: 06/24/18 00:50 Dose: 650 mg Al Hydrox/Mg Hydrox/Simethicone (Maalox) 30 ml PO Q4HR PRN PRN Reason: GI DISTRESS Stop: 08/20/18 18:47 Cholecalciferol (Vitamin D3) 1,000 iu PO BID [facility] Stop: 08/21/18 08:59 Last Admin: 06/24/18 08:57 Dose: 1,000 iu Clonazepam (Klonopin) 1 mg PO BID [facility]; Protocol Stop: 08/21/18 08:59 Last Admin: 06/24/18 08:57 Dose: 1 mg Divalproex Sodium (Depakote Dr) 500 mg PO DAILY [facility]; Protocol Stop: 08/21/18 08:59 Last Admin: 06/24/18 08:57 Dose: 500 mg Divalproex Sodium (Depakote Dr) 750 mg PO HS [facility]; Protocol Stop: 08/20/18 21:59 Last Admin: 06/23/18 21:38 Dose: 750 mg Docusate Sodium (Colace) 100 mg PO DAILY [facility] Stop: 08/21/18 08:59 Last Admin: 06/24/18 08:57 Dose: 100 mg Ferrous Sulfate (Iron) 325 mg PO DAILY [facility] Stop: 08/21/18 08:59 Last Admin: 06/24/18 08:57 Dose: 325 mg Furosemide (Lasix) 40 mg PO DAILY [facility] Stop: 08/21/18 08:59 Last Admin: 06/24/18 08:58 Dose: 40 mg Lactobacillus Rhamnosus (Culturelle 15b) 1 each PO DAILY [facility] Stop: 08/21/18 08:59 Last Admin: 06/24/18 08:56 Dose: 1 each Magnesium Hydroxide (Milk Of Magnesia) 30 ml PO HS PRN PRN Reason: Constipation Stop: 08/20/18 18:47 Memantine (Namenda) 10 mg PO BID [facility] Stop: 08/21/18 08:59 Last Admin: 06/24/18 08:57 Dose: 10 mg Miscellaneous (Vte Chemical Prophylaxis Screen/ Admission) 1 ea [facility] PRN PRN PRN Reason: PROTOCOL Stop: 08/21/18 09:54 Multivitamins/Vitamin C (Theragran) 1 tab PO DAILY [facility] Stop: 08/21/18 08:59 Last Admin: 06/24/18 08:57 Dose: 1 tab Polyethylene Glycol (Miralax) 17 gm PO DAILY [facility] Stop: 08/23/18 08:59 Last Admin: 06/24/18 08:56 Dose: 17 gm Quetiapine Fumarate (Seroquel) 400 mg PO BID [facility]; Protocol Stop: 08/21/18 08:59 Last Admin: 06/24/18 08:56 Dose: 400 mg Risperidone (Risperdal) 3 mg PO BID [facility]; Protocol Stop: 08/21/18 08:59 Last Admin: 06/24/18 08:56 Dose: 3 mg Valsartan (Diovan) 80 mg PO DAILY [facility] Stop: 08/21/18 08:59 Last Admin: 06/24/18 08:58 Dose: 80 mg - Procedures Procedures: Procedures Procedure Code Date EXCISION OF FINGER NAIL, EXTERNAL APPROACH 0HBQXZZ 03/15/17 Internal Medicine Assmt/Plan - Assessment Assessment: Bilateral flank pain, generalized weakness, anemia, dementia, and hypertension. - Plan Plan: fall precautions am labs
[2018-06-25 06:21] LABS: EOSINOPHILE ABSOLUTE 0.1 Th/cmm (0.1-0.4); HEMOGLOBIN 9.6 gm/dL (12-16); LYMPHOCYTE ABSOLUTE 0.9 Th/cmm (1.5-3.0); MEAN CORPUSCULAR HEMOGLOBIN 31.1 pg (27.0-31.0); MEAN CORPUSCULAR HGB CONC 33.1 pg (28.0-36.0); MEAN PLATELET VOLUME 10.5 fl; MONOCYTE ABSOLUTE 0.8 Th/cmm (0.3-1.0); NEUTROPHILE ABSOLUTE 2.3 Th/cmm (1.8-8.0); PLATELET COUNT 116 Th/cmm (150-400); RED BLOOD COUNT 3.09 Mil/cmm (3.80-5.80); WHITE BLOOD COUNT 4.1 Th/cmm (4.8-10.8)
[2018-06-25 06:39] LABS: ANION GAP 11.5 (7.0-16.0); BUN - UREA NITROGEN 23 mg/dL (7-25); CALCIUM SERUM 10.3 mg/dL (8.6-10.3); CARBON DIOXIDE 27.5 mEq/L (21.0-31.0); CHLORIDE 106 mEq/L (98-107); CREATININE - SERUM 1.2 mg/dL (0.7-1.3); GFR AFRICAN-AMERICAN > 60.0 ml/min (>90); GFR NON AFRICAN-AMERICAN > 60.0 ml/min; GLUCOSE 80 mg/dL (70-105); SODIUM SERUM 141 mEq/L (136-145)
[2018-06-25] MEDS: POLYETHYLENE GLYCOL 3350 17 GM PACK PO SCH (09:00)
[2018-06-25] MEDS: Ferrous Sulfate 325 MG TAB PO SCH (09:01)
[2018-06-25] MEDS: Multivitamin Tab PO SCH (09:01)
[2018-06-25] MEDS: Lactobacillus Rhamnosus GG 15 Billion CFU CAP.SPRINK PO SCH (09:01)
--- NOTE | 2018-06-25 09:03 | GI Progress Note ---
Subjective - Review of Systems Service Date: 06/25/18 Subjective: No overnight events, eating breakfast Objective - Results Result Diagrams: 06/25/18 05:38 06/25/18 05:38 Recent Labs: Laboratory Last Values WBC 4.1 Th/cmm (4.8-10.8) L 06/25/18 05:38 RBC 3.09 Mil/cmm (3.80-5.80) L 06/25/18 05:38 Hgb 9.6 gm/dL (12-16) L 06/25/18 05:38 Hct 29.0 % (41.0-60) L 06/25/18 05:38 MCV 94.0 fl (80-99) 06/25/18 05:38 MCH 31.1 pg (27.0-31.0) H 06/25/18 05:38 MCHC Differential 33.1 pg (28.0-36.0) 06/25/18 05:38 RDW 15.0 % (11.5-20.0) 06/25/18 05:38 Plt Count 116 Th/cmm (150-400) L 06/25/18 05:38 MPV 10.5 fl 06/25/18 05:38 Add Manual Diff YES 06/25/18 05:38 Band Neutrophils % 0 % (0-10) 06/22/18 05:40 Neutrophils (Manual) 63 % (40-80) 06/22/18 05:40 Lymphocytes 16 % (20-50) L 06/22/18 05:40 Monocytes 20 % (2-10) H 06/22/18 05:40 Eosinophils 1 % (0-5) 06/22/18 05:40 Basophils 0 % (0-3) 06/22/18 05:40 Sodium 141 mEq/L (136-145) 06/25/18 05:38 Potassium 4.0 mEq/L (3.5-5.1) 06/25/18 05:38 Chloride 106 mEq/L (98-107) 06/25/18 05:38 Carbon Dioxide 27.5 mEq/L (21.0-31.0) 06/25/18 05:38 Anion Gap 11.5 (7.0-16.0) 06/25/18 05:38 BUN 23 mg/dL (7-25) 06/25/18 05:38 Creatinine 1.2 mg/dL (0.7-1.3) 06/25/18 05:38 Est GFR ( Amer) > 60.0 ml/min (>90) 06/25/18 05:38 Est GFR (Non-Af Amer) > 60.0 ml/min 06/25/18 05:38 BUN/Creatinine Ratio 19.2 06/25/18 05:38 Glucose 80 mg/dL (70-105) 06/25/18 05:38 POC Glucose 128 MG/DL (70 - 105) H 06/21/18 18:34 Calcium 10.3 mg/dL (8.6-10.3) 06/25/18 05:38 Magnesium 1.9 mg/dL (1.9-2.7) 06/22/18 05:40 Total Bilirubin 0.2 mg/dL (0.3-1.0) L 06/22/18 05:40 Direct Bilirubin 0.09 mg/dL (0.0-0.2) 06/21/18 13:48 AST 12 U/L (13-39) L 06/22/18 05:40 ALT 7 U/L (7-52) 06/22/18 05:40 Alkaline Phosphatase 69 U/L (34-104) 06/22/18 05:40 Ammonia 77 umol/L (16-53) H 06/22/18 10:45 Total Protein 6.7 gm/dL (6.0-8.3) 06/22/18 05:40 Albumin 3.0 gm/dL (4.2-5.5) L 06/22/18 05:40 Globulin 3.7 gm/dL 06/22/18 05:40 Albumin/Globulin Ratio 0.8 (1.0-1.8) L 06/22/18 05:40 Triglycerides 40 mg/dL (<150) 06/22/18 05:40 Cholesterol 104 mg/dL (<200) 06/22/18 05:40 LDL Cholesterol Direct 65 mg/dL (75-193) L 06/22/18 05:40 HDL Cholesterol 34 mg/dL (23-92) 06/22/18 05:40 Folic Acid 11.8 ng/mL (>3.0) 06/22/18 05:40 Urine Source RANDOM 06/21/18 15:00 Urine Color STRAW 06/21/18 15:00 Urine Clarity CLEAR (CLEAR) 06/21/18 15:00 Urine pH 6.0 (4.6 - 8.0) 06/21/18 15:00 Ur Specific [place] 1.015 (1.005-1.030) 06/21/18 15:00 Urine Protein NEGATIVE mg/dL (NEGATIVE) 06/21/18 15:00 Urine Glucose (UA) NEGATIVE mg/dL (NEGATIVE) 06/21/18 15:00 Urine Ketones NEGATIVE mg/dL (NEGATIVE) 06/21/18 15:00 Urine Blood TRACE (NEGATIVE) 06/21/18 15:00 Urine Nitrate NEGATIVE (NEGATIVE) 06/21/18 15:00 Urine Bilirubin NEGATIVE (NEGATIVE) 06/21/18 15:00 Urine Urobilinogen 0.2 E.U./dL (0.2 - 1.0) 06/21/18 15:00 Ur Leukocyte Esterase NEGATIVE (NEGATIVE) 06/21/18 15:00 Urine RBC 0-2 /hpf (0-5) H 06/21/18 15:00 Urine WBC NONE SEEN /hpf (0-5) 06/21/18 15:00 Ur Epithelial Cells NONE SEEN /lpf (FEW) 06/21/18 15:00 Urine Bacteria NONE SEEN /hpf (NONE SEEN) 06/21/18 15:00 - Physical Exam Vitals and I&O: Vital Signs Temp 97.6 F 06/25/18 08:00 Pulse 82 06/25/18 08:00 Resp 18 06/25/18 08:00 BP 102/70 06/25/18 08:00 Pulse Ox 97 06/25/18 08:00 Intake & Output 06/24/18 06/25/18 06/25/18 18:59 06:59 18:59 Intake Total 800 320 Balance 800 320 Weight (lbs) 70.76 kg 70.307 kg Intake: Oral 800 320 Other: # Voids 2 4 # Bowel Movements 1 0 Weight Source Bedscale Bedscale Active Medications: Current Medications Acetaminophen (Tylenol) 650 mg PO Q4HR PRN PRN Reason: moderate to severe pain Stop: 08/20/18 18:47 Last Admin: 06/24/18 00:50 Dose: 650 mg Al Hydrox/Mg Hydrox/Simethicone (Maalox) 30 ml PO Q4HR PRN PRN Reason: GI DISTRESS Stop: 08/20/18 18:47 Cholecalciferol (Vitamin D3) 1,000 iu PO BID [facility] Stop: 08/21/18 08:59 Last Admin: 06/24/18 17:42 Dose: 1,000 iu Clonazepam (Klonopin) 1 mg PO BID [facility]; Protocol Stop: 08/21/18 08:59 Last Admin: 06/24/18 17:42 Dose: 1 mg Divalproex Sodium (Depakote Dr) 500 mg PO DAILY [facility]; Protocol Stop: 08/21/18 08:59 Last Admin: 06/24/18 08:57 Dose: 500 mg Divalproex Sodium (Depakote Dr) 750 mg PO HS [facility]; Protocol Stop: 08/20/18 21:59 Last Admin: 06/24/18 21:38 Dose: Not Given Docusate Sodium (Colace) 100 mg PO DAILY [facility] Stop: 08/21/18 08:59 Last Admin: 06/24/18 08:57 Dose: 100 mg Ferrous Sulfate (Iron) 325 mg PO DAILY [facility] Stop: 08/21/18 08:59 Last Admin: 06/24/18 08:57 Dose: 325 mg Furosemide (Lasix) 40 mg PO DAILY [facility] Stop: 08/21/18 08:59 Last Admin: 06/24/18 08:58 Dose: 40 mg Lactobacillus Rhamnosus (Culturelle 15b) 1 each PO DAILY [facility] Stop: 08/21/18 08:59 Last Admin: 06/24/18 08:56 Dose: 1 each Magnesium Hydroxide (Milk Of Magnesia) 30 ml PO HS PRN PRN Reason: Constipation Stop: 08/20/18 18:47 Memantine (Namenda) 10 mg PO BID [facility] Stop: 08/21/18 08:59 Last Admin: 06/24/18 17:42 Dose: 10 mg Miscellaneous (Vte Chemical Prophylaxis Screen/ Admission) 1 ea [facility] PRN PRN PRN Reason: PROTOCOL Stop: 08/21/18 09:54 Multivitamins/Vitamin C (Theragran) 1 tab PO DAILY [facility] Stop: 08/21/18 08:59 Last Admin: 06/24/18 08:57 Dose: 1 tab Polyethylene Glycol (Miralax) 17 gm PO DAILY [facility] Stop: 08/23/18 08:59 Last Admin: 06/24/18 08:56 Dose: 17 gm Quetiapine Fumarate (Seroquel) 400 mg PO BID [facility]; Protocol Stop: 08/21/18 08:59 Last Admin: 06/24/18 17:42 Dose: 400 mg Risperidone (Risperdal) 3 mg PO BID [facility]; Protocol Stop: 08/21/18 08:59 Last Admin: 06/24/18 17:42 Dose: 3 mg Valsartan (Diovan) 80 mg PO DAILY [facility] Stop: 08/21/18 08:59 Last Admin: 06/24/18 08:58 Dose: 80 mg General: Alert HEENT: Atraumatic, PERRLA Neck: Supple, JVD Cardiovascular: Regular rate Lungs: Clear to auscultation Abdomen: Bowel sounds, Soft, Distended, Mass, no Tender, no Guarding - Procedures Procedures: Procedures Procedure Code Date EXCISION OF FINGER NAIL, EXTERNAL APPROACH [id number] 03/15/17 Assessment/Plan - Assessment Assessment: 1. 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 cachexia 3. failure to thrive Overall, this is concerning for widely metastatic disease. A liver bx may be helpful, but can discuss with oncology consultation as well. May be a poor candidate for systemic chemo, and may need to consider palliative options. Plan: -recommend obtaining liver biopsy if oncology agrees -oncology evaluation -no plans for endoscopy currently, unless develops any overt symptoms - bowel regimen -wide differentials, check tumor markers
[2018-06-25] MEDS: Dexamethasone Sodium Phos 4 mg/mL Vial IVP SCH ×2 (11:29→17:13)
[2018-06-25 11:49] LABS: BAND NEUTROPHILE 2 % (0-10); LYMPHOCYTE 22 % (20-50); MONOCYTE 11 % (2-10); NEUTROPHILS 65 % (40-80)
--- NOTE | 2018-06-25 11:51 | Consultation ---
DATE OF CONSULTATION: 06/25/2018 HEMATOLOGY ONCOLOGY CONSULTATION REFERRING PHYSICIAN: Dr. Mcleod. REASON FOR CONSULTATION: Metastatic cancer. HISTORY OF PRESENT ILLNESS: The patient is a 72-year-old male with a history of schizophrenia, who was admitted from nursing facility because of flank pain. The patient was seen by the inside sales manager and CT scan was ordered showing multiple lesions consistent with metastatic disease. Therefore, I was asked to evaluate. PAST MEDICAL HISTORY: Hypertension, arthritis, anemia, schizophrenia, Alzheimer dementia. SOCIAL HISTORY: Nursing facility resident. A 24-hour nursing care. FAMILY HISTORY: Noncontributory. SURGICAL HISTORY: Unknown. MEDICATIONS: Reviewed, on vitamin D, Klonopin, Depakote, Colace, ferrous sulfate, Lasix, Namenda, Seroquel, Risperdal, and Diovan. PHYSICAL EXAMINATION: GENERAL: The patient is awake, conversing poor historian. VITAL SIGNS: Stable. HEENT: Atraumatic. NECK: No lymphadenopathy. LUNGS: Clear. ABDOMEN: Soft, tender in the right upper quadrant and epigastric area. No palpable masses. LABORATORY AND DIAGNOSTIC DATA: White count 4.1, hemoglobin 9.6, platelets 116, MCV 94. Chemistry: Creatinine 1.2. Liver functions: AST, ALT, alk phos are normal. Bilirubin 0.2. CT scan of the abdomen and pelvis reported multiple large low density lesions within the right upper quadrant from the liver, right and left lobe consistent with metastatic disease, adjacent biliary mass or pancreatic mass cannot be excluded, extensive retroperitoneal lymphadenopathy, L3 vertebral body lesion and pathological fracture, subtle lucencies in the iliac bones suggestive of osseous metastatic disease. CT scan of the head persistent low attenuation, likely mass lesion along the left basal ganglia and thalamic region with mass effect upon the third ventricle and foramen of [place]ro, 2 mm [id number] midline shift, no hydrocephalus. ASSESSMENT: Multiple lesions in the liver, retroperitoneal lymphadenopathy, osseous lesions and brain disease, most suggestive of metastatic malignancy. The patient has psych disorder and the management will be discussed with the conservator. Initially, I will start the patient on Decadron because of the brain lesion and mass effect. The patient is followed by the neurologist at this point in time. Obtaining biopsy for pathology diagnosis from the liver lesion will be discussed with the conservator. Thank you Dr. Mcleod for the opportunity to participate in the care of this interesting case with you. [facility]# [id number]
--- NOTE | 2018-06-25 12:27 | Internal Medicine Prog Note ---
Internal Medicine Subjective - Subjective Service Date: 06/25/18 Patient is:: awake, verbal, interactive, in bed, denies any new complaints Per staff patient has:: no adverse event, no episodes of fall Internal Medicine Objective - Results Result Diagrams: 06/25/18 05:38 06/25/18 05:38 Recent Labs: Laboratory Last Values WBC 4.1 Th/cmm (4.8-10.8) L 06/25/18 05:38 RBC 3.09 Mil/cmm (3.80-5.80) L 06/25/18 05:38 Hgb 9.6 gm/dL (12-16) L 06/25/18 05:38 Hct 29.0 % (41.0-60) L 06/25/18 05:38 MCV 94.0 fl (80-99) 06/25/18 05:38 MCH 31.1 pg (27.0-31.0) H 06/25/18 05:38 MCHC Differential 33.1 pg (28.0-36.0) 06/25/18 05:38 RDW 15.0 % (11.5-20.0) 06/25/18 05:38 Plt Count 116 Th/cmm (150-400) L 06/25/18 05:38 MPV 10.5 fl 06/25/18 05:38 Add Manual Diff YES 06/25/18 05:38 Band Neutrophils % 2 % (0-10) 06/25/18 05:38 Neutrophils (Manual) 65 % (40-80) 06/25/18 05:38 Lymphocytes 22 % (20-50) 06/25/18 05:38 Monocytes 11 % (2-10) H 06/25/18 05:38 Eosinophils 1 % (0-5) 06/22/18 05:40 Basophils 0 % (0-3) 06/22/18 05:40 Sodium 141 mEq/L (136-145) 06/25/18 05:38 Potassium 4.0 mEq/L (3.5-5.1) 06/25/18 05:38 Chloride 106 mEq/L (98-107) 06/25/18 05:38 Carbon Dioxide 27.5 mEq/L (21.0-31.0) 06/25/18 05:38 Anion Gap 11.5 (7.0-16.0) 06/25/18 05:38 BUN 23 mg/dL (7-25) 06/25/18 05:38 Creatinine 1.2 mg/dL (0.7-1.3) 06/25/18 05:38 Est GFR ( Amer) > 60.0 ml/min (>90) 06/25/18 05:38 Est GFR (Non-Af Amer) > 60.0 ml/min 06/25/18 05:38 BUN/Creatinine Ratio 19.2 06/25/18 05:38 Glucose 80 mg/dL (70-105) 06/25/18 05:38 POC Glucose 128 MG/DL (70 - 105) H 06/21/18 18:34 Calcium 10.3 mg/dL (8.6-10.3) 06/25/18 05:38 Magnesium 1.9 mg/dL (1.9-2.7) 06/22/18 05:40 Total Bilirubin 0.2 mg/dL (0.3-1.0) L 06/22/18 05:40 Direct Bilirubin 0.09 mg/dL (0.0-0.2) 06/21/18 13:48 AST 12 U/L (13-39) L 06/22/18 05:40 ALT 7 U/L (7-52) 06/22/18 05:40 Alkaline Phosphatase 69 U/L (34-104) 06/22/18 05:40 Ammonia 77 umol/L (16-53) H 06/22/18 10:45 Total Protein 6.7 gm/dL (6.0-8.3) 06/22/18 05:40 Albumin 3.0 gm/dL (4.2-5.5) L 06/22/18 05:40 Globulin 3.7 gm/dL 06/22/18 05:40 Albumin/Globulin Ratio 0.8 (1.0-1.8) L 06/22/18 05:40 Triglycerides 40 mg/dL (<150) 06/22/18 05:40 Cholesterol 104 mg/dL (<200) 06/22/18 05:40 LDL Cholesterol Direct 65 mg/dL (75-193) L 06/22/18 05:40 HDL Cholesterol 34 mg/dL (23-92) 06/22/18 05:40 Folic Acid 11.8 ng/mL (>3.0) 06/22/18 05:40 Urine Source RANDOM 06/21/18 15:00 Urine Color STRAW 06/21/18 15:00 Urine Clarity CLEAR (CLEAR) 06/21/18 15:00 Urine pH 6.0 (4.6 - 8.0) 06/21/18 15:00 Ur Specific [place] 1.015 (1.005-1.030) 06/21/18 15:00 Urine Protein NEGATIVE mg/dL (NEGATIVE) 06/21/18 15:00 Urine Glucose (UA) NEGATIVE mg/dL (NEGATIVE) 06/21/18 15:00 Urine Ketones NEGATIVE mg/dL (NEGATIVE) 06/21/18 15:00 Urine Blood TRACE (NEGATIVE) 06/21/18 15:00 Urine Nitrate NEGATIVE (NEGATIVE) 06/21/18 15:00 Urine Bilirubin NEGATIVE (NEGATIVE) 06/21/18 15:00 Urine Urobilinogen 0.2 E.U./dL (0.2 - 1.0) 06/21/18 15:00 Ur Leukocyte Esterase NEGATIVE (NEGATIVE) 06/21/18 15:00 Urine RBC 0-2 /hpf (0-5) H 06/21/18 15:00 Urine WBC NONE SEEN /hpf (0-5) 06/21/18 15:00 Ur Epithelial Cells NONE SEEN /lpf (FEW) 06/21/18 15:00 Urine Bacteria NONE SEEN /hpf (NONE SEEN) 06/21/18 15:00 - Physical Exam Vitals and I&O: Vital Signs Temp 97.6 F 06/25/18 08:00 Pulse 82 06/25/18 09:02 Resp 18 06/25/18 08:00 BP 102/70 06/25/18 09:02 Pulse Ox 97 06/25/18 08:00 Intake & Output 06/24/18 06/25/18 06/25/18 18:59 06:59 18:59 Intake Total 800 320 Balance 800 320 Weight (lbs) 156 lb 155 lb Intake: Oral 800 320 Other: # Voids 2 4 # Bowel Movements 1 0 Weight Source Bedscale Bedscale Active Medications: Current Medications Acetaminophen (Tylenol) 650 mg PO Q4HR PRN PRN Reason: moderate to severe pain Stop: 08/20/18 18:47 Last Admin: 06/24/18 00:50 Dose: 650 mg Al Hydrox/Mg Hydrox/Simethicone (Maalox) 30 ml PO Q4HR PRN PRN Reason: GI DISTRESS Stop: 08/20/18 18:47 Cholecalciferol (Vitamin D3) 1,000 iu PO BID [facility] Stop: 08/21/18 08:59 Last Admin: 06/25/18 09:00 Dose: 1,000 iu Clonazepam (Klonopin) 1 mg PO BID [facility]; Protocol Stop: 08/21/18 08:59 Last Admin: 06/25/18 09:01 Dose: 1 mg Dexamethasone Sodium Phosphate (Decadron) 4 mg IVP Q6HR [facility] Stop: 08/24/18 11:59 Last Admin: 06/25/18 11:29 Dose: 4 mg Divalproex Sodium (Depakote Dr) 500 mg PO DAILY [facility]; Protocol Stop: 08/21/18 08:59 Last Admin: 06/25/18 09:01 Dose: 500 mg Divalproex Sodium (Depakote Dr) 750 mg PO HS [facility]; Protocol Stop: 08/20/18 21:59 Last Admin: 06/24/18 21:38 Dose: Not Given Docusate Sodium (Colace) 100 mg PO DAILY [facility] Stop: 08/21/18 08:59 Last Admin: 06/25/18 09:01 Dose: 100 mg Ferrous Sulfate (Iron) 325 mg PO DAILY [facility] Stop: 08/21/18 08:59 Last Admin: 06/25/18 09:01 Dose: 325 mg Furosemide (Lasix) 40 mg PO DAILY [facility] Stop: 08/21/18 08:59 Last Admin: 06/25/18 09:01 Dose: Not Given Lactobacillus Rhamnosus (Culturelle 15b) 1 each PO DAILY [facility] Stop: 08/21/18 08:59 Last Admin: 06/25/18 09:01 Dose: 1 each Magnesium Hydroxide (Milk Of Magnesia) 30 ml PO HS PRN PRN Reason: Constipation Stop: 08/20/18 18:47 Memantine (Namenda) 10 mg PO BID [facility] Stop: 08/21/18 08:59 Last Admin: 06/25/18 09:01 Dose: 10 mg Miscellaneous (Vte Chemical Prophylaxis Screen/ Admission) 1 ea [facility] PRN PRN PRN Reason: PROTOCOL Stop: 08/21/18 09:54 Multivitamins/Vitamin C (Theragran) 1 tab PO DAILY [facility] Stop: 08/21/18 08:59 Last Admin: 06/25/18 09:01 Dose: 1 tab Polyethylene Glycol (Miralax) 17 gm PO DAILY [facility] Stop: 08/23/18 08:59 Last Admin: 06/25/18 09:00 Dose: Not Given Quetiapine Fumarate (Seroquel) 400 mg PO BID [facility]; Protocol Stop: 08/21/18 08:59 Last Admin: 06/25/18 09:00 Dose: 400 mg Risperidone (Risperdal) 3 mg PO BID [facility]; Protocol Stop: 08/21/18 08:59 Last Admin: 06/25/18 09:01 Dose: 3 mg Valsartan (Diovan) 80 mg PO DAILY [facility] Stop: 08/21/18 08:59 Last Admin: 06/25/18 09:02 Dose: 80 mg - Procedures Procedures: Procedures Procedure Code Date EXCISION OF FINGER NAIL, EXTERNAL APPROACH [id number] 03/15/17 Internal Medicine Assmt/Plan - Assessment Assessment: Bilateral flank pain, generalized weakness, anemia, dementia, and hypertension. - Plan Plan: fall precautions am labs
[2018-06-26] MEDS: Dexamethasone Sodium Phos 4 mg/mL Vial IVP SCH ×5 (00:43→23:31)
[2018-06-26 05:11] LABS: AFP TUMOR MARKER 3.9 ng/mL (0.0-8.3); CARCINOEMBRYONIC ANTIGEN 130.4 ng/mL (0.0-4.7)
[2018-06-26] MEDS: Lactobacillus Rhamnosus GG 15 Billion CFU CAP.SPRINK PO SCH (09:03)
[2018-06-26] MEDS: Multivitamin Tab PO SCH (09:03)
[2018-06-26] MEDS: Ferrous Sulfate 325 MG TAB PO SCH (09:05)
[2018-06-26] MEDS: POLYETHYLENE GLYCOL 3350 17 GM PACK PO SCH (09:06)
--- NOTE | 2018-06-26 09:45 | GI Progress Note ---
Subjective - Review of Systems Service Date: 06/26/18 Subjective: Smoking cigarette outside Objective - Results Result Diagrams: 06/25/18 05:38 06/25/18 05:38 Recent Labs: Laboratory Last Values WBC 4.1 Th/cmm (4.8-10.8) L 06/25/18 05:38 RBC 3.09 Mil/cmm (3.80-5.80) L 06/25/18 05:38 Hgb 9.6 gm/dL (12-16) L 06/25/18 05:38 Hct 29.0 % (41.0-60) L 06/25/18 05:38 MCV 94.0 fl (80-99) 06/25/18 05:38 MCH 31.1 pg (27.0-31.0) H 06/25/18 05:38 MCHC Differential 33.1 pg (28.0-36.0) 06/25/18 05:38 RDW 15.0 % (11.5-20.0) 06/25/18 05:38 Plt Count 116 Th/cmm (150-400) L 06/25/18 05:38 MPV 10.5 fl 06/25/18 05:38 Add Manual Diff YES 06/25/18 05:38 Band Neutrophils % 2 % (0-10) 06/25/18 05:38 Neutrophils (Manual) 65 % (40-80) 06/25/18 05:38 Lymphocytes 22 % (20-50) 06/25/18 05:38 Monocytes 11 % (2-10) H 06/25/18 05:38 Eosinophils 1 % (0-5) 06/22/18 05:40 Basophils 0 % (0-3) 06/22/18 05:40 Sodium 141 mEq/L (136-145) 06/25/18 05:38 Potassium 4.0 mEq/L (3.5-5.1) 06/25/18 05:38 Chloride 106 mEq/L (98-107) 06/25/18 05:38 Carbon Dioxide 27.5 mEq/L (21.0-31.0) 06/25/18 05:38 Anion Gap 11.5 (7.0-16.0) 06/25/18 05:38 BUN 23 mg/dL (7-25) 06/25/18 05:38 Creatinine 1.2 mg/dL (0.7-1.3) 06/25/18 05:38 Est GFR ( Amer) > 60.0 ml/min (>90) 06/25/18 05:38 Est GFR (Non-Af Amer) > 60.0 ml/min 06/25/18 05:38 BUN/Creatinine Ratio 19.2 06/25/18 05:38 Glucose 80 mg/dL (70-105) 06/25/18 05:38 POC Glucose 128 MG/DL (70 - 105) H 06/21/18 18:34 Calcium 10.3 mg/dL (8.6-10.3) 06/25/18 05:38 Magnesium 1.9 mg/dL (1.9-2.7) 06/22/18 05:40 Total Bilirubin 0.2 mg/dL (0.3-1.0) L 06/22/18 05:40 Direct Bilirubin 0.09 mg/dL (0.0-0.2) 06/21/18 13:48 AST 12 U/L (13-39) L 06/22/18 05:40 ALT 7 U/L (7-52) 06/22/18 05:40 Alkaline Phosphatase 69 U/L (34-104) 06/22/18 05:40 Ammonia 77 umol/L (16-53) H 06/22/18 10:45 Total Protein 6.7 gm/dL (6.0-8.3) 06/22/18 05:40 Albumin 3.0 gm/dL (4.2-5.5) L 06/22/18 05:40 Globulin 3.7 gm/dL 06/22/18 05:40 Albumin/Globulin Ratio 0.8 (1.0-1.8) L 06/22/18 05:40 Triglycerides 40 mg/dL (<150) 06/22/18 05:40 Cholesterol 104 mg/dL (<200) 06/22/18 05:40 LDL Cholesterol Direct 65 mg/dL (75-193) L 06/22/18 05:40 HDL Cholesterol 34 mg/dL (23-92) 06/22/18 05:40 Tumor Marker AFP 3.9 ng/mL (0.0-8.3) 06/24/18 15:26 Carcinoembryonic Ag 130.4 ng/mL (0.0-4.7) H 06/24/18 15:26 CA 19-9 Antigen 1 U/mL (0-35) 06/24/18 15:26 Folic Acid 11.8 ng/mL (>3.0) 06/22/18 05:40 Urine Source RANDOM 06/21/18 15:00 Urine Color STRAW 06/21/18 15:00 Urine Clarity CLEAR (CLEAR) 06/21/18 15:00 Urine pH 6.0 (4.6 - 8.0) 06/21/18 15:00 Ur Specific [place] 1.015 (1.005-1.030) 06/21/18 15:00 Urine Protein NEGATIVE mg/dL (NEGATIVE) 06/21/18 15:00 Urine Glucose (UA) NEGATIVE mg/dL (NEGATIVE) 06/21/18 15:00 Urine Ketones NEGATIVE mg/dL (NEGATIVE) 06/21/18 15:00 Urine Blood TRACE (NEGATIVE) 06/21/18 15:00 Urine Nitrate NEGATIVE (NEGATIVE) 06/21/18 15:00 Urine Bilirubin NEGATIVE (NEGATIVE) 06/21/18 15:00 Urine Urobilinogen 0.2 E.U./dL (0.2 - 1.0) 06/21/18 15:00 Ur Leukocyte Esterase NEGATIVE (NEGATIVE) 06/21/18 15:00 Urine RBC 0-2 /hpf (0-5) H 06/21/18 15:00 Urine WBC NONE SEEN /hpf (0-5) 06/21/18 15:00 Ur Epithelial Cells NONE SEEN /lpf (FEW) 06/21/18 15:00 Urine Bacteria NONE SEEN /hpf (NONE SEEN) 06/21/18 15:00 - Physical Exam Vitals and I&O: Vital Signs Temp 97.4 F 06/26/18 08:22 Pulse 79 06/26/18 09:06 Resp 18 06/26/18 08:22 BP 89/53 06/26/18 09:06 Pulse Ox 98 06/26/18 08:22 Intake & Output 06/25/18 06/26/18 06/26/18 18:59 06:59 18:59 Intake Total 400 200 Output Total 3 Balance 400 197 Weight (lbs) 70.307 kg 70.307 kg Intake: Oral 400 200 Output: Urine 3 Other: # Voids 3 1 # Bowel Movements 1 0 Weight Source Bedscale Bedscale Active Medications: Current Medications Acetaminophen (Tylenol) 650 mg PO Q4HR PRN PRN Reason: moderate to severe pain Stop: 08/20/18 18:47 Last Admin: 06/24/18 00:50 Dose: 650 mg Al Hydrox/Mg Hydrox/Simethicone (Maalox) 30 ml PO Q4HR PRN PRN Reason: GI DISTRESS Stop: 08/20/18 18:47 Cholecalciferol (Vitamin D3) 1,000 iu PO BID [facility] Stop: 08/21/18 08:59 Last Admin: 06/26/18 09:03 Dose: 1,000 iu Clonazepam (Klonopin) 1 mg PO BID [facility]; Protocol Stop: 08/21/18 08:59 Last Admin: 06/26/18 09:06 Dose: Not Given Dexamethasone Sodium Phosphate (Decadron) 4 mg IVP Q6HR [facility] Stop: 08/24/18 11:59 Last Admin: 06/26/18 06:10 Dose: 4 mg Divalproex Sodium (Depakote Dr) 500 mg PO DAILY [facility]; Protocol Stop: 08/21/18 08:59 Last Admin: 06/26/18 09:04 Dose: 500 mg Divalproex Sodium (Depakote Dr) 750 mg PO HS [facility]; Protocol Stop: 08/20/18 21:59 Last Admin: 06/25/18 20:57 Dose: 750 mg Docusate Sodium (Colace) 100 mg PO DAILY [facility] Stop: 08/21/18 08:59 Last Admin: 06/26/18 09:03 Dose: 100 mg Ferrous Sulfate (Iron) 325 mg PO DAILY [facility] Stop: 08/21/18 08:59 Last Admin: 06/26/18 09:05 Dose: 325 mg Furosemide (Lasix) 40 mg PO DAILY [facility] Stop: 08/21/18 08:59 Last Admin: 06/26/18 09:05 Dose: Not Given Lactobacillus Rhamnosus (Culturelle 15b) 1 each PO DAILY [facility] Stop: 08/21/18 08:59 Last Admin: 06/26/18 09:03 Dose: 1 each Magnesium Hydroxide (Milk Of Magnesia) 30 ml PO HS PRN PRN Reason: Constipation Stop: 08/20/18 18:47 Memantine (Namenda) 10 mg PO BID [facility] Stop: 08/21/18 08:59 Last Admin: 06/26/18 09:06 Dose: 10 mg Miscellaneous (Vte Chemical Prophylaxis Screen/ Admission) 1 ea [facility] PRN PRN PRN Reason: PROTOCOL Stop: 08/21/18 09:54 Multivitamins/Vitamin C (Theragran) 1 tab PO DAILY [facility] Stop: 08/21/18 08:59 Last Admin: 06/26/18 09:03 Dose: 1 tab Polyethylene Glycol (Miralax) 17 gm PO DAILY [facility] Stop: 08/23/18 08:59 Last Admin: 06/26/18 09:06 Dose: Not Given Quetiapine Fumarate (Seroquel) 400 mg PO BID [facility]; Protocol Stop: 08/21/18 08:59 Last Admin: 06/26/18 09:06 Dose: Not Given Risperidone (Risperdal) 3 mg PO BID [facility]; Protocol Stop: 08/21/18 08:59 Last Admin: 06/26/18 09:06 Dose: Not Given Valsartan (Diovan) 80 mg PO DAILY [facility] Stop: 08/21/18 08:59 Last Admin: 06/26/18 09:06 Dose: Not Given General: Alert HEENT: Atraumatic, PERRLA Neck: Supple, JVD Cardiovascular: Regular rate Lungs: Clear to auscultation Abdomen: Bowel sounds, Soft, Distended, Mass, no Tender, no Guarding - Procedures Procedures: Procedures Procedure Code Date EXCISION OF FINGER NAIL, EXTERNAL APPROACH [id number] 03/15/17 Assessment/Plan - Assessment Assessment: 1. 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 cachexia 3. failure to thrive Overall, this is concerning for widely metastatic disease. A liver bx may be helpful towards a formal diagnosis, and this is recommended by oncology as well. May be a poor candidate for systemic chemo, and may need to consider palliative options. Plan: -agree with liver bx to obtain diagnosis -oncology evaluation -no plans for endoscopy currently, unless develops any overt symptoms - bowel regimen -wide differentials, check tumor markers
[2018-06-27] MEDS: Dexamethasone Sodium Phos 4 mg/mL Vial IVP SCH ×4 (05:12→23:18)
[2018-06-27] MEDS: Lactobacillus Rhamnosus GG 15 Billion CFU CAP.SPRINK PO SCH (08:36)
[2018-06-27] MEDS: Multivitamin Tab PO SCH (08:36)
[2018-06-27] MEDS: Ferrous Sulfate 325 MG TAB PO SCH (08:36)
[2018-06-27] MEDS: POLYETHYLENE GLYCOL 3350 17 GM PACK PO SCH (08:37)
--- NOTE | 2018-06-27 09:46 | GI Progress Note ---
Subjective - Review of Systems Service Date: 06/27/18 Subjective: Nothing overnight Objective - Results Result Diagrams: 06/25/18 05:38 06/25/18 05:38 Recent Labs: Laboratory Last Values WBC 4.1 Th/cmm (4.8-10.8) L 06/25/18 05:38 RBC 3.09 Mil/cmm (3.80-5.80) L 06/25/18 05:38 Hgb 9.6 gm/dL (12-16) L 06/25/18 05:38 Hct 29.0 % (41.0-60) L 06/25/18 05:38 MCV 94.0 fl (80-99) 06/25/18 05:38 MCH 31.1 pg (27.0-31.0) H 06/25/18 05:38 MCHC Differential 33.1 pg (28.0-36.0) 06/25/18 05:38 RDW 15.0 % (11.5-20.0) 06/25/18 05:38 Plt Count 116 Th/cmm (150-400) L 06/25/18 05:38 MPV 10.5 fl 06/25/18 05:38 Add Manual Diff YES 06/25/18 05:38 Band Neutrophils % 2 % (0-10) 06/25/18 05:38 Neutrophils (Manual) 65 % (40-80) 06/25/18 05:38 Lymphocytes 22 % (20-50) 06/25/18 05:38 Monocytes 11 % (2-10) H 06/25/18 05:38 Eosinophils 1 % (0-5) 06/22/18 05:40 Basophils 0 % (0-3) 06/22/18 05:40 Sodium 141 mEq/L (136-145) 06/25/18 05:38 Potassium 4.0 mEq/L (3.5-5.1) 06/25/18 05:38 Chloride 106 mEq/L (98-107) 06/25/18 05:38 Carbon Dioxide 27.5 mEq/L (21.0-31.0) 06/25/18 05:38 Anion Gap 11.5 (7.0-16.0) 06/25/18 05:38 BUN 23 mg/dL (7-25) 06/25/18 05:38 Creatinine 1.2 mg/dL (0.7-1.3) 06/25/18 05:38 Est GFR ( Amer) > 60.0 ml/min (>90) 06/25/18 05:38 Est GFR (Non-Af Amer) > 60.0 ml/min 06/25/18 05:38 BUN/Creatinine Ratio 19.2 06/25/18 05:38 Glucose 80 mg/dL (70-105) 06/25/18 05:38 POC Glucose 128 MG/DL (70 - 105) H 06/21/18 18:34 Calcium 10.3 mg/dL (8.6-10.3) 06/25/18 05:38 Magnesium 1.9 mg/dL (1.9-2.7) 06/22/18 05:40 Total Bilirubin 0.2 mg/dL (0.3-1.0) L 06/22/18 05:40 Direct Bilirubin 0.09 mg/dL (0.0-0.2) 06/21/18 13:48 AST 12 U/L (13-39) L 06/22/18 05:40 ALT 7 U/L (7-52) 06/22/18 05:40 Alkaline Phosphatase 69 U/L (34-104) 06/22/18 05:40 Ammonia 77 umol/L (16-53) H 06/22/18 10:45 Total Protein 6.7 gm/dL (6.0-8.3) 06/22/18 05:40 Albumin 3.0 gm/dL (4.2-5.5) L 06/22/18 05:40 Globulin 3.7 gm/dL 06/22/18 05:40 Albumin/Globulin Ratio 0.8 (1.0-1.8) L 06/22/18 05:40 Triglycerides 40 mg/dL (<150) 06/22/18 05:40 Cholesterol 104 mg/dL (<200) 06/22/18 05:40 LDL Cholesterol Direct 65 mg/dL (75-193) L 06/22/18 05:40 HDL Cholesterol 34 mg/dL (23-92) 06/22/18 05:40 Tumor Marker AFP 3.9 ng/mL (0.0-8.3) 06/24/18 15:26 Carcinoembryonic Ag 130.4 ng/mL (0.0-4.7) H 06/24/18 15:26 CA 19-9 Antigen 1 U/mL (0-35) 06/24/18 15:26 Whole Bld Vitamin B1 [place] nmol/L (66.5-200.0) 06/22/18 10:45 Folic Acid 11.8 ng/mL (>3.0) 06/22/18 05:40 Urine Source RANDOM 06/21/18 15:00 Urine Color STRAW 06/21/18 15:00 Urine Clarity CLEAR (CLEAR) 06/21/18 15:00 Urine pH 6.0 (4.6 - 8.0) 06/21/18 15:00 Ur Specific [place] 1.015 (1.005-1.030) 06/21/18 15:00 Urine Protein NEGATIVE mg/dL (NEGATIVE) 06/21/18 15:00 Urine Glucose (UA) NEGATIVE mg/dL (NEGATIVE) 06/21/18 15:00 Urine Ketones NEGATIVE mg/dL (NEGATIVE) 06/21/18 15:00 Urine Blood TRACE (NEGATIVE) 06/21/18 15:00 Urine Nitrate NEGATIVE (NEGATIVE) 06/21/18 15:00 Urine Bilirubin NEGATIVE (NEGATIVE) 06/21/18 15:00 Urine Urobilinogen 0.2 E.U./dL (0.2 - 1.0) 06/21/18 15:00 Ur Leukocyte Esterase NEGATIVE (NEGATIVE) 06/21/18 15:00 Urine RBC 0-2 /hpf (0-5) H 06/21/18 15:00 Urine WBC NONE SEEN /hpf (0-5) 06/21/18 15:00 Ur Epithelial Cells NONE SEEN /lpf (FEW) 06/21/18 15:00 Urine Bacteria NONE SEEN /hpf (NONE SEEN) 06/21/18 15:00 - Physical Exam Vitals and I&O: Vital Signs Temp 99.3 F 06/27/18 08:00 Pulse 70 06/27/18 08:37 Resp 19 06/27/18 08:00 BP 107/66 06/27/18 08:37 Pulse Ox 96 06/27/18 08:00 Intake & Output 06/26/18 06/27/18 06/27/18 18:59 06:59 18:59 Intake Total 300 400 Balance 300 400 Weight (lbs) 70.307 kg 70.307 kg Intake: Oral 300 400 Other: # Voids 4 # Bowel Movements 1 Weight Source Bedscale Bedscale Active Medications: Current Medications Acetaminophen (Tylenol) 650 mg PO Q4HR PRN PRN Reason: moderate to severe pain Stop: 08/20/18 18:47 Last Admin: 06/24/18 00:50 Dose: 650 mg Al Hydrox/Mg Hydrox/Simethicone (Maalox) 30 ml PO Q4HR PRN PRN Reason: GI DISTRESS Stop: 08/20/18 18:47 Cholecalciferol (Vitamin D3) 1,000 iu PO BID [facility] Stop: 08/21/18 08:59 Last Admin: 06/27/18 08:36 Dose: 1,000 iu Clonazepam (Klonopin) 1 mg PO BID [facility]; Protocol Stop: 08/21/18 08:59 Last Admin: 06/27/18 08:35 Dose: 1 mg Dexamethasone Sodium Phosphate (Decadron) 4 mg IVP Q6HR [facility] Stop: 08/24/18 11:59 Last Admin: 06/27/18 05:12 Dose: Not Given Divalproex Sodium (Depakote Dr) 500 mg PO DAILY [facility]; Protocol Stop: 08/21/18 08:59 Last Admin: 06/27/18 08:36 Dose: 500 mg Divalproex Sodium (Depakote Dr) 750 mg PO HS [facility]; Protocol Stop: 08/20/18 21:59 Last Admin: 06/26/18 22:20 Dose: 750 mg Docusate Sodium (Colace) 100 mg PO DAILY [facility] Stop: 08/21/18 08:59 Last Admin: 06/27/18 08:36 Dose: 100 mg Ferrous Sulfate (Iron) 325 mg PO DAILY [facility] Stop: 08/21/18 08:59 Last Admin: 06/27/18 08:36 Dose: 325 mg Furosemide (Lasix) 40 mg PO DAILY [facility] Stop: 08/21/18 08:59 Last Admin: 06/27/18 08:37 Dose: Not Given Lactobacillus Rhamnosus (Culturelle 15b) 1 each PO DAILY [facility] Stop: 08/21/18 08:59 Last Admin: 06/27/18 08:36 Dose: 1 each Magnesium Hydroxide (Milk Of Magnesia) 30 ml PO HS PRN PRN Reason: Constipation Stop: 08/20/18 18:47 Memantine (Namenda) 10 mg PO BID [facility] Stop: 08/21/18 08:59 Last Admin: 06/27/18 08:35 Dose: 10 mg Miscellaneous (Vte Chemical Prophylaxis Screen/ Admission) 1 ea [facility] PRN PRN PRN Reason: PROTOCOL Stop: 08/21/18 09:54 Multivitamins/Vitamin C (Theragran) 1 tab PO DAILY [facility] Stop: 08/21/18 08:59 Last Admin: 06/27/18 08:36 Dose: 1 tab Polyethylene Glycol (Miralax) 17 gm PO DAILY [facility] Stop: 08/23/18 08:59 Last Admin: 06/27/18 08:37 Dose: Not Given Quetiapine Fumarate (Seroquel) 400 mg PO BID [facility]; Protocol Stop: 08/21/18 08:59 Last Admin: 06/27/18 08:36 Dose: 400 mg Risperidone (Risperdal) 3 mg PO BID [facility]; Protocol Stop: 08/21/18 08:59 Last Admin: 06/27/18 08:35 Dose: 3 mg Valsartan (Diovan) 80 mg PO DAILY [facility] Stop: 08/21/18 08:59 Last Admin: 06/27/18 08:37 Dose: Not Given General: Alert HEENT: Atraumatic, PERRLA Neck: Supple, JVD Cardiovascular: Regular rate Lungs: Clear to auscultation Abdomen: Bowel sounds, Soft, Distended, Mass, no Tender, no Guarding - Procedures Procedures: Procedures Procedure Code Date EXCISION OF FINGER NAIL, EXTERNAL APPROACH [id number] 03/15/17 Assessment/Plan - Assessment Assessment: 1. 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 cachexia 3. failure to thrive Overall, this is concerning for widely metastatic disease. A liver bx may be helpful towards a formal diagnosis, and this is recommended by oncology as well. May be a poor candidate for systemic chemo, and may need to consider palliative options. CEA is elevated, which may mean GI source. Liver biopsy would still be able to diagnose and stage the disease. Plan: -agree with liver bx to obtain diagnosis. If oncology thinks a colonoscopy would be of use, we can do this although would still need conservator consent -oncology evaluation -no plans for endoscopy currently, unless develops any overt symptoms - bowel regimen -wide differentials, check tumor markers
--- NOTE | 2018-06-27 10:58 | General Progress Note ---
Subjective - Review of Systems Service Date: 06/27/18 Objective - Results Result Diagrams: 06/25/18 05:38 06/25/18 05:38 Recent Labs: Laboratory Last Values WBC 4.1 Th/cmm (4.8-10.8) L 06/25/18 05:38 RBC 3.09 Mil/cmm (3.80-5.80) L 06/25/18 05:38 Hgb 9.6 gm/dL (12-16) L 06/25/18 05:38 Hct 29.0 % (41.0-60) L 06/25/18 05:38 MCV 94.0 fl (80-99) 06/25/18 05:38 MCH 31.1 pg (27.0-31.0) H 06/25/18 05:38 MCHC Differential 33.1 pg (28.0-36.0) 06/25/18 05:38 RDW 15.0 % (11.5-20.0) 06/25/18 05:38 Plt Count 116 Th/cmm (150-400) L 06/25/18 05:38 MPV 10.5 fl 06/25/18 05:38 Add Manual Diff YES 06/25/18 05:38 Band Neutrophils % 2 % (0-10) 06/25/18 05:38 Neutrophils (Manual) 65 % (40-80) 06/25/18 05:38 Lymphocytes 22 % (20-50) 06/25/18 05:38 Monocytes 11 % (2-10) H 06/25/18 05:38 Eosinophils 1 % (0-5) 06/22/18 05:40 Basophils 0 % (0-3) 06/22/18 05:40 Sodium 141 mEq/L (136-145) 06/25/18 05:38 Potassium 4.0 mEq/L (3.5-5.1) 06/25/18 05:38 Chloride 106 mEq/L (98-107) 06/25/18 05:38 Carbon Dioxide 27.5 mEq/L (21.0-31.0) 06/25/18 05:38 Anion Gap 11.5 (7.0-16.0) 06/25/18 05:38 BUN 23 mg/dL (7-25) 06/25/18 05:38 Creatinine 1.2 mg/dL (0.7-1.3) 06/25/18 05:38 Est GFR ( Amer) > 60.0 ml/min (>90) 06/25/18 05:38 Est GFR (Non-Af Amer) > 60.0 ml/min 06/25/18 05:38 BUN/Creatinine Ratio 19.2 06/25/18 05:38 Glucose 80 mg/dL (70-105) 06/25/18 05:38 POC Glucose 128 MG/DL (70 - 105) H 06/21/18 18:34 Calcium 10.3 mg/dL (8.6-10.3) 06/25/18 05:38 Magnesium 1.9 mg/dL (1.9-2.7) 06/22/18 05:40 Total Bilirubin 0.2 mg/dL (0.3-1.0) L 06/22/18 05:40 Direct Bilirubin 0.09 mg/dL (0.0-0.2) 06/21/18 13:48 AST 12 U/L (13-39) L 06/22/18 05:40 ALT 7 U/L (7-52) 06/22/18 05:40 Alkaline Phosphatase 69 U/L (34-104) 06/22/18 05:40 Ammonia 77 umol/L (16-53) H 06/22/18 10:45 Total Protein 6.7 gm/dL (6.0-8.3) 06/22/18 05:40 Albumin 3.0 gm/dL (4.2-5.5) L 06/22/18 05:40 Globulin 3.7 gm/dL 06/22/18 05:40 Albumin/Globulin Ratio 0.8 (1.0-1.8) L 06/22/18 05:40 Triglycerides 40 mg/dL (<150) 06/22/18 05:40 Cholesterol 104 mg/dL (<200) 06/22/18 05:40 LDL Cholesterol Direct 65 mg/dL (75-193) L 06/22/18 05:40 HDL Cholesterol 34 mg/dL (23-92) 06/22/18 05:40 Tumor Marker AFP 3.9 ng/mL (0.0-8.3) 06/24/18 15:26 Carcinoembryonic Ag 130.4 ng/mL (0.0-4.7) H 06/24/18 15:26 CA 19-9 Antigen 1 U/mL (0-35) 06/24/18 15:26 Whole Bld Vitamin B1 DELVER nmol/L (66.5-200.0) 06/22/18 10:45 Folic Acid 11.8 ng/mL (>3.0) 06/22/18 05:40 Urine Source RANDOM 06/21/18 15:00 Urine Color STRAW 06/21/18 15:00 Urine Clarity CLEAR (CLEAR) 06/21/18 15:00 Urine pH 6.0 (4.6 - 8.0) 06/21/18 15:00 Ur Specific [place] 1.015 (1.005-1.030) 06/21/18 15:00 Urine Protein NEGATIVE mg/dL (NEGATIVE) 06/21/18 15:00 Urine Glucose (UA) NEGATIVE mg/dL (NEGATIVE) 06/21/18 15:00 Urine Ketones NEGATIVE mg/dL (NEGATIVE) 06/21/18 15:00 Urine Blood TRACE (NEGATIVE) 06/21/18 15:00 Urine Nitrate NEGATIVE (NEGATIVE) 06/21/18 15:00 Urine Bilirubin NEGATIVE (NEGATIVE) 06/21/18 15:00 Urine Urobilinogen 0.2 E.U./dL (0.2 - 1.0) 06/21/18 15:00 Ur Leukocyte Esterase NEGATIVE (NEGATIVE) 06/21/18 15:00 Urine RBC 0-2 /hpf (0-5) H 06/21/18 15:00 Urine WBC NONE SEEN /hpf (0-5) 06/21/18 15:00 Ur Epithelial Cells NONE SEEN /lpf (FEW) 06/21/18 15:00 Urine Bacteria NONE SEEN /hpf (NONE SEEN) 06/21/18 15:00 - Physical Exam Vitals and I&O: Vital Signs Temp 99.3 F 06/27/18 08:00 Pulse 70 06/27/18 08:37 Resp 19 06/27/18 08:00 BP 107/66 06/27/18 08:37 Pulse Ox 96 06/27/18 08:00 Intake & Output 06/26/18 06/27/18 06/27/18 18:59 06:59 18:59 Intake Total 300 400 Balance 300 400 Weight (lbs) 70.307 kg 70.307 kg Intake: Oral 300 400 Other: # Voids 4 # Bowel Movements 1 Weight Source Bedscale Bedscale Active Medications: Current Medications Acetaminophen (Tylenol) 650 mg PO Q4HR PRN PRN Reason: moderate to severe pain Stop: 08/20/18 18:47 Last Admin: 06/24/18 00:50 Dose: 650 mg Al Hydrox/Mg Hydrox/Simethicone (Maalox) 30 ml PO Q4HR PRN PRN Reason: GI DISTRESS Stop: 08/20/18 18:47 Cholecalciferol (Vitamin D3) 1,000 iu PO BID [facility] Stop: 08/21/18 08:59 Last Admin: 06/27/18 08:36 Dose: 1,000 iu Clonazepam (Klonopin) 1 mg PO BID [facility]; Protocol Stop: 08/21/18 08:59 Last Admin: 06/27/18 08:35 Dose: 1 mg Dexamethasone Sodium Phosphate (Decadron) 4 mg IVP Q6HR ELISABET Stop: 08/24/18 11:59 Last Admin: 06/27/18 05:12 Dose: Not Given Divalproex Sodium (Depakote Dr) 500 mg PO DAILY [facility]; Protocol Stop: 08/21/18 08:59 Last Admin: 06/27/18 08:36 Dose: 500 mg Divalproex Sodium (Depakote Dr) 750 mg PO HS [facility]; Protocol Stop: 08/20/18 21:59 Last Admin: 06/26/18 22:20 Dose: 750 mg Docusate Sodium (Colace) 100 mg PO DAILY [facility] Stop: 08/21/18 08:59 Last Admin: 06/27/18 08:36 Dose: 100 mg Ferrous Sulfate (Iron) 325 mg PO DAILY [facility] Stop: 08/21/18 08:59 Last Admin: 06/27/18 08:36 Dose: 325 mg Furosemide (Lasix) 40 mg PO DAILY [facility] Stop: 08/21/18 08:59 Last Admin: 06/27/18 08:37 Dose: Not Given Lactobacillus Rhamnosus (Culturelle 15b) 1 each PO DAILY [facility] Stop: 08/21/18 08:59 Last Admin: 06/27/18 08:36 Dose: 1 each Magnesium Hydroxide (Milk Of Magnesia) 30 ml PO HS PRN PRN Reason: Constipation Stop: 08/20/18 18:47 Memantine (Namenda) 10 mg PO BID [facility] Stop: 08/21/18 08:59 Last Admin: 06/27/18 08:35 Dose: 10 mg Miscellaneous (Vte Chemical Prophylaxis Screen/ Admission) 1 ea [facility] PRN PRN PRN Reason: PROTOCOL Stop: 08/21/18 09:54 Multivitamins/Vitamin C (Theragran) 1 tab PO DAILY [facility] Stop: 08/21/18 08:59 Last Admin: 06/27/18 08:36 Dose: 1 tab Polyethylene Glycol (Miralax) 17 gm PO DAILY [facility] Stop: 08/23/18 08:59 Last Admin: 06/27/18 08:37 Dose: Not Given Quetiapine Fumarate (Seroquel) 400 mg PO BID [facility]; Protocol Stop: 08/21/18 08:59 Last Admin: 06/27/18 08:36 Dose: 400 mg Risperidone (Risperdal) 3 mg PO BID [facility]; Protocol Stop: 08/21/18 08:59 Last Admin: 06/27/18 08:35 Dose: 3 mg Valsartan (Diovan) 80 mg PO DAILY [facility] Stop: 08/21/18 08:59 Last Admin: 06/27/18 08:37 Dose: Not Given General: Alert HEENT: Atraumatic, PERRLA Neck: Supple, JVD Cardiovascular: Regular rate Lungs: Clear to auscultation Abdomen: Bowel sounds, Soft, Distended, Mass, no Tender, no Guarding - Procedures Procedures: Procedures Procedure Code Date EXCISION OF FINGER NAIL, EXTERNAL APPROACH [id number] 03/15/17 Assessment/Plan - Assessment Assessment: Multiple lesions in the liver, retroperitoneal lymphadenopathy, osseous lesions and brain disease, most suggestive of metastatic malignancy. The patient has psych disorder and the management will be discussed with the conservator. Initially, I will start the patient on Decadron because of the brain lesion and mass effect. The patient is followed by the neurologist at this point in time. Obtaining biopsy for pathology diagnosis from the liver lesion will be discussed with the conservator. 06/27: ambulatory. will discuss with conservator liver biopsy and plans of care. continue decadron and taper dose. Nutritional Asmnt/Malnutr-PDOC - Dietary Evaluation Malnutrition Findings (Please click <Entered> for more info): Nutritional Asmnt/Malnutrition Start: 06/25/18 17: 58 Text: Status: Complete Freq: Protocol: Document 06/25/18 17:59 LCJOHN (Rec: 06/25/18 18:20 LCJOHN [email or web address]) Nutritional Asmnt/Malnutrition Patient General Information Nutritional Screening Moderate Risk Diagnosis altered mental status anemia Pertinent Medical Hx/Surgical Hx HTN, arthritis, nicotine dependence, anemia, schizophrenia, alzheimer's dementia Subjective Information Pt seen sitting on bed, stated decreased appetite, ate a little bit at lunch. Pt is somewhat confused, not able to provide more nutrition infomation. Per EMR, PO itnake 50-100%. Current Diet Order/ Nutrition Support soft VANNESA Pertinent Medications Vit D3, colace, iron, lasix, culturelle, theragran, miralax , seroquel, risperdal Pertinent Labs 06/25 WNL Nutritional Hx/Data Height 1.8 m Height (Calculated Centimeters) 180.3 Current Weight (lbs) 70.307 kg Weight (Calculated Kilograms) 70.3 Weight (Calculated Grams) 78537.8 [place] Body Weight 172 Body Mass Index (BMI) 21.6 Weight Status Overweight GI Symptoms GI Symptoms None Last BM 06/24 Difficult in: None Skin Integrity/Comment: intact Current %PO Good (75-100%) Estimated Nutritional Goals BEE in Kcals: Using Current wt Calories/Kcals/Kg 25-30 Kcals Calculated 7925-3977 Protein: Using Current wt Protein g/k Protein Calculated 70 Fluid: ml 1750-2100ml (1ml/kcal) Nutritional Problem No current Nutrition Prob Problem n/A Malnutrition Alert Is there a minimum of two criteria No selected? Query Text:Check all the applicable criteria. A minimum of two criteria are recommended for diagnosis of either severe or non-severe malnutrition. Malnutrition Related to Morbid Obesity Malnutrition related to morbid obesity No Intervention/Recommendation Comments 1. Continue with soft VANNESA diet as ordered. 2. Monitor PO intake, wt, labs and skin integrity 3. F/U as moderate risk in 3-5 days Expected Outcomes/Goals Expected Outcomes/Goals 1. PO intake to meet at least 75% of nutritional needs. 2. Wt stability, skin to remain intact, labs to approach WNL.
--- NOTE | 2018-06-27 12:08 | Internal Medicine Prog Note ---
Internal Medicine Subjective - Subjective Service Date: 06/26/18 Patient seen and examined:: with staff Patient is:: awake, verbal, interactive, in bed, other (psych disorder.) Per staff patient has:: no adverse event, no episodes of fall Internal Medicine Objective - Results Result Diagrams: 06/25/18 05:38 06/25/18 05:38 Recent Labs: Laboratory Last Values WBC 4.1 Th/cmm (4.8-10.8) L 06/25/18 05:38 RBC 3.09 Mil/cmm (3.80-5.80) L 06/25/18 05:38 Hgb 9.6 gm/dL (12-16) L 06/25/18 05:38 Hct 29.0 % (41.0-60) L 06/25/18 05:38 MCV 94.0 fl (80-99) 06/25/18 05:38 MCH 31.1 pg (27.0-31.0) H 06/25/18 05:38 MCHC Differential 33.1 pg (28.0-36.0) 06/25/18 05:38 RDW 15.0 % (11.5-20.0) 06/25/18 05:38 Plt Count 116 Th/cmm (150-400) L 06/25/18 05:38 MPV 10.5 fl 06/25/18 05:38 Add Manual Diff YES 06/25/18 05:38 Band Neutrophils % 2 % (0-10) 06/25/18 05:38 Neutrophils (Manual) 65 % (40-80) 06/25/18 05:38 Lymphocytes 22 % (20-50) 06/25/18 05:38 Monocytes 11 % (2-10) H 06/25/18 05:38 Eosinophils 1 % (0-5) 06/22/18 05:40 Basophils 0 % (0-3) 06/22/18 05:40 Sodium 141 mEq/L (136-145) 06/25/18 05:38 Potassium 4.0 mEq/L (3.5-5.1) 06/25/18 05:38 Chloride 106 mEq/L (98-107) 06/25/18 05:38 Carbon Dioxide 27.5 mEq/L (21.0-31.0) 06/25/18 05:38 Anion Gap 11.5 (7.0-16.0) 06/25/18 05:38 BUN 23 mg/dL (7-25) 06/25/18 05:38 Creatinine 1.2 mg/dL (0.7-1.3) 06/25/18 05:38 Est GFR ( Amer) > 60.0 ml/min (>90) 06/25/18 05:38 Est GFR (Non-Af Amer) > 60.0 ml/min 06/25/18 05:38 BUN/Creatinine Ratio 19.2 06/25/18 05:38 Glucose 80 mg/dL (70-105) 06/25/18 05:38 POC Glucose 128 MG/DL (70 - 105) H 06/21/18 18:34 Calcium 10.3 mg/dL (8.6-10.3) 06/25/18 05:38 Magnesium 1.9 mg/dL (1.9-2.7) 06/22/18 05:40 Total Bilirubin 0.2 mg/dL (0.3-1.0) L 06/22/18 05:40 Direct Bilirubin 0.09 mg/dL (0.0-0.2) 06/21/18 13:48 AST 12 U/L (13-39) L 06/22/18 05:40 ALT 7 U/L (7-52) 06/22/18 05:40 Alkaline Phosphatase 69 U/L (34-104) 06/22/18 05:40 Ammonia 77 umol/L (16-53) H 06/22/18 10:45 Total Protein 6.7 gm/dL (6.0-8.3) 06/22/18 05:40 Albumin 3.0 gm/dL (4.2-5.5) L 06/22/18 05:40 Globulin 3.7 gm/dL 06/22/18 05:40 Albumin/Globulin Ratio 0.8 (1.0-1.8) L 06/22/18 05:40 Triglycerides 40 mg/dL (<150) 06/22/18 05:40 Cholesterol 104 mg/dL (<200) 06/22/18 05:40 LDL Cholesterol Direct 65 mg/dL (75-193) L 06/22/18 05:40 HDL Cholesterol 34 mg/dL (23-92) 06/22/18 05:40 Tumor Marker AFP 3.9 ng/mL (0.0-8.3) 06/24/18 15:26 Carcinoembryonic Ag 130.4 ng/mL (0.0-4.7) H 06/24/18 15:26 CA 19-9 Antigen 1 U/mL (0-35) 06/24/18 15:26 Whole Bld Vitamin B1 DELVER nmol/L (66.5-200.0) 06/22/18 10:45 Folic Acid 11.8 ng/mL (>3.0) 06/22/18 05:40 Urine Source RANDOM 06/21/18 15:00 Urine Color STRAW 06/21/18 15:00 Urine Clarity CLEAR (CLEAR) 06/21/18 15:00 Urine pH 6.0 (4.6 - 8.0) 06/21/18 15:00 Ur Specific [place] 1.015 (1.005-1.030) 06/21/18 15:00 Urine Protein NEGATIVE mg/dL (NEGATIVE) 06/21/18 15:00 Urine Glucose (UA) NEGATIVE mg/dL (NEGATIVE) 06/21/18 15:00 Urine Ketones NEGATIVE mg/dL (NEGATIVE) 06/21/18 15:00 Urine Blood TRACE (NEGATIVE) 06/21/18 15:00 Urine Nitrate NEGATIVE (NEGATIVE) 06/21/18 15:00 Urine Bilirubin NEGATIVE (NEGATIVE) 06/21/18 15:00 Urine Urobilinogen 0.2 E.U./dL (0.2 - 1.0) 06/21/18 15:00 Ur Leukocyte Esterase NEGATIVE (NEGATIVE) 06/21/18 15:00 Urine RBC 0-2 /hpf (0-5) H 06/21/18 15:00 Urine WBC NONE SEEN /hpf (0-5) 06/21/18 15:00 Ur Epithelial Cells NONE SEEN /lpf (FEW) 06/21/18 15:00 Urine Bacteria NONE SEEN /hpf (NONE SEEN) 06/21/18 15:00 - Physical Exam Vitals and I&O: Vital Signs Temp 99.3 F 06/27/18 08:00 Pulse 70 06/27/18 08:37 Resp 19 06/27/18 08:00 BP 107/66 06/27/18 08:37 Pulse Ox 96 06/27/18 08:00 Intake & Output 06/26/18 06/27/18 06/27/18 18:59 06:59 18:59 Intake Total 300 400 Balance 300 400 Weight (lbs) 70.307 kg 70.307 kg Intake: Oral 300 400 Other: # Voids 4 # Bowel Movements 1 Weight Source Bedscale Bedscale Active Medications: Current Medications Acetaminophen (Tylenol) 650 mg PO Q4HR PRN PRN Reason: moderate to severe pain Stop: 08/20/18 18:47 Last Admin: 06/24/18 00:50 Dose: 650 mg Al Hydrox/Mg Hydrox/Simethicone (Maalox) 30 ml PO Q4HR PRN PRN Reason: GI DISTRESS Stop: 08/20/18 18:47 Cholecalciferol (Vitamin D3) 1,000 iu PO BID [facility] Stop: 08/21/18 08:59 Last Admin: 06/27/18 08:36 Dose: 1,000 iu Clonazepam (Klonopin) 1 mg PO BID [facility]; Protocol Stop: 08/21/18 08:59 Last Admin: 06/27/18 08:35 Dose: 1 mg Dexamethasone Sodium Phosphate (Decadron) 4 mg IVP Q6HR [facility] Stop: 08/24/18 11:59 Last Admin: 06/27/18 11:06 Dose: 4 mg Divalproex Sodium (Depakote Dr) 500 mg PO DAILY [facility]; Protocol Stop: 08/21/18 08:59 Last Admin: 06/27/18 08:36 Dose: 500 mg Divalproex Sodium (Depakote Dr) 750 mg PO HS [facility]; Protocol Stop: 08/20/18 21:59 Last Admin: 06/26/18 22:20 Dose: 750 mg Docusate Sodium (Colace) 100 mg PO DAILY [facility] Stop: 08/21/18 08:59 Last Admin: 06/27/18 08:36 Dose: 100 mg Ferrous Sulfate (Iron) 325 mg PO DAILY [facility] Stop: 08/21/18 08:59 Last Admin: 06/27/18 08:36 Dose: 325 mg Furosemide (Lasix) 40 mg PO DAILY [facility] Stop: 08/21/18 08:59 Last Admin: 06/27/18 08:37 Dose: Not Given Lactobacillus Rhamnosus (Culturelle 15b) 1 each PO DAILY [facility] Stop: 08/21/18 08:59 Last Admin: 06/27/18 08:36 Dose: 1 each Magnesium Hydroxide (Milk Of Magnesia) 30 ml PO HS PRN PRN Reason: Constipation Stop: 08/20/18 18:47 Memantine (Namenda) 10 mg PO BID [facility] Stop: 08/21/18 08:59 Last Admin: 06/27/18 08:35 Dose: 10 mg Miscellaneous (Vte Chemical Prophylaxis Screen/ Admission) 1 ea [facility] PRN PRN PRN Reason: PROTOCOL Stop: 08/21/18 09:54 Multivitamins/Vitamin C (Theragran) 1 tab PO DAILY [facility] Stop: 08/21/18 08:59 Last Admin: 06/27/18 08:36 Dose: 1 tab Polyethylene Glycol (Miralax) 17 gm PO DAILY [facility] Stop: 08/23/18 08:59 Last Admin: 06/27/18 08:37 Dose: Not Given Quetiapine Fumarate (Seroquel) 400 mg PO BID [facility]; Protocol Stop: 08/21/18 08:59 Last Admin: 06/27/18 08:36 Dose: 400 mg Risperidone (Risperdal) 3 mg PO BID [facility]; Protocol Stop: 08/21/18 08:59 Last Admin: 06/27/18 08:35 Dose: 3 mg Valsartan (Diovan) 80 mg PO DAILY [facility] Stop: 08/21/18 08:59 Last Admin: 06/27/18 08:37 Dose: Not Given Physical Exam: Patient is easily arousable, psych disorders. General: weak, other (Hx of schizophrenia.) HEENT: NC/AT Neck: Supple, No JVD Lungs: CTAB, congested Cardiovascular: RRR, Normal S1 Abdomen: soft, non-tender Extremities: clear Neurological: no change - Procedures Procedures: Procedures Procedure Code Date EXCISION OF FINGER NAIL, EXTERNAL APPROACH [id number] 03/15/17 Internal Medicine Assmt/Plan - Assessment Assessment: Anemia. Abdominal pain. Schizophrenia. - Plan Plan: Continuation of care continue present meds as directed fall precaution pain management continuation of present care management. Nutritional Asmnt/Malnutr-PDOC - Dietary Evaluation Malnutrition Findings (Please click <Entered> for more info): Nutritional Asmnt/Malnutrition Start: 06/25/18 17: 58 Text: Status: Complete Freq: Protocol: Document 06/25/18 17:59 HEN (Rec: 06/25/18 18:20 [facility] [email or web address]) Nutritional Asmnt/Malnutrition Patient General Information Nutritional Screening Moderate Risk Diagnosis altered mental status anemia Pertinent Medical Hx/Surgical Hx HTN, arthritis, nicotine dependence, anemia, schizophrenia, alzheimer's dementia Subjective Information Pt seen sitting on bed, stated decreased appetite, ate a little bit at lunch. Pt is somewhat confused, not able to provide more nutrition infomation. Per EMR, PO itnake 50-100%. Current Diet Order/ Nutrition Support soft VANNESA Pertinent Medications Vit D3, colace, iron, lasix, culturelle, theragran, miralax , seroquel, risperdal Pertinent Labs 06/25 WNL Nutritional Hx/Data Height 1.8 m Height (Calculated Centimeters) 180.3 Current Weight (lbs) 70.307 kg Weight (Calculated Kilograms) 70.3 Weight (Calculated Grams) 50994.8 [place] Body Weight 172 Body Mass Index (BMI) 21.6 Weight Status Overweight GI Symptoms GI Symptoms None Last BM 06/24 Difficult in: None Skin Integrity/Comment: intact Current %PO Good (75-100%) Estimated Nutritional Goals BEE in Kcals: Using Current wt Calories/Kcals/Kg 25-30 Kcals Calculated 5140-1278 Protein: Using Current wt Protein g/k Protein Calculated 70 Fluid: ml 1750-2100ml (1ml/kcal) Nutritional Problem No current Nutrition Prob Problem n/A Malnutrition Alert Is there a minimum of two criteria No selected? Query Text:Check all the applicable criteria. A minimum of two criteria are recommended for diagnosis of either severe or non-severe malnutrition. Malnutrition Related to Morbid Obesity Malnutrition related to morbid obesity No Intervention/Recommendation Comments 1. Continue with soft VANNESA diet as ordered. 2. Monitor PO intake, wt, labs and skin integrity 3. F/U as moderate risk in 3-5 days Expected Outcomes/Goals Expected Outcomes/Goals 1. PO intake to meet at least 75% of nutritional needs. 2. Wt stability, skin to remain intact, labs to approach WNL.
--- NOTE | 2018-06-27 14:46 | Internal Medicine Prog Note ---
Internal Medicine Subjective - Subjective Service Date: 06/27/18 Patient is:: awake, verbal, interactive, in bed, other (psych disorder.) Per staff patient has:: no adverse event, no episodes of fall Internal Medicine Objective - Results Result Diagrams: 06/25/18 05:38 06/25/18 05:38 Recent Labs: Laboratory Last Values WBC 4.1 Th/cmm (4.8-10.8) L 06/25/18 05:38 RBC 3.09 Mil/cmm (3.80-5.80) L 06/25/18 05:38 Hgb 9.6 gm/dL (12-16) L 06/25/18 05:38 Hct 29.0 % (41.0-60) L 06/25/18 05:38 MCV 94.0 fl (80-99) 06/25/18 05:38 MCH 31.1 pg (27.0-31.0) H 06/25/18 05:38 MCHC Differential 33.1 pg (28.0-36.0) 06/25/18 05:38 RDW 15.0 % (11.5-20.0) 06/25/18 05:38 Plt Count 116 Th/cmm (150-400) L 06/25/18 05:38 MPV 10.5 fl 06/25/18 05:38 Add Manual Diff YES 06/25/18 05:38 Band Neutrophils % 2 % (0-10) 06/25/18 05:38 Neutrophils (Manual) 65 % (40-80) 06/25/18 05:38 Lymphocytes 22 % (20-50) 06/25/18 05:38 Monocytes 11 % (2-10) H 06/25/18 05:38 Eosinophils 1 % (0-5) 06/22/18 05:40 Basophils 0 % (0-3) 06/22/18 05:40 Sodium 141 mEq/L (136-145) 06/25/18 05:38 Potassium 4.0 mEq/L (3.5-5.1) 06/25/18 05:38 Chloride 106 mEq/L (98-107) 06/25/18 05:38 Carbon Dioxide 27.5 mEq/L (21.0-31.0) 06/25/18 05:38 Anion Gap 11.5 (7.0-16.0) 06/25/18 05:38 BUN 23 mg/dL (7-25) 06/25/18 05:38 Creatinine 1.2 mg/dL (0.7-1.3) 06/25/18 05:38 Est GFR ( Amer) > 60.0 ml/min (>90) 06/25/18 05:38 Est GFR (Non-Af Amer) > 60.0 ml/min 06/25/18 05:38 BUN/Creatinine Ratio 19.2 06/25/18 05:38 Glucose 80 mg/dL (70-105) 06/25/18 05:38 POC Glucose 128 MG/DL (70 - 105) H 06/21/18 18:34 Calcium 10.3 mg/dL (8.6-10.3) 06/25/18 05:38 Magnesium 1.9 mg/dL (1.9-2.7) 06/22/18 05:40 Total Bilirubin 0.2 mg/dL (0.3-1.0) L 06/22/18 05:40 Direct Bilirubin 0.09 mg/dL (0.0-0.2) 06/21/18 13:48 AST 12 U/L (13-39) L 06/22/18 05:40 ALT 7 U/L (7-52) 06/22/18 05:40 Alkaline Phosphatase 69 U/L (34-104) 06/22/18 05:40 Ammonia 77 umol/L (16-53) H 06/22/18 10:45 Total Protein 6.7 gm/dL (6.0-8.3) 06/22/18 05:40 Albumin 3.0 gm/dL (4.2-5.5) L 06/22/18 05:40 Globulin 3.7 gm/dL 06/22/18 05:40 Albumin/Globulin Ratio 0.8 (1.0-1.8) L 06/22/18 05:40 Triglycerides 40 mg/dL (<150) 06/22/18 05:40 Cholesterol 104 mg/dL (<200) 06/22/18 05:40 LDL Cholesterol Direct 65 mg/dL (75-193) L 06/22/18 05:40 HDL Cholesterol 34 mg/dL (23-92) 06/22/18 05:40 Tumor Marker AFP 3.9 ng/mL (0.0-8.3) 06/24/18 15:26 Carcinoembryonic Ag 130.4 ng/mL (0.0-4.7) H 06/24/18 15:26 CA 19-9 Antigen 1 U/mL (0-35) 06/24/18 15:26 Whole Bld Vitamin B1 DELVER nmol/L (66.5-200.0) 06/22/18 10:45 Folic Acid 11.8 ng/mL (>3.0) 06/22/18 05:40 Urine Source RANDOM 06/21/18 15:00 Urine Color STRAW 06/21/18 15:00 Urine Clarity CLEAR (CLEAR) 06/21/18 15:00 Urine pH 6.0 (4.6 - 8.0) 06/21/18 15:00 Ur Specific [place] 1.015 (1.005-1.030) 06/21/18 15:00 Urine Protein NEGATIVE mg/dL (NEGATIVE) 06/21/18 15:00 Urine Glucose (UA) NEGATIVE mg/dL (NEGATIVE) 06/21/18 15:00 Urine Ketones NEGATIVE mg/dL (NEGATIVE) 06/21/18 15:00 Urine Blood TRACE (NEGATIVE) 06/21/18 15:00 Urine Nitrate NEGATIVE (NEGATIVE) 06/21/18 15:00 Urine Bilirubin NEGATIVE (NEGATIVE) 06/21/18 15:00 Urine Urobilinogen 0.2 E.U./dL (0.2 - 1.0) 06/21/18 15:00 Ur Leukocyte Esterase NEGATIVE (NEGATIVE) 06/21/18 15:00 Urine RBC 0-2 /hpf (0-5) H 06/21/18 15:00 Urine WBC NONE SEEN /hpf (0-5) 06/21/18 15:00 Ur Epithelial Cells NONE SEEN /lpf (FEW) 06/21/18 15:00 Urine Bacteria NONE SEEN /hpf (NONE SEEN) 06/21/18 15:00 - Physical Exam Vitals and I&O: Vital Signs Temp 99.1 F 06/27/18 12:00 Pulse 75 06/27/18 12:00 Resp 19 06/27/18 12:00 BP 135/68 06/27/18 12:00 Pulse Ox 97 06/27/18 12:00 Intake & Output 0406/27/18 06/27/18 18:59 06:59 18:59 Intake Total 300 400 Balance 300 400 Weight (lbs) 155 lb 155 lb Intake: Oral 300 400 Other: # Voids 4 # Bowel Movements 1 Weight Source Bedscale Bedscale Active Medications: Current Medications Acetaminophen (Tylenol) 650 mg PO Q4HR PRN PRN Reason: moderate to severe pain Stop: 08/20/18 18:47 Last Admin: 06/24/18 00:50 Dose: 650 mg Al Hydrox/Mg Hydrox/Simethicone (Maalox) 30 ml PO Q4HR PRN PRN Reason: GI DISTRESS Stop: 08/20/18 18:47 Cholecalciferol (Vitamin D3) 1,000 iu PO BID [facility] Stop: 08/21/18 08:59 Last Admin: 06/27/18 08:36 Dose: 1,000 iu Clonazepam (Klonopin) 1 mg PO BID [facility]; Protocol Stop: 08/21/18 08:59 Last Admin: 06/27/18 08:35 Dose: 1 mg Dexamethasone Sodium Phosphate (Decadron) 4 mg IVP Q6HR [facility] Stop: 08/24/18 11:59 Last Admin: 06/27/18 11:06 Dose: 4 mg Divalproex Sodium (Depakote Dr) 500 mg PO DAILY [facility]; Protocol Stop: 08/21/18 08:59 Last Admin: 06/27/18 08:36 Dose: 500 mg Divalproex Sodium (Depakote Dr) 750 mg PO HS [facility]; Protocol Stop: 08/20/18 21:59 Last Admin: 06/26/18 22:20 Dose: 750 mg Docusate Sodium (Colace) 100 mg PO DAILY [facility] Stop: 08/21/18 08:59 Last Admin: 06/27/18 08:36 Dose: 100 mg Ferrous Sulfate (Iron) 325 mg PO DAILY [facility] Stop: 08/21/18 08:59 Last Admin: 06/27/18 08:36 Dose: 325 mg Furosemide (Lasix) 40 mg PO DAILY [facility] Stop: 08/21/18 08:59 Last Admin: 06/27/18 08:37 Dose: Not Given Lactobacillus Rhamnosus (Culturelle 15b) 1 each PO DAILY [facility] Stop: 08/21/18 08:59 Last Admin: 06/27/18 08:36 Dose: 1 each Magnesium Hydroxide (Milk Of Magnesia) 30 ml PO HS PRN PRN Reason: Constipation Stop: 08/20/18 18:47 Memantine (Namenda) 10 mg PO BID [facility] Stop: 08/21/18 08:59 Last Admin: 06/27/18 08:35 Dose: 10 mg Miscellaneous (Vte Chemical Prophylaxis Screen/ Admission) 1 [facility] PRN PRN PRN Reason: PROTOCOL Stop: 08/21/18 09:54 Multivitamins/Vitamin C (Theragran) 1 tab PO DAILY [facility] Stop: 08/21/18 08:59 Last Admin: 06/27/18 08:36 Dose: 1 tab Polyethylene Glycol (Miralax) 17 gm PO DAILY [facility] Stop: 08/23/18 08:59 Last Admin: 06/27/18 08:37 Dose: Not Given Quetiapine Fumarate (Seroquel) 400 mg PO BID [facility]; Protocol Stop: 08/21/18 08:59 Last Admin: 06/27/18 08:36 Dose: 400 mg Risperidone (Risperdal) 3 mg PO BID [facility]; Protocol Stop: 08/21/18 08:59 Last Admin: 06/27/18 08:35 Dose: 3 mg Valsartan (Diovan) 80 mg PO DAILY [facility] Stop: 08/21/18 08:59 Last Admin: 06/27/18 08:37 Dose: Not Given General: weak, other (Hx of schizophrenia.) HEENT: NC/AT Neck: Supple, No JVD Lungs: CTAB, congested Cardiovascular: RRR, Normal S1 Abdomen: soft, non-tender Extremities: clear Neurological: no change - Procedures Procedures: Procedures Procedure Code Date EXCISION OF FINGER NAIL, EXTERNAL APPROACH [id number] 03/15/17 Internal Medicine Assmt/Plan - Assessment Assessment: Bilateral flank pain, generalized weakness, anemia, dementia, and hypertension. - Plan Plan: fall precautions am labs Nutritional Asmnt/Malnutr-PDOC - Dietary Evaluation Malnutrition Findings (Please click <Entered> for more info): Nutritional Asmnt/Malnutrition Start: 06/25/18 17: 58 Text: Status: Complete Freq: Protocol: Document 06/25/18 17:59 JOHANNAG (Rec: 06/25/18 18:20 LAUREN [email or web address]) Nutritional Asmnt/Malnutrition Patient General Information Nutritional Screening Moderate Risk Diagnosis altered mental status anemia Pertinent Medical Hx/Surgical Hx HTN, arthritis, nicotine dependence, anemia, schizophrenia, alzheimer's dementia Subjective Information Pt seen sitting on bed, stated decreased appetite, ate a little bit at lunch. Pt is somewhat confused, not able to provide more nutrition infomation. Per EMR, PO itnake 50-100%. Current Diet Order/ Nutrition Support soft VANNESA Pertinent Medications Vit D3, colace, iron, lasix, culturelle, theragran, miralax , seroquel, risperdal Pertinent Labs 06/25 WNL Nutritional Hx/Data Height 5 ft 11 in Height (Calculated Centimeters) 180.3 Current Weight (lbs) 155 lb Weight (Calculated Kilograms) 70.3 Weight (Calculated Grams) 90998.8 [place] Body Weight 172 Body Mass Index (BMI) 21.6 Weight Status Overweight GI Symptoms GI Symptoms None Last BM 06/24 Difficult in: None Skin Integrity/Comment: intact Current %PO Good (75-100%) Estimated Nutritional Goals BEE in Kcals: Using Current wt Calories/Kcals/Kg 25-30 Kcals Calculated 6359-0123 Protein: Using Current wt Protein g/k Protein Calculated 70 Fluid: ml 1750-2100ml (1ml/kcal) Nutritional Problem No current Nutrition Prob Problem n/A Malnutrition Alert Is there a minimum of two criteria No selected? Query Text:Check all the applicable criteria. A minimum of two criteria are recommended for diagnosis of either severe or non-severe malnutrition. Malnutrition Related to Morbid Obesity Malnutrition related to morbid obesity No Intervention/Recommendation Comments 1. Continue with soft VANNESA diet as ordered. 2. Monitor PO intake, wt, labs and skin integrity 3. F/U as moderate risk in 3-5 days Expected Outcomes/Goals Expected Outcomes/Goals 1. PO intake to meet at least 75% of nutritional needs. 2. Wt stability, skin to remain intact, labs to approach WNL.
[2018-06-28] MEDS: Dexamethasone Sodium Phos 4 mg/mL Vial IVP SCH ×2 (06:12→11:44)
[2018-06-28] MEDS: Multivitamin Tab PO SCH (08:53)
[2018-06-28] MEDS: Lactobacillus Rhamnosus GG 15 Billion CFU CAP.SPRINK PO SCH (08:53)
[2018-06-28] MEDS: Ferrous Sulfate 325 MG TAB PO SCH (08:54)
[2018-06-28] MEDS: POLYETHYLENE GLYCOL 3350 17 GM PACK PO SCH (08:54)
--- NOTE | 2018-06-28 10:05 | GI Progress Note ---
Subjective - Review of Systems Service Date: 06/28/18 Subjective: Nothing overnight Objective - Results Result Diagrams: 06/25/18 05:38 06/25/18 05:38 Recent Labs: Laboratory Last Values WBC 4.1 Th/cmm (4.8-10.8) L 06/25/18 05:38 RBC 3.09 Mil/cmm (3.80-5.80) L 06/25/18 05:38 Hgb 9.6 gm/dL (12-16) L 06/25/18 05:38 Hct 29.0 % (41.0-60) L 06/25/18 05:38 MCV 94.0 fl (80-99) 06/25/18 05:38 MCH 31.1 pg (27.0-31.0) H 06/25/18 05:38 MCHC Differential 33.1 pg (28.0-36.0) 06/25/18 05:38 RDW 15.0 % (11.5-20.0) 06/25/18 05:38 Plt Count 116 Th/cmm (150-400) L 06/25/18 05:38 MPV 10.5 fl 06/25/18 05:38 Add Manual Diff YES 06/25/18 05:38 Band Neutrophils % 2 % (0-10) 06/25/18 05:38 Neutrophils (Manual) 65 % (40-80) 06/25/18 05:38 Lymphocytes 22 % (20-50) 06/25/18 05:38 Monocytes 11 % (2-10) H 06/25/18 05:38 Eosinophils 1 % (0-5) 06/22/18 05:40 Basophils 0 % (0-3) 06/22/18 05:40 Sodium 141 mEq/L (136-145) 06/25/18 05:38 Potassium 4.0 mEq/L (3.5-5.1) 06/25/18 05:38 Chloride 106 mEq/L (98-107) 06/25/18 05:38 Carbon Dioxide 27.5 mEq/L (21.0-31.0) 06/25/18 05:38 Anion Gap 11.5 (7.0-16.0) 06/25/18 05:38 BUN 23 mg/dL (7-25) 06/25/18 05:38 Creatinine 1.2 mg/dL (0.7-1.3) 06/25/18 05:38 Est GFR ( Amer) > 60.0 ml/min (>90) 06/25/18 05:38 Est GFR (Non-Af Amer) > 60.0 ml/min 06/25/18 05:38 BUN/Creatinine Ratio 19.2 06/25/18 05:38 Glucose 80 mg/dL (70-105) 06/25/18 05:38 POC Glucose 128 MG/DL (70 - 105) H 06/21/18 18:34 Calcium 10.3 mg/dL (8.6-10.3) 06/25/18 05:38 Magnesium 1.9 mg/dL (1.9-2.7) 06/22/18 05:40 Total Bilirubin 0.2 mg/dL (0.3-1.0) L 06/22/18 05:40 Direct Bilirubin 0.09 mg/dL (0.0-0.2) 06/21/18 13:48 AST 12 U/L (13-39) L 06/22/18 05:40 ALT 7 U/L (7-52) 06/22/18 05:40 Alkaline Phosphatase 69 U/L (34-104) 06/22/18 05:40 Ammonia 77 umol/L (16-53) H 06/22/18 10:45 Total Protein 6.7 gm/dL (6.0-8.3) 06/22/18 05:40 Albumin 3.0 gm/dL (4.2-5.5) L 06/22/18 05:40 Globulin 3.7 gm/dL 06/22/18 05:40 Albumin/Globulin Ratio 0.8 (1.0-1.8) L 06/22/18 05:40 Triglycerides 40 mg/dL (<150) 06/22/18 05:40 Cholesterol 104 mg/dL (<200) 06/22/18 05:40 LDL Cholesterol Direct 65 mg/dL (75-193) L 06/22/18 05:40 HDL Cholesterol 34 mg/dL (23-92) 06/22/18 05:40 Tumor Marker AFP 3.9 ng/mL (0.0-8.3) 06/24/18 15:26 Carcinoembryonic Ag 130.4 ng/mL (0.0-4.7) H 06/24/18 15:26 CA 19-9 Antigen 1 U/mL (0-35) 06/24/18 15:26 Whole Bld Vitamin B1 DELVER nmol/L (66.5-200.0) 06/22/18 10:45 Folic Acid 11.8 ng/mL (>3.0) 06/22/18 05:40 Urine Source RANDOM 06/21/18 15:00 Urine Color STRAW 06/21/18 15:00 Urine Clarity CLEAR (CLEAR) 06/21/18 15:00 Urine pH 6.0 (4.6 - 8.0) 06/21/18 15:00 Ur Specific [place] 1.015 (1.005-1.030) 06/21/18 15:00 Urine Protein NEGATIVE mg/dL (NEGATIVE) 06/21/18 15:00 Urine Glucose (UA) NEGATIVE mg/dL (NEGATIVE) 06/21/18 15:00 Urine Ketones NEGATIVE mg/dL (NEGATIVE) 06/21/18 15:00 Urine Blood TRACE (NEGATIVE) 06/21/18 15:00 Urine Nitrate NEGATIVE (NEGATIVE) 06/21/18 15:00 Urine Bilirubin NEGATIVE (NEGATIVE) 06/21/18 15:00 Urine Urobilinogen 0.2 E.U./dL (0.2 - 1.0) 06/21/18 15:00 Ur Leukocyte Esterase NEGATIVE (NEGATIVE) 06/21/18 15:00 Urine RBC 0-2 /hpf (0-5) H 06/21/18 15:00 Urine WBC NONE SEEN /hpf (0-5) 06/21/18 15:00 Ur Epithelial Cells NONE SEEN /lpf (FEW) 06/21/18 15:00 Urine Bacteria NONE SEEN /hpf (NONE SEEN) 06/21/18 15:00 - Physical Exam Vitals and I&O: Vital Signs Temp 98.1 F 06/28/18 08:00 Pulse 75 06/28/18 08:54 Resp 18 06/28/18 08:00 BP 123/79 06/28/18 08:54 Pulse Ox 98 06/28/18 08:00 Intake & Output 06/27/18 06/28/18 06/28/18 18:59 06:59 18:59 Intake Total 500 400 Balance 500 400 Weight (lbs) 70.307 kg 83.733 kg Intake: Oral 500 400 Other: # Voids 3 3 # Bowel Movements 1 2 Weight Source Bedscale Bedscale Active Medications: Current Medications Acetaminophen (Tylenol) 650 mg PO Q4HR PRN PRN Reason: moderate to severe pain Stop: 08/20/18 18:47 Last Admin: 06/24/18 00:50 Dose: 650 mg Al Hydrox/Mg Hydrox/Simethicone (Maalox) 30 ml PO Q4HR PRN PRN Reason: GI DISTRESS Stop: 08/20/18 18:47 Cholecalciferol (Vitamin D3) 1,000 iu PO BID [facility] Stop: 08/21/18 08:59 Last Admin: 06/28/18 08:52 Dose: 1,000 iu Clonazepam (Klonopin) 1 mg PO BID [facility]; Protocol Stop: 08/21/18 08:59 Last Admin: 06/28/18 08:53 Dose: 1 mg Dexamethasone Sodium Phosphate (Decadron) 4 mg IVP Q6HR [facility] Stop: 08/24/18 11:59 Last Admin: 06/28/18 06:12 Dose: 4 mg Divalproex Sodium (Depakote Dr) 500 mg PO DAILY [facility]; Protocol Stop: 08/21/18 08:59 Last Admin: 06/28/18 08:53 Dose: 500 mg Divalproex Sodium (Depakote Dr) 750 mg PO HS [facility]; Protocol Stop: 08/20/18 21:59 Last Admin: 06/27/18 21:45 Dose: 750 mg Docusate Sodium (Colace) 100 mg PO DAILY [facility] Stop: 08/21/18 08:59 Last Admin: 06/28/18 08:53 Dose: 100 mg Ferrous Sulfate (Iron) 325 mg PO DAILY [facility] Stop: 08/21/18 08:59 Last Admin: 06/28/18 08:54 Dose: 325 mg Furosemide (Lasix) 40 mg PO DAILY [facility] Stop: 08/21/18 08:59 Last Admin: 06/28/18 08:53 Dose: 40 mg Lactobacillus Rhamnosus (Culturelle 15b) 1 each PO DAILY [facility] Stop: 08/21/18 08:59 Last Admin: 06/28/18 08:53 Dose: 1 each Magnesium Hydroxide (Milk Of Magnesia) 30 ml PO HS PRN PRN Reason: Constipation Stop: 08/20/18 18:47 Memantine (Namenda) 10 mg PO BID [facility] Stop: 08/21/18 08:59 Last Admin: 06/28/18 08:53 Dose: 10 mg Miscellaneous (Vte Chemical Prophylaxis Screen/ Admission) 1 [facility] PRN PRN PRN Reason: PROTOCOL Stop: 08/21/18 09:54 Multivitamins/Vitamin C (Theragran) 1 tab PO DAILY [facility] Stop: 08/21/18 08:59 Last Admin: 06/28/18 08:53 Dose: 1 tab Polyethylene Glycol (Miralax) 17 gm PO DAILY [facility] Stop: 08/23/18 08:59 Last Admin: 06/28/18 08:54 Dose: 17 gm Quetiapine Fumarate (Seroquel) 400 mg PO BID [facility]; Protocol Stop: 08/21/18 08:59 Last Admin: 06/28/18 08:52 Dose: 400 mg Risperidone (Risperdal) 3 mg PO BID [facility]; Protocol Stop: 08/21/18 08:59 Last Admin: 06/28/18 08:53 Dose: 3 mg Valsartan (Diovan) 80 mg PO DAILY [facility] Stop: 08/21/18 08:59 Last Admin: 06/28/18 08:54 Dose: 80 mg General: Alert HEENT: Atraumatic, PERRLA Neck: Supple, JVD Cardiovascular: Regular rate Lungs: Clear to auscultation Abdomen: Bowel sounds, Soft, Distended, Mass, no Tender, no Guarding - Procedures Procedures: Procedures Procedure Code Date EXCISION OF FINGER NAIL, EXTERNAL APPROACH [id number] 03/15/17 Assessment/Plan - Assessment Assessment: 1. 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 cachexia 3. failure to thrive Overall, this is concerning for widely metastatic disease. A liver bx may be helpful towards a formal diagnosis, and this is recommended by oncology as well. May be a poor candidate for systemic chemo, and may need to consider palliative options. CEA is elevated, which may mean GI source. Liver biopsy would still be able to diagnose and stage the disease. Plan: -agree with liver bx to obtain diagnosis. If oncology thinks a colonoscopy would be of use, we can do this although would still need conservator consent -oncology evaluation -no plans for endoscopy currently, unless develops any overt symptoms - bowel regimen -wide differentials, check tumor markers GI will follow the result of liver biopsy, please call with any questions
--- NOTE | 2018-06-28 12:06 | General Progress Note ---
Subjective - Review of Systems Service Date: 06/28/18 Objective - Results Result Diagrams: 06/25/18 05:38 06/25/18 05:38 Recent Labs: Laboratory Last Values WBC 4.1 Th/cmm (4.8-10.8) L 06/25/18 05:38 RBC 3.09 Mil/cmm (3.80-5.80) L 06/25/18 05:38 Hgb 9.6 gm/dL (12-16) L 06/25/18 05:38 Hct 29.0 % (41.0-60) L 06/25/18 05:38 MCV 94.0 fl (80-99) 06/25/18 05:38 MCH 31.1 pg (27.0-31.0) H 06/25/18 05:38 MCHC Differential 33.1 pg (28.0-36.0) 06/25/18 05:38 RDW 15.0 % (11.5-20.0) 06/25/18 05:38 Plt Count 116 Th/cmm (150-400) L 06/25/18 05:38 MPV 10.5 fl 06/25/18 05:38 Add Manual Diff YES 06/25/18 05:38 Band Neutrophils % 2 % (0-10) 06/25/18 05:38 Neutrophils (Manual) 65 % (40-80) 06/25/18 05:38 Lymphocytes 22 % (20-50) 06/25/18 05:38 Monocytes 11 % (2-10) H 06/25/18 05:38 Eosinophils 1 % (0-5) 06/22/18 05:40 Basophils 0 % (0-3) 06/22/18 05:40 Sodium 141 mEq/L (136-145) 06/25/18 05:38 Potassium 4.0 mEq/L (3.5-5.1) 06/25/18 05:38 Chloride 106 mEq/L (98-107) 06/25/18 05:38 Carbon Dioxide 27.5 mEq/L (21.0-31.0) 06/25/18 05:38 Anion Gap 11.5 (7.0-16.0) 06/25/18 05:38 BUN 23 mg/dL (7-25) 06/25/18 05:38 Creatinine 1.2 mg/dL (0.7-1.3) 06/25/18 05:38 Est GFR ( Amer) > 60.0 ml/min (>90) 06/25/18 05:38 Est GFR (Non-Af Amer) > 60.0 ml/min 06/25/18 05:38 BUN/Creatinine Ratio 19.2 06/25/18 05:38 Glucose 80 mg/dL (70-105) 06/25/18 05:38 POC Glucose 128 MG/DL (70 - 105) H 06/21/18 18:34 Calcium 10.3 mg/dL (8.6-10.3) 06/25/18 05:38 Magnesium 1.9 mg/dL (1.9-2.7) 06/22/18 05:40 Total Bilirubin 0.2 mg/dL (0.3-1.0) L 06/22/18 05:40 Direct Bilirubin 0.09 mg/dL (0.0-0.2) 06/21/18 13:48 AST 12 U/L (13-39) L 06/22/18 05:40 ALT 7 U/L (7-52) 06/22/18 05:40 Alkaline Phosphatase 69 U/L (34-104) 06/22/18 05:40 Ammonia 77 umol/L (16-53) H 06/22/18 10:45 Total Protein 6.7 gm/dL (6.0-8.3) 06/22/18 05:40 Albumin 3.0 gm/dL (4.2-5.5) L 06/22/18 05:40 Globulin 3.7 gm/dL 06/22/18 05:40 Albumin/Globulin Ratio 0.8 (1.0-1.8) L 06/22/18 05:40 Triglycerides 40 mg/dL (<150) 06/22/18 05:40 Cholesterol 104 mg/dL (<200) 06/22/18 05:40 LDL Cholesterol Direct 65 mg/dL (75-193) L 06/22/18 05:40 HDL Cholesterol 34 mg/dL (23-92) 06/22/18 05:40 Tumor Marker AFP 3.9 ng/mL (0.0-8.3) 06/24/18 15:26 Carcinoembryonic Ag 130.4 ng/mL (0.0-4.7) H 06/24/18 15:26 CA 19-9 Antigen 1 U/mL (0-35) 06/24/18 15:26 Whole Bld Vitamin B1 [place] nmol/L (66.5-200.0) 06/22/18 10:45 Folic Acid 11.8 ng/mL (>3.0) 06/22/18 05:40 Urine Source RANDOM 06/21/18 15:00 Urine Color STRAW 06/21/18 15:00 Urine Clarity CLEAR (CLEAR) 06/21/18 15:00 Urine pH 6.0 (4.6 - 8.0) 06/21/18 15:00 Ur Specific [place] 1.015 (1.005-1.030) 06/21/18 15:00 Urine Protein NEGATIVE mg/dL (NEGATIVE) 06/21/18 15:00 Urine Glucose (UA) NEGATIVE mg/dL (NEGATIVE) 06/21/18 15:00 Urine Ketones NEGATIVE mg/dL (NEGATIVE) 06/21/18 15:00 Urine Blood TRACE (NEGATIVE) 06/21/18 15:00 Urine Nitrate NEGATIVE (NEGATIVE) 06/21/18 15:00 Urine Bilirubin NEGATIVE (NEGATIVE) 06/21/18 15:00 Urine Urobilinogen 0.2 E.U./dL (0.2 - 1.0) 06/21/18 15:00 Ur Leukocyte Esterase NEGATIVE (NEGATIVE) 06/21/18 15:00 Urine RBC 0-2 /hpf (0-5) H 06/21/18 15:00 Urine WBC NONE SEEN /hpf (0-5) 06/21/18 15:00 Ur Epithelial Cells NONE SEEN /lpf (FEW) 06/21/18 15:00 Urine Bacteria NONE SEEN /hpf (NONE SEEN) 06/21/18 15:00 - Physical Exam Vitals and I&O: Vital Signs Temp 98.1 F 06/28/18 08:00 Pulse 75 06/28/18 08:54 Resp 19 06/28/18 08:00 BP 123/79 06/28/18 08:54 Pulse Ox 98 06/28/18 08:00 Intake & Output 06/27/18 06/28/18 06/28/18 18:59 06:59 18:59 Intake Total 500 400 Balance 500 400 Weight (lbs) 70.307 kg 83.733 kg Intake: Oral 500 400 Other: # Voids 3 3 # Bowel Movements 1 2 Weight Source Bedscale Bedscale Active Medications: Current Medications Acetaminophen (Tylenol) 650 mg PO Q4HR PRN PRN Reason: moderate to severe pain Stop: 08/20/18 18:47 Last Admin: 06/24/18 00:50 Dose: 650 mg Al Hydrox/Mg Hydrox/Simethicone (Maalox) 30 ml PO Q4HR PRN PRN Reason: GI DISTRESS Stop: 08/20/18 18:47 Cholecalciferol (Vitamin D3) 1,000 iu PO BID [facility] Stop: 08/21/18 08:59 Last Admin: 06/28/18 08:52 Dose: 1,000 iu Clonazepam (Klonopin) 1 mg PO BID [facility]; Protocol Stop: 08/21/18 08:59 Last Admin: 06/28/18 08:53 Dose: 1 mg Dexamethasone Sodium Phosphate (Decadron) 4 mg IVP Q6HR [facility] Stop: 08/24/18 11:59 Last Admin: 06/28/18 11:44 Dose: 4 mg Divalproex Sodium (Depakote Dr) 500 mg PO DAILY [facility]; Protocol Stop: 08/21/18 08:59 Last Admin: 06/28/18 08:53 Dose: 500 mg Divalproex Sodium (Depakote Dr) 750 mg PO HS [facility]; Protocol Stop: 08/20/18 21:59 Last Admin: 06/27/18 21:45 Dose: 750 mg Docusate Sodium (Colace) 100 mg PO DAILY [facility] Stop: 08/21/18 08:59 Last Admin: 06/28/18 08:53 Dose: 100 mg Ferrous Sulfate (Iron) 325 mg PO DAILY [facility] Stop: 08/21/18 08:59 Last Admin: 06/28/18 08:54 Dose: 325 mg Furosemide (Lasix) 40 mg PO DAILY [facility] Stop: 08/21/18 08:59 Last Admin: 06/28/18 08:53 Dose: 40 mg Lactobacillus Rhamnosus (Culturelle 15b) 1 each PO DAILY [facility] Stop: 08/21/18 08:59 Last Admin: 06/28/18 08:53 Dose: 1 each Magnesium Hydroxide (Milk Of Magnesia) 30 ml PO HS PRN PRN Reason: Constipation Stop: 08/20/18 18:47 Memantine (Namenda) 10 mg PO BID [facility] Stop: 08/21/18 08:59 Last Admin: 06/28/18 08:53 Dose: 10 mg Miscellaneous (Vte Chemical Prophylaxis Screen/ Admission) 1 ea [facility] PRN PRN PRN Reason: PROTOCOL Stop: 08/21/18 09:54 Multivitamins/Vitamin C (Theragran) 1 tab PO DAILY [facility] Stop: 08/21/18 08:59 Last Admin: 06/28/18 08:53 Dose: 1 tab Polyethylene Glycol (Miralax) 17 gm PO DAILY [facility] Stop: 08/23/18 08:59 Last Admin: 06/28/18 08:54 Dose: 17 gm Quetiapine Fumarate (Seroquel) 400 mg PO BID [facility]; Protocol Stop: 08/21/18 08:59 Last Admin: 06/28/18 08:52 Dose: 400 mg Risperidone (Risperdal) 3 mg PO BID [facility]; Protocol Stop: 08/21/18 08:59 Last Admin: 06/28/18 08:53 Dose: 3 mg Valsartan (Diovan) 80 mg PO DAILY [facility] Stop: 08/21/18 08:59 Last Admin: 06/28/18 08:54 Dose: 80 mg General: Alert HEENT: Atraumatic, PERRLA Neck: Supple, JVD Cardiovascular: Regular rate Lungs: Clear to auscultation Abdomen: Bowel sounds, Soft, Distended, Mass, no Tender, no Guarding - Procedures Procedures: Procedures Procedure Code Date EXCISION OF FINGER NAIL, EXTERNAL APPROACH [id number] 03/15/17 Assessment/Plan - Assessment Assessment: Multiple lesions in the liver, retroperitoneal lymphadenopathy, osseous lesions and brain disease, most suggestive of metastatic malignancy. The patient has psych disorder and the management will be discussed with the conservator. Initially, I will start the patient on Decadron because of the brain lesion and mass effect. The patient is followed by the neurologist at this point in time. Obtaining biopsy for pathology diagnosis from the liver lesion will be discussed with the conservator. 06/28: ambulatory. conservator consent for liver biopsy as outpatient after legal proceedings followed by plans of care. continue decadron po and taper dose. Nutritional Asmnt/Malnutr-PDOC - Dietary Evaluation Malnutrition Findings (Please click <Entered> for more info): Nutritional Asmnt/Malnutrition Start: 06/25/18 17: 58 Text: Status: Complete Freq: Protocol: Document 06/25/18 17:59 ALIAJOHN (Rec: 06/25/18 18:20 [email or web address] [email or web address]) Nutritional Asmnt/Malnutrition Patient General Information Nutritional Screening Moderate Risk Diagnosis altered mental status anemia Pertinent Medical Hx/Surgical Hx HTN, arthritis, nicotine dependence, anemia, schizophrenia, alzheimer's dementia Subjective Information Pt seen sitting on bed, stated decreased appetite, ate a little bit at lunch. Pt is somewhat confused, not able to provide more nutrition infomation. Per EMR, PO itnake 50-100%. Current Diet Order/ Nutrition Support soft VANNESA Pertinent Medications Vit D3, colace, iron, lasix, culturelle, theragran, miralax , seroquel, risperdal Pertinent Labs 06/25 WNL Nutritional Hx/Data Height 1.8 m Height (Calculated Centimeters) 180.3 Current Weight (lbs) 70.307 kg Weight (Calculated Kilograms) 70.3 Weight (Calculated Grams) 97383.8 [place] Body Weight 172 Body Mass Index (BMI) 21.6 Weight Status Overweight GI Symptoms GI Symptoms None Last BM 06/24 Difficult in: None Skin Integrity/Comment: intact Current %PO Good (75-100%) Estimated Nutritional Goals BEE in Kcals: Using Current wt Calories/Kcals/Kg 25-30 Kcals Calculated 8091-8313 Protein: Using Current wt Protein g/k Protein Calculated 70 Fluid: ml 1750-2100ml (1ml/kcal) Nutritional Problem No current Nutrition Prob Problem n/A Malnutrition Alert Is there a minimum of two criteria No selected? Query Text:Check all the applicable criteria. A minimum of two criteria are recommended for diagnosis of either severe or non-severe malnutrition. Malnutrition Related to Morbid Obesity Malnutrition related to morbid obesity No Intervention/Recommendation Comments 1. Continue with soft VANNESA diet as ordered. 2. Monitor PO intake, wt, labs and skin integrity 3. F/U as moderate risk in 3-5 days Expected Outcomes/Goals Expected Outcomes/Goals 1. PO intake to meet at least 75% of nutritional needs. 2. Wt stability, skin to remain intact, labs to approach WNL.
[2018-06-28] MEDS ORDERED: Dexamethasone Sodium Phos 4 mg/mL Vial PO SCH (19:00)
== END 2018-06-28 19:20 | DRG 435 ==
LOC: ER 13:20 → MSI 17:40
PROVIDERS: ADMIT Internal Medicine; ATTEND Internal Medicine
DX: C78.7 Secondary malignant neoplasm of liver and intrahepatic bile duct (principal); G92 Toxic encephalopathy; R64 Cachexia; N23 Unspecified renal colic; D64.9 Anemia, unspecified; I10 Essential (primary) hypertension
CPT/HCPCS: 36415-UA; 70450-TC; 71045-TC; 80048-TC; 80053-TC; 80061-TC; 80076-TC; 81001-TC; 82105-90; 82140-TC; 82378-90; 82746-90; 82948-90; 83735-TC; 84425-90; 85007-TC; 85025-TC; 86301-90; 93005; J1100; Q9967; Z7610